=== PATIENT | male | born 1950 | race Caucasian/White ===

== ENCOUNTER 2020-06-22 13:18 | Outpatient (REF) | payer MEDICARE, SELFPAY ==
--- NOTE | ~2020-06-22 | XR_ITS ---
EXAMINATION: LUMBAR SPINE AND SACROILIAC JOINTS X-RAY CLINICAL INFORMATION: Low back pain. Sacrococcygeal disorder. COMPARISON: Lumbar spine CT August 2010 TECHNIQUE: 5 views of the lumbar spine including bilateral oblique views and 3 views of the sacroiliac joints FINDINGS: Lumbar spine: There is mild curvature of the lumbar spine to the right. Bone alignment is otherwise normal. There is evidence of multilevel degenerative disc disease, greatest at L4-L5 and L5-S1. There is lower lumbar spine facet arthritis. No pars defect is seen. There is evidence of atherosclerotic disease. Sacrum: There are mild degenerative changes at the sacroiliac joints with some joint space narrowing. No fracture, dislocation or bone lesion is seen. XR/XR sacroiliac joint min 3V IMPRESSION: Lumbar spine: Mild curvature to the right. Multilevel degenerative disc disease and facet arthritis. Sacroiliac joints: Mild degenerative changes of the sacroiliac joints.
--- NOTE | ~2020-06-22 | XR_ITS ---
EXAMINATION: LUMBAR SPINE AND SACROILIAC JOINTS X-RAY CLINICAL INFORMATION: Low back pain. Sacrococcygeal disorder. COMPARISON: Lumbar spine CT August 2010 TECHNIQUE: 5 views of the lumbar spine including bilateral oblique views and 3 views of the sacroiliac joints FINDINGS: Lumbar spine: There is mild curvature of the lumbar spine to the right. Bone alignment is otherwise normal. There is evidence of multilevel degenerative disc disease, greatest at L4-L5 and L5-S1. There is lower lumbar spine facet arthritis. No pars defect is seen. There is evidence of atherosclerotic disease. Sacrum: There are mild degenerative changes at the sacroiliac joints with some joint space narrowing. No fracture, dislocation or bone lesion is seen. XR/XR lumbar spine 4V min IMPRESSION: Lumbar spine: Mild curvature to the right. Multilevel degenerative disc disease and facet arthritis. Sacroiliac joints: Mild degenerative changes of the sacroiliac joints.
== END 2020-06-22 13:19 | disposition home or self-care (01) ==
LOC: HO.HMGCX 13:18
PROVIDERS: PCP Internal Medicine; Visit Provider Internal Medicine
DX: M54.5 Low back pain (principal); M53.3 Sacrococcygeal disorders, not elsewhere classified
CPT/HCPCS: 72110; 72202

== ENCOUNTER 2020-08-03 11:00 | Outpatient (REF) | payer MEDICARE, SELFPAY ==
[2020-08-03 11:30] LABS: MANUAL DIFF FLAG NO
[2020-08-03 11:43] LABS: Basophils Percent Auto 0.6 % (0-2); Eosinophils Absolute Auto 0.2 X10*3/uL (0.0-0.4); Hematocrit 51.4 % (42-52); Hemoglobin 17.1 g/dl (14.0-18.0); Imm Gran Abs Auto 0.02 X10*3/uL (0.00-0.03); Imm Gran Pct Auto 0.3 % (0.0-0.4); Lymphocytes Absolute Auto 1.1 X10*3/uL (1.2-4.9); Lymphocytes Percent Auto 17.1 % (20-40); Mean Corpuscular HGB Conc 33.3 g/dl (31.0-36.0); Mean Corpuscular Hemoglobin 29.4 pg (27.0-33.0); Mean Corpuscular Volume 88.5 fL (80-98); Mean Platelet Volume 10.4 fL (9.4-12.4); Monocytes Absolute Auto 0.6 X10*3/uL (0.1-1.2); Monocytes Percent Auto 9.5 % (2-11); Neutrophils Absolute Auto 4.4 X10*3/uL (2.0-8.3); Neutrophils Percent Auto 69.5 % (45-73); Platelet Count 205 X10*3/uL (160-400); Red Blood Count 5.81 X10*6/uL (4.60-5.80); Red Cell Distribution Width 13.2 % (11.0-16.0); White Blood Count 6.3 X10*3/uL (4.8-10.8)
[2020-08-03 11:54] LABS: Estimated Average Glucose 120 mg/dL; Hemoglobin A1c % 5.8 %
[2020-08-03 12:10] LABS: Glucose Urine UA NEG (NEG); Leukocyte Esterase Urine NEG (NEG); Nitrite Urine NEG (NEG); PH 5.5 (5.0-8.0); Specific Gravity - Urine 1.025 (1.005-1.025); Urine Blood NEG (NEG); Urine Ketones NEG (NEG); Urine Protein NEG (NEG-TRACE)
[2020-08-03 12:18] LABS: Appearance Urine CLEAR; Color Urine YELLOW
[2020-08-03 12:19] LABS: Alanine Aminotransferase 17 U/L (0-40); Albumin Level 4.5 g/dL (3.5-5.0); Alkaline Phosphatase 64 U/L (39-117); Anion Gap 11 (12-20); Aspartate Amino Transferase 18 U/L (5-37); Bilirubin Total 0.9 mg/dL (0.0-1.0); Blood Urea Nitrogen 26 mg/dL (9-16); Calcium 10.1 mg/dL (8.4-10.2); Carbon Dioxide 32 mmol/L (22-29); Chloride 101 mmol/L (96-108); Cholesterol 136 mg/dL; Estimated Glomerular Filt Rate 54; Glucose Fasting 131 mg/dL (60-99); HDL Cholesterol 45 mg/dL; LDL Cholesterol Calculated 62 mg/dl; Sodium 140 mmol/L (135-145); Total Protein 7.2 g/dL (6.5-8.0); Triglycerides 149 mg/dL
[2020-08-03 13:32] LABS: Creatinine Urine 132.08 mg/dL; Microalbumin Urine < 5.0 mg/L
[2020-08-03 13:54] LABS: Prostate Specific Antigen Scr 1.23 ng/mL (<0.05-4.0)
== END 2020-08-03 11:01 | disposition home or self-care (01) ==
LOC: HO.LNP 11:00
PROVIDERS: Visit Provider Internal Medicine
DX: E78.00 Pure hypercholesterolemia, unspecified (principal); R73.09 Other abnormal glucose; I10 Essential (primary) hypertension; D72.810 Lymphocytopenia
CPT/HCPCS: 80053; 80061; 81003; 82043; 83036; 84153; 85025

== ENCOUNTER 2021-01-31 10:22 | Outpatient (REF) | payer MEDICARE, SELFPAY ==
[2021-01-31 11:18] LABS: Estimated Average Glucose 134 mg/dL; Hemoglobin A1c % 6.3 %
[2021-01-31 11:29] LABS: Alanine Aminotransferase 20 U/L (0-40); Albumin Level 4.3 g/dL (3.5-5.0); Alkaline Phosphatase 66 U/L (39-117); Aspartate Amino Transferase 19 U/L (5-37); Bilirubin Direct 0.3 mg/dL (0.0-0.5); Bilirubin Total 0.9 mg/dL (0.0-1.0); Blood Urea Nitrogen 25 mg/dL (9-16); Cholesterol 133 mg/dL; Estimated Glomerular Filt Rate 51; HDL Cholesterol 44 mg/dL; LDL Cholesterol Calculated 65 mg/dl; Triglycerides 122 mg/dL
[2021-01-31 12:14] LABS: Reflex LDLD? No
== END 2021-01-31 10:23 | disposition home or self-care (01) ==
LOC: HO.LNP 10:22
PROVIDERS: Visit Provider Internal Medicine
DX: R79.9 Abnormal finding of blood chemistry, unspecified (principal); E78.00 Pure hypercholesterolemia, unspecified; R73.03 Prediabetes
CPT/HCPCS: 80061; 80076; 82565; 83036; 84520

== ENCOUNTER → 2021-06-11 07:41 | Outpatient (REF) | payer MEDICARE, SELFPAY ==
--- NOTE | 2021-06-11 07:46 | CA_ITS ---
Acquisition Time: 2021-06-11 07:51:52 Total Exercise Time: 00:07:31 Test Indications: CP, SOB Medications: SEE CHART Protocol: JANIS Max HR: 146 BPM 96% of Pred: 151 BPM Max BP: 198/070 mmHG Max Work Load: 9.3 METS Exercise stress test with exercise 7 min 31 sec of Janis protocol, with report of a tightness along the lower rib cage area with mild sob, with isolated PVCs, with hypertensive response to exercise with max BP 198/70, without EKG changes meeting criteria for ischemia.In recovery his symptom gradually improved. Test reviewed with Dr Sparks. Called Dr Sandoval office with above report. Recommended stress echo for further evaluation of his symptom. Referred By: Delmar Sandoval Overread By: NEMO GOLD
== END ==
LOC: HO.CARD 07:41
PROVIDERS: PCP Internal Medicine; Visit Provider Internal Medicine
DX: R07.2 Precordial pain (principal)
CPT/HCPCS: 93017

== ENCOUNTER → 2021-07-03 10:31 | Outpatient (REF) | payer MEDICARE, SELFPAY ==
--- NOTE | 2021-07-03 11:00 | CA_ITS ---
Acquisition Time: 2021-07-03 11:02:52 Total Exercise Time: 00:07:00 Test Indications: cp Medications: see chart Protocol: JANIS Max HR: 150 BPM 99% of Pred: 151 BPM Max BP: 188/060 mmHG Max Work Load: 8.5 METS Exercise stress test with exercise 7 min of Janis protocol, with left lower anterior rib edge discomfort at baseline which did not change with exercise, with mild sob, with isolated PVCs, with normotensive response to exercise with max BP 188/60, without EKG changes meeting criteria for ischemia. Echo images obtained by tech at rest and immediately post peak exercise. Defiinity contrast used. Test reviewed with Dr Sparks. Referred By: Delmar Sandoval Overread By: NEMO GOLD
== END ==
LOC: HO.CARD 10:31
PROVIDERS: PCP Internal Medicine; Visit Provider Internal Medicine
DX: I25.10 Atherosclerotic heart disease of native coronary artery without angina pectoris (principal)
CPT/HCPCS: 93350; Q9957

== ENCOUNTER 2021-08-08 10:41 | Outpatient (REF) | payer MEDICARE, SELFPAY ==
[2021-08-08 10:46] LABS: MANUAL DIFF FLAG NO
[2021-08-08 11:01] LABS: Basophils Absolute Auto 0.1 X10*3/uL (0.0-0.2); Basophils Percent Auto 0.8 % (0-2); Eosinophils Absolute Auto 0.1 X10*3/uL (0.0-0.4); Eosinophils Percent Auto 2.1 % (0-4); Hematocrit 50.4 % (42.0-52.0); Hemoglobin 16.8 g/dl (14.0-18.0); Imm Gran Abs Auto 0.02 X10*3/uL (0.00-0.03); Imm Gran Pct Auto 0.3 % (0.0-0.4); Lymphocytes Absolute Auto 1.1 X10*3/uL (1.2-4.9); Lymphocytes Percent Auto 16.2 % (20-40); Mean Corpuscular HGB Conc 33.3 g/dl (31.0-36.0); Mean Corpuscular Hemoglobin 28.7 pg (27.0-33.0); Mean Platelet Volume 10.1 fL (9.4-12.4); Monocytes Absolute Auto 0.6 X10*3/uL (0.1-1.2); Monocytes Percent Auto 9.3 % (2-11); Neutrophils Absolute Auto 4.7 x10*3/uL (2.0-8.3); Neutrophils Percent Auto 71.3 % (45-73); Platelet Count 192 X10*3/uL (160-400); Red Blood Count 5.86 X10*6/uL (4.60-5.80); Red Cell Distribution Width 12.9 % (11.0-16.0); White Blood Count 6.6 X10*3/uL (4.8-10.8)
[2021-08-08 11:07] LABS: Appearance Urine CLEAR; Color Urine YELLOW; Glucose Urine UA NEG (NEG); Leukocyte Esterase Urine NEG (NEG); Nitrite Urine NEG (NEG); Urine Blood NEG (NEG); Urine Ketones NEG (NEG); Urine Protein NEG (NEG-TRACE)
[2021-08-08 11:11] LABS: Estimated Average Glucose 140 mg/dL; Hemoglobin A1c % 6.5 %
[2021-08-08 11:46] LABS: Alanine Aminotransferase 22 U/L (0-40); Albumin Level 4.3 g/dL (3.5-5.0); Alkaline Phosphatase 71 U/L (39-117); Anion Gap 12 (12-20); Aspartate Amino Transferase 20 U/L (5-37); Bilirubin Total 0.9 mg/dL (0.0-1.0); Blood Urea Nitrogen 23 mg/dL (9-16); Carbon Dioxide 28 mmol/L (22-29); Chloride 101 mmol/L (96-108); Cholesterol 128 mg/dL; Estimated Glomerular Filt Rate 54; Glucose Random 146 mg/dL (60-115); HDL Cholesterol 37 mg/dL; LDL Cholesterol Calculated 63 mg/dl; Sodium 137 mmol/L (135-145); Total Protein 7.2 g/dL (6.5-8.0); Triglycerides 140 mg/dL
[2021-08-08 12:13] LABS: Creatinine Urine 104.65 mg/dL; Microalbumin Urine < 5.0 mg/L
[2021-08-08 18:33] LABS: PSA,Total (Free>4and<10) 1.65 ng/mL (0.00-4.00)
== END 2021-08-08 10:42 | disposition home or self-care (01) ==
LOC: HO.LNP 10:41
PROVIDERS: Visit Provider Internal Medicine
DX: Z12.5 Encounter for screening for malignant neoplasm of prostate (principal); I10 Essential (primary) hypertension; R73.03 Prediabetes; E78.00 Pure hypercholesterolemia, unspecified; D72.810 Lymphocytopenia; E05.20 Thyrotoxicosis with toxic multinodular goiter without thyrotoxic crisis or storm
CPT/HCPCS: 80053; 80061; 81003; 82043; 83036; 84153; 85025

== ENCOUNTER 2021-12-19 10:38 | Outpatient (REF) | payer MEDICARE, SELFPAY ==
[2021-12-19 10:45] LABS: Appearance Urine HAZY; Color Urine YELLOW; Glucose Urine UA 500 MG/DL (NEG); Leukocyte Esterase Urine NEG (NEG); Nitrite Urine POS (NEG); Urine Blood 2+ (NEG); Urine Ketones 5 MG/DL (NEG); Urine Protein 2+ MG/DL (NEG-TRACE)
[2021-12-19 10:53] LABS: Bacteria Urine 1+ /LPF; Mucus Urine 1+ /LPF; Squamous Epithelial Cell Urine TRACE /LPF
== END 2021-12-19 10:39 | disposition home or self-care (01) ==
LOC: HO.LNP 10:38
PROVIDERS: Visit Provider Internal Medicine
DX: R30.0 Dysuria (principal)
CPT/HCPCS: 81001; 87086

== ENCOUNTER 2022-01-02 12:22 | Outpatient (REF) | payer MEDICARE, SELFPAY ==
[2022-01-02 12:31] LABS: Appearance Urine Clear; Color Urine Yellow; Glucose Urine UA >=1000 mg/dL (Negative); Leukocyte Esterase Urine Negative (Negative); Nitrite Urine Negative (Negative); PH 5.5 (5.0-8.0); Urine Blood Negative (Negative); Urine Ketones Negative (Negative); Urine Protein Negative (Neg-Trace)
[2022-01-02 12:33] LABS: Bacteria Urine None Seen (None Seen); Hyaline Casts Urine 0-2 /LPF (0-2); RBC Urine 0-2 /HPF (0-2); Squamous Epithelial Cell Urine 0-2 /HPF (0-2); WBC Urine 0-5 /HPF (0-5)
== END 2022-01-02 12:23 | disposition home or self-care (01) ==
LOC: HO.LNP 12:22
PROVIDERS: Visit Provider Internal Medicine
DX: N40.0 Benign prostatic hyperplasia without lower urinary tract symptoms (principal); R30.0 Dysuria
CPT/HCPCS: 81001; 87086

== ENCOUNTER 2022-01-23 11:05 | Outpatient (REF) | payer MEDICARE, SELFPAY ==
[2022-01-23 11:51] LABS: Appearance Urine Cloudy; Color Urine Yellow; Glucose Urine UA 500 mg/dL (Negative); Leukocyte Esterase Urine Moderate (2+) (Negative); Nitrite Urine Positive (Negative); PH 5.5 (5.0-9.0); Urine Blood Trace (Negative); Urine Ketones Negative (Negative); Urine Protein Negative (Neg-Trace)
[2022-01-23 11:54] LABS: Bacteria Urine 4+ (None Seen); Hyaline Casts Urine 0-2 /LPF (0-2); RBC Urine 0-2 /HPF (0-2); Squamous Epithelial Cell Urine 0-2 /HPF (0-2); UACC Culture Trigger YES; WBC Urine >50 /HPF (0-5)
== END 2022-01-23 11:06 | disposition home or self-care (01) ==
LOC: HO.LAB 11:05
PROVIDERS: PCP Internal Medicine; Visit Provider Internal Medicine
DX: R35.0 Frequency of micturition (principal); N39.0 Urinary tract infection, site not specified
CPT/HCPCS: 81001; 87086; 87088; 87186

== ENCOUNTER 2022-02-13 11:58 | Outpatient (REF) | payer MEDICARE, SELFPAY ==
[2022-02-13 12:19] LABS: Appearance Urine Clear; Color Urine Yellow; Glucose Urine UA Negative (Negative); Leukocyte Esterase Urine Negative (Negative); Nitrite Urine Negative (Negative); PH 5.5 (5.0-9.0); Specific Gravity - Urine 1.015 (1.005-1.025); Urine Blood Negative (Negative); Urine Ketones Negative (Negative); Urine Protein Negative (Neg-Trace)
[2022-02-13 12:36] LABS: Bacteria Urine None Seen (None Seen); Hyaline Casts Urine 0-2 /LPF (0-2); Squamous Epithelial Cell Urine 0-2 /HPF (0-2); WBC Urine 0-5 /HPF (0-5)
== END 2022-02-13 11:59 | disposition home or self-care (01) ==
LOC: HO.LNP 11:58
PROVIDERS: Visit Provider Internal Medicine
DX: N40.0 Benign prostatic hyperplasia without lower urinary tract symptoms (principal); R31.9 Hematuria, unspecified
CPT/HCPCS: 81001; 87086

== ENCOUNTER 2022-02-27 11:35 | Outpatient (REF) | payer MEDICARE, SELFPAY ==
[2022-02-27 11:52] LABS: Appearance Urine Clear; Color Urine Yellow; Glucose Urine UA >=1000 mg/dL (Negative); Leukocyte Esterase Urine Negative (Negative); Nitrite Urine Negative (Negative); UMIC TRIGGER UA YES; Urine Blood Negative (Negative); Urine Ketones Negative (Negative); Urine Protein Negative (Neg-Trace)
[2022-02-27 11:56] LABS: Bacteria Urine None Seen (None Seen); Hyaline Casts Urine 0-2 /LPF (0-2); RBC Urine 0-2 /HPF (0-2); Squamous Epithelial Cell Urine 0-2 /HPF (0-2); WBC Urine 0-5 /HPF (0-5)
== END 2022-02-27 11:36 | disposition home or self-care (01) ==
LOC: HO.LNP 11:35
PROVIDERS: Visit Provider Internal Medicine
DX: N39.0 Urinary tract infection, site not specified (principal)
CPT/HCPCS: 81001; 87086

== ENCOUNTER 2022-03-14 10:32 | Outpatient (REF) | payer MEDICARE, SELFPAY ==
[2022-03-14 11:55] LABS: Appearance Urine Clear; Color Urine Yellow; Glucose Urine UA 100 mg/dL (Negative); Leukocyte Esterase Urine Negative (Negative); Nitrite Urine Negative (Negative); PH 5.5 (5.0-9.0); Specific Gravity - Urine 1.015 (1.005-1.025); Urine Blood Negative (Negative); Urine Ketones Negative (Negative); Urine Protein Negative (Neg-Trace)
[2022-03-14 12:00] LABS: Bacteria Urine None Seen (None Seen); Hyaline Casts Urine 0-2 /LPF (0-2); Squamous Epithelial Cell Urine 0-2 /HPF (0-2); WBC Urine 0-5 /HPF (0-5)
== END 2022-03-14 10:33 | disposition home or self-care (01) ==
LOC: HO.LNP 10:32
PROVIDERS: Visit Provider Internal Medicine
DX: N39.0 Urinary tract infection, site not specified (principal); R35.89 Other polyuria; R31.9 Hematuria, unspecified
CPT/HCPCS: 81001; 87086

== ENCOUNTER 2022-04-07 10:36 | Outpatient (REF) | payer MEDICARE, SELFPAY ==
[2022-04-07 11:46] LABS: Alanine Aminotransferase 24 U/L (0-40); Albumin Level 4.3 g/dL (3.5-5.0); Alkaline Phosphatase 83 U/L (39-117); Aspartate Amino Transferase 21 U/L (5-37); Bilirubin Direct 0.3 mg/dL (0.0-0.5); Bilirubin Total 0.8 mg/dL (0.0-1.0); Cholesterol 139 mg/dL; HDL Cholesterol 42 mg/dL; LDL Cholesterol Calculated 66 mg/dl; Total Protein 7.2 g/dL (6.5-8.0); Triglycerides 158 mg/dL; Uric Acid 4.8 mg/dL (3.4-7.0)
[2022-04-07 13:39] LABS: Reflex LDLD? No
== END 2022-04-07 10:37 | disposition home or self-care (01) ==
LOC: HO.LNP 10:36
PROVIDERS: Visit Provider Internal Medicine
DX: R73.03 Prediabetes (principal); E78.00 Pure hypercholesterolemia, unspecified; M1A.0790 Idiopathic chronic gout, unspecified ankle and foot, without tophus (tophi)
CPT/HCPCS: 80061; 80076; 84550

== ENCOUNTER 2022-08-11 10:52 | Outpatient (REF) | payer MEDICARE, SELFPAY ==
[2022-08-11 11:05] LABS: MANUAL DIFF FLAG NO
[2022-08-11 11:15] LABS: Basophils Percent Auto 0.7 % (0-2); Eosinophils Absolute Auto 0.2 X10*3/uL (0.0-0.4); Eosinophils Percent Auto 2.6 % (0-4); Hematocrit 50.9 % (42.0-52.0); Hemoglobin 16.9 g/dl (14.0-18.0); Imm Gran Abs Auto 0.01 X10*3/uL (0.00-0.03); Imm Gran Pct Auto 0.2 % (0.0-0.4); Lymphocytes Absolute Auto 1.1 X10*3/uL (1.2-4.9); Lymphocytes Percent Auto 17.6 % (20-40); Mean Corpuscular HGB Conc 33.2 g/dl (31.0-36.0); Mean Corpuscular Hemoglobin 28.8 pg (27.0-33.0); Mean Corpuscular Volume 86.7 fL (80.0-98.0); Mean Platelet Volume 10.1 fL (9.4-12.4); Monocytes Absolute Auto 0.6 X10*3/uL (0.1-1.2); Monocytes Percent Auto 9.2 % (2-11); Neutrophils Absolute Auto 4.2 x10*3/uL (2.0-8.3); Neutrophils Percent Auto 69.7 % (45-73); Platelet Count 179 X10*3/uL (160-400); Red Blood Count 5.87 X10*6/uL (4.60-5.80); Red Cell Distribution Width 13.4 % (11.0-16.0); White Blood Count 6.1 X10*3/uL (4.8-10.8)
[2022-08-11 11:30] LABS: Appearance Urine Clear; Color Urine Yellow; Glucose Urine UA >=1000 mg/dL (Negative); Leukocyte Esterase Urine Negative (Negative); Nitrite Urine Negative (Negative); PH 5.5 (5.0-9.0); Specific Gravity - Urine >= 1.030 (1.005-1.025); UMIC TRIGGER UACC YES; Urine Blood Negative (Negative); Urine Ketones Trace mg/dL (Negative); Urine Protein Negative (Neg-Trace)
[2022-08-11 11:33] LABS: Bacteria Urine None Seen (None Seen); Hyaline Casts Urine 0-2 /LPF (0-2); RBC Urine 0-2 /HPF (0-2); Squamous Epithelial Cell Urine 0-2 /HPF (0-2); WBC Urine 0-5 /HPF (0-5)
[2022-08-11 11:40] LABS: Estimated Average Glucose 128 mg/dL; Hemoglobin A1c % 6.1 %
[2022-08-11 11:44] LABS: Alanine Aminotransferase 20 U/L (0-40); Albumin Level 4.4 g/dL (3.5-5.0); Alkaline Phosphatase 79 U/L (39-117); Anion Gap 14 (12-20); Aspartate Amino Transferase 19 U/L (5-37); Bilirubin Total 1.1 mg/dL (0.0-1.0); Blood Urea Nitrogen 29 mg/dL (9-16); Calcium 9.7 mg/dL (8.4-10.2); Carbon Dioxide 28 mmol/L (22-29); Chloride 101 mmol/L (96-108); Cholesterol 133 mg/dL; Estimated Glomerular Filt Rate 57; Glucose Fasting 121 mg/dL (60-99); HDL Cholesterol 39 mg/dL; LDL Cholesterol Calculated 65 mg/dl; Sodium 139 mmol/L (135-145); Total Protein 7.1 g/dL (6.5-8.0); Triglycerides 145 mg/dL
[2022-08-11 12:02] LABS: PSA,Total (Free>4and<10) 2.16 ng/mL (0.00-4.00)
[2022-08-11 12:24] LABS: Creatinine Urine 117.39 mg/dL; Microalbum/Creatinine Ratio Ur 6.8 ug/mg cr
== END 2022-08-11 10:53 | disposition home or self-care (01) ==
LOC: HO.LNP 10:52
PROVIDERS: Visit Provider Internal Medicine
DX: Z12.5 Encounter for screening for malignant neoplasm of prostate (principal); I10 Essential (primary) hypertension; E78.00 Pure hypercholesterolemia, unspecified; D72.810 Lymphocytopenia; E11.9 Type 2 diabetes mellitus without complications; I25.10 Atherosclerotic heart disease of native coronary artery without angina pectoris; N40.0 Benign prostatic hyperplasia without lower urinary tract symptoms
CPT/HCPCS: 80053; 80061; 81001; 82043; 83036; 84153; 85025

== ENCOUNTER 2022-09-15 12:12 | Outpatient (REF) | payer MEDICARE, SELFPAY ==
[2022-09-15 13:30] LABS: Blood Urea Nitrogen 22 mg/dL (9-16); Estimated Glomerular Filt Rate > 60
== END 2022-09-15 12:13 | disposition home or self-care (01) ==
LOC: HO.LNP 12:12
PROVIDERS: Visit Provider Internal Medicine
DX: I10 Essential (primary) hypertension (principal)
CPT/HCPCS: 82565; 84520

== ENCOUNTER 2023-03-09 11:57 | Outpatient (REF) | payer MEDICARE, SELFPAY ==
[2023-03-09 12:22] LABS: Cholesterol 135 mg/dL (<200); HDL Cholesterol 44 mg/dL (>40); LDL Cholesterol Calculated 62 mg/dL (<100); Triglycerides 147 mg/dL (<150)
[2023-03-09 12:24] LABS: Alanine Aminotransferase 20 U/L (0-40); Albumin Level 4.2 g/dL (3.5-5.0); Alkaline Phosphatase 80 U/L (39-117); Aspartate Amino Transferase 18 U/L (5-37); Bilirubin Direct 0.4 mg/dL (0.0-0.5); Bilirubin Total 0.9 mg/dL (0.0-1.0); Glucose Fasting 121 mg/dL (60-99); Total Protein 7.3 g/dL (6.5-8.0)
[2023-03-09 12:27] LABS: Estimated Average Glucose 114 mg/dL; Hemoglobin A1c % 5.6 % (<6.0)
[2023-03-09 13:28] LABS: Reflex LDLD? No
[2023-08-07 18:36] LABS: Appearance Urine Clear; Color Urine Yellow; Glucose Urine UA Negative (Negative); Leukocyte Esterase Urine Negative (Negative); Nitrite Urine Negative (Negative); Urine Blood Negative (Negative); Urine Ketones Negative (Negative); Urine Protein Negative (Neg-Trace)
== END 2023-03-09 11:58 | disposition home or self-care (01) ==
LOC: HO.LNP 11:57
PROVIDERS: Visit Provider Internal Medicine
DX: E78.00 Pure hypercholesterolemia, unspecified (principal); E11.9 Type 2 diabetes mellitus without complications
CPT/HCPCS: 80061; 80076; 82947; 83036

== ENCOUNTER 2023-08-07 | Outpatient (REF) | payer MEDICARE, SELFPAY | END 2023-08-07 00:01 | disposition home or self-care (01) | LOC: HO.LNP | PROVIDERS: Visit Provider Internal Medicine | DX: Z13.89 Encounter for screening for other disorder (principal) ==

== ENCOUNTER 2023-09-10 10:50 | Outpatient (REF) | payer MEDICARE, SELFPAY ==
[2023-09-10 10:56] LABS: MANUAL DIFF FLAG NO
[2023-09-10 11:25] LABS: Appearance Urine Clear; Color Urine Yellow; Glucose Urine UA Negative (Negative); Leukocyte Esterase Urine Negative (Negative); Nitrite Urine Negative (Negative); Urine Blood Negative (Negative); Urine Ketones Negative (Negative); Urine Protein Negative (Neg-Trace)
[2023-09-10 11:27] LABS: Basophils Absolute Auto 0.1 X10*3/uL (0.0-0.2); Basophils Percent Auto 0.8 % (0-2); Eosinophils Absolute Auto 0.2 X10*3/uL (0.0-0.4); Eosinophils Percent Auto 3.8 % (0-4); Hematocrit 51.4 % (42.0-52.0); Hemoglobin 17.2 g/dl (14.0-18.0); Imm Gran Abs Auto 0.02 X10*3/uL (0.00-0.03); Imm Gran Pct Auto 0.3 % (0.0-0.4); Lymphocytes Percent Auto 16.9 % (20-40); Mean Corpuscular HGB Conc 33.5 g/dl (31.0-36.0); Mean Corpuscular Hemoglobin 29.4 pg (27.0-33.0); Mean Corpuscular Volume 87.7 fL (80.0-98.0); Mean Platelet Volume 10.4 fL (9.4-12.4); Monocytes Absolute Auto 0.5 X10*3/uL (0.1-1.2); Monocytes Percent Auto 8.9 % (2-11); Neutrophils Absolute Auto 4.2 x10*3/uL (2.0-8.3); Neutrophils Percent Auto 69.3 % (45-73); Platelet Count 151 X10*3/uL (160-400); Red Blood Count 5.86 X10*6/uL (4.60-5.80); Red Cell Distribution Width 13.6 % (11.0-16.0); White Blood Count 6.1 X10*3/uL (4.8-10.8)
[2023-09-10 11:31] LABS: Bacteria Urine None Seen (None Seen); Hyaline Casts Urine 0-2 /LPF (0-2); RBC Urine 0-2 /HPF (0-2); Squamous Epithelial Cell Urine 0-2 /HPF (0-2); WBC Urine 0-5 /HPF (0-5)
[2023-09-10 11:33] LABS: Alanine Aminotransferase 21 U/L (0-40); Albumin Level 4.1 g/dL (3.5-5.0); Alkaline Phosphatase 70 U/L (39-117); Anion Gap 8 (12-20); Aspartate Amino Transferase 20 U/L (5-37); Bilirubin Total 0.7 mg/dL (0.0-1.0); Blood Urea Nitrogen 21 mg/dL (9-16); Calcium 9.8 mg/dL (8.4-10.2); Carbon Dioxide 30 mmol/L (22-29); Chloride 105 mmol/L (96-108); Cholesterol 128 mg/dL (<200); Estimated Glomerular Filt Rate > 60; Glucose Fasting 141 mg/dL (60-99); HDL Cholesterol 42 mg/dL (>40); LDL Cholesterol Calculated 60 mg/dL (<100); Potassium 4.2 mmol/L (3.3-5.1); Sodium 139 mmol/L (135-145); Total Protein 7.2 g/dL (6.5-8.0); Triglycerides 134 mg/dL (<150)
[2023-09-10 11:45] LABS: Estimated Average Glucose 120 mg/dL; Hemoglobin A1c % 5.8 % (<6.0)
[2023-09-10 11:50] LABS: PSA,Total (Free>4and<10) 1.81 ng/mL (0.00-4.00)
[2023-09-10 12:14] LABS: Creatinine Urine 123.56 mg/dL; Microalbum/Creatinine Ratio Ur 5.6 ug/mg cr (<30)
== END 2023-09-10 10:51 | disposition home or self-care (01) ==
LOC: HO.LNP 10:50
PROVIDERS: Visit Provider Internal Medicine
DX: Z12.5 Encounter for screening for malignant neoplasm of prostate (principal); I10 Essential (primary) hypertension; E78.00 Pure hypercholesterolemia, unspecified; E11.9 Type 2 diabetes mellitus without complications; N40.0 Benign prostatic hyperplasia without lower urinary tract symptoms
CPT/HCPCS: 80053; 80061; 81001; 82043; 82570; 83036; 84153; 85025

== ENCOUNTER 2023-09-18 06:29 | Day surgery (SDC) | payer MEDICARE, SELFPAY ==
--- NOTE | 2023-09-16 10:22 | HO.ANESPROP2 ---
Documented by User: Sloane Melgar NP 09/16/23 10:27 HPI - Anesthesia Eval Consult details Narrative: 73yo M for Colonoscopy Anesthesia Pre-Procedure Meds Is the patient on any of the following meds?: GLP1/DPP4 (Januvia) PMFSH Past Medical History Medical History (Updated 09/16/23 @ 10:25 by Sloaen Melgar NP) Enlarged prostate Non-insulin dependent type 2 diabetes mellitus Osteoarthritis Gout HTN (hypertension) HLD (hyperlipidemia) Hemorrhoids Diverticulosis Surgical History Surgical History (Updated 09/16/23 @ 10:25 by Sloane Melgar NP) Hx of eye surgery History of lumbar surgery Social History Social History Patient Tobacco Use Status: Former Tobacco user Use of substances other than those prescribed or required for medical reasons: No Are you DNR?: No Advance Directives: No Advance Directives Information Provided: Yes Meds Allergies Allergy/AdvReac Type Severity Reaction Status Date / Time meperidine [From Demerol] Allergy Unknown Angioedema Verified 09/18/23 06:57 Home Medications ?Medication ?Instructions ?Recorded ?Confirmed ?Last Taken ?Type allopurinol 300 mg tablet 300 mg PO DAILY 09/16/23 09/16/23 Unknown History ibuprofen 800 mg tablet 800 mg PO TID 09/16/23 09/16/23 Unknown History lisinopril 10 mg tablet 10 mg PO DAILY 09/16/23 09/16/23 Unknown History omeprazole 20 mg capsule,delayed 20 mg PO DAILY 09/16/23 09/16/23 Unknown History release rosuvastatin 10 mg tablet 10 mg PO Q OTHER DAY 09/16/23 09/16/23 Unknown History sitagliptin phosphate 50 mg tablet 50 mg PO DAILY 09/16/23 09/18/23 09/15/23 History (Januvia) tamsulosin 0.4 mg capsule 0.4 mg PO DAILY 09/16/23 09/16/23 Unknown History Assessment and Plan Assessment Anesthesia Assessment: Chart Reviewed Documented by User: Gabriel Silvestre MD 09/18/23 07:36 [facility] Past Medical History Medical History (Updated 09/16/23 @ 10:25 by Sloane Melgar NP) Enlarged prostate Non-insulin dependent type 2 diabetes mellitus Osteoarthritis Gout HTN (hypertension) HLD (hyperlipidemia) Hemorrhoids Diverticulosis Family History Family history of problems with anesthesia: No Surgical History Surgical History (Updated 09/16/23 @ 10:25 by Sloane Melgar NP) Hx of eye surgery History of lumbar surgery History of Problems with Anesthesia: No Social History Social History Patient Tobacco Use Status: Former Tobacco user Use of substances other than those prescribed or required for medical reasons: No Are you DNR?: No Advance Directives: No Advance Directives Information Provided: Yes Meds Allergies Allergy/AdvReac Type Severity Reaction Status Date / Time meperidine [From Demerol] Allergy Unknown Angioedema Verified 09/18/23 06:57 Home Medications ?Medication ?Instructions ?Recorded ?Confirmed ?Last Taken ?Type allopurinol 300 mg tablet 300 mg PO DAILY 09/16/23 09/16/23 Unknown History ibuprofen 800 mg tablet 800 mg PO TID 09/16/23 09/16/23 Unknown History lisinopril 10 mg tablet 10 mg PO DAILY 09/16/23 09/16/23 Unknown History omeprazole 20 mg capsule,delayed 20 mg PO DAILY 09/16/23 09/16/23 Unknown History release rosuvastatin 10 mg tablet 10 mg PO Q OTHER DAY 09/16/23 09/16/23 Unknown History sitagliptin phosphate 50 mg tablet 50 mg PO DAILY 09/16/23 09/18/23 09/15/23 History (Januvia) tamsulosin 0.4 mg capsule 0.4 mg PO DAILY 09/16/23 09/16/23 Unknown History Exam Airway Mallampati Class: II TM Dist: <=3cm Neck ROM: Full Denture: Upper Heart: ok Lungs: ok Assessment and Plan Final Anesthetic Review Family History of Problems with Anesthesia: No History of Problems with Anesthesia: No NPO: Yes ASA Class: III Final Preanesthetic Review: No Changes in Pt Med Stat, Meds/Allgs Chart Reviewed, Consent Obtained/Reviewed and Anes Risks/Benef Reviewed Patient Risk: Intermediate Procedure Risk: Low Anesthetic Plan Anesthetic Plan: MAC: and Agree w/ Assess. and Plan Disposition: Standard PACU
[2023-09-16 10:52] VITALS: BMI 31.7
[2023-09-18 06:58] VITALS: BMI 30.3
[2023-09-18 07:03] VITALS: BP 166/97; PULSE 85; RESP 16; TEMP 36.6; O2SAT 96
[2023-09-18] MEDS: Lactated Ringers 1,000 ML 100 ML IVCONT (07:19)
[2023-09-18 07:24] LABS: Glucose, Whole Blood 133 mg/dL (60-115)
[2023-09-18 08:41] VITALS: BP 137/85; PULSE 75; RESP 18; TEMP 36.1; O2SAT 95
--- NOTE | 2023-09-18 08:45 | PM.OP ---
Brief Operative Note Date of Service: 09/18/23 Pre-op diagnosis: Screening Post-op diagnosis: other (Polyps) Procedure: Colonoscopy to the cecum with bx, bx/removal of polyps, hot snare polypectomy Surgeon: Brayden Olivera MD Anesthesia: MAC Was an Box Stamper used for this Procedure?: No Estimated blood loss (mL): 2.0 Pathology: other (A. Ileocecal valve B. Transverse colon polyps) Condition: stable Disposition: PACU
[2023-09-18 08:56] VITALS: BP 142/66; PULSE 78; RESP 16; TEMP 36.1; O2SAT 95
[2023-09-18 09:11] VITALS: BP 159/89; PULSE 64; RESP 16; TEMP 36.2; O2SAT 95
--- NOTE | 2023-09-18 09:13 | OP_ITS ---
DATE OF SERVICE: 09/18/2023 SURGEON: Brayden Olivera MD INDICATIONS: The patient presents for evaluation of colorectal cancer screening and previous history of tubular adenomas of the colon. Full consent has been obtained from him for this, including risks of bleeding and perforation. PREOPERATIVE DIAGNOSIS: Colorectal cancer screening and previous history of tubular adenoma of the colon. POSTOPERATIVE DIAGNOSIS: PROCEDURE PERFORMED: Colonoscopy to the cecum with biopsies, biopsy and removal of polyp, and hot snare polypectomy. ESTIMATED BLOOD LOSS: COMPLICATIONS: ANESTHESIA: Monitored anesthesia care. ASSISTANTS: SPECIMENS: POSTOPERATIVE DIAGNOSES: Colorectal cancer screening and previous history of tubular adenoma of the colon, colon polyps, ileocecal valve lipoma, diverticulosis, internal hemorrhoids. DESCRIPTION OF PROCEDURE: The patient was placed in the left lateral decubitus position. The digital rectal exam revealed no abnormalities. The Olympus video pediatric colonoscope was entered into the rectum and advanced to the cecum. Advancement to the cecum was difficult and required rather prolonged abdominal wall pressure. Advancement was also difficult through the somewhat limited prep in different parts of the colon. However, once in the cecum, I did identify cecal pouch with appendiceal orifice. After a lot of irrigation and suctioning, I was able to visualize the cecal pouch well, and there did not appear to be any abnormalities. There did appear to be the previously known lipoma on the ileocecal valve, which was biopsied twice. The scope was then slowly withdrawn assessing all mucosal surfaces carefully. Preparation was limited in different parts of the colon, particularly in the left colon. I did spend a lot of time irrigating and suctioning. In the transverse colon were 2 flat, less than 5 mm polyps, which were each biopsied and completely removed with a cold biopsy forceps. In the transverse colon, there was also a 10 mm polyp, which was removed by hot snare polypectomy and recovered by suction and placed in the same container. The polypectomy site appeared clean, without any sign of residual polyp nor bleeding. I did not visualize any other polyps, colitis, nor angiodysplasia. There was a moderate amount of sigmoid diverticulosis. In the rectum, scope was retroflexed visualizing internal hemorrhoids, but no other pathology. Visualization of the distal rectum was somewhat limited due to the prep. The scope was straightened and withdrawn from the patient. He tolerated the procedure well and was returned to the recovery area in stable condition. IMPRESSION: 1. Colon polyps. 2. Diverticulosis. 3. Internal hemorrhoids. 4. Limited prep. PLAN: The results of the pathology will be checked. I would recommend a repeat colonoscopy in 3 years with a 2 day prep. I would recommend a Cologuard test in the interim given the otherwise limited prep today as well. He was advised not to use any aspirin and NSAIDs for 1 week. This has been discussed with his . MD NETO Rosario/DARION / [phone]
== END 2023-09-18 10:17 | disposition home or self-care (01) ==
PROVIDERS: PCP Internal Medicine; Visit Provider Internal Medicine
PROC: 0DJD8ZZ Inspection of Lower Intestinal Tract, Via Natural or Artificial Opening Endoscopic (ICD-10-PCS; CPT 45378; principal; 2023-09-18 07:30)
DX: Z12.11 Encounter for screening for malignant neoplasm of colon (principal); D12.3 Benign neoplasm of transverse colon; D17.79 Benign lipomatous neoplasm of other sites; K57.30 Diverticulosis of large intestine without perforation or abscess without bleeding; K64.8 Other hemorrhoids; Z86.010 Personal history of colon polyps; I10 Essential (primary) hypertension; E11.9 Type 2 diabetes mellitus without complications; Z79.899 Other long term (current) drug therapy
CPT/HCPCS: 45385; 45380; 82947; 88305; J2704

== ENCOUNTER 2023-12-22 11:17 | Outpatient (REF) | payer MEDICARE, SELFPAY ==
[2023-12-22 11:19] LABS: MANUAL DIFF FLAG NO
[2023-12-22 12:04] LABS: Basophils Absolute Auto 0.1 X10*3/uL (0.0-0.2); Basophils Percent Auto 0.7 % (0-2); Eosinophils Absolute Auto 0.2 X10*3/uL (0.0-0.4); Eosinophils Percent Auto 2.9 % (0-4); Hematocrit 50.8 % (42.0-52.0); Hemoglobin 17.3 g/dl (14.0-18.0); Imm Gran Abs Auto 0.03 X10*3/uL (0.00-0.03); Imm Gran Pct Auto 0.4 % (0.0-0.4); Lymphocytes Absolute Auto 1.1 X10*3/uL (1.2-4.9); Lymphocytes Percent Auto 14.9 % (20-40); Mean Corpuscular HGB Conc 34.1 g/dl (31.0-36.0); Mean Corpuscular Hemoglobin 29.3 pg (27.0-33.0); Mean Platelet Volume 10.2 fL (9.4-12.4); Monocytes Absolute Auto 0.8 X10*3/uL (0.1-1.2); Monocytes Percent Auto 10.2 % (2-11); Neutrophils Absolute Auto 5.2 x10*3/uL (2.0-8.3); Neutrophils Percent Auto 70.9 % (45-73); Platelet Count 174 X10*3/uL (160-400); Red Blood Count 5.91 X10*6/uL (4.60-5.80); Red Cell Distribution Width 13.4 % (11.0-16.0); White Blood Count 7.3 X10*3/uL (4.8-10.8)
== END 2023-12-22 11:18 | disposition home or self-care (01) ==
LOC: HO.LNP 11:17
PROVIDERS: Visit Provider Internal Medicine
DX: D69.6 Thrombocytopenia, unspecified (principal)
CPT/HCPCS: 85025

== ENCOUNTER 2024-03-25 10:59 | Outpatient (REF) | payer MEDICARE, SELFPAY ==
[2024-03-25 12:01] LABS: Alanine Aminotransferase 22 U/L (0-40); Albumin Level 4.2 g/dL (3.5-5.0); Alkaline Phosphatase 77 U/L (39-117); Aspartate Amino Transferase 22 U/L (5-37); Bilirubin Direct 0.3 mg/dL (0.0-0.5); Bilirubin Total 0.8 mg/dL (0.0-1.0); Cholesterol 129 mg/dL (<200); HDL Cholesterol 42 mg/dL (>40); LDL Cholesterol Calculated 58 mg/dL (<100); Total Protein 7.2 g/dL (6.5-8.0); Triglycerides 147 mg/dL (<150)
[2024-03-25 13:33] LABS: Reflex LDLD? No
== END 2024-03-25 11:00 | disposition home or self-care (01) ==
LOC: HO.LNP 10:59
PROVIDERS: Visit Provider Internal Medicine
DX: E78.00 Pure hypercholesterolemia, unspecified (principal)
CPT/HCPCS: 80061; 80076

== ENCOUNTER 2024-07-11 08:30 | Outpatient (REF) | payer MEDICARE, SELFPAY ==
[2024-07-11 10:36] LABS: MANUAL DIFF FLAG NO
[2024-07-11 10:48] LABS: Basophils Absolute Auto 0.1 X10*3/uL (0.0-0.2); Basophils Percent Auto 0.5 % (0-2); Eosinophils Absolute Auto 0.1 X10*3/uL (0.0-0.4); Eosinophils Percent Auto 1.3 % (0-4); Hematocrit 51.8 % (42.0-52.0); Hemoglobin 17.3 g/dl (14.0-18.0); Imm Gran Abs Auto 0.04 X10*3/uL (0.00-0.03); Imm Gran Pct Auto 0.4 % (0.0-0.4); Lymphocytes Absolute Auto 1.3 X10*3/uL (1.2-4.9); Lymphocytes Percent Auto 12.4 % (20-40); Mean Corpuscular HGB Conc 33.4 g/dl (31.0-36.0); Mean Corpuscular Hemoglobin 28.9 pg (27.0-33.0); Mean Corpuscular Volume 86.6 fL (80.0-98.0); Mean Platelet Volume 10.2 fL (9.4-12.4); Monocytes Absolute Auto 0.8 X10*3/uL (0.1-1.2); Monocytes Percent Auto 7.6 % (2-11); Neutrophils Percent Auto 77.8 % (45-73); Platelet Count 177 X10*3/uL (160-400); Red Blood Count 5.98 X10*6/uL (4.60-5.80); Red Cell Distribution Width 13.3 % (11.0-16.0); White Blood Count 10.2 X10*3/uL (4.8-10.8)
[2024-07-11 11:52] LABS: Alanine Aminotransferase 19 U/L (0-40); Albumin Level 4.2 g/dL (3.5-5.0); Alkaline Phosphatase 75 U/L (39-117); Anion Gap 13 (12-20); Aspartate Amino Transferase 19 U/L (5-37); Bilirubin Total 0.8 mg/dL (0.0-1.0); Blood Urea Nitrogen 22 mg/dL (9-16); Carbon Dioxide 25 mmol/L (22-29); Chloride 106 mmol/L (96-108); Estimated Glomerular Filt Rate > 60; Glucose Fasting 136 mg/dL (60-99); Potassium 4.3 mmol/L (3.3-5.1); Sodium 140 mmol/L (135-145); Total Protein 7.7 g/dL (6.5-8.0)
--- OUTSIDE RECORDS SUMMARY | 2024-07-11 11:55 | XMS_ITS | Clinical Summary ---
Author Organization [facility] Address [address] [place] [address] Phone Care Team Providers Care Rn Testing Name Role Phone Harsh Sandoval MD Primary Care Provider [phone] Encounters Date Type Department Care Team Description 06/28/2024 7:40 AM EST - 06/28/2024 11:59 PM EST Hospital Encounter [facility] Xray [address] [place] [phone] Unspecified abdominal pain Discharge Disposition: Home or Self Care 04/28/2024 7:32 AM EST - 04/28/2024 11:59 PM EST Hospital Encounter [facility] Ultrasound [address] [place] [phone] Multinodular goiter (nontoxic) Discharge Disposition: Home or Self Care 04/21/2024 10:31 AM EST - 04/21/2024 11:59 PM EST Hospital Encounter [facility] Ultrasound [address] [place] [phone] Unspecified abdominal pain Discharge Disposition: Home or Self Care from Last 3 Months Social History Tobacco Use Types Packs/Day Years Used Date Smoking Tobacco: Never Assessed Sex and Gender Information Value Date Recorded Sex Assigned at Male 04/26/2024 10:34 AM EST Legal Sex Male 8:57 AM EST Gender Identity Male 04/26/2024 10:34 AM EST Sexual Orientation Straight 04/26/2024 10 :34 AM EST Plan of Treatment Health Maintenance Due Date Last Done Comments Diabetes: Annual GFR (Glomerular Filtration Rate) 1952 Diabetes: Annual Foot Exam 1962 Diabetes: Annual Retina Eye Exam 1962 DTaP,Tdap,and Td Vaccines (1 - Tdap) 1971 Pneumococcal Vaccine: 50+ Years (1 of 1 - PCV) 2002 Zoster Vaccines (1 of 2) 2002 Abdominal Aortic Aneurysm (AAA) Screen 04/20/2022 Cholesterol Screening (Lipid Panel) 04/20/2022 Colorectal Cancer Screening: Colonoscopy 04/20/2022 Depression Screening 04/20/2022 Falls Risk Assessment 04/20/2022 Hepatitis C Screening 04/20/2022 Medicare Annual Wellness Visit 04/20/2022 Social Influencers of Health Screening 04/20/2022 COVID-19 Vaccine ( season) 2024 05/21/2021, 08/27/2020, 07/30/2020 Diabetes: Annual Urine Albumin-Creatinine Ratio (uACR) 06/28/2024 Diabetes: Blood Sugar Control Test (HGBA1C) 06/28/2024 RSV Immunization Patients 60+ Years Old (1 - 1-dose 75+ series) 2027 Influenza Vaccine Completed 04/07/2024, , 03/14/2022, Additional history exists HIB Vaccines Aged Out No longer eligi ble based on patient's age to complete this topic HPV Vaccines Aged Out No longer eligi ble based on patient's age to complete this topic Hepatitis A Vaccines Aged Out No long er eligible based on patient's age to complete this topic Hepatitis B Vaccines Aged Out No long er eligible based on patient's age to complete this topic IPV Vaccines Aged Out No longer eligi ble based on patient's age to complete this topic MMR Vaccines Aged Out No longer eligi ble based on patient's age to complete this topic Meningococcal ACWY Vaccine Aged Out N o longer eligible based on patient's age to complete this topic Meningococcal B Vacine Aged Out No lo nger eligible based on patient's age to complete this topic RSV Immunization Patients Under 20 months Aged Out No longer eligible based on patient's age to complete this topic Varicella Vaccines Aged Out No longer eligible based on patient's age to complete this topic Procedures Procedure Name Priority Date/Time Associated Diagnosis Comments XR UGI W AIR CONTRAST Routine 06/28/2024 8:29 AM EST Unspecified abdominal pain US HEAD NECK SOFT TISSUE Routine 04/28/2024 7:58 AM EST Multinodular goiter (nontoxic) US ABDOMEN COMPLETE Routine 04/21/2024 1 1:07 AM EST Unspecified abdominal pain from Last 3 Months Results * XR UGI w Air Contrast (06/28/2024 8:29 AM EST) Anatomical Region Laterality Modality Body Radiographic Radha ging 06/28/2024 10:1 0 AM EST Impressions 06/28/2024 10:29 AM EST 1. Mild esophageal dysmotility. 2. Tiny, sliding, axial hiatal hernia without visualized gastroesophageal reflux. 3. Prominent gastric mucosa along the greater curvature which may be secondary to underdistention, though history of gastritis should be considered. -------- FINAL REPORT -------- Dictated By: Ny Saldivar Dictated Date: 06/28/2024 10:10 ET Assigned Physician: José Miguel Milner Reviewed and Electronically Signed By: José Miguel Milner Signed Date: 06/28/2024 10:29 ET Workstation ID: [id number] Transcribed By: Self Edit Transcribed Date: 06/28/2024 10:19 ET Resident/PA/DIRECTOR DIVERSITY: Ny Saldivar Narrative 06/28/2024 10:29 AM EST FINDINGS: Double contrast UGI performed. COMPARISON: No prior upper GI imaging. HISTORY: Patient is a 74-year-old male with history of dysphagia. Generalized abdominal pain. 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 Bowel gas pattern is nonobstructive. There is a moderate to large amount of stool visualized within the entirety of the colon. There is slight dextroscoliosis of the lumbar spine with moderate bony degenerative changes. FINDINGS: Effervescent crystals were administered orally. Thick and thin barium was then administered orally under fluoroscopic control. Esophagus: There is mild esophageal dysmotility as demonstrated by tertiary contractions. Normal distensibility, and mucosal pattern. There is no evidence of obstruction. There is a tiny, sliding, axial hiatal hernia. ??Given patient's history of dysphagia, patient was instructed to swallow 13 mm barium tablet which did pass freely down the esophagus into the stomach. Stomach: Normal distensibility and motility. Prompt passage of contrast from the stomach into the duodenal bulb and sweep. No gastric mass or ulceration. There is prominence of the gastric rugae along the greater curvature which may be secondary to underdistention vs history of gastritis. Visualization of proximal small bowel is within normal limits. ?? Gastroesophageal reflux: Unable to elicit DAP: 1611.0 uGym^2 Procedure Note José Miguel Milner MD - 06/28/2024 FINDINGS: Double contrast UGI performed. COMPARISON: No prior upper GI imaging. HISTORY: Patient is a 74-year-old male with history of dysphagia.Generalized abdominal pain. 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 Bowel gaspattern is nonobstructive. There is a moderate to large amount of stoolvisualized within the entirety of the colon. There is slightdextroscoliosis of the lumbar spine with moderate bony degenerativechanges. FINDINGS: Effervescent crystals were administered orally. Thick and thinbarium was then administered orally under fluoroscopic control. Esophagus: There is mild esophageal dysmotility as demonstrated bytertiary contractions. Normal distensibility, and mucosal pattern. Thereis no evidence of obstruction. There is a tiny, sliding, axial hiatalhernia. Given patient's history of dysphagia, patient was instructed toswallow 13 mm barium tablet which did pass freely down the esophagus intothe stomach. Stomach: Normal distensibility and motility. Prompt passage of contrastfrom the stomach into the duodenal bulb and sweep. No gastric mass orulceration. There is prominence of the gastric rugae along the greatercurvature which may be secondary to underdistention vs history ofgastritis. Visualization of proximal small bowel is within normal limits. Gastroesophageal reflux: Unable to elicit DAP: 1611.0 uGym^2 IMPRESSION: 1. Mild esophageal dysmotility. 2. Tiny, sliding, axial hiatal hernia without visualized gastroesophagealreflux. 3. Prominent gastric mucosa along the greater curvature which may besecondary to underdistention, though history of gastritis should beconsidered. -------- FINAL REPORT -------- Dictated By: Ny Saldivar Dictated Date: 06/28/2024 10:10 ET Assigned Physician: José Miguel Milner Reviewed and Electronically Signed By: José Miguel Milner Signed Date: 06/28/2024 10:29 ET Workstation ID: [id number] Transcribed By: Self Edit Transcribed Date: 06/28/2024 10:19 ET Resident/PA/DIRECTOR DIVERSITY: Ny Saldivar us Delmar Sandoval MD IMG FLUOROSCOPY PROCEDURES Final Result * US Head Neck Soft Tissue (04/28/2024 7:58 AM EST) Anatomical Region Laterality Modality Head and Neck Ultrasound 04/29/2024 3:07 PM EST Addenda Addendum by Reginald Barrios MD on 05/25/2024 4:32 PM EST Addendum: There are thyroid nodules. Management of the thyroid nodules requires some clinical correlation. ??If tissue diagnosis has been previously performed and no malignancy was demonstrated, surveillance ultrasound can be performed annually. If tissue diagnosis has not been performed, solid masses greater than 2.5 cm are candidates for ultrasound-guided sampling. Solid masses between 1.5 and 2.5 cm can be managed by surveillance ultrasound annually or with ultrasound-guided biopsy. Given the relative stability, I favor repeat ultrasound in one year -------- ADDENDUM -------- Dictated By: Reginald Barrios Dictated Date: 05/25/2024 16:29 ET Assigned Physician: Reginald Barrios Reviewed and Electronically Signed By: Reginald Barrios Signed Date: 05/25/2024 16:32 ET Workstation ID: [id number] Transcribed By: Self Edit Transcribed Date: 05/25/2024 16:29 ET Impressions 04/29/2024 3:20 PM EST Multiple bilateral solid thyroid nodules. ??The largest nodule in the lower pole of the right lobe has a greatest diameter of 1.9 cm. ??This was 1.8 cm on the most recent previous. No new suspicious thyroid nodule either side TI-RADS Assessment (updated August 2016) Composition: ??cystic or spongiform: 0 pt ??mixed cystic and solid: 1 pt ??solid or almost completely solid: 2 pts Echogenicity: ?? anechoic: 0 pt ?? hyperechoic or isoechoic: 1 pt ?? hypoechoic: 2 pts ?? very hypoechoic: 3 pt Shape: ?? wider than tall: 0 pt ?? taller than wide: 3 pts Margin: ?? smooth: 0 pt ?? ill-defined: 0 pt ?? lobulated/irregular: 2 pts ?? extra-thyroidal extension: 3 pts Echogenic foci ?? none or large comet tail artifact: 0 pt ?? macro-calcification: 1 pt ?? peripheral/rim ca++: 2 pts ?? punctate echogenic foci: 3 pts TR1: ??0 pts; benign; no follow-up TR2: 2 pts; not suspicious; no FNA TR3: 3 pts; mildly suspicious; < or = 1.5 cm f/u; > or = 2.5 cm FNA TR4: 4-6 pts; moderately suspicious; < or = 1.0 cm follow-up; 1.5 cm FNA TR5: 7 or > pts; highly suspicious; .5-.9 cm f/u; 1.0 cm or > FNA -------- FINAL REPORT -------- Dictated By: Reginald Barrios Dictated Date: 04/29/2024 15:07 ET Assigned Physician: Reginald Barrios Reviewed and Electronically Signed By: Reginald Barrios Signed Date: 04/29/2024 15:20 ET Workstation ID: [id number] Transcribed By: Self Edit Transcribed Date: 04/29/2024 15:07 ET Narrative 04/29/2024 3:20 PM EST HISTORY: Multinodular goiter TECHNIQUE: Grayscale assessment of the thyroid was performed with a high frequency linear transducer. COMPARISON: ??Portions of a previous study 04/01/2023 FINDINGS: The right lobe of the thyroid measures: 5.1 x 2.4 x 2.6 cm Previous measurement: 6.5 x 2.4 x 2.1 cm Right lobe contour: The right lobe contour is smooth. Right lobe echogenicity: Homogeneous Right lobe vascularity: Normal The left lobe of the thyroid measures: 4.5 x 1.7 x 2.4 cm Previous measurement: 4.2 x 1.6 x 2.2 cm Left lobe contour: The left lobe contour is smooth. Left lobe echogenicity: Homogeneous Left lobe vascularity: Normal Isthmus measures (AP): 0.8 cm Previous measurement: 0.3 cm Isthmus contour: The isthmic contour is smooth. Isthmus echogenicity: Homogeneous Isthmus vascularity: Normal Masses: RIGHT LOBE Circumscribed slightly heterogeneous solid mass in the upper pole. ??There is posterior enhancement. ??There are some bright internal reflectors. ??There is a large amount of internal color signal. ??Oval shape with long axis parallel. ??No evidence of extrathyroidal extension 04/28/2024-1.4 x 1.0 x 1.0 cm 04/01/2023-1.3 x 0.9 x 1.2 cm 12/12/2019-1.1 x 0.6 x 0.9 cm There is a circumscribed hypoechoic solid oval mass in the lower pole. ??There is posterior enhancement. ??There is extensive internal color signal. ??There are no suspicious calcifications. ??There is no evidence of extrathyroidal extension 04/28/2024-1.7 x 1.9 x 1.7 cm 04/01/2023-1.7 x 1.8 x 1.4 cm 12/12/2019-2.0 x 1.6 x 1.6 cm There is a circumscribed nearly isoechoic solid oval nodule in the interpolar right lobe with long axis parallel. ??There is some posterior enhancement. ??No evidence of extrathyroidal extension 04/28/2024-0.9 x 0.8 x 1.0 cm 04/01/2023-0.7 x 1.6 x 0.8 cm 12/12/2019-1.2 x 0.6 x 1.0 cm There is a circumscribed oval nearly isoechoic solid nodule in the lower pole. ??No suspicious posterior features. ??No suspicious calcification. ??No evidence of extrathyroidal extension. ??Minimal color signal along the margin. 04/28/2024-1.2 x 0.5 x 1.0 cm This was not documented on 04/01/2023. ??This was likely present and unchanged on 12/12/2019 TR 3 LEFT LOBE There is a circumscribed oval solid nodule which is nearly isoechoic. ??No extrathyroidal extension. ??No suspicious calcification. ??No suspicious posterior features 04/28/2024-0.7 x 0.5 x 0.6 cm TR 3 There is a similar adjacent circumscribed solid nearly isoechoic oval mass with long axis parallel. ??Minimal posterior enhancement. ??No suspicious color signal. ??No calcification. ??No evidence of extrathyroidal extension 04/28/2024-0.8 x 0.5 x 0.7 cm TR 3 There was a 0.9 cm nodule with similar features on 04/01/2023 and the appearance is very similar to 12/12/2019 There are no new suspicious nodules on either side OTHER: Extrathyroidal extension: ??None Regional lymph nodes: ??No enlarged lymph nodes demonstrated Procedure Note Reginald Barrios MD - 04/29/2024 HISTORY: Multinodular goiter TECHNIQUE: Grayscale assessment of the thyroid was performed with a highfrequency linear transducer. COMPARISON: Portions of a previous study 04/01/2023 FINDINGS: The right lobe of the thyroid measures: 5.1 x 2.4 x 2.6 cm Previous measurement: 6.5 x 2.4 x 2.1 cm Right lobe contour: The right lobe contour is smooth. Right lobe echogenicity: Homogeneous Right lobe vascularity: Normal The left lobe of the thyroid measures: 4.5 x 1.7 x 2.4 cm Previous measurement: 4.2 x 1.6 x 2.2 cm Left lobe contour: The left lobe contour is smooth. Left lobe echogenicity: Homogeneous Left lobe vascularity: Normal Isthmus measures (AP): 0.8 cm Previous measurement: 0.3 cm Isthmus contour: The isthmic contour is smooth. Isthmus echogenicity: Homogeneous Isthmus vascularity: Normal Masses: RIGHT LOBE Circumscribed slightly heterogeneous solid mass in the upper pole. Thereis posterior enhancement. There are some bright internal reflectors.There is a large amount of internal color signal. Oval shape with longaxis parallel. No evidence of extrathyroidal extension 04/28/2024-1.4 x 1.0 x 1.0 cm 04/01/2023-1.3 x 0.9 x 1.2 cm 12/12/2019-1.1 x 0.6 x 0.9 cm There is a circumscribed hypoechoic solid oval mass in the lower pole.There is posterior enhancement. There is extensive internal color signal.There are no suspicious calcifications. There is no evidence ofextrathyroidal extension 04/28/2024-1.7 x 1.9 x 1.7 cm 04/01/2023-1.7 x 1.8 x 1.4 cm 12/12/2019-2.0 x 1.6 x 1.6 cm There is a circumscribed nearly isoechoic solid oval nodule in theinterpolar right lobe with long axis parallel. There is some posteriorenhancement. No evidence of extrathyroidal extension 04/28/2024-0.9 x 0.8 x 1.0 cm 04/01/2023-0.7 x 1.6 x 0.8 cm 12/12/2019-1.2 x 0.6 x 1.0 cm There is a circumscribed oval nearly isoechoic solid nodule in the lowerpole. No suspicious posterior features. No suspicious calcification. Noevidence of extrathyroidal extension. Minimal color signal along themargin. 04/28/2024-1.2 x 0.5 x 1.0 cm This was not documented on 04/01/2023. This was likely present andunchanged on 12/12/2019 TR 3 LEFT LOBE There is a circumscribed oval solid nodule which is nearly isoechoic. Noextrathyroidal extension. No suspicious calcification. No suspiciousposterior features 04/28/2024-0.7 x 0.5 x 0.6 cm TR 3 There is a similar adjacent circumscribed solid nearly isoechoic oval masswith long axis parallel. Minimal posterior enhancement. No suspiciouscolor signal. No calcification. No evidence of extrathyroidalextension 04/28/2024-0.8 x 0.5 x 0.7 cm TR 3 There was a 0.9 cm nodule with similar features on 04/01/2023 and theappearance is very similar to 12/12/2019 There are no new suspicious nodules on either side OTHER: Extrathyroidal extension: None Regional lymph nodes: No enlarged lymph nodes demonstrated IMPRESSION: Multiple bilateral solid thyroid nodules. The largest nodule in the lowerpole of the right lobe has a greatest diameter of 1.9 cm. This was 1.8 cmon the most recent previous. No new suspicious thyroid nodule either side TI-RADS Assessment (updated August 2016) Composition: cystic or spongiform: 0 pt mixed cystic and solid: 1 pt solid or almost completely solid: 2 pts Echogenicity: anechoic: 0 pt hyperechoic or isoechoic: 1 pt hypoechoic: 2 pts very hypoechoic: 3 pt Shape: wider than tall: 0 pt taller than wide: 3 pts Margin: smooth: 0 pt ill-defined: 0 pt lobulated/irregular: 2 pts extra-thyroidal extension: 3 pts Echogenic foci none or large comet tail artifact: 0 pt macro-calcification: 1 pt peripheral/rim ca++: 2 pts punctate echogenic foci: 3 pts TR1: 0 pts; benign; no follow-up TR2: 2 pts; not suspicious; no FNA TR3: 3 pts; mildly suspicious; < or = 1.5 cm f/u; > or = 2.5 cm FNA TR4: 4-6 pts; moderately suspicious; < or = 1.0 cm follow-up; 1.5 cm FNA TR5: 7 or > pts; highly suspicious; .5-.9 cm f/u; 1.0 cm or > FNA -------- FINAL REPORT -------- Dictated By: Reginald Barrios Dictated Date: 04/29/2024 15:07 ET Assigned Physician: Reginald Barrios Reviewed and Electronically Signed By: Reginald Barrios Signed Date: 04/29/2024 15:20 ET Workstation ID: [id number] Transcribed By: Self Edit Transcribed Date: 04/29/2024 15:07 ET us Harsh Sandoval MD IMG US PROCEDURES Edited Resu lt - Final * US Abdomen Complete (04/21/2024 11:07 AM EST) Anatomical Region Laterality Modality Body Ultrasound 04/21/2024 11:1 6 AM EST Impressions 04/21/2024 11:19 AM EST Impression: No acute findings. ??Moderate fatty infiltration the liver. -------- FINAL REPORT -------- Dictated By: Ayan Salazar Dictated Date: 04/21/2024 11:16 ET Assigned Physician: Ayan Salazar Reviewed and Electronically Signed By: Ayan Salazar Signed Date: 04/21/2024 11:19 ET Workstation ID: [id number] Transcribed By: Self Edit Transcribed Date: 04/21/2024 11:16 ET Narrative 04/21/2024 11:19 AM EST Ultrasound abdomen. TECHNIQUE: Dedicated ultrasound images were performed of the abdomen. ??Color Doppler imaging was performed. History: Abdominal pain Comparison: CT examination of the abdomen and pelvis March 2015. Findings: Pancreas: Visualized portions appear normal. Liver: Increased echogenicity of the liver is noted. ??Liver appears mildly heterogeneous. ??Normal directional flow in the portal vein. ??The liver measures 18 cm. ?? Gallbladder: Appears normal. No stones. ?? Biliary: No biliary dilation. The common bile duct appears normal. Kidneys: ??The kidneys appear within normal limits. ??The right kidney measures 11 cm. ??Left kidney measures 13 cm. Aorta: Atherosclerotic disease without aneurysm.. Spleen: Spleen measures 12 cm. Other: No ascites Procedure Note Ayan Salazar MD - 04/21/2024 Ultrasound abdomen. TECHNIQUE: Dedicated ultrasound images were performed of the abdomen.Color Doppler imaging was performed. History: Abdominal pain Comparison: CT examination of the abdomen and pelvis March 2015. Findings: Pancreas: Visualized portions appear normal. Liver: Increased echogenicity of the liver is noted. Liver appears mildlyheterogeneous. Normal directional flow in the portal vein. The livermeasures 18 cm. Gallbladder: Appears normal. No stones. Biliary: No biliary dilation. The common bile duct appears normal. Kidneys: The kidneys appear within normal limits. The right kidneymeasures 11 cm. Left kidney measures 13 cm. Aorta: Atherosclerotic disease without aneurysm.. Spleen: Spleen measures 12 cm. Other: No ascites IMPRESSION: Impression: No acute findings. Moderate fatty infiltration the liver. -------- FINAL REPORT -------- Dictated By: Ayan Salazar Dictated Date: 04/21/2024 11:16 ET Assigned Physician: Ayan Salazar Reviewed and Electronically Signed By: Ayan Salazar Signed Date: 04/21/2024 11:19 ET Workstation ID: [id number] Transcribed By: Self Edit Transcribed Date: 04/21/2024 11:16 ET us Delmar Sandoval MD IMG US PROCEDURES Final Res ult from Last 3 Months Insurance MEDICARE [facility] Care Teams Rn Testing Relationship Specialty Start Date End Date Harsh Sandoval MD [address] PCP - General Internal Medicine 04/18/24
--- OUTSIDE RECORDS SUMMARY | 2024-07-11 11:55 | XMS_ITS ---
Author Organization Delmar Sandoval MD Address [address] [place] [phone] Care Team Providers Care Motion Picture Director Name Role Phone Lori Delmar Primary Care Provider Allergies Allergen (clinical drug ingredient) Drug/Non Drug Allergy documented on EMR Reaction Allergy Type Onset Date Status meperidine demerol (uncoded) tongue swelling Allergy Active Results Component Value Reference Range Notes Glucose, finger stick Reviewed date:06/03/2024 11:38:31 AM Interpretation: Performing Lab: Notes/Report: Value 126 REASON FOR VISIT 4 week Medications Medication SIG (Take, Route, Frequency, Duration) Notes Start Date End Date Status Valtrex 1 GM 2 tablet Orally twic e a day for 1 days 03/26/2021 Not-Taking Ibuprofen 800 MG TAKE 1 TABLET BY [facility] TH THREE TIMES DAILY for 90 Not-Taking Indomethacin 50 MG 1 capsule with food Orally Three times a day for 14 days 12/11/2011 Not-Taking metFORMIN HCl 500 MG 1 tablet with a susana l Orally twice a day for 30 day(s) 04/15/2022 Not-Taking Ciclopirox 0.77% as directed applied topically twice a day for 30 days 09/22/2023 Active Allopurinol 300 MG TAKE 1 TABLET BY [facility] EVERY DAY for 90 Active Tamsulosin HCl 0.4 MG TAKE 1 CAPSULE BY MOUTH EVERY DAY for 90 Active Fluticasone Propionate 50 MCG/ACT SHAKE LIQUID AND USE 1 SPRAY IN EACH NOSTRIL TWICE DAILY for 30 Active Lisinopril 10 MG TAKE 1 TABLET BY [facility] EVERY DAY Active Nystatin-Triamcinolone 131080-7.1 UNIT/GM 1 application Externally Twice a day 03/26/2021 Active Omeprazole 20 MG TAKE 1 CAPSULE BY [facility] EVERY DAY 30 MINUTES BEFORE BREAKFAST for 90 Active Nystatin 214996 UNIT/GM 1 application Externally Twice a day for 30 days 09/11/2022 Active OneTouch Delica Plus [id number] - USE TO TEST BLOOD SUGAR TWICE DAILY for 50 Active OneTouch Ultra - USE TO TEST BLOOD MAL[place]ON GAR TWICE DAILY for 50 Active Rosuvastatin Calcium 10 MG 1 tablet Orally Once a day for 90 days 10/27/2023 Active Hyoscyamine Sulfate ER 0.375 MG 1 tablet Orally once a day 04/28/2024 Active Januvia 50 MG TAKE 1 TABLET BY [facility] EVERY DAY Active Vital Signs Blood pressure systolic 124 mm Hg 06/03/19 25 Blood pressure diastolic 82 mm Hg 025 Height 72 in 06/03/2024 Weight 241 lbs 06/03/2024 BMI 32.68 kg/m2 06/03/2024 Encounters Encounter Location Date Provider Diagnosis Delmar Sandoval MD [address] [place] [address] [place] [phone] 06/03/2024 Delmar Sandoval Controlled type 2 diabetes mellitus without complication, without long-term current use of insulin E11.9 and Irritable bowel syndrome with constipation K58.1 Assessments Encounter Date Diagnosis (ICD Code) Assessment Notes Treatment Notes Treatment Clinical Notes Section Notes 06/03/2024 Controlled type 2 diabetes mellitus without complication, without long-term current use of insulin (ICD-10 - E11.9) 06/03/2024 Irritable bowel syndrome with constipation (ICD-10 - K58.1) most days is doing well. has lost about 4 pounds Plan Of Treatment Medication Medication Name Sig Start Date Stop Date Notes Rosuvastatin Calcium 10 MG 1 tablet Oral ly Once a day for 90 days 10/27/2023 Hyoscyamine Sulfate ER 0.375 MG 1 tablet Orally once a day 04/28/2024 Januvia 50 MG TAKE 1 TABLET BY [facility] EVERY DAY Treatment Notes Assessment Notes Irritable bowel syndrome with constipati on most days is doing well. has lost about 4 pounds Next Appt Details Follow Up: 2 Months, Reason: Provider Name:Delmar freedman, 07/29/2024 11:30:00 AM, [address] [place] [address], [place] [id number], [place], [place], [phone], Provider Name:Delmar freedman, 09/20/2024 07:15:00 AM, [address] [place] [address], [place] [id number], [place], [place], [phone], Provider Name:Delmar freedman, 09/27/2024 09:30:00 AM, [address] [place] [address], [place] [address], [place], [place], [phone], Progress Notes * Rivas VENTURA BDOB:1950 (74 yo M)Acc No.[id number]:06/03/2024 Progress Notes Patient:?Rivas VENTURA Provider:?Delmar Sandoval MD :1950???Age:74 Y???Sex:Male David e:06/03/2024 Address:[address] [place] [id number] Subjective: * Chief Complaints: * ???1. 4 week. * HPI: ???Symptom(s):? patientis a 74 yo male here for 4 week follow up of stomch.started on hyosciamine and got some constipation . helped stomach discomfort. * ROS:?General/Constitutional:?Denies?Chills.?Denies?Fatigue.?Denies?Fever.?Denies?Headache.?Respiratory:?Denies?Cough.?Denies?Shortness of breath at rest.?Denies?Shortness of breath with exertion.?Gastrointestinal:?Denies?Diarrhea.?Denies?Nausea.?Musculoskeletal:?Patient denies?muscle aches.?Peripheral Vascular:?Patient denies?red and blue toes.? * Medical History:?Chronic sandip k pain, Hypertension, colonoscopy 2006 due 2011; colonoscopy done 09/28/2012 - due in 5 years; Colonoscopy done 01/29/[address] Olivera - repeat 5 09/18/23 colonoscopy repeat 3y, Biopsy thyroid 2014, Hx pulmonary nodule. Had CT Chest in 2018. Negative. No f/u indicated., Prediabetes, Prediabetes. * Medications:?Taking OneTouch Ultra - Strip USE TO TEST BLOOD SUGAR TWICE DAILY , Taking OneTouch Delica Plus [id number] - Miscellaneous USE TO TEST BLOOD SUGAR TWICE DAILY , Taking Nystatin 286497 UNIT/GM Cream 1 application Externally Twice a day , Taking Omeprazole 20 MG Capsule Delayed Release TAKE 1 CAPSULE BY MOUTH EVERY DAY 30 MINUTES BEFORE BREAKFAST , Taking Lisinopril 10 MG Tablet TAKE 1 TABLET BY MOUTH EVERY DAY , Taking Tamsulosin HCl 0.4 MG Capsule TAKE 1 CAPSULE BY MOUTH EVERY DAY , Taking Allopurinol 300 MG Tablet TAKE 1 TABLET BY MOUTH EVERY DAY , Taking Fluticasone Propionate 50 MCG/ACT Suspension SHAKE LIQUID AND USE 1 SPRAY IN EACH NOSTRIL TWICE DAILY , Taking Nystatin-Triamcinolone 098366-0.1 UNIT/GM Cream 1 application Externally Twice a day , Taking Ciclopirox 0.77% cream as directed applied topically twice a day , Taking Rosuvastatin Calcium 10 MG Tablet 1 tablet Orally every other day , Taking Hyoscyamine Sulfate ER 0.375 MG Tablet Extended Release 12 Hour 1 tablet Orally once a day , Taking Januvia 50 MG Tablet TAKE 1 TABLET BY MOUTH EVERY DAY , Not-Taking/PRN Ibuprofen 800 MG Tablet TAKE 1 TABLET BY MOUTH THREE TIMES DAILY , Not-Taking/PRN metFORMIN HCl 500 MG Tablet 1 tablet with a meal Orally twice a day , Not-Taking/PRN Indomethacin 50 MG Capsule 1 capsule with food Orally Three times a day , Not-Taking/PRN Valtrex 1 GM Tablet 2 tablet Orally twice a day , Discontinued Flomax 0.4 MG Capsule Extended Release 24 Hour 1 capsule 30 minutes after the same meal each day Orally Once a day , Medication List reviewed and reconciled with the patient * Allergies:?Demerol: Tongue S welling. Objective: * Vitals:?Ht: 72, Wt: 241, BMI :32.68, BP:124/82, Wt-k.32. * Examination: ???General Examination: ?GENERAL APPEARANCE:?alert, well hydrated, in no distress.?SKIN:?good turgor.?HEART:?regular rate and rhythm , no murmurs, rubs, gallops.?LUNGS:?no wheezes, rales, rhonchi , good air movement , clear to auscultation bilaterally.?ABDOMEN:?soft, nontender, nondistended , no rebound tenderness.? Assessment: * Assessment: 1.?Controlled type 2 diabete s mellitus without complication, without long-term current use of insulin - E11.9 (Primary)???2.?Irritable bowel syndrome with constipation - K58.1??? Plan: * Treatment: ? Value Reference Range ?Value 126 2.?Irritable bowel syndrome with constipation? Continue Hyoscyamine Sulfate ER Tablet Extended Release 12 Hour, 0.375 MG, 1 tablet, Orally, once aday.?? Notes: most days is doing well. has lost about 4 pounds?? * Procedure Codes:?80148 ASSAY , GLUCOSE, BLOOD QUANT, Modifiers: QW , G2211 Complex e/m visit add on * Follow Up:?2 Months * * The named appointment provid er may or may not be the originator of this progress note, and it is not deemed complete until electronically signed by the appointment provider. Sign off status: Pending * Provider:?Delmar Sandoval MD Date:?0 06/03/2024 Generated for Gretel lazaro/Néstor/eTsandismitting on:?07/11/2024 11:54 AM EST History and Physical Notes * HPI (History of Present Illness) Category Sub-Category Detail Notes Category Not es Symptom(s) patientis a 74 yo male here for 4 week follow up of stomch.started on hyosciamine and got some constipation . helped stomach discomfort Examination Category Sub-Category Detail Notes Category Not es General Examination GENERAL APPEARANCE: alert, w ell hydrated, in no distress HEART: regular rate and rhy thm , no murmurs, rubs, gallops LUNGS: no wheezes, rales, r honchi , good air movement , clear to auscultation bilaterally ABDOMEN: soft, nontender, non distended , no rebound tenderness SKIN: good turgor
--- OUTSIDE RECORDS SUMMARY | 2024-07-11 11:55 | XMS_ITS ---
Author Organization [facility] Address [address] [facility] [place] [address] Care Team Providers Care People Greeter Name Role Phone Delmar Sandoval MD Primary Care Provider Unavai kelley Black, Lizzie Unavailable [phone] Allergies Allergen (clinical drug ingredient) Drug/Non Drug Allergy documented on EMR Reaction Allergy Type Onset Date Status meperidine Demerol swelling, itchy Drug Allergy Active dapagliflozin Farxiga rash Drug Allergy Act danica amoxicillin Amoxicillin Unknown Drug Allergy Act danica REASON FOR VISIT At Risk Footcare, Painful nail(s) aggrevated by shoes causing difficulty standing/walking, Foot pain, Heel pain Medications Medication SIG (Take, Route, Frequency, Duration) Notes Start Date End Date Status Omeprazole 20 MG 1 capsule 30 minutes before morning meal Orally Once a day for 30 day(s) PRN Active Custom Orthotics as directed 12/23/2012 Unknown Prednisone Not-Takin g Night Splint AFO - L1930 1 wear when at rest for 30 days Active Hydrocortisone Not-T aking Simvastatin 20 MG 1 tablet in the even ing Orally Once a day for 30 day(s) Not-Taking Colchicine 0.6 MG Orally Once a day Not-Taking metFORMIN HCl ER 500 MG 1 tablet with ev ening meal Orally Once a day for 30 day(s) Not-Taking Azithromycin 250 MG Oral for 5 Days Active Indomethacin 50 MG 1 capsule with food Orally three times a day for 30 day(s) PRN Not-Taking Ibuprofen Orally prn Active Allopurinol 300 MG 1 tablet Orally Once a day Active Custom Orthotics as directed 04/19/2020 Active Rosuvastatin Calcium Active Lisinopril 10 MG 1 tablet Orally Once a day for 30 day(s) Active Tamsulosin HCl 0.4 MG 1 capsule Orally O nce a day for 30 day(s) Active Januvia 50 MG as directed Orally Active Social History Tobacco Use: Social History Observation Description Date Details (start date - stop date) Former Smoker NA - NA Tobacco Use/Smoking Question Answer Notes Are you a: former smoker Additional Findings: Tobacco Non-User Current no n-smoker Tobacco use other than smoking: Question Answer Notes Are you an other tobacco user? 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 Vital Signs Height 6ft3in in 03/17/2024 Weight 235 lbs 03/17/2024 BMI 29.37 kg/m2 03/17/2024 Blood pressure systolic 120 mm Hg 03/17/20 24 Blood pressure diastolic 80 mm Hg 024 Procedures Procedure Date Ordered Date Performed Result Body Sit e 22379-VTWEZWR NAIL, 6 OR MORE 03/17/2024 N/A Encounters Encounter Location Date Provider Diagnosis [facility] [address] [address] 03/17/2024 Lizzie Black Neuritis of right fo ot G57.91 ; Achilles tendinitis of right lower extremity M76.61 ; Tinea unguium B35.1 ; Pain in right toe(s) M79.674 ; Pain in left toe(s) M79.675 ; Type 2 diabetes mellitus with diabetic polyneuropathy E11.42 ; Pain of right heel M79.671 and Short Achilles tendon (acquired), right ankle M67.01 Assessments Encounter Date Diagnosis (ICD Code) Assessment Notes Treatment Notes Treatment Clinical Notes Section Notes 03/17/2024 Neuritis of right foot (ICD-10 - G57.91) Response to treatment - Improvement 03/17/2024 Achilles tendinitis of right lower extremity (ICD-10 - M76.61) Patient Educated with: HEEL CORD STRETCHES.pdf (HEEL CORD STRETCHES.pdf ) Patient Educated with: RICE THERAPY.pdf (RICE THERAPY.pdf) 03/17/2024 Tinea unguium (ICD-10 - B35.1) 03/17/2024 Pain in right toe(s) (ICD-10 - M79.674) 03/17/2024 Pain in left toe(s) (ICD-10 - M79.675) 03/17/2024 Type 2 diabetes mellitus with diabetic polyneuropathy (ICD-10 - E11.42) 03/17/2024 Pain of right heel (ICD-10 - M79.671) 03/17/2024 Short Achilles tendon (acquired), right ankle (ICD-10 - M67.01) Plan Of Treatment Medication Medication Name Sig Start Date Stop Date Notes Night Splint AFO - L1930 1 wear when at rest for 30 days Treatment Notes Assessment Notes Achilles tendinitis of right lower extre mity Patient Educated with: HEEL CORD STRETCHES.pdf (HEEL CORD STRETCHES.pdf) Patient Educated with: RICE THERAPY.pdf (RICE THERAPY.pdf) Pending Test Test Name Order Date [id number] NAIL, 6 OR MORE 03/17/2024 Next Appt Details Follow Up: prn, Reason: Provider Name:Lizzie Zheng , 09/26/2024 08:30:00 AM, [address] [place] [address], [place], [address], Procedure Notes * Category Sub-Category Detail Notes Debride Nail 6-10 Nail debridement Performance o f this nail treatment by a nonprofessional would put this patients foot and overall health at risk. Therefore, nail debridement was performed extensively to reduce/remove overall nail length, girth, thickness, subungual debris, and necrotic tissue, by manual and/or electrical means through the use of a nail nipper and/or dremel-type grinder chipper, to a more viable healthy nail plate or bed tissue 6-10. Silver nitrate used for any petechial bleeding as necessary. Definitive antifungal treatment options have been reviewed and discussed with the patient. The patient chooses, no pharmaceutical tx - [address]99 Progress Notes * Rivas VENTURA BDOB:1950 (73 yo M)Acc No.[id number]:03/17/2024 Progress Note Patient:?Rivas Ventura Provider:?Lizzie Zheng DPM :1950???Age:73 Y???Sex:Male David e:03/17/2024 Address[address] [phone] Pcp:Delmar Sandoval MD Subjective: * Chief Complaints: * ???At Risk FootcarePainful n ail(s) aggrevated by shoes causing difficulty standing/walkingFoot painHeel pain * HPI: ???Painful Nails:?Pt States Last PCP Visit:?Date:?02/12/2024 ???Foot Pain:?Nature:?burning , radiating , shooting , tingling.?Location:?Top , Midfoot , RIGHT.?Duration:?, several months.?Onset:?unknown.?Course:?, improved , at 70 %.?Aggravated:?any pressure.?Treatments:?rest/alter normal daily activity.?Heel pain:?Location:?Back of heel, RIGHT.?Duration:?, several days.?Course:?, recurrent.?Aggravated:?standing, walking, walking first thing in the morning/after rest.?Treatments:?rest/alter normal daily activity.? * ROS:?General/Constitutional:?Nausea?denies, denies.?Vomiting?denies, denies.?Hunger Thirst?denies, denies.?Loss appetite?denies, denies.?Chills?denies, denies.?Fatigue?denies, denies.?Fever?denies, denies.?Night Sweats denies, denies.?Unexplained weight loss?denies, denies.?Unexplained weight gain?denies, denies.?HEENTM:?Dentures?denies, denies.?Dizziness?denies, denies.?Glasses/contacts?admits, admits.?Retinopathy?denies, denies.?Blurred/double vision?denies, denies.?TMJ?denies, denies.?Discharge/drainage?denies, denies.?Implants?denies, denies.?Sore throat?denies, denies.?Dental implants?denies, denies.?Hard of hearing ?denies, denies.?Difficulty chewing/swallowing/speaking?denies, denies.?Nose bleeds?denies, denies.?Sore mouth?denies, denies.?Respiratory:?On Oxygen?denies, denies.?Pneumonia/pleurisy?denies, denies.?Bronchitis?denies, denies.?Emphysema?denies, denies.?Coughing?denies, denies.?Cough blood?denies, denies.?Shortness of breath?denies, denies.?Wheezing?denies, denies.?Cardiovascular:?Pacemaker?denies, denies.?MVP?denies, denies.?WPW?denies, denies.?CHF?denies, denies.?Heart attack?denies, denies.?Septal defect?denies, denies.?Rapid beat?denies, denies.?Chest pain ?denies, denies.?Atrial Fib.?denies, denies.?Murmur/Palpitations?denies, denies.?Gastrointestinal:?Hemorrhoids?denies, denies.?Stomach/Abdominal pain?denies, denies.?Dark blood stool?denies, denies.?Irritable bowel ?denies, denies.?Constipation?denies, denies.?Diarrhea?denies, denies.?Hematology:?Swelling?denies, denies.?Clots?denies, denies.?Varicose Veins?denies, denies.?Bruising?denies, denies.?Bleeding problem?denies, denies.?Genitourinary:?Blood urine?denies, denies.?Frequent/Painfu/urination/bladder control?denies, denies.?Kidney stones?denies, denies.?Infection (UTI)?denies, denies.?Nephropathy?denies, denies.?sex trans dis (STD)?denies, denies.?Prostate?denies, denies.?Musculoskeletal:?Hammertoes?denies, denies.?Bunions?denies, denies.?Back Pain?denies, denies.?Muscle Cramps/ Resting?denies, denies.?Muscle cramps / walking?denies, denies.?Generalized aches and pains?denies, denies.?Weakness?denies, denies.?Integ.:?Kimble?denies, denies.?Scars?denies, denies.?Corns/calluses?denies, denies.?Ingrown nails?denies, denies.?Painful nails?denies, denies.?Open Sores?denies, denies.?Rashes?denies, denies.?Neurologic:?Difficulty sleeping?denies, denies.?Brain disorder?denies, denies.?Numbness?denies, denies.?Balance trouble?denies, denies.?Confusion?denies, denies.?Fainting/blackouts?denies, denies.?Tingling?denies, denies.?Tremors?denies, denies.? * Medical History:? * Surgical History:?eye surger y 195tonsillectomy 1962disc surgery L4-L5 1994colonoscopy iopsy on thigh 09/2023 * Hospitalization/Major Diagno stic Procedure:?[facility] Concussion-[facility] visit- Following with Concussion center 12/10/2018 * Family History:?Mother: dece ased, cancer, heart attack, high blood pressure, diagnosed with Unspecified essential hypertension, Unspecified heart disease, Other malignant neoplasm of unspecified site.?Father: , liver disease.? * Social History:?Tobacco Use:?Tobacco Use/Smoking?Are you a:?former smoker ?Additional Findings: Tobacco Non-User?Current non-smoker ?Tobacco use other than smoking?Are you an other tobacco user??No ???Miscellaneous:?Caffeine: yes, frequency:, 1-2 cups per day, decaff tea. ?Children: yes. ?Exercise: yes, walking, treadmill, stationary bike. ?Marital status: . 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 * Medications:?TakingOmeprazol e 20 MG Capsule Delayed Release 1 capsule 30 minutes before morning meal Orally Once a day, Notes: PRNJanuvia 50 MG Tablet as directed Orally Tamsulosin HCl 0.4 MG Capsule 1 capsule Orally Once a dayIbuprofen Tablet Orally prnLisinopril 10 MG Tablet 1 tablet Orally Once a dayRosuvastatin Calcium Custom Orthotics as directed Allopurinol 300 MG Tablet 1 tablet Orally Once a dayAzithromycin 250 MG Tablet Oral Taking Omeprazole 20 MG Capsule Delayed Release 1 capsule 30 minutes before morning meal Orally Once a day, Notes: PRNTaking Januvia 50 MG Tablet as directed Orally Taking Tamsulosin HCl 0.4 MG Capsule 1 capsule Orally Once a dayTaking Ibuprofen Tablet Orally prnTaking Lisinopril 10 MG Tablet 1 tablet Orally Once a dayTaking Rosuvastatin Calcium Taking Custom Orthotics as directed Taking Allopurinol 300 MG Tablet 1 tablet Orally Once a dayTaking Azithromycin 250 MG Tablet Oral Not-Taking/PRNmetFORMIN HCl ER 500 MG Tablet Extended Release 24 Hour 1 tablet with evening meal Orally Once a dayColchicine 0.6 MG Capsule Orally Once a daySimvastatin 20 MG Tablet 1 tablet in the evening Orally Once a dayIndomethacin 50 MG Capsule 1 capsule with food Orally three times a day, Notes: PRNHydrocortisone Prednisone Not-Taking/PRN metFORMIN HCl ER 500 MG Tablet Extended Release 24 Hour 1 tablet with evening meal Orally Once a dayNot-Taking/PRN Colchicine 0.6 MG Capsule Orally Once a dayNot-Taking/PRN Simvastatin 20 MG Tablet 1 tablet in the evening Orally Once a dayNot-Taking/PRN Indomethacin 50 MG Capsule 1 capsule with food Orally three times a day, Notes: PRNNot-Taking/PRN Hydrocortisone Not-Taking/PRN Prednisone UnknownCustom Orthotics as directed Medication List reviewed and reconciled with the patientUnknown Custom Orthotics as directed Medication List reviewed and reconciled with the patient * Allergies:?Demerol: swelling , itchyAmoxicillinFarxiga: rashyes[Allergies Verified] Objective: * Vitals:?Ht: 6ft3in, Wt:235, BMI:29.37, Shoe size: 12-12.W, BP:120/80 mm Hg, BS: 103, Ht-cm: 190.5 cm, Wt-k.59 kg. * ???Past Orders: ???Lab:HEMOGLOBIN A1C (GLYCO HEMOGLOBIN) (Order Date - 01/17/2024) (Collection Date - 01/17/2024) ? Value Reference Range ?TOTAL HEMOGLOBIN (HGBA1C) 5.6 * Examination: ???Ophthalmology Referral: ?DIABETES EYE EXAM?General Examination: ?GENERAL APPEARANCE:?Reveals a pleasant, alert, well nourished, well- developed, well hydrated individual, who demonstrates proper attention to hygiene/body habitus, and is in no acute distress, Pt serves as own historian for office visit today.?ORIENTED:?person, place, and time.?Vascular: ?DP PULSES(B):?2/4, B/L.?PT PULSES(B):?2/4, B/L.?Neurological: ?SENSORY:?Neurological exam demonstrates , reduced light touch sensation , reduced sharp/dull pin prick discrimination , reduced vibration sensation , 5.07 monofilament test performed at plantar aspects of 5 varied sites per foot shows sensation , reduced , Pt relates , burning , B/L.?TINEL'S COMPRESSION:?Positive , Medial dorsal cutaneous nerve distribution , Intermediate dorsal cutaneous nerve distribution , Right at 70 % LESS.?DEEP TENDON REFLEXES:?Deferred on symptomatic extremity due to discomfort.?Nails: ?NAILS are:?Elongated, overgrown, dystrophic, greater than 3mm thick, discolored and friable with crumbly malodorous subungual debris, with pain on palpation, , , 1-5 B/L , , There is evidence of surrounding periungual tissue erythema , TA.?Orthopedic: ?GAIT ABNORMALITY:?antalgic.?FOOT MORPHOLOGY:? Decreased Ankle joint dorsiflexion ROM, knee extended.?DIGITAL DEFORMITIES:?Digital contracture, PIPJ, 2-5 B/L, incompl-reducible with WB, or to push-up test, no over, nor underlapping.?Heel Pain: ?INSPECTION REVEALS:? Pain on palpation to Achilles tendon/bursa with inflammation and swelling present, Pain on palpation to Posterior Superior Aspect Calcaneus, Prominent posterior and posterior/superior heel present, RIGHT.? Assessment: * Assessment: 1.?Achilles tendinitis of ri t lower extremity - M76.61 (Primary), Chronic problem, Worse (4)?2.?Neuritis of right foot - G57.91, Acute problem, Stable (1=3), Response to treatment - Improvement?3.?Tinea unguium - B35.1?4.?Pain in right toe(s) - M79.674?5.?Pain in left toe(s) - M79.675?6.?Type 2 diabetes mellitus with diabetic polyneuropathy - E11.42?7.?Pain of right heel - M79.671?8.?Short Achilles tendon (acquired), right ankle - M67.01? Plan: * Treatment: 2.?Tinea unguium?Procedure: 17551-FMGOIRA NAIL, 6 OR MORE * Procedures:?Debride Nail 6-10:?Nail debridement?Performance of this nail treatment by a nonprofessional would put this patients foot and overall health at risk. Therefore, nail debridement was performed extensively to reduce/remove overall nail length, girth, thickness, subungual debris, and necrotic tissue, by manual and/or electrical means through the use of a nail nipper and/or dremel-type grinder chipper, to a more viable healthy nail plate or bed tissue 6-10. Silver nitrate used for any petechial bleeding as necessary. Definitive antifungal treatment options have been reviewed and discussed with the patient. The patient chooses, no pharmaceutical tx - 47606.? * Procedure Codes:?93783 DEBRI DE NAIL, 6 OR MORE, Modifiers: XS * Preventive Medicine:? ??Counseling:?Discussion:?-14: Office or other outpatient visit for the evaluation and management of an established patient, which required a medically appropriate history and/or examination and MODERATE level of DECISION MAKING for: 1 OR MORE CHRONIC PROBLEM(S) THATS WORSENING, 2 STABLE CHRONIC PROBLEMS, A NEWLY DIAGNOSED PROBLEM WITH UNCERTAIN PROGNOSIS, AN ACUTE COMPLICATED INJURY WITH MULTIPLE TREATMENT OPTIONS, OR AN ACUTE PROBLEM WITH ACCOMPANYING SYSTEMIC SYMPTOMS, THAT POSE(S) A MODERATE RISK OF MORBIDITY. THIS CONDITION MAY ALSO INCLUDE RX DRUG MANAGEMENT, OR A DECISON FOR MINOR SURGERY. The visit on the day of the encounter encompassed interpreting the data and educating the patient as to the nature of their condition, treatment options available according to their individual PMH, meds, allergies, and overall health/living conditions, as well as any potential risks or complications that may occur from a failure to adhere to, and participate in, the recommended course of therapy. The discussion included a complete verbal, and/or written explanation of the examination results, any x-rays taken, the proposed diagnosis, and outline of the treatment plan. A schedule for future care needs was also explained. The patient verbalized an understanding of the instructions at this time and agreed to be an active participant in their treatment. If the patient should think of any questions or concerns after the visit, I have encouraged the patient to call the office.?F/u Visit:?The Pt. was counseled on the remaining treatment options for the neuritis and importance of adherence to Recomm; the Pt wishes to continue present protocol longer.?Heel pain:?ACHILLES: I explained to the patient the AGAIN possible etiologies of Achilles Tendonitis including foot type/shoegear/activity level/exercise routine and the risks/benefits of all the different treatment options for pain including: No treatment at all, Rest, Ice, NSAIDs(only if well tolerated after meals), New/supportive Shoegear, Strappings and Tapings, Stretching exercises, Deep Tissue Massage, Heel cups/cushions, Arch support/shoe inserts, Custom orthoses, Topical analgesics including Aspercream/Voltaren gel, Night splint/AFO Bracing for stiffness, Cast boot with crutches/cane/or walker for assisted ambulation, Physical Therapy, EPAT/ESWT, Interfil injection therapy, as well as surgical [place]/Calcanectomy- tendon debridement surgical procedures if needed. Recommendations were made to limit barefoot walking, eliminate wearing nonsupportive shoegear (i.e. flip-flops or sandals, or a shoe with an easily bendable, foldable, or twistable sole) and wear shoegear with a good solid sole, a supportive arch, and plenty of room for an insert/orthotic if necessary. If wearing sandals was required by the patient, we recommended orthopedic sandals such as Orthoheel or Birkenstock even while in the home. If the patient wore heels in the past, we recommended they continue, but eliminate the use of flats. The advantages and disadvantages of each option were discussed and the patients' questions re: shoegear, custom vs prefabricated inserts, activity level, PO vs Topical medications (and their respective potential complications/drug interactions/side effects), and consistency in home treatment regimens for optimal success were answered to their verbally confirmed satisfaction. Literature detailing Achilles Tendonitis and the various treatment options were dispensed and reviewed.REcomm. pt start using his night splint again ever day till the pain subsides if it continues I recomm that we start Physicial therapy.? * Follow Up:?prn * Images: * Sign off status: Completed true * Provider:?Lizzie Zheng DPM Date:?2023 Generated for Printi ng/Faxing/eTransmitting on:?07/11/2024 11:55 AM EST History and Physical Notes * HPI (History of Present Illness) Category Sub-Category Detail Notes Category Not es Heel pain Duration: , several days Location: Back of heel, RIGHT Aggravated: standing, walking, w alking first thing in the morning/after rest Course: , recurrent Treatments: rest/alter normal da jose a activity Painful Nails Pt States Last PCP Visit: Date:: 02/12/2024 Foot Pain Nature: burning , radiating , shooti ng , tingling Location: Top , Midfoot , RIGH T Duration: , several months Onset: unknown Course: , improved , at 70 % Aggravated: any pressure Treatments: rest/alter normal da jose a activity Examination Category Sub-Category Detail Notes Category Not es Ingrown Nail INSPECTION: Neuroma Pain PALPATION: Heel Pain INSPECTION REVEALS: Pain on palp ation to Achilles tendon/bursa with inflammation and swelling present, Pain on palpation to Posterior Superior Aspect Calcaneus, Prominent posterior and posterior/superior heel present, RIGHT Neurological SENSORY: Neurological exa m demonstrates , reduced light touch sensation , reduced sharp/dull pin prick discrimination , reduced vibration sensation , 5.07 monofilament test performed at plantar aspects of 5 varied sites per foot shows sensation , reduced , Pt relates , burning , B/L TINEL'S COMPRESSION: Positive , Medial d orsal cutaneous nerve distribution , Intermediate dorsal cutaneous nerve distribution , Right at 70 % LESS DEEP TENDON REFLEXES: Deferred on sympto matic extremity due to discomfort Dermatologic SKIN FINDINGS: Orthopedic GAIT ABNORMALITY: antalgic FOOT MORPHOLOGY: Decreased Ankle join t dorsiflexion ROM, knee extended DIGITAL DEFORMITIES: Digital contracture , PIPJ, 2-5 B/L, incompl-reducible with WB, or to push-up test, no over, nor underlapping General Examination GENERAL APPEARANCE: Reveals a pleasant, alert, well nourished, well-developed, well hydrated individual, who demonstrates proper attention to hygiene/body habitus, and is in no acute distress, Pt serves as own historian for office visit today ORIENTED: person, place, and t belinda Ophthalmology Referral DIABETES EYE EXAM Procedure Perform ed:: Yes Findings of Diabetic Eye Exam:: no retin opathy Vascular DP PULSES (B): 2/4, B/L PT PULSES (B): 2/4, B/L Nails NAILS are: Elongated, overg rown, dystrophic, greater than 3mm thick, discolored and friable with crumbly malodorous subungual debris, with pain on palpation, , , 1-5 B/L , , There is evidence of surrounding periungual tissue erythema , TA
--- OUTSIDE RECORDS SUMMARY | 2024-07-11 11:55 | XMS_ITS | Encounter Summary ---
Author Organization [facility] [place] [address] Care Team Providers Care Railroader Name Role Phone Harsh Sandoval MD Primary Care Provider [phone] Reason for Referral * Imaging (Routine) - Closed Specialty Diagnoses / Procedures Referred By Shiva hernández Referred To Contact Radiology Diagnoses Unspecified abdominal pain Procedures XR UGI w Air Contrast Delmar Sandoval MD [address] [place] [address] [address] Phone: tel: Referral ID Status Reason Start Date Expiration Date Visits Re quested Visits Authorized [id number] Closed 04/25/2024 04/25/2025 1 1 Reason for Visit * Imaging (Routine) - Closed Specialty Diagnoses / Procedures Referred By Shiva hernández Referred To Contact Radiology Diagnoses Unspecified abdominal pain Procedures XR UGI w Air Contrast Delmar Sandoval MD [address] [place] [address] [address] Phone: tel: Referral ID Status Reason Start Date Expiration Date Visits Re quested Visits Authorized [id number] Closed 04/25/2024 04/25/2025 1 1 Encounter Details Date Type Department Care Team (Latest Contact Info) Description 06/28/2024 7:40 AM EST - 06/28/2024 11:59 PM EST Hospital Encounter [facility] Xray [address] [place] [address] Unspecified abdominal pain Discharge Disposition: Home or Self Care Social History Tobacco Use Types Packs/Day Years Used Date Smoking Tobacco: Never Assessed Sex and Gender Information Value Date Recorded Sex Assigned at Male 04/26/2024 10:34 AM EST Legal Sex Male 8:57 AM EST Gender Identity Male 04/26/2024 10:34 AM EST Sexual Orientation Straight 04/26/2024 10 :34 AM EST documented as of this encounter Discharge Disposition Disposition Code Departure Means Destination Home or Self Care documented in this encounter Plan of Treatment Not on file documented as of this encounter Procedures Procedure Name Priority Date/Time Associated Diagnosis Comments XR UGI W AIR CONTRAST Routine 06/28/2024 8:29 AM EST Unspecified abdominal pain documented in this encounter Results * XR UGI w Air Contrast [...] Signed Date: 06/28/2024 10:29 ET Workstation ID: [id number] Transcribed By: Self Edit Transcribed Date: 06/28/2024 10:19 ET Resident/PA/[employer]: Ny Saldivar Narrative 06/28/2024 10:29 AM EST FINDINGS: Double contrast UGI performed. COMPARISON: No prior upper GI imaging. HISTORY: Patient is a 74-year-old male with history of dysphagia. Generalized abdominal pain. 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 Bowel [...] male with history of dysphagia.Generalized abdominal pain. 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 Bowel [...] Signed Date: 06/28/2024 10:29 ET Workstation ID: [id number] Transcribed By: Self Edit Transcribed Date: 06/28/2024 10:19 ET Resident/PA/[employer]: Ny Saldivar Delmar Sandoval MD IMG FLUOROSCOPY PROCEDURES Final Result documented in this encounter Visit Diagnoses Diagnosis Unspecified abdominal pain documented in this encounter Administered Medications Inactive Administered Medications - up to 3 most recent administrations Medication Order MAR Action Action Date Dose Rate Site barium sulfate (E-Z-DISK) tablet 700 mg 700 mg, oral, Once in imaging, Starting on Thu06/28/24 at 0829, For 1 dose, Swallow whole with 1-2 swallows of water just prior to fluoroscopic examination. Given 06/28/2024 8:21 AM EST 700 mg barium sulfate (E-Z-HD) 98 % suspension 143 mL 143 mL (rounded from 142.8571 mL = 340 g), oral, Once in imaging, Starting on Thu06/28/24 at 0830, For 1 dose Given 06/28/2024 8:32 AM EST 143 mL barium sulfate (E-Z-PAQUE) 96 % (w/w) suspension 80 mL 80 mL, oral, Once in imaging, Starting on Thu06/28/24 at 0829, For 1 dose Given 06/28/2024 8:15 AM EST 80 mL sod bicarb-citric ac-simeth 2.21-1.53 gram/4 gram packet 1 packet 1 packet, oral, Once, On Thu06/28/24 at 0900, For 1 dose, Dissolve the contents of a half of a packet on the back of the tongue, wash down with 15 mL of water or juice and repeat with remaining contents. Given 06/28/2024 8:32 AM EST 1 packet documented in this encounter Care Teams Railroader Relationship Specialty Start Date End Date Harsh Sandoval MD [address] PCP - General Internal Medicine 04/18/24 documented as of this encounter
--- OUTSIDE RECORDS SUMMARY | 2024-07-11 11:55 | XMS_ITS ---
Author Organization [facility] Address [address] [place] [address] Care Team Providers Care Big Data Admin Name Role Phone Delmar Sandoval MD Primary Care Provider UnaBrayden Carlisle Unavailable [phone] REASON FOR VISIT screening,hx polyps PROBLEMS Problem Type ICD Code Onset Dates Problem Status W/U Status Risk SNOMED Code Notes Problem Diverticulosis of large intestine without perforation or abscess without bleeding (K57.30) Active confirmed Diverticul ar disease of colon (713961576) Encounters Encounter Location Date Provider Diagnosis [facility] Outpatient [address] [place] [phone] 09/18/2023 Brayden Olivera Encounter for scre ening colonoscopy Z12.11 ; Colon polyps K63.5 ; Lipoma of colon D17.5 ; Diverticulosis of large intestine without perforation or abscess without bleeding K57.30 and Other hemorrhoids K64.8 ASSESSMENTS Encounter Date Diagnosis Assessment Notes Treatment Notes Treatment Clinical Notes 09/18/2023 Encounter for screening colonoscopy (ICD-10 - Z12.11) 09/18/2023 Colon polyps (ICD-10 - K63.5) 09/18/2023 Lipoma of colon (ICD-10 - D17.5) 09/18/2023 Diverticulosis of large intestine without perforation or abscess without bleeding (ICD-10 - K57.30) 09/18/2023 Other hemorrhoids (ICD-10 - K64.8) PLAN OF TREATMENT No Information
--- OUTSIDE RECORDS SUMMARY | 2024-07-11 11:56 | XMS_ITS ---
Author Organization Delmar Sandoval MD Address [address] [place] [phone] Care Team Providers Care Vacuum System Tester Name Role Phone Lori Delmar Primary Care Provider Allergies Allergen (clinical drug ingredient) Drug/Non Drug Allergy documented on EMR Reaction Allergy Type Onset Date Status meperidine demerol (uncoded) tongue swelling Allergy Active Results Component Value Reference Range Notes Complete Blood Count Auto Di ff (Not yet reviewed by provider) Interpretation: Performing Lab:[facility], [address] [place] [phone] Notes/Report: White Blood Count 10.2 4.8-10.8 X10*3/uL Red Blood Count 5.98 4.60-5.80 X10*6/uL Hemoglobin 17.3 14.0-18.0 g/dl Hematocrit 51.8 42.0-52.0 % Mean Corpuscular Volume 86.6 80.0-98.0 fL Mean Corpuscular Hemoglobin 28.9 27.0-33.0 pg Mean Corpuscular HGB Conc 33.4 31.0-36.0 g/dl Red Cell Distribution Width 13.3 11.0-16.0 % Platelet Count 177 160-400 X10*3/uL Mean Platelet Volume 10.2 9.4-12.4 fL Neutrophils Percent Auto 77.8 45-73 % Imm Gran Pct Auto 0.4 0.0-0.4 % Lymphocytes Percent Auto 12.4 20-40 % Monocytes Percent Auto 7.6 2-11 % Eosinophils Percent Auto 1.3 0-4 % Basophils Percent Auto 0.5 0-2 % NRBC Pct Auto 0.0 0.0-0.2 /100WBC Neutrophils Absolute Auto 8.0 2.0-8.3 x10*3/u L Imm Gran Abs Auto 0.04 0.00-0.03 X10*3/uL Lymphocytes Absolute Auto 1.3 1.2-4.9 X10*3/u L Monocytes Absolute Auto 0.8 0.1-1.2 X10*3/uL Eosinophils Absolute Auto 0.1 0.0-0.4 X10*3/u L Basophils Absolute Auto 0.1 0.0-0.2 X10*3/uL NRBC Abs Auto 0.000 0.0-0.012 X10*3/uL Comprehensive [place]. Panel Fa st (Not yet reviewed by provider) Interpretation: Performing Lab:[facility], [address] [place] [phone] Notes/Report: Sodium 140 135-145 mmol/L Potassium 4.3 3.3-5.1 mmol/L Chloride 106 96-108 mmol/L Carbon Dioxide 25 22-29 mmol/L Anion Gap 13 12-20 Blood Urea Nitrogen 22 9-16 mg/dL Creatinine 1.04 0.5-1.4 mg/dL Estimated Glomerular Filt Rate > 60 Chronic Kidney Disease: Estimated GFR < 60 mL/min/1.73m2 Severe Kidney Disease: Estimated GFR < 15 mL/min/1.73m2 Glucose Fasting 136 60-99 mg/dL A fasting glucose of 126 mg/dl or greater on more than one occasion is considered diagnostic of diabetes. Calcium 10.0 8.4-10.2 mg/dL Bilirubin Total 0.8 0.0-1.0 mg/dL Aspartate Amino Transferase 19 5-37 U/L Alanine Aminotransferase 19 0-40 U/L Total Protein 7.7 6.5-8.0 g/dL Albumin Level 4.2 3.5-5.0 g/dL Alkaline Phosphatase 75 39-117 U/L REASON FOR VISIT Ongoing Itch issues top of head and upper back and right leg since May 18 2024 Medications Medication SIG (Take, Route, Frequency, Duration) Notes Start Date End Date Status Valtrex 1 GM 2 tablet Orally twic e a day for 1 days 03/26/2021 Not-Taking Betamethasone Dipropionate Active OneTouch Ultra - USE TO TEST BLOOD MALAGON GAR TWICE DAILY for 50 Active OneTouch Delica Plus [id number] - USE TO TEST BLOOD SUGAR TWICE DAILY for 50 Active Indomethacin 50 MG 1 capsule with food Orally Three times a day for 14 days 12/11/2011 Not-Taking Hyoscyamine Sulfate ER 0.375 MG 1 tablet Orally once a day 04/28/2024 Active Rosuvastatin Calcium 10 MG 1 tablet Orally Once a day for 90 days 10/27/2023 Active Ibuprofen 800 MG TAKE 1 TABLET BY HADLEY TH THREE TIMES DAILY for 90 Not-Taking Januvia 50 MG TAKE 1 TABLET BY HADLEY TH EVERY DAY Active metFORMIN HCl 500 MG 1 tablet with a susana l Orally twice a day for 30 day(s) 04/15/2022 Not-Taking Allopurinol 300 MG TAKE 1 TABLET BY HADLEY TH EVERY DAY for 90 Active Tamsulosin HCl 0.4 MG TAKE 1 CAPSULE BY MOUTH EVERY DAY for 90 Active Nystatin-Triamcinolone 407639-4.1 UNIT/GM 1 application Externally Twice a day 03/26/2021 Active Fluticasone Propionate 50 MCG/ACT SHAKE LIQUID AND USE 1 SPRAY IN EACH NOSTRIL TWICE DAILY for 30 Active Ciclopirox 0.77% as directed applied topically twice a day for 30 days 09/22/2023 Active Nystatin 668281 UNIT/GM 1 application Externally Twice a day for 30 days 09/11/2022 Active Lisinopril 10 MG TAKE 1 TABLET BY HADLEY TH EVERY DAY Active Omeprazole 20 MG TAKE 1 CAPSULE BY MO [facility] EVERY DAY 30 MINUTES BEFORE BREAKFAST for 90 Active Problems Problem Type SNOMED Code ICD Code Onset Dates Problem Status W/U Status Risk Notes Problem [id number] 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 e 06-13-24 Encounters Encounter Location Date Provider Diagnosis Delmar Sandoval MD [address] [place] [phone] 07/11/2024 Delmar Sandoval Notalgia paresthetic a R20.2 and Pruritus L29.9 Assessments Encounter Date Diagnosis (ICD Code) Assessment Notes Treatment Notes Treatment Clinical Notes Section Notes 07/11/2024 Notalgia paresthetica (ICD-10 - R20.2) will observe 07/11/2024 Pruritus (ICD-10 - L29.9) Plan Of Treatment Treatment Notes Assessment Notes Notalgia paresthetica will observe Pending Test Test Name Order Date Complete Blood Count Auto Diff 5 Comprehensive [place]. Panel Fast 5 Next Appt Details Provider Name:Delmar freedman, 07/29/2024 11:30:00 AM, [address] [place] [address], [address], [phone], Provider Name:Delmar freedman, 09/20/2024 07:15:00 AM, [address] [place] [address], [phone], Provider Name:Delmar freedman, 09/27/2024 09:30:00 AM, [address] [place] [address], [phone], Progress Notes * Rivas VENTURA BDOB:1950 (74 yo M)Acc No.[id number]:07/11/2024 Progress Notes Patient:?Rivas VENTURA Provider:?Delmar Sandoval MD :1950???Age:74 Y???Sex:Male David e:07/11/2024 Address:[address] [place] [address] [facility] [id number] Subjective: * Chief Complaints: * ???1. Ongoing Itch issues to p of head and upper back and right leg since May 18 2024. * HPI: ???Symptom(s):?patient is a 74 yo male here for follow up of ongoing issue with itch, new years scalp was sore and then started to get itching. one on back and one on leg and head. tried allergy meds and it made him sick. went to [facility] and was evaluated. gave him betemethasone lostion. took scott d and didn't do well taking scott for few days. * ROS:?General/Constitutional:?Denies?Chills.?Denies?Fatigue.?Denies?Fever.?Denies?Headache.?ENT:?Patient denies?decreased sense of smell, any loss of taste, sore throat.?Denies?Sore throat.?Respiratory:?Denies?Cough.?Denies?Shortness of breath at rest.?Denies?Shortness of breath with [...] No f/u indicated., Prediabetes, Prediabetes. * Medications:?Taking Betameth asone Dipropionate , Taking OneTouch Ultra - Strip USE TO TEST BLOOD SUGAR TWICE DAILY , Taking OneTouch Delica Plus [id number] - Miscellaneous USE TO TEST BLOOD SUGAR TWICE DAILY , Taking Nystatin 535176 UNIT/GM Cream 1 application Externally Twice a [...] EACH NOSTRIL TWICE DAILY , Taking Nystatin-Triamcinolone 625848-1.1 UNIT/GM Cream 1 application Externally Twice a day , Taking Ciclopirox 0.77% cream as directed applied topically twice a day , Taking Rosuvastatin Calcium 10 MG Tablet 1 tablet Orally Once a day , Taking Hyoscyamine Sulfate ER 0.375 [...] 2 tablet Orally twice a day , Medication List reviewed and reconciled with the patient * Allergies:?Demerol: Tongue S welling. Objective: * Vitals:?Ht: 72, Wt: 238, BMI :32.28, BP:134/72, Wt-k.96. weight is down 3 pounds since 06-13-24. * Examination: ???General Examination: ?GENERAL APPEARANCE:?alert, well hydrated, in no distress.?HEAD:?normocephalic.?SKIN:?good turgor, abnormal? with a rash on rt buttocks that occurred in past and treated with cicloprox. scalp looks normal.? 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 Plan: * Treatment: * Procedure Codes:?43873 VENIP UNCT, ROUTINE* * * The named appointment provid er may or may not be the originator of this progress note, and it is not deemed complete until electronically signed by the appointment provider. Sign off status: Pending * Provider:?Delmar Sandoval MD Date:?0 07/11/2024 Generated for Gretel lazaro/Néstor/Kirstinitting on:?07/11/2024 11:56 AM EST History and Physical Notes * HPI (History of Present Illness) Category Sub-Category Detail Notes Category Not es Symptom(s) patient is a 74 yo male here for follow up of ongoing issue with itch, new years scalp was sore and then started to get itching. one on back and one on leg and head. tried allergy meds and it made him sick. went [place] [facility] [place]. gave him betemethasone lostion. took scott d and didn't do well taking scott for few days. Examination Category Sub-Category Detail Notes Category Not es General Examination GENERAL APPEARANCE: alert, w ell hydrated, in no distress HEAD: normocephalic SKIN: good turgor, abnorma l with a rash on rt buttocks that occurred in past and treated with cicloprox. scalp looks normal
--- OUTSIDE RECORDS SUMMARY | 2024-07-11 11:56 | XMS_ITS | Patient Health Record ---
[facility] Organization [facility] Address [address] [facility] [place] [address] Care Team Providers Care Lunchroom Aide Name Role Phone Lori NEW, Delmar Primary Care Provider Unadimitri benson Black, Lizzie Unavailable [phone] Allergies Allergen (clinical drug ingredient) Drug/Non Drug Allergy documented on EMR Reaction Allergy Type Onset Date Status meperidine Demerol swelling, itchy Drug Allergy Active dapagliflozin Farxiga rash Drug Allergy Act danica amoxicillin Amoxicillin Unknown Drug Allergy Act danica Results Component Value Reference Range Notes HEMOGLOBIN A1C (GLYCOHEMOGLO BIN) Reviewed date:11/05/2023 10:28:36 AM Interpretation: Performing Lab: Notes/Report: HEMOGLOBIN A1C (HH) 5.8 HEMOGLOBIN A1C (GLYCOHEMOGLO BIN) Reviewed date:03/17/2024 09:58:09 AM Interpretation: Performing Lab: Notes/Report: TOTAL HEMOGLOBIN (HGBA1C) 5.6 HEMOGLOBIN A1C (GLYCOHEMOGLO BIN) Reviewed date:06/23/2024 07:51:29 AM Interpretation: Performing Lab: Notes/Report: HEMOGLOBIN A1C % (HH) 5.7 Reason For Referral No Information Medications Medication SIG (Take, Route, Frequency, Duration) Notes Start Date End Date Status Rosuvastatin Calcium Active Custom Orthotics as directed 12/23/2012 Unknown Custom Orthotics as directed 04/19/2020 Active Ibuprofen Orally prn Active Hydrocortisone Not-T aking Lisinopril 10 MG 1 tablet Orally Once a day for 30 day(s) Active Prednisone Not-Takin g Januvia 50 MG as directed Orally Active Simvastatin 20 MG 1 tablet in the even ing Orally Once a day for 30 day(s) Not-Taking Tamsulosin HCl 0.4 MG 1 capsule Orally O nce a day for 30 day(s) Active Indomethacin 50 MG 1 capsule with food Orally three times a day for 30 day(s) PRN Not-Taking Colchicine 0.6 MG Orally Once a day Not-Taking Omeprazole 20 MG 1 capsule 30 minutes before morning meal Orally Once a day for 30 day(s) PRN Active Night Splint AFO - L1930 1 wear when at rest for 30 days Active metFORMIN HCl ER 500 MG 1 tablet with ev ening meal Orally Once a day for 30 day(s) Not-Taking Allopurinol 300 MG 1 tablet Orally Once a day Active Azithromycin 250 MG Oral for 5 Days Active Immunizations Vaccine Route Administration Date Status Comme nts COVID-19 Moderna Vaccine Unknown 09/10/2020 Administere d 1# 08/20/20 Influenza Unknown 01/30/2021 Administered Influenza Unknown 02/17/2022 Administered Influenza Unknown 02/16/2023 Administered Social History Tobacco Use: Social History Observation Description Date Details (start date - stop date) Never Smoker NA - NA Alcohol Screen Question Answer Notes Did you have a drink contain ing alcohol in the past year? Yes How often did you have a dri nk containing alcohol in the past year? 2 to 3 times a week (3 points) Points 3 Interpretation Negative Tobacco use other than smoking: Question Answer Notes Are you an other tobacco user? No Tobacco Control (Standard) Question Answer Notes Tobacco use: Nonsmoker Problems Problem Type SNOMED Code ICD Code Onset Dates Problem Status W/U Status Risk Notes Problem Localized, primary osteoarthritis of the ankle and/or foot (199250162) Primary osteoarthritis, right ankle and foot (M19.071) Active confirmed Problem Localized, primary osteoarthritis of the ankle and/or foot (839952782) Primary osteoarthritis, left ankle and foot (M19.072) Active confirmed Problem Polyneuropathy due to type 2 diabetes mellitus (209798271) Type 2 diabetes mellitus with diabetic polyneuropathy (E11.42) Active confirmed Problem Primary gout (36398938) Idiopathic gout, right ankle and foot (M10.071) Active confirmed Problem Tarsal tunnel syndrome (88529528) Tarsal tunnel syndrome of right side (G57.51) Active confirmed Problem Mononeuropathy of lower limb (049619787) Neuritis of right foot (G57.91) Active confirmed Response to treatment - Improvement Problem 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1 ; Neuritis of right foot G57.91 ; Pain in right toe(s) M79.674 ; Pain in left toe(s) M79.675 and Type 2 diabetes mellitus with diabetic polyneuropathy E11.[address] [address] 11/05/2023 Lizzie Black Tinea unguium B35.1 ; Neuritis of right foot G57.91 ; Pain in right toe(s) M79.674 ; Pain in left toe(s) M79.675 and Type 2 diabetes mellitus with diabetic polyneuropathy E11.[address] [address] 03/17/2024 Lizzie Black Neuritis of right fo ot G57.91 ; Achilles tendinitis of right lower extremity M76.61 ; Tinea unguium B35.1 ; Pain in right toe(s) M79.674 ; Pain in left toe(s) M79.675 ; Type 2 diabetes mellitus with diabetic polyneuropathy E11.42 ; Pain of right heel M79.671 and [facility] (acquired), [facility]67.[facility] [address] 06/23/2024 Lizzie Zheng Achilles tendinitis of right lower extremity M76.61 ; Peroneal tendinitis, right leg M76.71 ; Neuritis of right foot G57.91 ; Tinea unguium B35.1 ; Type 2 diabetes mellitus with diabetic polyneuropathy E11.42 ; Pain of right heel M79.671 ; Short Achilles tendon (acquired), right ankle M67.01 ; Bursitis of right foot M77.51 and Hypertrophy of bone M89.[address] [address] 11/16/2023 Lizzie Zheng Assessments Encounter Date Diagnosis (ICD Code) Assessment Notes Treatment Notes Treatment Clinical Notes Section Notes 08/06/2023 Tinea unguium (ICD-10 - B35.1) 08/06/2023 Neuritis of right foot (ICD-10 - G57.91) 11/05/2023 Tinea unguium (ICD-10 - B35.1) 11/05/2023 Neuritis of right foot (ICD-10 - G57.91) 03/17/2024 Achilles tendinitis of right lower extremity (ICD-10 - M76.61) Patient Educated with: HEEL CORD STRETCHES.pdf (HEEL CORD STRETCHES.pdf ) Patient Educated with: RICE THERAPY.pdf (RICE THERAPY.pdf) 03/17/2024 Neuritis of right foot (ICD-10 - G57.91) Response to treatment - Improvement 06/23/2024 Peroneal tendinitis, right leg (ICD-10 - M76.71) Patient Educated with: RICE THERAPY.pdf (RICE THERAPY.pdf) Patient Educated with: PERONEAL TENDON INJURY REHAB. EXERCISES.pdf (PERONEAL TENDON INJURY REHAB. EXERCISES.pdf ) 06/23/2024 Achilles tendinitis of right lower extremity (ICD-10 - M76.61) 06/23/2024 Neuritis of right foot (ICD-10 - G57.91) 03/17/2024 Tinea unguium (ICD-10 - B35.1) 11/05/2023 Pain in right toe(s) (ICD-10 - M79.674) 08/06/2023 Pain in right toe(s) (ICD-10 - M79.674) 08/06/2023 Pain in left toe(s) (ICD-10 - M79.675) 11/05/2023 Pain in left toe(s) (ICD-10 - M79.675) 03/17/2024 Pain in right toe(s) (ICD-10 - M79.674) 06/23/2024 Tinea unguium (ICD-10 - B35.1) 03/17/2024 Pain in left toe(s) (ICD-10 - M79.675) 11/05/2023 Type 2 diabetes mellitus with diabetic polyneuropathy (ICD-10 - E11.42) 08/06/2023 Type 2 diabetes mellitus with diabetic polyneuropathy (ICD-10 - E11.42) 06/23/2024 Type 2 diabetes mellitus with diabetic polyneuropathy (ICD-10 - E11.42) 03/17/2024 Type 2 diabetes mellitus with diabetic polyneuropathy (ICD-10 - E11.42) 06/23/2024 Pain of right heel (ICD-10 - M79.671) 06/23/2024 Short Achilles tendon (acquired), right ankle (ICD-10 - M67.01) 03/17/2024 Pain of right heel (ICD-10 - M79.671) 06/23/2024 Bursitis of right foot (ICD-10 - M77.51) 03/17/2024 Short Achilles tendon (acquired), right ankle (ICD-10 - M67.01) 06/23/2024 Hypertrophy of bone (ICD-10 - M89.30) Plan Of Treatment Pending Test Test Name Order Date X ray : Foot, right 3V 03/10/2016 X ray : Foot, right 3V 12/23/2012 60652-PBBGFXP NAIL, 6 OR MORE 04/28/2019 84881-RLBQYOR NAIL, 6 OR MORE 10/17/2019 08368-IWHRZLR NAIL, 6 OR MORE 04/19/2020 90888-ADDBSLV NAIL, 6 OR MORE 10/18/2020 84397-HCDKUOR NAIL, 6 OR MORE 05/02/2021 06751-YOBQGBX NAIL, 6 OR MORE 10/31/2021 99402-XBHRPWF NAIL, 6 OR MORE 05/08/2022 75906-JDCYAFY NAIL, 6 OR MORE 11/06/2022 30982-NCLWUHI NAIL, 6 OR MORE 05/07/2023 84047-EBFPACY NAIL, 6 OR MORE 08/06/2023 06515-GMYBZFS NAIL, 6 OR MORE 11/05/2023 15248-EFDYUBW NAIL, 6 OR MORE 03/17/2024 44728-NZHHATW NAIL, 6 OR MORE 06/23/2024 44993-RDHTHNO NAIL, 1-5 01/01/2017 29994-VQHHAYI NAIL, 1-5 04/16/2017 55805-JBAYCON NAIL, 1-5 06/25/2017 86850-XOYUDMP NAIL, 1-5 12/24/2017 81506-HMTNLDF NAIL, 1-5 07/01/2018 67636-FVNXJLN NAIL, 1-5 12/30/2018 78224-Rwbqveze Plate 05/08/2022 20074-CJVQ SKIN LESIONS, 2 TO 4 06/23/19 25 Next Appt Details Provider Name:Lizzie Zheng , 09/26/2024 08:30:00 AM, [address] [place], [address], Insurance Providers Payer Name Payer Address Payer Phone Subscriber Number Group Number Insured Name Patient Relationship to Insured Coverage Start Date Coverage End Date Medicare [facility] [address] [place] [address] [id number] Rivas Ventura Self - patient is the insured [employer] [facility] [address] [place] [address] [id number] Rivas Ventura Self - patient is the insured Medical (General) History Medical History History ICD Code chicken pox Gout measles sinus conditions enlarged Prostate Diabetic Macular degeneration wrinkle in the retna Skin cancer Biopsy Surgical History Surgery Date(Month/Year) eye surgery 1957 tonsillectomy 1961 disc surgery L4-L5 1994 colonoscopy 09/2023 biopsy on thigh 09/2023 Hospitalization History Reason Date(Month/Year) [facility] ( [place] visit- Following with Concussion center 12/10/2018
--- OUTSIDE RECORDS SUMMARY | 2024-07-11 11:56 | XMS_ITS ---
Author Organization [facility] johnny OconnorMarshal Address [address] [place] [address] Care Team Providers Care Laboratory Associate Name Role Phone Delmar Sandoval MD Primary Care Provider Lizzie Vivar [phone] Ma Encounters Encounter Location Date Provider Diagnosis [address] [address] 02/15/2024 Lizzie Zheng Plan Of Treatment Next Appt Details Provider Name:Lizzie Zheng , 09/26/2024 08:30:00 AM, [address] [place], [address], Progress Notes * JEFFREYClement Bhandariin BDOB:1950 (74 yo M)Acc No.[id number]:02/15/2024 Progress Note Patient:?Rivas VENTURA Provider:?Lizzie Zheng DPM :1950???Age:73 Y???Sex:Male David e:02/15/2024 Address:[address], [place] Pcp:Delmar Sandoval MD Subjective: * Chief Complaints: * ???1. Dr Ma. * Medical History:? Objective: * Vitals:? Assessment: Plan: * Treatment: * Images: * The named appointment provid er may or may not be the originator of this progress note, and it is not deemed complete until electronically signed by the appointment provider. Sign off status: Pending * Provider:Anil Zheng DPM Date:?2023 Generated for Gretel lazaro/Néstor/González on:?07/11/2024 11:56 AM EST
--- OUTSIDE RECORDS SUMMARY | 2024-07-11 11:56 | XMS_ITS ---
Author Organization [facility] Address [address] [facility] [place] [address] Care Team Providers Care Natural History Collections Curator Name Role Phone Delmar Sandoval MD Primary Care Provider Unavaconrad benson Black, Lizzie Unavailable [phone] Allergies Allergen (clinical drug ingredient) Drug/Non Drug Allergy documented on EMR Reaction Allergy Type Onset Date Status meperidine Demerol swelling, itchy Drug Allergy Active dapagliflozin Farxiga rash Drug Allergy Act danica amoxicillin Amoxicillin Unknown Drug Allergy Act danica REASON FOR VISIT At Risk Footcare, Foot pain, Heel pain Medications Medication SIG (Take, Route, Frequency, Duration) Notes Start Date End Date Status Rosuvastatin Calcium Active Custom Orthotics as directed 04/19/2020 Active Night Splint AFO - L1930 1 wear when at rest for 30 days Active Allopurinol 300 MG 1 tablet Orally Once a day Active Azithromycin 250 MG Oral for 5 Days Active Ibuprofen Orally prn Active Lisinopril 10 MG 1 tablet Orally Once a day for 30 day(s) Active Januvia 50 MG as directed Orally Active Tamsulosin HCl 0.4 MG 1 capsule Orally O nce a day for 30 day(s) Active Omeprazole 20 MG 1 capsule 30 minutes before morning meal Orally Once a day for 30 day(s) PRN Active Custom Orthotics as directed 12/23/2012 Unknown Hydrocortisone Not-T aking Prednisone Not-Takin g Simvastatin 20 MG 1 tablet in the even ing Orally Once a day for 30 day(s) Not-Taking Indomethacin 50 MG 1 capsule with food Orally three times a day for 30 day(s) PRN Not-Taking Colchicine 0.6 MG Orally Once a day Not-Taking metFORMIN HCl ER 500 MG 1 tablet with ev ening meal Orally Once a day for 30 day(s) Not-Taking Social History Tobacco Use: Social History Observation Description Date Details (start date - stop date) Never Smoker NA - NA Tobacco use other than smoking: Question Answer Notes Are you an other tobacco user? No Tobacco Control (Standard) Question Answer Notes Tobacco use: Nonsmoker Vital Signs Height 6ft3in in 06/23/2024 Weight 230 lbs 06/23/2024 BMI 28.74 kg/m2 06/23/2024 Blood pressure systolic 124 mm Hg 06/23/19 25 Blood pressure diastolic 80 mm Hg 025 Procedures Procedure Date Ordered Date Performed Result Body Sit e 64732-DTTKPOE NAIL, 6 OR MORE 06/23/2024 N/A 63853-GDNY SKIN LESIONS, 2 TO 4 06/23/2024 N/A Encounters Encounter Location Date Provider Diagnosis [facility] [address] [place] [address] 06/23/2024 Lizzie Black Achilles tendinitis of right lower extremity M76.61 ; Peroneal tendinitis, right leg M76.71 ; Neuritis of right foot G57.91 ; Tinea unguium B35.1 ; Type 2 diabetes mellitus with diabetic polyneuropathy E11.42 ; Pain of right heel M79.671 ; Short Achilles tendon (acquired), right ankle M67.01 ; Bursitis of right foot M77.51 and Hypertrophy of bone M89.30 Assessments Encounter Date Diagnosis (ICD Code) Assessment Notes Treatment Notes Treatment Clinical Notes Section Notes 06/23/2024 Achilles tendinitis of right lower extremity (ICD-10 - M76.61) 06/23/2024 Peroneal tendinitis, right leg (ICD-10 - M76.71) Patient Educated with: RICE THERAPY.pdf (RICE THERAPY.pdf) Patient Educated with: PERONEAL TENDON INJURY REHAB. EXERCISES.pdf (PERONEAL TENDON INJURY REHAB. EXERCISES.pdf ) 06/23/2024 Neuritis of right foot (ICD-10 - G57.91) 06/23/2024 Tinea unguium (ICD-10 - B35.1) 06/23/2024 Type 2 diabetes mellitus with diabetic polyneuropathy (ICD-10 - E11.42) 06/23/2024 Pain of right heel (ICD-10 - M79.671) 06/23/2024 Short Achilles tendon (acquired), right ankle (ICD-10 - M67.01) 06/23/2024 Bursitis of right foot (ICD-10 - M77.51) 06/23/2024 Hypertrophy of bone (ICD-10 - M89.30) Plan Of Treatment Treatment Notes Assessment Notes Peroneal tendinitis, right leg Patient E ducated with: RICE THERAPY.pdf (RICE THERAPY.pdf) Patient Educated with: PERONEAL TENDON INJURY REHAB. EXERCISES.pdf (PERONEAL TENDON INJURY REHAB. EXERCISES.pdf) Pending Test Test Name Order Date [id number] NAIL, 6 OR MORE 06/23/2024 88820-IAZT SKIN LESIONS, 2 TO 4 06/23/19 25 Next Appt Details Follow Up: prn, Reason: Provider Name:Lizzie Zheng , 09/26/2024 08:30:00 AM, [address] [place] [address], [id number], Procedure Notes * Category Sub-Category Detail Notes Debride Nail 6-10 Nail debridement Due to the cl inical pathology outlined in the exam findings, performance of this nail treatment is medically necessary as its management by an unskilled/untrained nonprofessional would put this patients foot and overall health at risk. Therefore, debridement to affected nail(s), as described in exam ( TA, T1, T2, T3, T4, T5, T6, T7, T8, T9,), was performed exclusively by the physician of record to reduce/remove overall nail length, girth, thickness, subungual debris, and necrotic tissue, by manual and/or electrical means through the use of a nail nipper and/or dremel-type liquor grinder mill operator, to a more viable healthy nail plate or bed tissue 6-10 nails in total. Silver nitrate was used for any petechial bleeding as necessary. Definitive antifungal treatment options, both pharmaceutical and surgical, have been reviewed and discussed with the patient. The patient solely prefers the use of intermittent/as needed professional debridement services for their nail condition and understands the need for additional periodic treatments to maintain effectiveness in symptomatic relief - 52588 Keratoma Treatment Parring or Cutting o f Benign Hyperkeratotic Lesion(s) (-56) 2-4 Lesions - Due to the at risk nature of the patients medical condition as documented in the exam findings, performance of this keratoderma treatment is medically necessary as its management by an unskilled/untrained nonprofessional would put this patients foot and overall health at risk. Therefore, the benign hyperkeratotic lesions, ( 2 ) in total, locations as stated and described in the exam ( plantar medial heels b/l ), were pared, and/or cut utilizing a sterile 15 blade, tissue nippers, and/or power dremel instrumentation by the physician of record - 17436 Progress Notes * JEFFREY Rivas BDOB:1950 (74 yo M)Acc No.[id number]:06/23/2024 Progress Note Patient:?Rivas VENTURA Provider:?Lizzie Zheng DPM :1950???Age:74 Y???Sex:Male David e:06/23/2024 Address: [address], [place], [place]-[id number] Pcp:Delmar aSndoval MD Subjective: * Chief Complaints: * ???At Risk FootcareFoot pain Heel pain * HPI: ???At Risk footcare:?Pt States Last PCP Visit:?Date?06/03/2024 ???Foot Pain:?Nature:?burning ,.?Location:?, Outside, Midfoot, RIGHT.?Duration:?, several weeks- 4/5.?Onset:?unknown.?Course:?, worse.?Aggravated:?any pressure.?Treatments:?rest/alter normal daily activity.?Heel pain:?Location:?Back of heel, RIGHT.?Duration:?, several months.?Course:?, improved.?Aggravated:?standing, walking, walking first thing in the morning/after rest.?Treatments:?rest/alter normal daily activity, change in shoes, stretching, AFO-nightsplint.? * ROS:?General/Constitutional:?Nausea?denies.?Vomiting?denies.?Hunger Thirst?denies.?Loss appetite?denies.?Chills?denies.?Fatigue?denies.?Fever?denies.?Night Sweats?denies.?Unexplained weight loss?denies.?Unexplained weight gain?denies.?HEENTM:?Dentures?denies.?Dizziness?denies.?Glasses/contacts?admits.?Retinopathy?den ies.?Blurred/double vision?denies.?TMJ?denies.?Discharge/drainage?denies.?Implants?denies.?Sore throat?denies.?Dental implants?denies.?Hard of hearing ?denies.?Difficulty chewing/swallowing/speaking?denies.?Nose bleeds?denies.?Sore mouth?denies.?Respiratory:?On O xygen?denies.?Pneumonia/pleurisy?denies.?Bronchitis?denies.?Emphysema?denies.?Co ughing?denies.?Cough blood?denies.?Shortness of breath?denies.?Wheezing?denies.?Cardiovascular:?Pacemaker?denies.?MVP?denies.?WPW?denies.?CHF?denies.?Heart attack?denies.?Septal defect?denies.?Rapid beat?denies.?Chest pain ?denies.?Atrial Fib.?denies.?Murmur/Palpitations?denies.?Gastrointestinal:?Hemorrhoids?denies.?Stomach/Abdominal pain?denies.?Dark blood stool?denies.?Irritable bowel ?denies.?Constipation?denies.?Diarrhea?denies.?Hematology:?Swelling?denies.?Clots?denies.?Varicose Veins?denies.?Bruising?denies.?Bleeding problem?denies.?Genitourinary:?Blood urine?denies.?Frequent/Painfu/urination/bladder control?denies.?Kidney stones?denies.?Infection (UTI)?denies.?Nephropathy?denies.?sex trans dis (STD)?denies.?Prostate?denies.?Musculoskeletal:?Hammertoes?denies.?Bunions?denies.?Back Pain?denies.?Muscle Cramps/ Resting?denies.?Muscle cramps / walking?denies.?Generalized aches and pains?denies.?Weakness?denies.?Integ.:?Kimble?denies.?Scars?denies.?Corns/calluses?, admits.?Ingrown nails?denies.?Painful nails?denies.?Open Sores?denies.?Rashes?denies.?Neurologic:?Difficulty sleeping?denies.?Brain disorder?denies.?Numbness?denies.?Balance t rouble?denies.?Confusion?denies.?Fainting/blackouts?denies.?Tingling?denies.?Mejia mors?denies.? * Medical History:? * Surgical History:?eye surger y 195tonsillectomy 1962disc surgery L4-L5 1995colonoscopy iopsy on thigh 09/2023 * Hospitalization/Major Diagno stic Procedure:?[facility] [place] Concussion-[facility] visit- Following with Concussion center 12/10/2018 * Family History:?Mother: dece ased, cancer, heart attack, high blood pressure, diagnosed with Other malignant neoplasm of unspecified site, Unspecified essential hypertension, Unspecified heart disease.?Father: , liver disease.? * Social History:?Tobacco Use:?Tobacco use other than smoking?Are you an other tobacco user??No ?Tobacco Control (Standard)?Tobacco use:?Nonsmoker ???Miscellaneous:?Caffeine: yes, frequency:, 1-2 cups per day, decaff tea. ?Children: yes. ?Exercise: yes, walking, treadmill, stationary bike. ?Marital status: . 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 * Medications:?TakingOmeprazol e 20 MG Capsule Delayed Release 1 capsule 30 minutes before morning meal Orally Once a day , Notes to Pharmacist: PRNJanuvia 50 MG Tablet as directed Orally Tamsulosin HCl 0.4 MG Capsule 1 capsule Orally Once a day Ibuprofen Tablet Orally prn Lisinopril 10 MG Tablet 1 tablet Orally Once a day Rosuvastatin Calcium Custom Orthotics as directed Allopurinol 300 MG Tablet 1 tablet Orally Once a day Azithromycin 250 MG Tablet Oral Night Splint AFO - L1930 1 wear when at rest Taking Omeprazole 20 MG Capsule Delayed Release 1 capsule 30 minutes before morning meal Orally Once a day , Notes to Pharmacist: PRNTaking Januvia 50 MG Tablet as directed Orally Taking Tamsulosin HCl 0.4 MG Capsule 1 capsule Orally Once a day Taking Ibuprofen Tablet Orally prn Taking Lisinopril 10 MG Tablet 1 tablet Orally Once a day Taking Rosuvastatin Calcium Taking Custom Orthotics as directed Taking Allopurinol 300 MG Tablet 1 tablet Orally Once a day Taking Azithromycin 250 MG Tablet Oral Taking Night Splint AFO - L1930 1 wear when at rest Not-Taking/PRNmetFORMIN HCl ER 500 MG Tablet Extended Release 24 Hour 1 tablet with evening meal Orally Once a day Colchicine 0.6 MG Capsule Orally Once a day Simvastatin 20 MG Tablet 1 tablet in the evening Orally Once a day Indomethacin 50 MG Capsule 1 capsule with food Orally three times a day , Notes to Pharmacist: PRNHydrocortisone Prednisone Not-Taking/PRN metFORMIN HCl ER 500 MG Tablet Extended Release 24 Hour 1 tablet with evening meal Orally Once a day Not-Taking/PRN Colchicine 0.6 MG Capsule Orally Once a day Not-Taking/PRN Simvastatin 20 MG Tablet 1 tablet in the evening Orally Once a day Not-Taking/PRN Indomethacin 50 MG Capsule 1 capsule with food Orally three times a day , Notes to Pharmacist: PRNNot- Taking/PRN Hydrocortisone Not-Taking/PRN Prednisone UnknownCustom Orthotics as directed Medication List reviewed and reconciled with the patientUnknown Custom Orthotics as directed Medication List reviewed and reconciled with the patient * Allergies:?Demerol: swelling , itchyAmoxicillinFarxiga: rashyes[Allergies Verified] Objective: * Vitals:?Ht: 6ft3in, Wt:230, BMI:28.74, Shoe size: 12-12.5W, BP:124/80mm Hg, BS: 123, Ht-cm: 190.5 cm, Wt-k.33 kg. * ???Past Orders: ???Lab:HEMOGLOBIN A1C (GLYCO HEMOGLOBIN) (Order Date - 06/03/2024) (Collection Date & Time - 06/03/2024 07:50 AM) ? Value Reference Range ?HEMOGLOBIN A1C % (HH) 5.7 * Examination: ???Ophthalmology Referral: ?DIABETES EYE EXAM?General Examination: ?GENERAL APPEARANCE:?Reveals a pleasant, alert, well nourished, well- developed, well hydrated individual, who demonstrates proper attention to hygiene/body habitus, and is in no acute distress, Pt serves as own historian for office visit today.?ORIENTED:?person, place, and time.?FOOT EXAM:?Footwear Evaluation?Vascular: ?DP PULSES (B):?2/4, B/L.?PT PULSES (B):?2/4, B/L.?CAPILLARY FILL TIME:?immediate, all digits, B/L.?TROPHIC CONDITION-TEXTURE/ELASTICITY/TURGOR/HAIR GROWTH (B):?normal, B/L.?Neurological: ?SENSORY:?Neurological exam demonstrates , reduced light touch sensation , reduced sharp/dull pin prick discrimination , reduced vibration sensation , 5.07 monofilament test performed at plantar aspects of 5 varied sites per foot shows sensation , reduced , Pt relates , burning , B/L.?TINEL'S COMPRESSION:?Lateral sural nerve distribution, Right.?Nails: ?NAILS are:?Elongated, overgrown, dystrophic, greater than 3mm thick, discolored and friable with crumbly malodorous subungual debris, with pain on palpation, , TA, T1, T2, T3, T4, T5, T6, T7, T8, T9.?Orthopedic: ?GAIT ABNORMALITY:?antalgic.?FOOT MORPHOLOGY:? Decreased Ankle joint dorsiflexion ROM, knee extended.?TAILOR'S BUNION:?Enlarged, painful, prominent, inflamed 5th Metatarsal Base, RIGHT.?DIGITAL DEFORMITIES:?Digital contracture, PIPJ, 2-5 B/L, incompl-reducible with WB, or to push-up test, no over, nor underlapping.?TENDONITIS:?Pain on palpation, inflammation, and fusiform swelling to, Peroneal Complex, RIGHT.?FOOTWEAR:?OT were inspected and noted to be worn, but in good condition giving proper support at the present time.?Heel Pain: ?INSPECTION REVEALS:?NO Pain on palpation to Achilles tendon/bursa with inflammation and swelling present, Pain on palpation to Posterior Superior Aspect Calcaneus, at 100%??Prominent posterior and posterior/superior heel present, RIGHT.?Dermatologic: ?SKIN FINDINGS:?Skin exam reveals Keratotic lesion(s) located at, Plantar Heel(s), B/L.? Assessment: * Assessment: 1.?Peroneal tendinitis, righ t leg - M76.71 (Primary)???Specify :Acute problem, Complicated w/ Multiple Tx Options(4)???2.?Achilles tendinitis of right lower extremity - M76.61???Specify :Chronic problem, Stable (1=3,2=4)???3.?Neuritis of right foot - G57.91???Specify :Acute problem, Stable (1=3)???4.?Tinea unguium - B35.1???5.?Type 2 diabetes mellitus with diabetic polyneuropathy - E11.42???6.?Pain of right heel - M79.671? ?7.?Short Achilles tendon (acquired), right ankle - M67.01???8.?Bursitis of right foot - M77.51???Specify :Acute problem, Uncomplicated (3)???9.?Hypertrophy of bone - M89.30??? Plan: * Treatment: 2.?Type 2 diabetes mellitus with diabetic polyneuropathy?Procedure: 10034-VCTHNEC NAIL, 6 OR MORE ?Procedure: 53827-YAUP SKIN LESIONS, 2 TO 4 * Procedures:?Debride Nail 6-10:?Nail debridement?Due to the clinical pathology outlined in the exam findings, performance of this nail treatment is medically necessary as its management by an unskilled/untrained nonprofessional would put this patients foot and overall health at risk. Therefore, debridement to affected nail(s), as described in exam ( TA, T1, T2, T3, T4, T5, T6, T7, T8, T9,), was performed exclusively by the physician of record to reduce/remove overall nail length, girth, thickness, subungual debris, and necrotic tissue, by manual and/or electrical means through the use of a nail nipper and/or dremel-type liquor grinder mill operator, to a more viable healthy nail plate or bed tissue 6- 10 nails in total. Silver nitrate was used for any petechial bleeding as necessary. Definitive antifungal treatment options, both pharmaceutical and surgical, have been reviewed and discussed with the patient. The patient solely prefers the use of intermittent/as needed professional debridement services for their nail condition and understands the need for additional periodic treatments to maintain effectiveness in symptomatic relief - 80779.?Keratoma Treatment:?Parring or Cutting of Benign Hyperkeratotic Lesion(s)?(-56) 2-4 Lesions - Due to the at risk nature of the patients medical condition as documented in the exam findings, performance of this keratoderma treatment is medically necessary as its management by an unskilled/untrained nonprofessional would put this patients foot and overall health at risk. Therefore, the benign hyperkeratotic lesions, ( 2 ) in total, locations as stated and described in the exam ( plantar medial heels b/l?), were pared, and/or cut utilizing a sterile 15 blade, tissue nippers, and/or power dremel instrumentation by the physician of record - 88799.? * Procedure Codes:?42925 DEBRI DE NAIL, 6 OR MORE, Modifiers: XS 37716 TRIM SKIN LESIONS, 2 TO 4, Modifiers: XS 3044F HG A1C LEVEL LT 7.0% * Preventive Medicine:? ??Counseling:?Discussion:?-14: Office or other [...] have encouraged the patient to call the office.?Myositis/Tendonitis:?TENDONITIS: I explained to the patient the possible etiologies of their Tendonitis, including foot type/shoegear/activity level/exercise routine and the risks/benefits of the different treatment options for their pain including: No treatment at all, Rest, Ice, Oral Prednisone, NSAIDs(only if well tolerated after meals), New/supportive Shoegear, Strappings and Tapings, Stretching exercises, Deep Tissue Massage, Heel cups/cushions, Arch support/shoe inserts, Custom orthoses, Foot/Ankle AFO Bracing, Cast boot with crutches/cane/or walker for assisted ambulation, Topical analgesics including Aspercream/Voltaren gel, Physical Therapy, EPAT/ESWT, and Interfil injection therapy. Tendon surgical procedures including reefing and/or transfers were also detailed should either one become necessary through failure of conservative treatment. The advantages and disadvantages of each option were discussed and the patients questions re: shoegear, the difference between custom vs prefabricated inserts, activity level, PO vs Topical medications (and their respective potential complications/drug interactions/side effects), consistency in home treatment regimens for optimal success, as well as the potential benefits and possible complications of reconstructive surgery (includeing, but not limited to failure, prolongued/delayed healing, infection, weakness, persistant pain) were answered to their verbally confirmed satisfaction.?P.R.I.C.E.:?The patient was counseled on the use of P.R.I.C.E. and NSAIDS (if well tolerated) to aid in the recovery from their painful condition, Recommended Topical analgesics including Aspercream/Biofreeze/Voltaren gel as directed.?Padding:?Added padding to patients inner soles to off load the area in pain, The patient and I reviewed the types of shoes they should be wearing. My recommendation included obtaining a well-fitted shoe with a good supportive, non-foldable nor twistable sole, plenty of toe/room for the forefoot, and proper arch support. Based on today's examination, I recommended the patient look for new shoes, by having their feet professionally measured. We discussed that generally the best time of the day for a shoe fitting is the afternoon. Different shoes types and brands to best match the patient's occupation and vocation were discussed. Specific brand selection will be up to the patient, their individual foot condition/deformities, and fit. The patient and I reviewed the standard new shoe break in period by wearing them for a few hours a day while checking for redness or sores as wear time is increased. The patient verbally confirmed to understanding the information discussed.?Steriod Injection:?I explained that a steroid and local anesthetic injections are administered to relieve pain and inflammation and thereby meant to improve function. I explained the possible complications including but not limited to signs/symptoms of steroid flare, infection, bruising, atrophy, discoloration of skin, change/deviation in toe position, and that additional injections may be necessary, cortisone post-injection informative educational handout was dispensed to and reviewed with the patient, DM: Discussed the transient elevated effects an injection of cortisone may have on the patients blood sugars, Pt defers injection today.? ??Screening/Special Tests:?Fall Risk?Screening:?No falls in the past year ?FALLS: Screening for Future Fall Risk?Have you had any falls with injury in the past year??No * Follow Up:?prn * Images: * Sign off status: Completed true * Provider:?Lizzie Zheng DPM Date:?2024 Generated for Gretel lazaro/Néstor/Kirstinitting on:?07/11/2024 11:55 AM EST History and Physical Notes * HPI (History of Present Illness) Category Sub-Category Detail Notes Category Not es Heel pain Duration: , several months Location: Back of heel, RIGHT Aggravated: standing, walking, w alking first thing in the morning/after rest Course: , improved Treatments: rest/alter normal da jose a activity, change in shoes, stretching, AFO- nightsplint At Risk footcare Pt States Last PCP Visit: Date: 5 Foot Pain Nature: burning , Location: , Outside, Midfoot, RIGHT Duration: , several weeks- 5 Onset: unknown Course: , worse Aggravated: any pressure Treatments: rest/alter normal da jose a activity Examination Category Sub-Category Detail Notes Category Not es Ingrown Nail INSPECTION: Neuroma Pain PALPATION: Heel Pain INSPECTION REVEALS: NO Pain on p alpation to Achilles tendon/bursa with inflammation and swelling present, Pain on palpation to Posterior Superior Aspect Calcaneus, at 100% Prominent posterior and posterior/superior heel present, RIGHT Neurological SENSORY: Neurological exa m demonstrates , reduced light touch sensation , reduced sharp/dull pin prick discrimination , reduced vibration sensation , 5.07 monofilament test performed at plantar aspects of 5 varied sites per foot shows sensation , reduced , Pt relates , burning , B/L TINEL'S COMPRESSION: Lateral sural nerve distribution, Right Dermatologic SKIN FINDINGS: Skin exam reveal s Keratotic lesion(s) located at, Plantar Heel(s), B/L Orthopedic GAIT ABNORMALITY: antalgic FOOT MORPHOLOGY: Decreased Ankle join t dorsiflexion ROM, knee extended FOOTWEAR: OT were inspected an d noted to be worn, but in good condition giving proper support at the present time DIGITAL DEFORMITIES: Digital contracture , PIPJ, 2-5 B/L, incompl-reducible with WB, or to push-up test, no over, nor underlapping TAILOR'S BUNION: Enlarged, painful, p rominent, inflamed 5th Metatarsal Base, RIGHT TENDONITIS: Pain on palpation, i nflammation, and fusiform swelling to, Peroneal Complex, RIGHT General Examination GENERAL APPEARANCE: Reveals a pleasant, alert, well nourished, well-developed, well hydrated individual, who demonstrates proper attention to hygiene/body habitus, and is in no acute distress, Pt serves as own historian for office visit today FOOT EXAM: Lower Extremity Neurological Exa m performed:: Yes Visual exam of foot performed:: Yes Date: 06/23/2024 Sensory testing performed:: sensations d iminished Sensory and motor testing performed:: se nsations diminished Pedal pulse taking performed:: 2+ ORIENTED: person, place, and t belinda Footwear Evaluation Footwear Evaluation performe d:: Yes Ophthalmology Referral DIABETES EYE EXAM Procedure Perform ed:: Yes ?Date of Exam Performed: 04/17/2024 Findings of Diabetic Eye Exam:: no retin opathy Vascular DP PULSES (B): 2/4, B/L PT PULSES (B): 2/4, B/L CAPILLARY FILL TIME: immediate, all digi ts, B/L TROPHIC CONDITION-TEXTURE/EL ASTICITY/TURGOR/HAIR GROWTH (B): normal, B/L Nails NAILS are: Elongated, overg rown, dystrophic, greater than 3mm thick, discolored and friable with crumbly malodorous subungual debris, with pain on palpation, , TA, T1, T2, T3, T4, T5, T6, T7, T8, T9
--- OUTSIDE RECORDS SUMMARY | 2024-07-11 11:57 | XMS_ITS ---
Author Organization Delmar Sandoval MD Address [address] [place] [phone] Care Team Providers Care Data Management Specialist Name Role Phone Lori Delmar Primary Care Provider Allergies Allergen (clinical drug ingredient) Drug/Non Drug Allergy documented on EMR Reaction Allergy Type Onset Date Status meperidine demerol (uncoded) tongue swelling Allergy Active REASON FOR VISIT follow up, Video [phone] Medications Medication SIG (Take, Route, Frequency, Duration) Notes Start Date End Date Status Valtrex 1 GM 2 tablet Orally twic e a day for 1 days 03/26/2021 Not-Taking Nystatin 250346 UNIT/GM 1 application Externally Twice a day for 30 days 09/11/2022 Active OneTouch Delica Plus [id number] - USE TO TEST BLOOD SUGAR TWICE DAILY for 50 Active Indomethacin 50 MG 1 capsule with food Orally Three times a day for 14 days 12/11/2011 Not-Taking OneTouch Ultra - USE TO TEST BLOOD MALAGON GAR TWICE DAILY for 50 Active Ibuprofen 800 MG TAKE 1 TABLET BY HADLEY TH THREE TIMES DAILY for 90 Not-Taking Januvia 50 MG TAKE 1 TABLET BY HADLEY TH EVERY DAY Active metFORMIN HCl 500 MG 1 tablet with a susana l Orally twice a day for 30 day(s) 04/15/2022 Not-Taking Hyoscyamine Sulfate ER 0.375 MG 1 tablet Orally once a day 04/28/2024 Active Rosuvastatin Calcium 10 MG 1 tablet Orally Once a day for 90 days 10/27/2023 Active Ciclopirox 0.77% as directed applied topically twice a day for 30 days 09/22/2023 Active Allopurinol 300 MG TAKE 1 TABLET BY HADLEY TH EVERY DAY for 90 Active Tamsulosin HCl 0.4 MG TAKE 1 CAPSULE BY MOUTH EVERY DAY for 90 Active Nystatin-Triamcinolone 406165-2.1 UNIT/GM 1 application Externally Twice a day 03/26/2021 Active Fluticasone Propionate 50 MCG/ACT SHAKE LIQUID AND USE 1 SPRAY IN EACH NOSTRIL TWICE DAILY for 30 Active Lisinopril 10 MG TAKE 1 TABLET BY HADLEY EVERY DAY Active Omeprazole 20 MG TAKE 1 CAPSULE BY [facility] EVERY DAY 30 MINUTES BEFORE BREAKFAST for 90 Active Vital Signs Height 72 in 06/13/2024 Weight 241 lbs 06/13/2024 BMI 32.68 kg/m2 06/13/2024 BP not taken today Encounters Encounter Location Date Provider Diagnosis Delmar Sandoval MD [address] [place] [phone] 06/13/2024 Delmar Sandoval Pruritus L29.9 Assessments Encounter Date Diagnosis (ICD Code) Assessment Notes Treatment Notes Treatment Clinical Notes Section Notes 06/13/2024 Pruritus (ICD-10 - L29.9) to try allergy med/ seems unlikely to be the statin since allergies are not dose related to try allergy meds Plan Of Treatment Treatment Notes Assessment Notes Pruritus to try allergy med/ seems unlikely to be the statin since allergies are not dose related Next Appt Details Provider Name:Delmar freedman, 07/29/2024 11:30:00 AM, [address] [place] [address], [place] [address], [place], [place], [phone], Provider Name:Delmar freedman, 09/20/2024 07:15:00 AM, [address] [place] [address], [address], [place], [place], [phone], Provider Name:Delmar Rene ier, 09/27/2024 09:30:00 AM, [address] [place] [address], [address], [place], [phone], Progress Notes * JEFFREYRivas Bhandari BDOB:1950 (74 yo M)Acc No.[id number]:06/13/2024 Patient:?Rivas VENTURA B Provider:?Delmar Sandoval MD :1950???Age:74 Y???Sex:Male David e:06/13/2024 Address:[address] [place] [address] geoff Araya [id number] Subjective: * Chief Complaints: * ???Follow upVideo [phone] * HPI: ???Symptom(s):?Telehealth?Location of provider rendering services:?[address] [place] [address], [address],?Location of patient:?at address listed in demographics for today's visit At work in [place],?Patient identification confirmed using:?Name, ,?Telehealth method:?Telephone only. Patient not visible to care provider.,?Consent:?Patient verbally consented to treatment, Patient verbally consented to billing insurance company, Patient informed of any privacy concerns related to method of visit,?Total time spend talking with patient (minutes)?20.?patient is a 74 yo male audio telehealth visit here for follow up. stopped hyoscyamine few days ago. when he increasethe statin to daily he thinks maybe that caused the itching scalp. getting lots of itching on scalp. since he increased hs statin dose. has been off hyosciamine for a week and that didn't make a difference. * ROS:?General/Constitutional:?Denies?Chills.?Denies?Fatigue.?Denies?Fever.?Denies?Headache.?ENT:?Patient denies?decreased sense of smell, any loss of taste, sore throat.?Denies?Sore throat.?Respiratory:?Denies?Cough.?Denies?Shortness of breath at rest.?Denies?Shortness of breath with exertion.?Gastrointestinal:?Denies?Diarrhea.?Denies?Nausea.?Musculoskeletal:?Patient denies?muscle aches.?Peripheral Vascular:?Patient denies?red and blue toes.? * Medical History:? * Surgical History:? * Hospitalization/Major Diagno stic Procedure:? * Medications:?TakingOneTouch Ultra - Strip USE TO TEST BLOOD SUGAR TWICE DAILY OneTouch Delica Plus [id number] - Miscellaneous USE TO TEST BLOOD SUGAR TWICE DAILY Nystatin 877395 UNIT/GM Cream 1 application Externally Twice a day Omeprazole 20 MG Capsule Delayed Release TAKE 1 CAPSULE BY MOUTH EVERY DAY 30 MINUTES BEFORE BREAKFAST Lisinopril 10 MG Tablet TAKE 1 TABLET BY MOUTH EVERY DAY Tamsulosin HCl 0.4 MG Capsule TAKE 1 CAPSULE BY MOUTH EVERY DAY Allopurinol 300 MG Tablet TAKE 1 TABLET BY MOUTH EVERY DAY Fluticasone Propionate 50 MCG/ACT Suspension SHAKE LIQUID AND USE 1 SPRAY IN EACH NOSTRIL TWICE DAILY Nystatin-Triamcinolone 192228-9.1 UNIT/GM Cream 1 application Externally Twice a day Ciclopirox 0.77% cream as directed applied topically twice a day Rosuvastatin Calcium 10 MG Tablet 1 tablet Orally Once a day Hyoscyamine Sulfate ER 0.375 MG Tablet Extended Release 12 Hour 1 tablet Orally once a day Januvia 50 MG Tablet TAKE 1 TABLET BY MOUTH EVERY DAY Taking OneTouch Ultra - Strip USE TO TEST BLOOD SUGAR TWICE DAILY Taking OneTouch Delica Plus [id number] - Miscellaneous USE TO TEST BLOOD SUGAR TWICE DAILY Taking Nystatin 243326 UNIT/GM Cream 1 application Externally Twice a day Taking Omeprazole 20 MG Capsule Delayed Release TAKE 1 CAPSULE BY MOUTH EVERY DAY 30 MINUTES BEFORE BREAKFAST Taking Lisinopril 10 MG Tablet TAKE 1 TABLET BY MOUTH EVERY DAY Taking Tamsulosin HCl 0.4 MG Capsule TAKE 1 CAPSULE BY MOUTH EVERY DAY Taking Allopurinol 300 MG Tablet TAKE 1 TABLET BY MOUTH EVERY DAY Taking Fluticasone Propionate 50 MCG/ACT Suspension SHAKE LIQUID AND USE 1 SPRAY IN EACH NOSTRIL TWICE DAILY Taking Nystatin- Triamcinolone 232542-8.1 UNIT/GM Cream 1 application Externally Twice a day Taking Ciclopirox 0.77% cream as directed applied topically twice a day Taking Rosuvastatin Calcium 10 MG Tablet 1 tablet Orally Once a day Taking Hyoscyamine Sulfate ER 0.375 MG Tablet Extended Release 12 Hour 1 tablet Orally once a day Taking Januvia 50 MG Tablet TAKE 1 TABLET BY MOUTH EVERY DAY Not-Taking/PRNIbuprofen 800 MG Tablet TAKE 1 TABLET BY MOUTH THREE TIMES DAILY metFORMIN HCl 500 MG Tablet 1 tablet with a meal Orally twice a day Indomethacin 50 MG Capsule 1 capsule with food Orally Three times a day Valtrex 1 GM Tablet 2 tablet Orally twice a day Medication List reviewed and reconciled with the patientNot-Taking/PRN Ibuprofen 800 MG Tablet TAKE 1 TABLET BY MOUTH THREE TIMES DAILY Not-Taking/PRN metFORMIN HCl 500 MG Tablet 1 tablet with a meal Orally twice a day Not-Taking/PRN Indomethacin 50 MG Capsule 1 capsule with food Orally Three times a day Not-Taking/PRN Valtrex 1 GM Tablet 2 tablet Orally twice a day Medication List reviewed and reconciled with the patient * Allergies:?demerol: tongue s wellingyes[Allergies Verified] Objective: * Vitals:?Ht: 72, Wt: 241, BMI :32.68, Wt-k.32. BP? not taken today. Assessment: * Assessment: 1.?Pruritus - L29.9 (Primary )??? to try allergy meds Plan: * Treatment: * Procedure Codes:? * * Sign off status: Completed true * Provider:?Delmar Sandoval MD Date:?0 06/13/2024 Generated for Gretel lazaro/Néstor/González on:?07/11/2024 11:56 AM EST History and Physical Notes * HPI (History of Present Illness) Category Sub-Category Detail Notes Category Not es Symptom(s) Telehealth Location of [facility] rendering services:: [address], [address] patient is a 74 yo male audio telehealth visit here for follow up. stopped hyoscyamine few days ago. when he increasethe statin to daily he thinks maybe that caused the itching scalp. getting lots of itching on scalp. since he increased hs statin dose. has been off hyosciamine for a week and that didn't make a difference Location of patient:: at add ress listed in demographics for today's visit At work in [place] Patient identification confirmed using:: Name, Telehealth method:: Telephon e only. Patient not visible to care provider. Consent:: Patient verbally c onsented to treatment, Patient verbally consented to billing insurance company, Patient informed of any privacy concerns related to method of visit Total time spend talking with patient (m inutes): 20
--- OUTSIDE RECORDS SUMMARY | 2024-07-11 11:57 | XMS_ITS ---
Author Organization [facility] Address [address] [place] [address] Care Team Providers Care Maintenance Mechanic Millwright Name Role Phone Delmar Sandoval MD Primary Care Provider Brayden Son [phone] REASON FOR VISIT Needs Cologuard Encounters Encounter Location Date Provider Diagnosis [facility] [address] [place] [address] 09/20/2023 Brayden Olivera PLAN OF TREATMENT No Information
--- OUTSIDE RECORDS SUMMARY | 2024-07-11 11:57 | XMS_ITS ---
Author Organization [facility] Address [address] [place] [phone] Care Team Providers Care Kraft Digester Operator Name Role Phone Delmar Sandoval MD Primary Care Provider Brayden Son [phone] ALLERGIES Allergen (clinical drug ingredient) Drug/Non Drug Allergy documented on EMR Reaction Allergy Type Onset Date Status meperidine Demerol Unknown Drug Allergy Active REASON FOR VISIT Patient presents today for a recall colonoscopy MEDICATIONS Medication SIG (Take, Route, Frequency, Duration) Notes Start Date End Date Status Omeprazole 20 MG TAKE 1 CAPSULE BY MO UTH EVERY DAY 30 MINUTES BEFORE BREAKFAST Oral for 90 Active Rosuvastatin Calcium 10 MG Oral for 90 Active Ibuprofen 800 MG Orally as needed for arthritis Active Januvia 50 MG TAKE 1 TABLET BY HADLEY TH EVERY DAY Oral for 30 Active Lisinopril 10 MG 1 tablet Orally Once a day for 30 day(s) Active Tamsulosin HCl 0.4 MG Oral for 90 Active Allopurinol 300 MG Oral for 90 Active Fiber Active SOCIAL HISTORY Tobacco Use: Social History Observation Description Date Details (start date - stop date) Former Smoker NA - NA Sex Assigned At : Social History Observation Description Sex Assigned At Unknown Tobacco Use/Smoking Question Answer Notes Patient is a former smoker How long has it been since you last smoked? > 10 years Alcohol Screen Question Answer Notes Did you have a drink contain ing alcohol in the past year? Yes Points 3 Interpretation Negative How often did you have 6 or more drinks on one occasion in the past year? Never (0 point) How many drinks did you have on a typical day when you were drinking in the past year? 1 or 2 drinks (0 point) How often did you have a dri nk containing alcohol in the past year? 2 to 3 times a week (3 points) VITAL SIGNS Temperature 97.7 degrees Fahrenheit 05/26/19 24 Blood pressure systolic 00 mm Hg 05/26/19 24 Blood pressure diastolic 00 mm Hg 024 Height 73 in 05/26/2023 Weight 240 lbs 05/26/2023 BMI 31.66 kg/m2 05/26/2023 Encounters Encounter Location Date Provider Diagnosis [facility] [address] [place] [address] 05/26/2023 Brayden Olivera History of adenomato us polyp of colon Z86.010 ; NSAID long-term use Z79.1 ; Encounter for screening for malignant neoplasm of colon Z12.11 and Pre-procedural examination Z01.818 ASSESSMENTS Encounter Date Diagnosis Assessment Notes Treatment Notes Treatment Clinical Notes 05/26/2023 History of adenomatous polyp of colon (ICD-10 - Z86.010) 05/26/2023 NSAID long-term use (ICD-10 - Z79.1) 05/26/2023 Encounter for screening for malignant neoplasm of colon (ICD-10 - Z12.11) Do not take Januvia for two days before the colonoscopy Stop Ibuprofen for 1 week before the colonoscopy 05/26/2023 Pre-procedural examination (ICD-10 - Z01.818) PLAN OF TREATMENT Treatment Notes Assessment Notes Encounter for screening for malignant neoplasm of colon Do not take Januvia for two days before the colonoscopy Stop Ibuprofen for 1 week before the colonoscopy Future Test Test Name Order Date COLONOSCOPY 05/26/2023 Next Appt Details Follow Up: prn, Reason: Progress Notes * Examination Category Sub-Category Detail Notes General Examination GENERAL APPEARANCE: pleasant , well nourished, well developed, in no acute distress EYES: sclera non-icteric NECK/THYROID: no cervical lymphade nopathy, neck supple HEART: S1, S2 normal LUNGS: clear to auscultatio n bilaterally ABDOMEN: normal bowel sounds, no guarding or rigidity, no hepatosplenomegaly, no masses palpable, soft, nontender, nondistended. NEUROLOGIC: alert and oriented SKIN: nonjaundiced, no spi kg angiomata. EXTREMITIES: no edema ORAL CAVITY: mucosa moist
--- OUTSIDE RECORDS SUMMARY | 2024-07-11 11:57 | XMS_ITS | Patient Health Record ---
Author Organization [facility] Address [address] [place] [address] Care Team Providers Care Piercer Name Role Phone Delmar Sandoval MD Primary Care Provider Brayden Son [phone] ALLERGIES Allergen (clinical drug ingredient) Drug/Non Drug Allergy documented on EMR Reaction Allergy Type Onset Date Status meperidine Demerol Unknown Drug Allergy Active RESULTS Component Value Reference Range Notes Pathology (Not yet reviewed by provider) Interpretation: Performing Lab:[facility], [address] [place] [phone] Notes/Report: Glucose, Whole Blood Reviewed date:09/19/2023 05:51:24 PM Interpretation: Performing Lab:[facility], [address] [place] [phone] Notes/Report: Glucose, Whole Blood 133 60-115 mg/dL METER # : [id number] REASON FOR REFERRAL No Information MEDICATIONS Medication SIG (Take, Route, Frequency, Duration) Notes Start Date End Date Status Omeprazole 20 MG TAKE 1 CAPSULE BY MO UTH EVERY DAY 30 MINUTES BEFORE BREAKFAST Oral for 90 Active Ibuprofen 800 MG Orally as needed for arthritis Active Januvia 50 MG TAKE 1 TABLET BY HADLEY TH EVERY DAY Oral for 30 Active Fiber Active Lisinopril 10 MG 1 tablet Orally Once a day for 30 day(s) Active Rosuvastatin Calcium 10 MG Oral for 90 Active Tamsulosin HCl 0.4 MG Oral for 90 Active Allopurinol 300 MG Oral for 90 Active IMMUNIZATIONS Vaccine Route Administration Date Status Comme nts Influenza Unknown 03/18/2017 Administered SOCIAL HISTORY Tobacco Use: Social History Observation Description Date Details (start date - stop date) Former Smoker NA - NA Sex Assigned At : Social History Observation Description Sex Assigned At Unknown Tobacco Use/Smoking Question Answer Notes Patient is a former smoker How long has it been since you last smoked? > 10 years PROBLEMS Problem Type ICD Code Onset Dates Problem Status W/U Status Risk SNOMED Code Notes Problem Encounter for screening for malignant neoplasm of colon (Z12.11) Active confirmed 960558116 Problem History of adenomatous polyp of colon (Z86.010) Active confirmed 213086491 Problem Diverticulosis of large intestine without perforation or abscess without bleeding (K57.30) Active confirmed Diverticul ar disease of colon (522310273) Problem NSAID long-term use (Z79.1) Active confirmed 740002729 Problem Pre-procedural examination (Z01.818) Active confirmed [id number] Encounters Encounter Location Date Provider Diagnosis [facility] Out[facility] [address] [place] [phone] 09/18/2023 Brayden Olivera Encounter for screen ing colonoscopy Z12.11 ; Colon polyps K63.5 ; Lipoma of colon D17.5 ; Diverticulosis of large intestine without perforation or abscess without bleeding K57.30 and Other hemorrhoids K64.8 [facility] [address] [place] [address] 09/20/2023 Brayden Olivera ASSESSMENTS Encounter Date Diagnosis Assessment Notes Treatment Notes Treatment Clinical Notes 09/18/2023 Encounter for screening colonoscopy (ICD-10 - Z12.11) 09/18/2023 Colon polyps (ICD-10 - K63.5) 09/18/2023 Lipoma of colon (ICD-10 - D17.5) 09/18/2023 Diverticulosis of large intestine without perforation or abscess without bleeding (ICD-10 - K57.30) 09/18/2023 Other hemorrhoids (ICD-10 - K64.8) PLAN OF TREATMENT Pending Test Test Name Order Date Pathology 09/18/2023 Future Test Test Name Order Date COLONOSCOPY 04/27/2012 COLONOSCOPY 10/07/2017 COLONOSCOPY 05/26/2023 Insurance Providers Payer Name Payer Address Payer Phone Subscriber Number Group Number Insured Name Patient Relationship to Insured Coverage Start Date Coverage End Date MEDICARE OF [place] [address] [place] [address] [id number] LUZ MURPHY Self - patient is the insured [employer] ATT[employer] CLAIMS [address] [place] [address] [phone] [id number] LUZ MURPHY Self - patient is the insured MEDICAL (GENERAL) HISTORY Medical History History ICD Code Colon polyps-tubular adenoma s & hyperplastic colonoscopies in 2003, 2006, and 09/2012 Diverticulosis/diverticulitis Internal hemorrhoids Hyperlipidemia HTN 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 in feet and ankles, Achilles tendons NIDDM exacerbated by the UTI's Enlarged prostate with UTI's Colonoscopy 2017 with 1 small tubular ad enoma Concussion in 2019 Surgical History Surgery Date(Month/Year) Disc surgery-L4/L5 Eye surgery
== END 2024-07-11 08:31 | disposition home or self-care (01) ==
LOC: HO.LNP 08:30
PROVIDERS: Visit Provider Internal Medicine
DX: R20.2 Paresthesia of skin (principal)
CPT/HCPCS: 80053; 85025

== ENCOUNTER 2024-09-20 10:17 | Outpatient (REF) | payer MEDICARE, SELFPAY ==
[2024-09-20 10:22] LABS: MANUAL DIFF FLAG NO
[2024-09-20 10:33] LABS: Basophils Percent Auto 0.3 % (0-2); Eosinophils Absolute Auto 0.1 X10*3/uL (0.0-0.4); Eosinophils Percent Auto 1.8 % (0-4); Hematocrit 49.6 % (42.0-52.0); Hemoglobin 16.9 g/dl (14.0-18.0); Imm Gran Abs Auto 0.02 X10*3/uL (0.00-0.03); Imm Gran Pct Auto 0.3 % (0.0-0.4); Lymphocytes Absolute Auto 0.8 X10*3/uL (1.2-4.9); Mean Corpuscular HGB Conc 34.1 g/dl (31.0-36.0); Mean Corpuscular Hemoglobin 28.6 pg (27.0-33.0); Mean Corpuscular Volume 84.1 fL (80.0-98.0); Mean Platelet Volume 10.3 fL (9.4-12.4); Monocytes Absolute Auto 0.5 X10*3/uL (0.1-1.2); Monocytes Percent Auto 8.7 % (2-11); Neutrophils Absolute Auto 4.6 x10*3/uL (2.0-8.3); Neutrophils Percent Auto 75.9 % (45-73); Platelet Count 147 X10*3/uL (160-400); Red Cell Distribution Width 13.6 % (11.0-16.0); White Blood Count 6.1 X10*3/uL (4.8-10.8)
[2024-09-20 10:46] LABS: Estimated Average Glucose 126 mg/dL; Hemoglobin A1C 181.4434 umol/L; Total Hemoglobin (HGBA1C) 4354.5219 umol/L
[2024-09-20 11:07] LABS: Microalbum/Creatinine Ratio Ur 9.3 ug/mg cr (<30)
[2024-09-20 11:13] LABS: Alanine Aminotransferase 21 U/L (0-40); Albumin Level 4.2 g/dL (3.5-5.0); Alkaline Phosphatase 78 U/L (39-117); Anion Gap 10 (12-20); Aspartate Amino Transferase 26 U/L (5-37); Bilirubin Total 0.9 mg/dL (0.0-1.0); Blood Urea Nitrogen 18 mg/dL (9-16); Calcium 9.4 mg/dL (8.4-10.2); Carbon Dioxide 29 mmol/L (22-29); Chloride 103 mmol/L (96-108); Cholesterol 119 mg/dL (<200); Estimated Glomerular Filt Rate > 60; Glucose Fasting 127 mg/dL (60-99); Potassium 4.1 mmol/L (3.3-5.1); Sodium 138 mmol/L (135-145); Total Protein 7.2 g/dL (6.5-8.0); Triglycerides 124 mg/dL (<150)
[2024-09-20 11:15] LABS: PSA,Total (Free>4and<10) 2.35 ng/mL (0.00-4.00)
[2024-09-20 11:17] LABS: Appearance Urine Clear; Color Urine Yellow; Glucose Urine UA Negative (Negative); Leukocyte Esterase Urine Negative (Negative); Nitrite Urine Negative (Negative); Specific Gravity - Urine 1.015 (1.005-1.025); Urine Blood Negative (Negative); Urine Ketones Negative (Negative); Urine Protein Negative (Neg-Trace)
[2024-09-20 11:24] LABS: Bacteria Urine None Seen (None Seen); Hyaline Casts Urine 0-2 /LPF (0-2); RBC Urine 0-2 /HPF (0-2); Squamous Epithelial Cell Urine 0-2 /HPF (0-2); WBC Urine 0-5 /HPF (0-5)
--- OUTSIDE RECORDS SUMMARY | 2024-09-20 11:48 | XMS_ITS | Patient Health Record ---
Author Organization Delmar Sandoval MD Address [address] [place] [phone] Care Team Providers Care Bilingual Office Assistant Name Role Phone Lori Delmar Primary Care Provider Allergies Allergen (clinical drug ingredient) Drug/Non Drug Allergy documented on EMR Reaction Allergy Type Onset Date Status meperidine demerol (uncoded) tongue swelling Allergy Active Results Component Value Reference Range Notes Hemoglobin A1c Reviewed date:01/07/2024 10:44:57 AM Interpretation: Performing Lab: Notes/Report: Hemoglobin A1c 6.1 Hemoglobin A1c Reviewed date:04/01/2024 08:56:26 AM Interpretation: Performing Lab: Notes/Report: Hemoglobin A1c 6.4 Complete Blood Count Auto Di ff Reviewed date:12/22/2023 04:04:26 PM Interpretation: Performing Lab:[facility], [address] [place] [phone] Notes/Report: White Blood Count 7.3 4.8-10.8 X10*3/uL Red Blood Count 5.91 4.60-5.80 X10*6/uL Hemoglobin 17.3 14.0-18.0 g/dl Hematocrit 50.8 42.0-52.0 % Mean Corpuscular Volume 86.0 80.0-98.0 fL Mean Corpuscular Hemoglobin 29.3 27.0-33.0 pg Mean Corpuscular HGB Conc 34.1 31.0-36.0 g/dl Red Cell Distribution Width 13.4 11.0-16.0 % Platelet Count 174 160-400 X10*3/uL Mean Platelet Volume 10.2 9.4-12.4 fL Neutrophils Percent Auto 70.9 45-73 % Imm Gran Pct Auto 0.4 0.0-0.4 % Lymphocytes Percent Auto 14.9 20-40 % Monocytes Percent Auto 10.2 2-11 % Eosinophils Percent Auto 2.9 0-4 % Basophils Percent Auto 0.7 0-2 % NRBC Pct Auto 0.0 0.0-0.2 /100WBC Neutrophils Absolute Auto 5.2 2.0-8.3 x10*3/u L Imm Gran Abs Auto 0.03 0.00-0.03 X10*3/uL Lymphocytes Absolute Auto 1.1 1.2-4.9 X10*3/u L Monocytes Absolute Auto 0.8 0.1-1.2 X10*3/uL Eosinophils Absolute Auto 0.2 0.0-0.4 X10*3/u L Basophils Absolute Auto 0.1 0.0-0.2 X10*3/uL NRBC Abs Auto 0.000 0.0-0.012 X10*3/uL Liver Panel Reviewed date:03/25/2024 05:05:23 PM Interpretation: Performing Lab:[facility], [address] [place] [phone] Notes/Report: Bilirubin Total 0.8 0.0-1.0 mg/dL Bilirubin Direct 0.3 0.0-0.5 mg/dL Aspartate Amino Transferase 22 5-37 U/L Alanine Aminotransferase 22 0-40 U/L Total Protein 7.2 6.5-8.0 g/dL Albumin Level 4.2 3.5-5.0 g/dL Alkaline Phosphatase 77 39-117 U/L Lipid Panel with Reflex Reviewed date:03/25/2024 05:05:33 PM Interpretation: Performing Lab:[facility], [address] [place] [phone] Notes/Report: Triglycerides 147 <150 mg/dL Desirable Triglyceride: less than 150 mg/dL Borderline High Triglyceride 150-199 mg/dL High Triglyceride: 200-499 mg/dL Very High Triglyceride: greater than or equal to 5OO mg/dL Cholesterol 129 <200 mg/dL Desirable Cholesterol: less than 200 mg/dL Borderline High Cholesterol: 200-239 mg/dL High Cholesterol: greater than 239 mg/dL LDL Cholesterol Calculated 58 <100 mg/dL Desirable LDL: less than 100 mg/dL Near Optimal/Above Optimal LDL: 110-129 mg/dL Borderline High LDL: 130-159 mg/dL High LDL: 160-189 mg/dL Very High LDL: greater than or equal to 190 mg/dL HDL Cholesterol 42 >40 mg/dL Desirable HDL: greater than 40 mg/dL Note: This HDL assay may give artificially low results in patients with liver disease. Glucose, finger stick Reviewed date:06/03/2024 11:38:31 AM Interpretation: Performing Lab: Notes/Report: Value 126 Complete Blood Count Auto Di ff (Not yet reviewed by provider) Interpretation: Performing Lab:[facility], [address] [place] [phone] Notes/Report: White Blood Count 6.1 4.8-10.8 X10*3/uL [...] X10*3/uL NRBC Abs Auto 0.000 0.0-0.012 X10*3/uL PSA,Total (Free>4and<10) (No t yet reviewed by provider) Interpretation: Performing Lab:[address] [phone] Notes/Report: PSA,Total (Free>4and<10) 2.35 0.00-4.00 ng/mL A [...] i Chemiluminescent Microparticle Immunoassay (CMIA) Microalbumin, Random (Not ye t reviewed by provider) Interpretation: Performing Lab:[address] [phone] Notes/Report: Creatinine Urine 128.50 Microalbumin Urine 12.0 Microalbum/Creatinine Ratio Ur 9.3 <30 ug/mg cr Albumin/Creatinine Ratio Reference Ranges: Normal: < 30 ug/mg creatinine Microalbuminuria: 30 - 300 ug/mg creatinine Clinical Albuminuria: > 300 ug/mg creatinine Hemoglobin A1c (Not yet revi ewed by provider) Interpretation: Performing Lab:[address], [place] [phone] Notes/Report: Hemoglobin A1c % 6.0 <6.0 % [...] average glucose, using the formula of the N6E-Yusponn Average Glucose study (ADAG), Diabetes Care, Vol.31,#8, 2007 UA ClnCatch+Micro w/rflx Cul t (Not yet reviewed by provider) Interpretation: Performing Lab:[facility], [address] [place] [phone] Notes/Report: Urine, Clean Catch Color Urine Yellow Appearance Urine Clear PH 6.0 5.0-9.0 Glucose Urine UA Negative Negative mg/dL Urine Blood Negative Negative Specific Hope - Urine 1.015 1.005-1.025 Urine Protein Negative Neg-Trace mg/dL Urine Ketones Negative Negative mg/dL Nitrite Urine Negative Negative Leukocyte Esterase Urine Negative Negative RBC Urine 0-2 0-2 /HPF WBC Urine 0-5 0-5 /HPF Squamous Epithelial Cell Urine 0-2 0-2 /HPF Bacteria Urine None Seen None Seen Hyaline Casts Urine 0-2 0-2 /LPF Occult Blood, Stool, Guaiac Reviewed date:09/22/2023 01:05:08 PM Interpretation:Negative Performing Lab: Notes/Report: Negative Occult Blood, Stool, Guaiac Neg Glucose, finger stick Reviewed date:01/07/2024 10:34:00 AM Interpretation: Performing Lab: Notes/Report: Value 103 Glucose, finger stick Reviewed date:04/01/2024 08:42:20 AM Interpretation: Performing Lab: Notes/Report: Value 199 Electrocardiogram (EKG) Reviewed date:04/01/2024 02:15:02 PM Interpretation: Performing Lab: Notes/Report: Glucose, finger stick Reviewed date:04/28/2024 11:23:40 AM Interpretation: Performing Lab: Notes/Report: Value 106 Complete Blood Count Auto Di ff Reviewed date:07/11/2024 05:23:05 PM Interpretation: Performing Lab:[facility], [address] [place] [phone] Notes/Report: White Blood Count 10.2 4.8-10.8 X10*3/uL [...] NRBC Abs Auto 0.000 0.0-0.012 X10*3/uL Comprehensive [place]. Panel Fa st Reviewed date:07/11/2024 05:22:26 PM Interpretation: Performing Lab:[facility], [address] [place] [phone] Notes/Report: Sodium 140 135-145 mmol/L Potassium 4.3 [...] 3.5-5.0 g/dL Alkaline Phosphatase 75 39-117 U/L Isabel Burgess Reviewed date:03/25/2024 12:58:30 PM Interpretation: Performing Lab:[facility], [address] [place] [phone] Notes/Report: Isabel Burgess See Note Specimen held untested for 24 hours; Call to request Chemistry testing. Reason For Referral No Information Medications Medication SIG (Take, Route, Frequency, Duration) Notes Start Date End Date Status Triamcinolone Acetonide 0.1 % APPLY TOPICALLY TO THE AFFECTED AREA TWICE DAILY FOR 14 DAYS for 30 Active Lisinopril 10 MG TAKE 1 TABLET BY HADLEY TH EVERY DAY for 90 Active Allopurinol 300 MG TAKE 1 TABLET BY HADLEY TH EVERY DAY for 90 Active Valtrex 1 GM 2 tablet Orally twic e a day for 1 days 03/26/2021 Not-Taking Tamsulosin HCl 0.4 MG TAKE 1 CAPSULE BY MOUTH EVERY DAY for 90 Active Indomethacin 50 MG 1 capsule with food Orally Three times a day for 14 days 12/11/2011 Not-Taking Ibuprofen 800 MG TAKE 1 TABLET BY HADLEY TH THREE TIMES DAILY for 90 Active metFORMIN HCl 500 MG 1 tablet with a susana l Orally twice a day for 30 day(s) 04/15/2022 Not-Taking Hyoscyamine Sulfate ER 0.375 MG TAKE 1 TABLET BY MOUTH DAILY for 30 Active Omeprazole 20 MG TAKE 1 CAPSULE BY MO UT EVERY DAY 30 MINUTES BEFORE BREAKFAST for 90 Active Fluticasone Propionate 50 MCG/ACT SHAKE LIQUID AND USE 1 SPRAY IN EACH NOSTRIL TWICE DAILY for 30 Active Claritin 10 MG 1 tablet Orally Once a day Active Rosuvastatin Calcium 10 MG 1 tablet Orally Once a day for 90 days 10/27/2023 Active Nystatin-Triamcinolone 018266-7.1 UNIT/GM 1 application Externally Twice a day 03/26/2021 Active Nystatin 724524 UNIT/GM 1 application Externally Twice a day for 30 days 09/11/2022 Active Ciclopirox 0.77 % 1 application Externally Twice a day for 7 days 07/14/2024 Active OneTouch Delica Plus [id number] - USE TO TEST BLOOD SUGAR TWICE DAILY for 50 Active Ciclopirox 0.77% as directed applied topically twice a day for 30 days 09/22/2023 Active OneTouch Ultra - USE TO TEST BLOOD MALAGON GAR TWICE DAILY for 50 Active Januvia 50 MG TAKE 1 TABLET BY HADLEY TH EVERY DAY Active Betamethasone Dipropionate Active Immunizations Vaccine Route Administration Date Status Comme nts Flu Vaccine IM Intramuscular 04/24/2011 Administered Flu Vaccine Unknown 05/26/2012 Administered [facility] Flu Vaccine IM Intramuscular 02/07/2013 Administered Shingles IM Intramuscular 02/11/2013 Administered Fluarix Quadrivalent IM Intramuscular 02/20/2014 Administe red PPSV23 (Pnemovax) IM Intramuscular 03/17/2014 Administered Fluarix Quadrivalent IM Intramuscular 03/03/2017 Administe red Fluarix Quadrivalent IM Intramuscular 03/02/2018 Administe red Influenza High Dose IM Intramuscular 03/03/2019 Administer ed Influenza High Dose IM Intramuscular 01/31/2020 Administer ed Covid Vaccine Unknown 07/23/2020 Administered Moderna SARS-COV-2 Moderna Unknown 08/17/2020 Administered Influenza High Dose IM Intramuscular 02/07/2021 Administer ed SARS-COV-2 Moderna Unknown 05/21/2021 Administered Influenza High Dose IM Intramuscular 03/14/2022 Administer ed Influenza High Dose IM Intramuscular 02/05/2023 Administer ed Influenza High Dose IM Intramuscular 04/07/2024 Administer ed zFluzone Quadrivalent Unknown 03/22/2015 Refused Flu Vaccine Unknown 02/15/2016 Refused Prevnar 13 Unknown 06/16/2019 Refused Flu Vaccine Unknown 02/20/2014 Pending Social History Tobacco Use: Social History Observation Description Date Details (start date - stop date) Former Smoker NA - NA Tobacco Use/Smoking Question Answer Notes Patient is a former smoker How long has it been since y ou last smoked? > 10 years Additional Findings: Tobacco Non-User Fo rmer smoker, currently using no form of tobacco Alcohol Screen Question Answer Notes Did you have a drink contain ing alcohol in the past year? Yes How often did you have a dri nk containing alcohol in the past year? 2 to 3 times a week (3 points) How many drinks did you have on a typical day when you were drinking in the past year? 1 or 2 drinks (0 point) How often did you have 6 or more drinks on one occasion in the past year? Never (0 point) Points 3 Interpretation Negative Problems Problem Type SNOMED Code ICD Code Onset Dates Problem Status W/U Status Risk Notes Problem 773793647 Thrombocytopenia (D69.6) Active confirmed Problem 820323425 Irritable bowel syndrome with diarrhea (K58.0) Active confirmed Problem Prostatism (27033560) Prostatism (N40.0) Active confirmed Problem 82895008 Anxiety (F41.9) Active confirmed Problem 72425088 Lymphocytopenia (D72.810) Active confirmed Problem 9126535 Arthritis (M19.90) Active confirmed Problem 092136802 Lumbar disc dise ase (M51.9) Active confirmed Problem 191226766 Tubular adenoma of colon (D12.6) Active confirmed Problem 27255684 Essential hypert ension (I10) Active confirmed Problem 41346308 Intrinsic eczema (L20.84) Active confirmed Problem Atherosclerotic heart disease of enterprise coronary artery without angina pectoris ([id number]) 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 (I25.10) Active confirmed Problem 525370053 Tension headache (G44.209) Active confirmed Problem 423307436 Irritable bowel syndrome with constipation (K58.1) Active confirmed Problem 740450430 Pure hypercholesterolemia (E78.00) Active confirmed Problem 61817754 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, 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 Problem Type II diabetes mellitus without complication (700998406) Controlled type 2 diabetes mellitus without complication, without long-term current use of insulin (E11.9) Active confirmed Problem 49450927 Sinusitis chroni c, frontal (J32.1) Active confirmed Problem 43516280 Post concussion syndrome (F07.81) Active confirmed Problem 623987072 Hand arthritis (M19.049) Active confirmed Problem 800482471 Esophageal dysfu nction (K22.4) Active confirmed Problem 575239668 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) Active confirmed Problem 323004938 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 Problem 15819038 Multinodular goi ter (nontoxic) (E04.2) Active confirmed Problem 065150383 Notalgia paresth etica (R20.2) Active confirmed Problem 17360991 Aortic atheroscl erosis (I70.0) Active confirmed Problem 808059190 Multiple thyroid nodules (E04.2) Active confirmed Vital Signs Temperature 97.4 degrees Fahrenheit 03/15/2024 weig ht at home is 239 BP not taken T 97.4 Blood pressure diastolic 80 mm Hg 07/29/2024 Height 72 in 07/29/2024 Blood pressure systolic 122 mm Hg 07/29/2024 Weight 238 lbs 07/29/2024 BMI 32.28 kg/m2 07/29/2024 Encounters Encounter Location Date Provider Diagnosis Delmar Sandoval MD [address] [place] [id number] 12/22/2023 Delmar Sandoval Thrombocytopenia D69 .6 Delmar Sandoval MD [address] [place] [address] [id number] 03/25/2024 Delmar Sandoval Pure hypercholestero lemia E78.00 Delmar Sandoval MD [address] [place] [address] [id number] 04/07/2024 Delmar Sandoval Encounter for immuni zation Z23 Delmar Sandoval MD [address] [place] [address] [id number] 06/03/2024 Delmar Sandoval Controlled type 2 di abetes mellitus without complication, without long-term current use of insulin E11.9 and Irritable bowel syndrome with constipation K58.1 Delmar Sandoval MD [address] [place] [address] [id number] 09/20/2024 Delmar Sandoval Essential hypertensi on I10 ; Pure hypercholesterolemia E78.00 ; Lymphocytopenia D72.810 ; Controlled type 2 diabetes mellitus without complication, without long-term current use of insulin E11.9 and Prostatism N40.0 Delmar Sandoval MD [address] [place] [address] [id number] 09/22/2023 Delmar Sandoval Thrombocytopenia D69 .6 ; Fungal skin infection B36.9 ; Essential hypertension I10 ; Pure hypercholesterolemia E78.00 ; Prostatism N40.0 ; Controlled type 2 diabetes mellitus without complication, without long-term current use of insulin E11.9 ; Idiopathic chronic gout of foot without tophus, unspecified laterality M1A.0790 ; Colon cancer screening Z12.11 and Depression screening Z13.31 Delmar Sandoval MD [address] [place] [address] [id number] 01/07/2024 Delmar Sandoval Controlled type 2 di abetes mellitus without complication, without long-term current use of insulin E11.9 ; Lumbar disc disease M51.9 and Fungal infection B49 Delmar Sandoval MD [address] [place] [address] [id number] 03/15/2024 Delmar Sandoval Acute pharyngitis du e to other specified organisms J02.8 Delmar Sandoval MD [address] [place] [address] [id number] 04/01/2024 Delmar Sandoval Controlled type 2 di abetes mellitus without complication, without long-term current use of insulin E11.9 ; Multiple thyroid nodules E04.2 ; Pure hypercholesterolemia E78.00 and Chest pressure R07.89 Delmar Sandoval MD [address] [place] [address] [id number] 04/18/2024 Delmar Sandoval Abdominal discomfort R10.9 Delmar Sandoval MD [address] [place] [address] [id number] 04/28/2024 Delmar Sandoval Controlled type 2 di abetes mellitus without complication, without long-term current use of insulin E11.9 ; Irritable bowel syndrome with diarrhea K58.0 and Aortic atherosclerosis I70.0 Delmar Sandoval MD [address] [place] [address] [id number] 06/13/2024 Delmar Sandoval Pruritus L29.9 Delmar Sandoval MD [address] [place] [address] [id number] 07/11/2024 Delmar Sandoval Notalgia paresthetic a R20.2 ; Pruritus L29.9 and Fungal infection B49 Delmar Sandoval MD [address] [place] [address] [id number] 07/29/2024 Delmar Sandoval Essential hypertensi on I10 and Rash R21 Delmar Sandoval MD [address] [place] [address] [id number] 10/27/2023 Delmar Sandoval MD [address] [place] [address] [id number] 10/27/2023 Delmar Sandoval MD [address] [place] [address] [id number] 01/15/2024 Delmar Sandoval Lumbar disc disease M51.9 Delmar Sandoval MD [address] [place] [address] [id number] 04/05/2024 Delmar Sandoval MD [address] [id number] 07/14/2024 Delmar Sandoval MD [address] [place] [address] [id number] 08/04/2024 Delmar Sandoval Multinodular goiter (nontoxic) E04.2 Assessments Encounter Date Diagnosis (ICD Code) Assessment Notes Treatment Notes Treatment Clinical Notes Section Notes 12/22/2023 Thrombocytopenia (ICD-10 - D69.6) 03/25/2024 Pure hypercholesterolemia (ICD-10 - E78.00) 04/07/2024 Encounter for immunization (ICD-10 - Z23) 06/03/2024 Controlled type 2 diabetes mellitus without complication, without long-term current use of insulin (ICD-10 - E11.9) 06/03/2024 Irritable bowel syndrome with constipation (ICD-10 - K58.1) most days is doing well. has lost about 4 pounds 09/20/2024 Essential hypertensi on (ICD-10 - I10) 09/22/2023 Thrombocytopenia (ICD-10 - D69.6) will continue to monitor, pending future labs 09/22/2023 Fungal skin infectio n (ICD-10 - B36.9) 01/07/2024 Controlled type 2 diabetes mellitus without complication, without long-term current use of insulin (ICD-10 - E11.9) stable, will continue current regiment 01/07/2024 Lumbar disc disease (ICD-10 - M51.9) does not want mri now. to use ibuprofen. getting pt for back, will continue to monitor 03/15/2024 Acute pharyngitis du e to other specified organisms (ICD-10 - J02.8) patient verbalized understanding of medication and directions for use 04/01/2024 Controlled type 2 diabetes mellitus without complication, without long-term current use of insulin (ICD-10 - E11.9) stable, will continue current regiment 04/01/2024 Multiple thyroid nodules (ICD-10 - E04.2) THE ORDER WAS FAXED TO [facility] FOR SCHEDULING, PATIENT AWARE, pending diagnostic testing 04/18/2024 Abdominal discomfort (ICD-10 - R10.9) pending diagnostic testing, althourh it comes on with exertion, it comes on with eating mostly and is tender to palpation. has stress test for same thing 2 years ago and was negative/ test will be booked at [facility] 04/28/2024 Controlled type 2 diabetes mellitus without complication, without long-term current use of insulin (ICD-10 - E11.9) 04/28/2024 Irritable bowel syndrome with diarrhea (ICD-10 - K58.0) will initiate treatment with Hyoscyamine, awaiting diagnostic testing 06/13/2024 Pruritus (ICD-10 - L29.9) to try allergy med/ seems unlikely to be the statin since allergies are not dose related to try allergy meds 07/11/2024 Notalgia paresthetic a (ICD-10 - R20.2) will observe 07/11/2024 Pruritus (ICD-10 - L29.9) don't see anything on scalp or back. does have a rash in buttocks consistant with the fungal infection that he had in the past. the scalp and the back could be a neuropathic rash and starting back on the motrin may help. he had a script for betamethosone cream that said not to take nsaid with it and have explained that is only for oral steroids 07/29/2024 Essential hypertensi on (ICD-10 - I10) doing well, will continue current regiment 07/29/2024 Rash (ICD-10 - R21) patient verbalized understanding of new medication and directiobs for use 01/15/2024 Lumbar disc disease (ICD-10 - M51.9) 08/04/2024 Multinodular goiter (nontoxic) (ICD-10 - E04.2) 09/20/2024 Pure hypercholesterolemia (ICD-10 - E78.00) 09/22/2023 Essential hypertensi on (ICD-10 - I10) doing well on meds, will continue current regiment 01/07/2024 Fungal infection (ICD-10 - B49) stable, will continue current regiment and will contiue to monitor 04/01/2024 Pure hypercholesterolemia (ICD-10 - E78.00) stable, will contiue current regiment 04/28/2024 Aortic atheroscleros is (ICD-10 - I70.0) 07/11/2024 Fungal infection (ICD-10 - B49) 09/20/2024 Lymphocytopenia (ICD -10 - D72.810) 09/22/2023 Pure hypercholesterolemia (ICD-10 - E78.00) well controlled, will continue curent regiment 04/01/2024 Chest pressure (ICD- 10 - R07.89) 09/20/2024 Controlled type 2 diabetes mellitus without complication, without long-term current use of insulin (ICD-10 - E11.9) 09/22/2023 Prostatism (ICD-10 - N40.0) 09/20/2024 Prostatism (ICD-10 - N40.0) 09/22/2023 Controlled type 2 diabetes mellitus without complication, without long-term current use of insulin (ICD-10 - E11.9) 09/22/2023 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 08/04/2024 Other order made and put into the future order folder for 2025 at [facility] Plan Of Treatment Pending Test Test Name Order Date Electrocardiogram (EKG) 04/06/2015 Electrocardiogram (EKG) 05/27/2016 Electrocardiogram (EKG) 02/11/2013 Electrocardiogram (EKG) 06/16/2019 CARDIOVASCULAR STRESS TEST 05/23/2021 XR GI SERIES 04/29/2021 XR GI SERIES 04/18/2024 XR RIBS RT 04/06/2015 US ABD 04/18/2024 US THYROID 02/05/2023 US THYROID 10/15/2021 Stress Test 04/06/2015 Complete Blood Count Auto Diff Comprehensive [place]. Panel Fast 5 Lipid Panel 09/20/2024 PSA,Total (Free>4and<10) 09/20/2024 Microalbumin, Random 09/20/2024 CA echo stress exercise 06/13/2021 MR lumbar spine wo con 01/15/2024 US bladder 01/03/2022 US thyroid 08/04/2024 US thyroid 04/01/2024 XR hand LT min 3V 04/21/2023 Hemoglobin A1c 09/20/2024 UA ClnCatch+Micro w/rflx Cult 09/20/2024 Future Test Test Name Order Date US THYROID 12/18/2020 US THYROID 04/21/2024 Next Appt Details Provider Name:Delmar freedman, 09/27/2024 09:30:00 AM, [address] [place] [address], [address], [place], [place], [id number], Insurance Providers Payer Name Payer Address Payer Phone Subscriber Number Group Number Insured Name Patient Relationship to Insured Coverage Start Date Coverage End Date MEDICARE [employer] [place] [address] [place] [address] [id number] [place] Self - patient is the insured [employer] [place] [place] [address] [place] [phone] [id number] [place] Self - patient is the insured 8 Medical (General) History Medical History History ICD Code chronic back pain hypertension colonoscopy 2006 due 2011; c olonoscopy done 09/28/2012 - due in 5 years; Colonoscopy done 01/29/[address] Olivera - repeat 5 09/18/23 colonoscopy repeat 3y biopsy thyroid 2015 Hx pulmonary nodule. Had CT Chest in 201 8. Negative. No f/u indicated. R91.1 Prediabetes R73.09 Prediabetes Surgical History Surgery Date(Month/Year) disc disease 1994
--- OUTSIDE RECORDS SUMMARY | 2024-09-20 11:48 | XMS_ITS | Clinical Summary ---
Author Organization [facility] Address [address] [place] [address] Phone Care Team Providers Care Botany Professor Name Role Phone Harsh Sandoval MD Primary Care Provider [phone] Encounters Date Type Department Care Team Description 06/28/2024 7:40 AM EST - 06/28/2024 11:59 PM EST Hospital Encounter [facility] Xray [address] [place] [address] Unspecified abdominal pain Discharge Disposition: [...] Health Maintenance Due Date Last Done Comments DTaP,Tdap,and Td Vaccines (1 - Tdap) 1971 [...] Vaccine ( season) 2024 05/21/2021, 08/27/2020, 07/30/2020 RSV Immunization Adult Patients (1 - 1-dose 75+ series) 2027 Influenza [...] age to complete this topic Meningococcal B Vaccine Aged Out No l onger eligible based on patient's age to complete [...] 06/28/2024 8:29 AM EST Unspecified abdominal pain from Last [...] Signed Date: 06/28/2024 10:29 ET Workstation ID: [id number] Transcribed By: Self Edit Transcribed Date: 06/28/2024 10:19 ET Resident/PA/WALLET ASSEMBLER: Ny Saldivar 06/28/2024 10:29 AM EST FINDINGS: Double contrast UGI performed. COMPARISON: No prior upper GI imaging. HISTORY: Patient is a 74-year-old male with history of dysphagia. Generalized abdominal pain. DESILVERIZER radiographs: Associate Material Handler AP radiograph of the abdomen obtained. Bowel [...] male with history of dysphagia.Generalized abdominal pain. DESILVERIZER radiographs: Associate Material Handler AP radiograph of the abdomen obtained. Bowel [...] Signed Date: 06/28/2024 10:29 ET Workstation ID: [id number] Transcribed By: Self Edit Transcribed Date: 06/28/2024 10:19 ET Resident/PA/WALLET ASSEMBLER: Ny Saldivar Delmar Sandoval MD IMG FLUOROSCOPY PROCEDURES Final Result from Last 3 Months Insurance MEDICARE [place] Care Teams Botany Professor Relationship Specialty Start Date End Date Harsh Sandoval MD [address] PCP - General Internal Medicine 04/18/24
--- OUTSIDE RECORDS SUMMARY | 2024-09-20 11:48 | XMS_ITS ---
Author Organization [facility] Address [address] [place] [address] Care Team Providers Care Make Up Worker Name Role Phone Delmar Sandoval MD Primary Care Provider Brayden Son [phone] REASON FOR VISIT screening,hx polyps Problems Problem Type SNOMED Code ICD Code Onset Dates Problem Status W/U Status Risk Notes Problem Diverticulosis o f large intestine without perforation or abscess without bleeding (K57.30) Active confirmed Encounters Encounter Location Date Provider Diagnosis [facility] Outpatient [address] [place] [phone] 09/18/2023 Brayden Olivera Encounter for scre ening [...] * LUZ MURPHY BDOB:1950 (74 yo M)Acc No.[id number]:09/18/2023 COLON WITH MAC Patient:LUZ CAVAZOS Provider:?Brayden Olivera MD :1950???Age:73 Y???Sex:Male David e:09/18/2023 Address:[address] [place], [place] [phone] Pcp:Delmar Sandoval MD Subjective: * Chief Complaints: * ???1. Screening,hx polyps. * Medical History:? Objective: * Vitals:? Assessment: * Assessment: 1.?Encounter for screening c olonoscopy - Z12.11 (Primary)???2.?Colon polyps - K63.5???3.?Lipoma of colon - D17.5???4.?Diverticulosis of large intestine without perforation or abscess without bleeding - K57.30???5.?Other hemorrhoids - K64.8??? Plan: * Treatment: * Procedure Codes:?84645 LESIO N REMOVAL COLONOSCOPY, Modifiers: [place] , [address] COLONOSCOPY AND BIOPSY, Modifiers: 59 , PT, 0529F INTRVL 3+YRS PTS CLNSCP DOCD, 0528F RCMND FLW-UP 10 YRS DOCD, Modifiers: 1P * * The named appointment provid er may or may not be the originator of this progress note, and it is not deemed complete until electronically signed by the appointment provider. Sign off status: Pending * Provider:?Brayden Olivera MD Date:? 024 Generated for Gretel lazaro/Néstor/eTransmitting on:?09/20/2024 11:48 AM EDT
--- OUTSIDE RECORDS SUMMARY | 2024-09-20 11:49 | XMS_ITS | Patient Health Record ---
Author Organization [facility] Address [address] [place] [address] Care Team Providers Care Machine Lead Burner Name Role Phone Delmar Sandoval MD Primary Care Provider Brayden Son Unavailable [phone] Allergies Allergen (clinical drug ingredient) Drug/Non Drug Allergy documented on EMR Reaction Allergy Type Onset Date Status meperidine Demerol Unknown Drug Allergy Active Reason For Referral No Information Medications Medication [...] Allopurinol 300 MG Oral for 90 Active Immunizations Vaccine Route Administration Date Status Comme nts Influenza Unknown 03/18/2017 Administered Social History Tobacco Use: Social History Observation Description Date Details (start date - stop date) Former Smoker NA - NA Tobacco Use/Smoking Question Answer Notes Patient is a former smoker How long has it been since you last smoked? > 10 years Section Notes: Nonsmoker > 20 yrs; occasion al alcohol Nonsmoker > 24 yrs; occasion al alcohol Nonsmoker > 30yrs; occasiona l alcohol /wine Problems Problem Type SNOMED Code ICD Code Onset Dates Problem Status W/U Status Risk Notes Problem 588443609 Encounter for screening for malignant neoplasm of colon (Z12.11) Active confirmed Problem 737641785 History of adenomatous polyp of colon (Z86.010) Active confirmed Problem Diverticulosis o f large intestine without perforation or abscess without bleeding (K57.30) Active confirmed Problem 317599467 NSAID long-term use (Z79.1) Active confirmed Problem 405556313221631 Pre-procedural examination (Z01.818) Active confirmed Plan Of Treatment Future Test Test Name Order Date COLONOSCOPY 04/27/2012 COLONOSCOPY 10/07/2017 COLONOSCOPY 05/26/2023 Insurance Providers Payer Name Payer Address Payer Phone Subscriber Number Group Number Insured Name Patient Relationship to Insured Coverage Start Date Coverage End Date MEDICARE OF [place] [address] [place] [address] [id number] LUZ MURPHY Self - patient is the insured MED[employer] ATT[employer] CLAIMS [address] [place] [address] [id number] LUZ MURPHY Self - patient is the insured Medical (General) History Medical History History ICD Code Colon polyps-tubular adenoma s & hyperplastic colonoscopies in 2004, 2006, and 09/2012 Diverticulosis/diverticulitis Internal hemorrhoids Hyperlipidemia HTN 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 in feet and ankles, Achilles tendons NIDDM exacerbated by the UTI's Enlarged prostate with UTI's Colonoscopy 2017 with 1 small tubular ad enoma Concussion in 2019 Surgical History Surgery Date(Month/Year) Disc surgery-L4/L5 Eye surgery
--- OUTSIDE RECORDS SUMMARY | 2024-09-20 11:49 | XMS_ITS ---
Author Organization Delmar Sandoval MD Address [address] [place] [phone] Care Team Providers Care Store Mgr Name Role Phone Lori Delmar Primary Care Provider REASON FOR VISIT US head and Neck Encounters Encounter Location Date Provider Diagnosis Delmar Sandoval MD [address] [place] [phone] 08/04/2024 Delmar Sandoval Multinodular goiter (nontoxic) E04.2 Assessments Encounter Date Diagnosis (ICD Code) Assessment Notes Treatment Notes Treatment Clinical Notes Section Notes 08/04/2024 Multinodular goiter (nontoxic) (ICD-10 - E04.2) 08/04/2024 Other order made and put into the future order folder for 2025 at [facility] Plan Of Treatment Treatment Notes Assessment Notes Other order made and put i nto the future order folder for 2025 at [facility] Pending Test Test Name Order Date US thyroid 08/04/2024 Next Appt Details Provider Name:Delmar Rene ier, 09/27/2024 09:30:00 AM, [address] [place] [address], [address], [place], [place], [phone], Progress Notes * Rivas VENTURA BDOB:1950 (74 yo M)Acc No.[id number]:08/04/2024 Patient:?Rivas VENTURA B :1950???Age:74 Y???Sex:Male Address:[address] [place] [address], [place] [address] Subjective: * Chief Complaints: * ???US head and Neck * Medical History:? * Surgical History:? * Hospitalization/Major Diagno stic Procedure:? * Medications:? Objective: * Vitals:? * Physical Examination:? Assessment: * Assessment: 1.?Multinodular goiter (nont oxic) - E04.2??? Plan: * Treatment: 2.?Others? Notes: order made and put into the future order folder for 2025 at [facility]?? * Procedure Codes:? * true * Date:? Generated for Gretel lazaro/Néstor/eTransmitting on:?09/20/2024 11:49 AM EDT
--- OUTSIDE RECORDS SUMMARY | 2024-09-20 11:49 | XMS_ITS | Patient Health Record ---
Author [facility] Address [address] [facility] [place] [address] Care Team Providers Care Editing Internship Name Role Phone Lori NEW, Delmar Primary Care Provider Unavaconrad benson Black Lizzie Unavailable [phone] Allergies Allergen (clinical drug ingredient) Drug/Non Drug Allergy documented on EMR Reaction Allergy Type Onset Date Status meperidine Demerol swelling, itchy Drug Allergy Active dapagliflozin Farxiga rash Drug Allergy Act danica amoxicillin Amoxicillin Unknown Drug Allergy Act danica Results Component Value Reference Range Notes HEMOGLOBIN A1C (GLYCOHEMOGLO BIN) Reviewed date:03/17/2024 09:58:09 [...] a day for 30 day(s) PRN Active Colchicine 0.6 MG Orally Once a day Not-Taking Januvia 50 MG as directed Orally Active Simvastatin 20 MG 1 tablet in the even ing Orally Once a day for 30 day(s) Not-Taking Tamsulosin HCl 0.4 MG 1 capsule Orally O nce a day for 30 day(s) Active Indomethacin 50 MG 1 capsule with food Orally three times a day for 30 day(s) PRN Not-Taking Ibuprofen Orally prn Active Hydrocortisone Not-T aking Allopurinol 300 MG 1 tablet Orally Once a day Active Azithromycin 250 MG Oral for 5 Days Active Night Splint AFO - L1930 1 wear when at rest for 30 days Active Custom Orthotics as directed 08/04/2024 Active metFORMIN HCl ER 500 MG 1 tablet with ev ening meal Orally Once a day for 30 day(s) Not-Taking Lisinopril 10 MG 1 tablet Orally Once a day for 30 day(s) Active Prednisone Not-Takin g Rosuvastatin Calcium Active Custom Orthotics as directed 12/23/2012 Unknown Custom Orthotics as directed 04/19/2020 Active Immunizations Vaccine Route Administration Date Status [...] primary osteoarthritis of the ankle and/or foot (120270918) Primary osteoarthritis, right ankle and foot (M19.071) Active confirmed Problem Localized, primary osteoarthritis of the ankle and/or foot (827527232) Primary osteoarthritis, left ankle and foot (M19.072) Active confirmed Problem Polyneuropathy due to type 2 diabetes mellitus (093664913) Type 2 diabetes mellitus with diabetic polyneuropathy (E11.42) Active confirmed Problem Primary gout (05485903) Idiopathic gout, right ankle and foot (M10.071) Active confirmed Problem Tarsal tunnel syndrome (39357068) Tarsal tunnel syndrome of right side (G57.51) Active confirmed Problem Mononeuropathy of lower limb (684264596) Neuritis of right foot (G57.91) Active confirmed Response to treatment - Improvement Problem 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) Active confirmed Vital Signs Blood pressure diastolic 80 mm Hg 08/04/2024 Height 6ft3in in 08/04/2024 Blood pressure systolic 124 mm Hg 08/04/2024 Weight 230 lbs 08/04/2024 BMI 28.74 kg/m2 08/04/2024 Procedures Procedure Date Ordered Date Performed Result Body Sit e 21944-PRYEUDU NAIL, 6 OR MORE 11/05/2023 N/A 96879-JJIZQUD NAIL, 6 OR MORE 03/17/2024 N/A 28784-DZERBIU NAIL, 6 OR MORE 06/23/2024 N/A 46770-DPNN SKIN LESIONS, 2 TO 4 06/23/2024 N/A Encounters Encounter Location Date Provider Diagnosis [address] [address] 11/05/2023 Lizzie Black Tinea unguium B35.1 ; Neuritis of right foot G57.91 ; Pain in right toe(s) M79.674 ; Pain in left toe(s) M79.675 and Type 2 diabetes mellitus with diabetic polyneuropathy E11.[facility] [address] 03/17/2024 Lizzie Black Neuritis of right fo ot G57.91 ; Achilles tendinitis of right lower extremity M76.61 ; Tinea unguium B35.1 ; Pain in right toe(s) M79.674 ; Pain in left toe(s) M79.675 ; Type 2 diabetes mellitus with diabetic polyneuropathy E11.42 ; Pain of right heel M79.671 and Short Achilles tendon (acquired), right ankle M67.01 [facility] [address] 06/23/2024 Lizzie Black Achilles tendinitis of right lower extremity M76.61 ; Peroneal tendinitis, right leg M76.71 ; Neuritis of right foot G57.91 ; Tinea unguium B35.1 ; Type 2 diabetes mellitus with diabetic polyneuropathy E11.42 ; Pain of right heel M79.671 ; Short Achilles tendon (acquired), right ankle M67.01 ; Bursitis of right foot M77.51 and Hypertrophy of bone M89.[address] [facility] [address] [address] 08/04/2024 Lizzie Zheng Peroneal tendinitis, right leg M76.71 ; Bursitis of right foot M77.51 ; Neuritis of right foot G57.91 ; Type 2 diabetes mellitus with diabetic polyneuropathy E11.42 and Hypertrophy of bone M89.[address] [facility] [address] [address] 11/16/2023 Lizzie Zheng [facility] [address] 07/25/2024 Lizzie Zheng Assessments Encounter Date Diagnosis (ICD Code) Assessment Notes Treatment Notes Treatment Clinical Notes Section Notes 11/05/2023 Tinea unguium (ICD-10 - B35.1) 11/05/2023 [...] of right lower extremity (ICD-10 - M76.61) 08/04/2024 Peroneal tendinitis, right leg (ICD-10 - M76.71) 08/04/2024 Bursitis of right foot (ICD-10 - M77.51) 08/04/2024 Neuritis of right foot (ICD-10 - G57.91) 06/23/2024 Neuritis of right foot (ICD-10 - G57.91) 03/17/2024 Tinea unguium (ICD-10 - B35.1) 11/05/2023 Pain in right toe(s) (ICD-10 - M79.674) 11/05/2023 Pain in left toe(s) (ICD-10 - M79.675) 03/17/2024 Pain in right toe(s) (ICD-10 - M79.674) 06/23/2024 Tinea unguium (ICD-10 - B35.1) 08/04/2024 Type 2 diabetes mellitus with diabetic polyneuropathy (ICD-10 - E11.42) 08/04/2024 Hypertrophy of bone (ICD-10 - M89.30) 06/23/2024 Type 2 diabetes mellitus with diabetic polyneuropathy (ICD-10 - E11.42) 03/17/2024 Pain in left toe(s) (ICD-10 - M79.675) 11/05/2023 Type 2 diabetes mellitus with diabetic polyneuropathy (ICD-10 - E11.42) 03/17/2024 Type 2 diabetes mellitus with diabetic polyneuropathy (ICD-10 - E11.42) 06/23/2024 Pain of right heel (ICD-10 - M79.671) 03/17/2024 Pain of right heel (ICD-10 - M79.671) 06/23/2024 Short Achilles tendon (acquired), right ankle (ICD-10 - M67.01) 03/17/2024 Short Achilles tendon (acquired), right ankle (ICD-10 - M67.01) 06/23/2024 Bursitis of right foot (ICD-10 - M77.51) 06/23/2024 Hypertrophy of bone (ICD-10 - M89.30) Plan Of Treatment Pending Test Test Name Order Date X ray : Foot, right 3V 12/23/2012 X ray : Foot, right 3V 03/10/2016 92359-RRKQLCJ NAIL, 6 OR MORE 05/08/2022 76482-PEUKCUB NAIL, 6 OR MORE 11/06/2022 68532-QRBLHBE NAIL, 6 OR MORE 05/07/2023 02204-CFNEJTS NAIL, 6 OR MORE 08/06/2023 02980-KZBOZQX NAIL, 6 OR MORE 11/05/2023 25691-TTSUTNV NAIL, 6 OR MORE 03/17/2024 40365-QKBOAZL NAIL, 6 OR MORE 06/23/2024 62970-ZNXDHXA NAIL, 6 OR MORE 04/28/2019 29321-BTDZZDN NAIL, 6 OR MORE 10/17/2019 53098-WHNMYRL NAIL, 6 OR MORE 04/19/2020 33005-WTEIOUM NAIL, 6 OR MORE 10/18/2020 06678-XPRSKVF NAIL, 6 OR MORE 05/02/2021 47607-INTVTTU NAIL, 6 OR MORE 10/31/2021 60146-QUHGNDA NAIL, 1-5 01/01/2017 25860-LILGQXL NAIL, 1-5 04/16/2017 17380-TLIJUZS NAIL, 1-5 06/25/2017 14518-AVQFGLN NAIL, 1-5 12/24/2017 72061-NXYLKRY NAIL, 1-5 07/01/2018 55500-NTKSWUL NAIL, 1-5 12/30/2018 13514-Eisvqwjg Plate 05/08/2022 36704-RNHH SKIN LESIONS, 2 TO 4 06/23/19 25 Next Appt Details Provider Name:Lizzie Zheng , 09/26/2024 08:30:00 AM, [address] [facility], [place], [address], Insurance Providers Payer Name Payer Address Payer Phone Subscriber Number Group Number Insured Name Patient Relationship to Insured Coverage Start Date Coverage End Date Medicare National Govt Svcs Inc [address] [place] [address] [id number] Rivas Ventura Self - patient is the insured Med[employer] Blue Shield [address] [place] [address] [id number] Rivas Ventura Self - patient is the insured Medical (General) History Medical History History ICD Code chicken pox Gout measles sinus conditions enlarged Prostate Diabetic Macular degeneration wrinkle in the retna Skin cancer Biopsy Surgical History Surgery Date(Month/Year) eye surgery 1957 tonsillectomy 1961 disc surgery L4-L5 1994 colonoscopy 09/2023 biopsy on thigh 09/2023 Hospitalization History Reason Date(Month/Year) [facility] ( [place])- Concussion-Er visit- Following with Concussion center 12/10/2018
--- OUTSIDE RECORDS SUMMARY | 2024-09-20 11:49 | XMS_ITS ---
Author Organization [facility] Address [address] [facility] [place] [address] Care Team Providers Care Thermal Engineer Name Role Phone Delmar Sandoval MD Primary Care Provider Unavai Lizzie Garcia [phone] REASON FOR VISIT OT attachment Encounters Encounter Location Date Provider Diagnosis [facility] [place] [place] [address] 07/25/2024 Lizzie Norm Plan Of Treatment Next Appt Details Provider Name:Lizzie Zheng , 09/26/2024 08:30:00 AM, [address] [place] [address], [address], Progress Notes * Rivas VENTURA BDOB:1950 (74 yo M)Acc No.[id number]:07/25/2024 Patient:?Rivas VENTURA :1950???Age:74 Y???Sex:Male Address:[address] [place] [address] * true * Date:? Generated for Printi ng/Faxing/eTransmitting on:?09/20/2024 11:49 AM EDT
--- OUTSIDE RECORDS SUMMARY | 2024-09-20 11:49 | XMS_ITS ---
Author Organization Delmar Sandoval MD Address [address] [place] [phone] Care Team Providers Care Small Stock Facer Name Role Phone Lori Delmar Primary Care Provider [phone] Results Component Value Reference Range Notes Complete Blood Count Auto Di ff (Not yet reviewed by provider) Interpretation: Performing Lab:[facility], [address] [place] [phone] Notes/Report: White Blood Count 6.1 4.8-10.8 X10*3/uL [...] t yet reviewed by provider) Interpretation: Performing Lab:[address] [address] Notes/Report: PSA,Total (Free>4and<10) 2.35 0.00-4.00 ng/mL A [...] ye t reviewed by provider) Interpretation: Performing Lab:[address] [address] Notes/Report: Creatinine Urine 128.50 Microalbumin Urine 12.0 Microalbum/Creatinine Ratio Ur 9.3 <30 ug/mg cr Albumin/Creatinine Ratio Reference Ranges: Normal: < 30 ug/mg creatinine Microalbuminuria: 30 - 300 ug/mg creatinine Clinical Albuminuria: > 300 ug/mg creatinine Hemoglobin A1c (Not yet revi ewed by provider) Interpretation: Performing Lab:[facility], [address] [place] [phone] Notes/Report: Hemoglobin A1c % 6.0 <6.0 % [...] average glucose, using the formula of the R5O-Odncxqb Average Glucose study (ADAG), Diabetes Care, Vol.31,#8, 2007 UA ClnCatch+Micro w/rflx Cul t (Not yet reviewed by provider) Interpretation: Performing Lab:[facility], [address] [place] [phone] Notes/Report: Urine, Clean Catch Color Urine Yellow Appearance Urine Clear PH 6.0 5.0-9.0 Glucose Urine UA Negative Negative mg/dL Urine Blood Negative Negative Specific Hilger - Urine 1.015 1.005-1.025 Urine Protein Negative [...] Date Provider Diagnosis Delmar Sandoval MD [address] [place], [place] [phone] 09/20/2024 Delmar Sandoval Essential hypertensi on I10 [...] Prostatism (ICD-10 - N40.0) Plan Of Treatment Pending Test Test Name Order Date Complete Blood Count Auto Diff Comprehensive Faith. Panel Fast 5 Lipid Panel 09/20/2024 PSA,Total (Free>4and<10) 09/20/2024 Microalbumin, Random 09/20/2024 Hemoglobin A1c 09/20/2024 UA ClnCatch+Micro w/rflx Cult 09/20/2024 Next Appt Details Provider Name:Delmar Rene ier, 09/27/2024 09:30:00 AM, [address] [place] [address], [facility] [address], [place], [phone], Progress Notes * Rivas VENTURA BDOB:1950 (74 yo M)Acc No.[id number]:09/20/2024 Progress Note Patient:?Rivas VENTURA Provider:?Delmar Sandoval MD :1950???Age:74 Y???Sex:Male David e:09/20/2024 Address:[address] [place], [place] [address] Subjective: * Chief Complaints: * ???1. Yearly fasting labs. * Medical History:? Objective: * Vitals:? Assessment: * Assessment: 1.?Essential hypertension - I10 (Primary)???2.?Pure hypercholesterolemia - E78.00???3.?Lymphocytopenia - D72.810???4.?Controlled type 2 diabetes mellitus without complication, without long-term current use of insulin - E11.9? ?5.?Prostatism - N40.0??? Plan: * Treatment: 2.?Pure hypercholesterolemia ?LAB: Complete Blood Count Auto Diff (Collection Date & Time - 09/20/2024 07:15 AM) ?LAB: Comprehensive Faith. Panel Fast ?LAB: Lipid Panel ?LAB: PSA,Total (Free>4and<10) (Collection Date & Time - 09/20/2024 07:15 AM) ?LAB: Microalbumin, Random (Collection Date & Time - 09/20/2024 07:15 AM) ?LAB: Hemoglobin A1c (Collection Date & Time - 09/20/2024 07:15 AM) ?LAB: UA ClnCatch+Micro w/rflx Cult (Collection Date & Time - 09/20/2024 07:15 AM) 3.?Lymphocytopenia?LAB: Complete Blood Count Auto Diff (Collection Date & Time - 09/20/2024 07:15 AM) ?LAB: Comprehensive Faith. Panel Fast ?LAB: Lipid Panel ?LAB: PSA,Total (Free>4and<10) (Collection Date & Time - 09/20/2024 07:15 AM) ?LAB: Microalbumin, Random (Collection Date & Time - 09/20/2024 07:15 AM) ?LAB: Hemoglobin A1c (Collection Date & Time - 09/20/2024 07:15 AM) ?LAB: UA ClnCatch+Micro w/rflx Cult (Collection Date & Time - 09/20/2024 07:15 AM) 4.?Controlled type 2 diabete s mellitus without complication, without long-term current use of insulin?LAB: Complete Blood Count Auto Diff (Collection Date & Time - 09/20/2024 07:15 AM) ?LAB: Comprehensive Faith. Panel Fast ?LAB: Lipid Panel ?LAB: PSA,Total (Free>4and<10) (Collection Date & Time - 09/20/2024 07:15 AM) ?LAB: Microalbumin, Random (Collection Date & Time - 09/20/2024 07:15 AM) ?LAB: Hemoglobin A1c (Collection Date & Time - 09/20/2024 07:15 AM) ?LAB: UA ClnCatch+Micro w/rflx Cult (Collection Date & Time - 09/20/2024 07:15 AM) 5.?Prostatism?LAB: Complete Blood Count Auto Diff (Collection Date & Time - 09/20/2024 07:15 AM) ?LAB: Comprehensive Faith. Panel Fast ?LAB: Lipid Panel ?LAB: PSA,Total (Free>4and<10) (Collection Date & Time - 09/20/2024 07:15 AM) ?LAB: Microalbumin, Random (Collection Date & Time - 09/20/2024 07:15 AM) ?LAB: Hemoglobin A1c (Collection Date & Time - 09/20/2024 07:15 AM) ?LAB: UA ClnCatch+Micro w/rflx Cult (Collection Date & Time - 09/20/2024 07:15 AM) * Procedure Codes:?26311 VENIP UNCT, ROUTINE* * * The named appointment provid er may or may not be the originator of this progress note, and it is not deemed complete until electronically signed by the appointment provider. Sign off status: Pending * Provider:?Delmar Sandoval MD Date:?0 09/20/2024 Generated for Gretel lazaro/Néstor/eTransmitting on:?09/20/2024 11:48 AM EDT
--- OUTSIDE RECORDS SUMMARY | 2024-09-20 11:49 | XMS_ITS ---
[facility] Organization [facility] Address [address] [place] [address] Care Team Providers Care Hosiery Operator Name Role Phone Delmar Sandoval MD Primary Care Provider Unavaconrad benson Black, Lizzie Unavailable [phone] Allergies Allergen (clinical drug ingredient) Drug/Non Drug [...] Ordered Date Performed Result Body Sit e 15729-DKZWJXD NAIL, 6 OR MORE 06/23/2024 N/A 07648-XLHU SKIN LESIONS, 2 TO 4 06/23/2024 N/A Encounters Encounter Location Date Provider Diagnosis [facility] [address] [place] [address] 06/23/2024 Lizzie Black Achilles tendinitis of right [...] EXERCISES.pdf) Pending Test Test Name Order Date 31896-APLCLZC NAIL, 6 OR MORE 06/23/2024 56826-JSRT SKIN LESIONS, 2 TO 4 06/23/19 25 Next Appt Details Follow Up: prn, Reason: Provider Name:Lizzie Zheng , 09/26/2024 08:30:00 AM, [address] [place] [address], [phone], Procedure Notes * Category Sub-Category Detail [...] use of a nail nipper and/or dremel-type stopper grinder, to a more viable healthy nail plate [...] to maintain effectiveness in symptomatic relief - 79459 Keratoma Treatment Parring or Cutting o f [...] instrumentation by the physician of record - 38789 Progress Notes * JEFFREY Rivas BDOB:1950 (74 yo M)Acc No.[id number]:06/23/2024 Progress Note Patient:?Rivas VENTURA Provider:?Lizzie Zheng DPM :1950???Age:74 Y???Sex:Male David e:06/23/2024 Address: [address], [place], [place] Pcp:Delmar Sandoval MD Subjective: * Chief [...] on thigh 09/2023 * Hospitalization/Major Diagno stic Procedure:?[facility] Con[facility] visit- Following with Concussion center 12/10/2018 [...] 5.7 * Examination: ???Ophthalmology Referral: ?DIABETES EYE EXAM?Procedure Performed:?Yes ?Date of Exam Performed?04/17/2024 ?Findings of Diabetic Eye Exam:?no retinopathy?General Examination: ?GENERAL APPEARANCE:?Reveals a pleasant, alert, well nourished, well- developed, well hydrated individual, who demonstrates proper attention to hygiene/body habitus, and is in no acute distress, Pt serves as own historian for office visit today.?ORIENTED:?person, place, and time.?FOOT EXAM:?Lower Extremity Neurological Exam performed:?Yes ?Visual exam of foot performed:?Yes ?Date?06/23/2024 ?Sensory testing performed:?sensations diminished ?Sensory and motor testing performed:?sensations diminished ?Pedal pulse taking performed:?2+ ?Footwear Evaluation?Footwear Evaluation performed:?Yes?Vascular: ?DP PULSES (B):?2/4, B/L.?PT PULSES (B):?2/4, B/L.?CAPILLARY [...] 2.?Type 2 diabetes mellitus with diabetic polyneuropathy?Procedure: 78887-GLDYEDP NAIL, 6 OR MORE ?Procedure: 60180-KFMO SKIN LESIONS, 2 TO 4 * Procedures:?Debride [...] use of a nail nipper and/or dremel-type stopper grinder, to a more viable healthy nail plate [...] to maintain effectiveness in symptomatic relief - 19068.?Keratoma Treatment:?Parring or Cutting of Benign Hyperkeratotic Lesion(s)?(-56) [...] instrumentation by the physician of record - 15417.? * Procedure Codes:?21183 DEBRI DE NAIL, 6 OR MORE, Modifiers: XS 88948 TRIM SKIN LESIONS, 2 TO 4, Modifiers: [...] Provider:?Lizzie Zheng DPM Date:?2024 Generated for Gretel lazaro/Néstor/eTransmitting on:?09/20/2024 11:48 AM EDT History and Physical Notes * [...] Outside, Midfoot, RIGHT Duration: , several weeks- 08/20 Onset: unknown Course: , worse Aggravated: any [...] Ankle join t dorsiflexion ROM, knee extended FOOTWEAR EVALUATION: OT were inspected a nd noted to be worn, but in good [...]
--- OUTSIDE RECORDS SUMMARY | 2024-09-20 11:50 | XMS_ITS ---
Author Organization [facility] Address [address] [place] [address] Care Team Providers Care Commercial Carpenter Name Role Phone Delmar Sandoval MD Primary Care Provider Brayden Son [phone] Allergies Allergen (clinical drug ingredient) Drug/Non Drug Allergy documented on EMR Reaction Allergy Type Onset Date Status meperidine Demerol Unknown Drug Allergy Active REASON FOR VISIT Patient presents today for a recall colonoscopy Medications Medication SIG (Take, Route, Frequency, Duration) [...] MG Oral for 90 Active Fiber Active Social History Tobacco Use: Social History [...] to 3 times a week (3 points) Section Notes: Nonsmoker > 30yrs; occasiona l alcohol /wine Vital Signs Temperature 97.7 degrees Fahrenheit 05/26/19 24 Blood pressure systolic 00 mm Hg 05/26/19 24 Blood pressure diastolic 00 mm Hg 024 Height 73 in 05/26/2023 Weight 240 lbs 05/26/2023 BMI 31.66 kg/m2 05/26/2023 Encounters Encounter Location Date Provider Diagnosis [facility] [address] [place] [address] 05/26/2023 Brayden Olivera History of adenomato us polyp of colon Z86.010 ; NSAID long-term use Z79.1 ; Encounter for screening for malignant neoplasm of colon Z12.11 and Pre-procedural examination Z01.818 Assessments Encounter Date Diagnosis (ICD Code) Assessment Notes Treatment Notes Treatment Clinical Notes Section Notes 05/26/2023 History of adenomatous polyp of colon (ICD-10 - Z86.010) Overall, Luz appears quite well. Given his previous history of tubular adenomas of the colon and his last colonoscopy being over 5 years ago, I did recommend a followup colonoscopy for further screening purposes. We did review the rationale for this in regard to colon cancer prevention. Full consent was obtained from him for this, including risks of bleeding and perforation. He was given the below instructions regarding adjustment of his medications for the procedure. The procedure will be done with monitored anesthesia care. Luz was comfortable with this plan. Thank you again for allowing me to participate in Luz's care. I shall continue to keep you advised of his progress. 05/26/2023 NSAID long-term use (ICD-10 - Z79.1) Overall, Luz appears quite well. Given his previous history of tubular adenomas of the colon and his last colonoscopy being over 5 years ago, I did recommend a followup colonoscopy for further screening purposes. We did review the rationale for this in regard to colon cancer prevention. Full consent was obtained from him for this, including risks of bleeding and perforation. He was given the below instructions regarding adjustment of his medications for the procedure. The procedure will be done with monitored anesthesia care. Luz was comfortable with this plan. Thank you again for allowing me to participate in Luz's care. I shall continue to keep you advised of his progress. 05/26/2023 Encounter for screening for malignant neoplasm of colon (ICD-10 - Z12.11) Do not take Januvia for two days before the colonoscopy Stop Ibuprofen for 1 week before the colonoscopy Overall, Luz appears quite well. Given his previous history of tubular adenomas of the colon and his last colonoscopy being over 5 years ago, I did recommend a followup colonoscopy for further screening purposes. We did review the rationale for this in regard to colon cancer prevention. Full consent was obtained from him for this, including risks of bleeding and perforation. He was given the below instructions regarding adjustment of his medications for the procedure. The procedure will be done with monitored anesthesia care. Luz was comfortable with this plan. Thank you again for allowing me to participate in Luz's care. I shall continue to keep you advised of his progress. 05/26/2023 Pre-procedural examination (ICD-10 - Z01.818) Overall, Luz appears quite well. Given his previous history of tubular adenomas of the colon and his last colonoscopy being over 5 years ago, I did recommend a followup colonoscopy for further screening purposes. We did review the rationale for this in regard to colon cancer prevention. Full consent was obtained from him for this, including risks of bleeding and perforation. He was given the below instructions regarding adjustment of his medications for the procedure. The procedure will be done with monitored anesthesia care. Luz was comfortable with this plan. Thank you again for allowing me to participate in Luz's care. I shall continue to keep you advised of his progress. Plan Of Treatment Treatment Notes Assessment Notes Encounter for screening for malignant neoplasm of colon Do not take Januvia for two days before the colonoscopy Stop Ibuprofen for 1 week before the colonoscopy Future Test Test Name Order Date COLONOSCOPY 05/26/2023 Next Appt Details Follow Up: prn, Reason: Progress Notes * LUZ MURPHY BDOB:1950 (73 yo M)Acc No.[id number]:05/26/2023 Progress Notes Patient:?LUZ MURPHY Provider:?Brayden Olivera MD :1950???Age:73 Y???Sex:Male David e:05/26/2023 Address:[address] [place], [place] [id number] Pcp:Delmar Sandoval MD Subjective: * Chief Complaints: * ???Patient presents today fo r a recall colonoscopy * HPI: ???incontinence:? I saw Lzu in the office today for evaluation of his personal history of tubular adenomas of the colon and need for colorectal cancer screening. ?I last saw Luz in 2018, at which time he underwent a followup screening colonoscopy with removal of one small tubular adenoma. He currently reports that he feels well. He enjoys a good appetite, without any significant heartburn or dysphagia. His bowel movements have been regular and without any signs of bleeding. He denies any jaundice, unintentional weight loss, nor any abdominal pains. He denies any known family history of colon cancer. ?He does describe occasional episodes of upper abdominal bloating that he relates strictly to either stress or while exercising. However, this seems to resolve rather quickly with either belching or passing of flatus. He denies any associated chest pain, nausea, diarrhea, nor vomiting. * ROS:?General/Constitutional:?Change in appetite?denies.?Chills?denies.?Fatigue?denies.?Ophthalmologic:?Patient denies? Negative..?ENT:?Patient denies?Negative..?Respiratory:?Patient denies?No coughing/hemoptysis..?Cardiovascular:?Patient denies? No chest pain/orthopnea..?Gastrointestinal:?Comments?See HPI for details.?Genitourinary:?Patient denies? No dysuria/hematuria..?Musculoskeletal:?Patient denies?He describes a lot of different arthritis and discomfort symptoms, particularly in his feet and ankles.?Skin:?Patient denies?No rash/pruritus..?Neurologic:?Patient denies? No headaches/seizures..?Psychiatric:?Patient denies?Negative..? * Medical History:? * Surgical History:?Disc surge ry-L4/L5 Eye surgery * Hospitalization/Major Diagno stic Procedure:?No Hospitalization History. * Family History:?Father: dece ased 53 yrs, alcohol abuse, cirrhosis, diagnosed with HTN (hypertension).?Mother: 46 yrs, breast cancer/enlarged heart, diagnosed with Heart disease, HTN (hypertension).? No family history of colorectal cancer--family history is limited--. * Social History:?Tobacco Use:?Tobacco Use/Smoking?Patient is a?former smoker,?How long has it been since you last smoked??> 10 years.?Drugs/Alcohol:?Alcohol Screen?Did you have a drink containing alcohol in the past year??Yes,?How often did you have 6 or more drinks on one occasion in the past year??Never (0 point),?How many drinks did you have on a typical day when you were drinking in the past year??1 or 2 drinks (0 point),?How often did you have a drink containing alcohol in the past year??2 to 3 times a week (3 points),?Points?3,?Interpretation?Negative.?Miscellaneous:?Marital status: . 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 ???Nonsmoker >30yrs; occasional alcohol /wine. * Medications:?TakingFiber Lis inopril 10 MG Tablet 1 tablet Orally Once a dayIbuprofen 800 MG Tablet Orally as needed for arthritisJanuvia 50 MG Tablet TAKE 1 TABLET BY MOUTH EVERY DAY Oral Tamsulosin HCl 0.4 MG Capsule Oral Allopurinol 300 MG Tablet Oral Rosuvastatin Calcium 10 MG Tablet Oral Omeprazole 20 MG Capsule Delayed Release TAKE 1 CAPSULE BY MOUTH EVERY DAY 30 MINUTES BEFORE BREAKFAST Oral Taking Fiber Taking Lisinopril 10 MG Tablet 1 tablet Orally Once a dayTaking Ibuprofen 800 MG Tablet Orally as needed for arthritisTaking Januvia 50 MG Tablet TAKE 1 TABLET BY MOUTH EVERY DAY Oral Taking Tamsulosin HCl 0.4 MG Capsule Oral Taking Allopurinol 300 MG Tablet Oral Taking Rosuvastatin Calcium 10 MG Tablet Oral Taking Omeprazole 20 MG Capsule Delayed Release TAKE 1 CAPSULE BY MOUTH EVERY DAY 30 MINUTES BEFORE BREAKFAST Oral DiscontinuedLisinopril 10-12.5mg Simvastatin 20mg every other dayUloric 40 MG Tablet TK 1 T PO QOD Oral Medication List reviewed and reconciled with the patientDiscontinued Lisinopril 10-12.5mg Discontinued Simvastatin 20mg every other dayDiscontinued Uloric 40 MG Tablet TK 1 T PO QOD Oral Medication List reviewed and reconciled with the patient * Allergies:?Demerolyes[Allerg ies Verified] Objective: * Vitals:?Wt: 240 lbs, Ht: 73 in, BMI:31.66 Index, BP: 00/00 mm Hg, Temp: 97.7. * Examination: ???General Examination: ?GENERAL APPEARANCE:?pleasant, well nourished, well developed, in no acute distress.?EYES:?sclera non-icteric.?ORAL CAVITY:?mucosa moist.?NECK/THYROID:?no cervical lymphadenopathy, neck supple.?SKIN:?nonjaundiced, no spider angiomata..?HEART:?S1, S2 normal.?LUNGS:?clear to auscultation bilaterally.?ABDOMEN:?normal bowel sounds, no guarding or rigidity, no hepatosplenomegaly, no masses palpable, soft, nontender, nondistended..?EXTREMITIES:?no edema.?NEUROLOGIC:?alert and oriented.? Assessment: * Assessment: 1.?NSAID long-term use - Z79 .1 (Primary)?2.?History of adenomatous polyp of colon - Z86.010?3.?Encounter for screening for malignant neoplasm of colon - Z12.11?4.?Pre-procedural examination - Z01.818? Overall, Luz appears quite well. Given his previous history of tubular adenomas of the colon and his last colonoscopy being over 5 years ago, I did recommend a followup colonoscopy for further screening purposes. We did review the rationale for this in regard to colon cancer prevention. Full consent was obtained from him for this, including risks of bleeding and perforation. He was given the below instructions regarding adjustment of his medications for the procedure. The procedure will be done with monitored anesthesia care. Luz was comfortable with this plan. Thank you again for allowing me to participate in Luz's care. I shall continue to keep you advised of his progress. Plan: * Treatment: 2.?Encounter for screening for malignant neoplasm of colon?Procedure: COLONOSCOPY (Ordered for 05/26/2023)* with MACsched for 09/18/23 at 7:30 ammiralax Notes: Do not take Januvia for two days before the colonoscopy Stop Ibuprofen for 1 week before the colonoscopy?? * Procedure Codes:?3017F COLOR ECTAL CA SCREEN DOC [id number] TOBACCO NON-FOBHQ1987 BP SCR NOT PRFRM REC REASON NOS * Preventive Medicine:? ??Counseling:?Care goal follow-up plan:?Above Normal BMI Follow-up?Giving encouragement to exercise,?BMI management provided?Yes.? * Follow Up:?prn * * Sign off status: Completed true * Provider:?Brayden Olivera MD Date:? 024 Generated for Gretel lazaro/Néstor/eTransmitting on:?09/20/2024 11:49 AM EDT History and Physical Notes * HPI (History of Present Illness) Category Sub-Category Detail Notes Category Not es incontinence I saw Luz in the office today for evaluation of his personal history of tubular adenomas of the colon and need for colorectal cancer screening. I last saw Luz in 2018, at which time he underwent a followup screening colonoscopy with removal of one small tubular adenoma. He currently reports that he feels well. He enjoys a good appetite, without any significant heartburn or dysphagia. His bowel movements have been regular and without any signs of bleeding. He denies any jaundice, unintentional weight loss, nor any abdominal pains. He denies any known family history of colon cancer. He does describe occasional episodes of upper abdominal bloating that he relates strictly to either stress or while exercising. However, this seems to resolve rather quickly with either belching or passing of flatus. He denies any associated chest pain, nausea, diarrhea, nor vomiting. Examination Category Sub-Category Detail Notes Category Not es General Examination GENERAL APPEARANCE: pleasant , well [...]
--- OUTSIDE RECORDS SUMMARY | 2024-09-20 11:50 | XMS_ITS ---
Author Organization [facility] Address [address] [place] [address] Care Team Providers Care Orthopedic Coder Name Role Phone Lori NEW, Delmar Primary Care Provider Brayden Son [phone] REASON FOR VISIT Needs Cologuard Encounters Encounter Location Date Provider Diagnosis [facility] [address] [place] [address] 09/20/2023 Brayden Olivera Plan Of Treatment No Information Progress Notes * LUZ MURPHY BDOB:1950 (74 yo M)Acc No.[id number]:09/20/2023 Patient:?LUZ MURPHY :1950???Age:73 Y???Sex:Male Address:[address] [facility] [place] [address] Subjective: * Chief Complaints: * ???Needs Cologuard * Medical History:? * Surgical History:? * Hospitalization/Major Diagno stic Procedure:? * Medications:? Objective: * Vitals:? * Physical Examination:? Assessment: Plan: * Treatment: * Procedure Codes:? * true * Date:? Generated for Gretel lazaro/Néstor/eTransmitting on:?09/20/2024 11:49 AM EDT
--- OUTSIDE RECORDS SUMMARY | 2024-09-20 11:50 | XMS_ITS ---
Author Organization Delmar Sandoval MD Address [address] [place] [phone] Care Team Providers Care Child'S Nurse Name Role Phone Lori Delmar Primary Care [...] day for 90 days 10/27/2023 Active Nystatin-Triamcinolone 941338-1.1 UNIT/GM 1 application Externally Twice a day [...] 20 MG TAKE 1 CAPSULE BY MO [facility] EVERY DAY 30 MINUTES BEFORE BREAKFAST for 90 Active Fluticasone Propionate 50 MCG/ACT SHAKE LIQUID AND USE 1 SPRAY IN EACH NOSTRIL TWICE DAILY for 30 Active Nystatin 663056 UNIT/GM 1 application Externally Twice a day for 30 days 09/11/2022 Active Claritin 10 MG 1 tablet Orally Once a day Active OneTouch Delica Plus [id number] - USE TO TEST BLOOD SUGAR TWICE [...] Date Provider Diagnosis Delmar Sandoval MD [address] [place] [phone] 07/29/2024 Delmar Sandoval Essential hypertension I10 and [...] Lisinopril 10 MG TAKE 1 TABLET BY [facility] EVERY DAY Triamcinolone Acetonide 0.1 % 1 applicat ion Externally 2 times a day for 14 days 07/29/2024 Treatment Notes Assessment Notes Essential hypertension doing well, will continue current regiment Rash patient verbalized u nderstanding of new medication and directiobs for use Next Appt Details Provider Name:Delmar Rene ier, 09/27/2024 09:30:00 AM, [address] [place] [address], [facility] [address], [place], [place], [phone], Progress Notes * Rivas VENTURA BDOB:1950 (74 yo M)Acc No.[id number]:07/29/2024 Progress Notes Patient:?Rivas VENTURA B Provider:?Delmar Sandoval MD :1950???Age:74 Y???Sex:Male David e:07/29/2024 Address:[address] [place], [place] [id number] Subjective: * Chief Complaints: * ???F/U * HPI: ???Symptom(s):?patient is a 74 yo male here for here for follow up of head / rash on buttocks is getting worse/ using ciclopirox for 2 weeks at least. stopped scott due to rash on legs and is using claritan. * ROS:?General/Constitutional:?Denies?Chills.?Denies?Fatigue.?Denies?Fever.?Denies?Headache.?ENT:?Denies?Sore throat.?Respiratory:?Denies?Cough.?Denies?Shortness of breath at rest.?Denies?Shortness of breath with exertion.?Gastrointestinal:?Denies?Diarrhea.?Denies?Nausea.? * Medical History:? * Surgical History:? * Hospitalization/Major Diagno stic Procedure:? * Medications:?TakingClaritin 10 MG Tablet 1 tablet Orally Once a day Betamethasone Dipropionate OneTouch Ultra - Strip USE TO TEST BLOOD SUGAR TWICE DAILY OneTouch Delica Plus [id number] - Miscellaneous USE TO TEST BLOOD SUGAR TWICE DAILY Nystatin 718569 UNIT/GM Cream 1 application Externally Twice a [...] SPRAY IN EACH NOSTRIL TWICE DAILY Nystatin-Triamcinolone 678658-0.1 UNIT/GM Cream 1 application Externally Twice a [...] SUGAR TWICE DAILY Taking OneTouch Delica Plus Qpctvz04A - Miscellaneous USE TO TEST BLOOD SUGAR TWICE DAILY Taking Nystatin 304691 UNIT/GM Cream 1 application Externally Twice a [...] IN EACH NOSTRIL TWICE DAILY Taking Nystatin-Triamcinolone 603381-4.1 UNIT/GM Cream 1 application Externally Twice a [...] and reconciled with the patient * Allergies:?demerol: aldair pulido[Allergies Verified] Objective: * Vitals:?Ht: 72, Wt: 238, BMI :32.28, BP:122/80, Wt-k.96. * Examination: ???General Examination: ?GENERAL APPEARANCE:?alert, well hydrated, in no distress.?HEAD:?normocephalic.?SKIN:?good turgor, abnormal with rash on buttocks.?HEART:?no murmurs, rubs, gallops, regular rate and rhythm.?LUNGS:?no wheezes, rales, rhonchi, good air movement, clear to auscultation bilaterally.? Assessment: * Assessment: 1.?Essential hypertension - I10 (Primary)???2.?Rash - R21??? Plan: * Treatment: 2.?Rash? Start Triamcinolone Acetonide Cream, 0.1 %, 1 application, Externally, 2 times a day, 14 days, 60.?? Notes: patient verbalized understanding of new medication and directiobs for use?? * Procedure Codes:? * * Sign off status: Completed true * Provider:?Delmar Sandoval MD Date:?0 07/29/2024 Generated for Gretel lazaro/Néstor/Kellyransmitting on:?09/20/2024 11:50 AM EDT History and Physical Notes * [...]
--- OUTSIDE RECORDS SUMMARY | 2024-09-20 11:50 | XMS_ITS ---
Author Organization [facility] Dionisio Miller Address [address] [facility] [place] [address] Care Team Providers Care Activities Therapist Name Role Phone Delmar Sandoval MD Primary Care Provider Unavaconrad benson Black, Lizzie Unavailable [phone] Allergies Allergen (clinical drug ingredient) Drug/Non Drug Allergy documented on EMR Reaction Allergy Type Onset Date Status meperidine Demerol swelling, itchy Drug Allergy Active dapagliflozin Farxiga rash Drug Allergy Act danica amoxicillin Amoxicillin Unknown Drug Allergy Act danica REASON FOR VISIT Foot pain Medications Medication SIG (Take, Route, Frequency, Duration) Notes Start Date End Date Status Januvia 50 MG as directed Orally Active Tamsulosin HCl 0.4 MG 1 capsule Orally O nce a day for 30 day(s) Active Ibuprofen Orally prn Active Lisinopril 10 MG 1 tablet Orally Once a day for 30 day(s) Active Rosuvastatin Calcium Active Omeprazole 20 MG 1 capsule 30 minutes before morning meal Orally Once a day for 30 day(s) PRN Active Hydrocortisone Not-T aking Custom Orthotics as directed 08/04/2024 Active Prednisone Not-Takin g Custom Orthotics as directed 12/23/2012 Unknown Colchicine 0.6 MG Orally Once a day Not-Taking Simvastatin 20 MG 1 tablet in the even ing Orally Once a day for 30 day(s) Not-Taking Indomethacin 50 MG 1 capsule with food Orally three times a day for 30 day(s) PRN Not-Taking Night Splint AFO - L1930 1 wear when at rest for 30 days Active metFORMIN HCl ER 500 MG 1 tablet with ev ening meal Orally Once a day for 30 day(s) Not-Taking Allopurinol 300 MG 1 tablet Orally Once a day Active Azithromycin 250 MG Oral for 5 Days Active Custom Orthotics as directed 04/19/2020 Active Social History Tobacco Use: Social History Observation Description Date Details (start date - stop date) Never Smoker NA - NA Tobacco use other than smoking: Question Answer Notes Are you an other tobacco user? No Tobacco Control (Standard) Question Answer Notes Tobacco use: Nonsmoker Vital Signs Height 6ft3in in 08/04/2024 Weight 230 lbs 08/04/2024 BMI 28.74 kg/m2 08/04/2024 Blood pressure systolic 124 mm Hg 08/05/19 Blood pressure diastolic 80 mm Hg 025 Encounters Encounter Location Date Provider Diagnosis [facility] [address] [address] 08/04/2024 Lizzie Zheng Peroneal tendinitis, right leg M76.71 ; Bursitis of right foot M77.51 ; Neuritis of right foot G57.91 ; Type 2 diabetes mellitus with diabetic polyneuropathy E11.42 and Hypertrophy of bone M89.30 Assessments Encounter Date Diagnosis (ICD Code) Assessment Notes Treatment Notes Treatment Clinical Notes Section Notes 08/04/2024 Peroneal tendinitis, right leg (ICD-10 - M76.71) 08/04/2024 Bursitis of right foot (ICD-10 - M77.51) 08/04/2024 Neuritis of right foot (ICD-10 - G57.91) 08/04/2024 Type 2 diabetes mellitus with diabetic polyneuropathy (ICD-10 - E11.42) 08/04/2024 Hypertrophy of bone (ICD-10 - M89.30) Plan Of Treatment Medication Medication Name Sig Start Date Stop Date Notes Custom Orthotics as directed 08/04/2024 Next Appt Details Follow Up: prn, Reason: Provider Name:Lizzie A Norm , 09/26/2024 08:30:00 AM, [address] [place] [address], [id number], Progress Notes * Rivas VENTURA BDOB:1950 (74 yo M)Acc No.[id number]:08/04/2024 Progress Notes Patient:?Rivas VENTURA Provider:?Lizzie Zheng DPM :1950???Age:74 Y???Sex:Male David e:08/04/2024 Address:[address], [place], [id number] Pcp:Delmar Sandoval MD Subjective: * Chief Complaints: * ???Foot pain * HPI: ???Foot Pain:?Nature:?burning ,.?Location:?, Outside, Midfoot, RIGHT.?Duration:?, several weeks- 4/5.?Onset:?unknown.?Course:?Was better with adjustment to orthotics however adjustment was accidently removed from insert while walking and pain has returned with the same intensity.?Aggravated:?any pressure.?Treatments:?Rest/alter normal daily activity, adjustment to custom orthotic.?Misc:?Pt States Last PCP Visit -07/29/2024.? * ROS:?General/Constitutional:?Nausea?denies.?Vomiting?denies.?Hunger Thirst?denies.?Loss appetite?denies.?Chills?denies.?Fatigue?denies.?Fever?denies.?Night Sweats?denies.?Unexplained weight loss?denies.?Unexplained [...] Medical History:? * Surgical History:?eye surger y 1957tonsillectomy 1962disc surgery L4-L5 1995colonoscopy iopsy on thigh 09/2023 * Hospitalization/Major Diagno stic Procedure:?[facility] ([place])- Concussion-Er visit- Following with Concussion center 12/10/2018 [...] BMI:28.74, Shoe size: 12-12.5W, BP:124/80mm Hg, BS: not taken, Ht-cm: 190.5 cm, Wt-k.33 kg. * ???Past Orders: ???Lab:HEMOGLOBIN A1C (GLYCO HEMOGLOBIN) (Order Date - 06/03/2024) (Collection Date & Time - 06/03/2024 07:50 AM) ? Value Reference Range ?HEMOGLOBIN A1C % (HH) 5.7 * Examination: ???Ophthalmology Referral: ?DIABETES EYE EXAM?Procedure Performed:?Yes ?Date of Exam Performed?03/18/2024 ?Findings of Diabetic Eye Exam:?no retinopathy?General Examination: ?GENERAL APPEARANCE:?Reveals a pleasant, alert, well nourished, well- developed, well hydrated individual, who demonstrates proper attention to hygiene/body habitus, and is in no acute distress, Pt serves as own historian for office visit today.?ORIENTED:?person, place, and time.?Footwear Evaluation?Footwear Evaluation performed:?Yes?Vascular: ?DP PULSES (B):?2/4, B/L.?PT [...] burning , B/L.?TINEL'S COMPRESSION:?Lateral sural nerve distribution, Right.?Orthopedic: ?GAIT ABNORMALITY:?antalgic.?FOOT MORPHOLOGY:? Decreased Ankle joint dorsiflexion ROM, knee extended.?TAILOR'S BUNION:?Enlarged, painful, prominent, inflamed 5th Metatarsal Base, RIGHT.?DIGITAL DEFORMITIES:?Digital contracture, PIPJ, 2-5 B/L, incompl-reducible with WB, or to push-up test, no over, nor underlapping.?TENDONITIS:?Pain on palpation, inflammation, and fusiform swelling to, Peroneal Complex, RIGHT.?FOOTWEAR:?OT were inspected and noted to be worn, but in good condition giving proper support at the present time missing recent adjustment.? Assessment: * Assessment: 1.?Peroneal tendinitis, righ t leg - M76.71???Specify :Acute problem, Uncomplicated (3)???2.?Bursitis of right foot - M77.51 (Primary)???Specify :Acute problem, Uncomplicated (3)???3.?Neuritis of right foot - G57.91???Specify :Worse???4.?Type 2 diabetes mellitus with diabetic polyneuropathy - E11.42???5.?Hypertrophy of bone - M89.30??? Plan: * Treatment: * Procedure Codes:?3044F HG A1 C LEVEL LT 7.0% * Preventive Medicine:? ??Counseling:?Discussion:?-13: Office or other outpatient visit for the evaluation and management of an established patient, which required a medically appropriate history and/or examination and LOW level of DECISION MAKING for: 1 STABLE ACUTE UNCOMPLICATED PROBLEM, 2 OR MORE MINOR PROBLEMS, OR 1 STABLE CHRONIC PROBLEM, THAT POSE(S) A LOW RISK FOR MORBIDITY/MORTALITY. The visit on the day of the [...] have encouraged the patient to call the office.?BioMech.:?I discussed the Pts foot biomechanics with them and how it relates to their problem.?Orthotics:?Rx OT given and recommended [facility], adjustment made to present orthotics to off load the area till pt can get new custom orthotics.? * Follow Up:?prn * Images: * Sign off status: Completed true * Provider:?Lizzie Zheng DPM Date:?2024 Generated for Gretel lazaro/Néstor/eTransmitting on:?09/20/2024 11:49 AM EDT History and Physical Notes * HPI (History of Present Illness) Category Sub-Category Detail Notes Category Not es Foot Pain Nature: burning , Location: , Outside, Midfoot, RIGHT Duration: , several weeks- 08/20 Onset: unknown Course: Was better with adju stment to orthotics however adjustment was accidently removed from insert while walking and pain has returned with the same intensity Aggravated: any pressure Treatments: Rest/alter normal da jose a activity, adjustment to custom orthotic Misc: Pt States Last PCP V isit -07/29/2024 Examination Category Sub-Category Detail Notes Category Not es Ingrown Nail INSPECTION: Neuroma Pain PALPATION: Neurological SENSORY: Neurological exa m demonstrates , reduced light touch sensation , reduced sharp/dull pin prick discrimination , reduced vibration sensation , 5.07 monofilament test performed at plantar aspects of 5 varied sites per foot shows sensation , reduced , Pt relates , burning , B/L TINEL'S COMPRESSION: Lateral sural nerve distribution, Right Orthopedic GAIT ABNORMALITY: antalgic FOOT MORPHOLOGY: Decreased Ankle join t dorsiflexion ROM, knee extended FOOTWEAR EVALUATION: OT were inspected a nd noted to be worn, but in good condition giving proper support at the present time missing recent adjustment DIGITAL DEFORMITIES: Digital contracture , PIPJ, 2-5 [...] today ORIENTED: person, place, and t belinda Footwear Evaluation Footwear Evaluation performe d:: Yes Ophthalmology Referral DIABETES EYE EXAM Procedure Perform ed:: Yes ?Date of Exam Performed: 03/18/2024 Findings of Diabetic Eye Exam:: no retin opathy Vascular DP PULSES (B): 2/4, B/L PT PULSES (B): 2/4, B/L CAPILLARY FILL TIME: immediate, all digi ts, B/L TROPHIC CONDITION-TEXTURE/EL ASTICITY/TURGOR/HAIR GROWTH (B): normal, B/L
[2024-09-20 12:07] LABS: HDL Cholesterol 45 mg/dL (>40); LDL Cholesterol Calculated 50 mg/dL (<100)
== END 2024-09-20 10:18 | disposition home or self-care (01) ==
LOC: HO.LNP 10:17
PROVIDERS: Visit Provider Internal Medicine
DX: I10 Essential (primary) hypertension (principal); E78.00 Pure hypercholesterolemia, unspecified; E11.9 Type 2 diabetes mellitus without complications; D72.810 Lymphocytopenia; Z12.5 Encounter for screening for malignant neoplasm of prostate; N40.0 Benign prostatic hyperplasia without lower urinary tract symptoms
CPT/HCPCS: 80053; 80061; 81001; 82043; 82570; 83036; 84153; 85025

== ENCOUNTER 2025-03-11 07:25 | Outpatient (REF) | payer MEDICARE, SELFPAY ==
--- OUTSIDE RECORDS SUMMARY | 2023-09-18 03:30 | XMS_ITS ---
Author Organization [facility] Address [address] [place] [id number] Care Team Providers Care Personnel Officer Name Role Phone Delmar Sandoval MD Primary Care Provider UnaBrayden Carlisle [phone] REASON FOR VISIT screening,hx polyps Problems Problem Type SNOMED Code ICD Code Onset Dates Problem Status W/U Status Risk Notes Problem Diverticular disease of colon (285924022) Diverticulosis of large intestine without perforation or abscess without bleeding (K57.30) Active confirmed Encounters Encounter Location Date Provider Diagnosis [facility] [address] [place] [id number] 09/18/2023 Brayden Olivera Encounter for scre ening colonoscopy Z12.11 ; Colon polyps K63.5 ; Lipoma of colon D17.5 ; Diverticulosis of large intestine without perforation or abscess without bleeding K57.30 and Other hemorrhoids K64.8 Assessments Encounter Date Diagnosis (ICD Code) Assessment Notes Treatment Notes Treatment Clinical Notes Section Notes 09/18/2023 Encounter for screening colonoscopy (ICD-10 - Z12.11) 09/18/2023 Colon polyps (ICD-10 - K63.5) 09/18/2023 Lipoma of colon (ICD-10 - D17.5) 09/18/2023 Diverticulosis of large intestine without perforation or abscess without bleeding (ICD-10 - K57.30) 09/18/2023 Other hemorrhoids (ICD-10 - K64.8) Plan Of Treatment No Information Progress Notes * LUZ MURPHY BDOB:1950 (74 yo M)Acc No.[id number]:09/18/2023 COLON WITH MAC Patient: LUZ FRANCOIS Provider: Lucia Olivera MD :1950 A ge:73 Y S ex:Male Date:09/18/2023 Address:[address] [place], [place] [id number] Pcp:Delmar Sandoval MD Subjective: * Chief Complaints: * 1 . Screening,hx polyps. * Medical History: Objective: * Vitals: Assessment: * Assessment: 1. E ncounter for screening colonoscopy - Z12.11 (Primary) 2 . C olon polyps - K63.5 3 . L ipoma of colon - D17.5 4 . D iverticulosis of large intestine without perforation or abscess without bleeding - K57.30 5 . O ther hemorrhoids - K64.8 Plan: * Treatment: * Procedure Codes: 4 5385 LESION REMOVAL COLONOSCOPY, Modifiers: [place] , [address] COLONOSCOPY AND BIOPSY, Modifiers: 59 , PT, 0529F INTRVL 3+YRS PTS CLNSCP DOCD, 0528F RCMND FLW-UP 10 YRS DOCD, Modifiers: 1P * * The named appointment provid er may or may not be the originator of this progress note, and it is not deemed complete until electronically signed by the appointment provider. Sign off status: Pending * Provider: Lucia Olivera MD Date: 0 09/18/2023 Generated for Gretel lazaro/Néstor/Kirstinitting on: 1 07:28 AM EDT
--- OUTSIDE RECORDS SUMMARY | 2024-02-15 04:00 | XMS_ITS ---
Author Organization [facility] Address [address] [place] [address] Care Team Providers Care Ore Digger Name Role Phone Delmar Sandoval MD Primary Care Provider Lizzie Vivar [phone] Ma Encounters Encounter Location Date Provider Diagnosis [address] [address] 02/15/2024 Lizzie Norm Plan Of Treatment Next Appt Details Provider Name:Lizzie Zheng , 04/06/2025 08:00:00 AM, [address] [place] [address], [phone], Progress Notes * LORENZOClement Bhandariin BDOB:1950 (74 yo M)Acc No.[id number]:02/15/2024 Progress Note Patient: Rivas FRANCOIS Provider: Libby [...] DPM Date: 0 02/15/2024 Generated for Gretel lazaro/Pam on: 07:30 AM EDT
--- OUTSIDE RECORDS SUMMARY | 2024-07-14 06:18 | XMS_ITS ---
Author Organization Delmar Sandoval MD Address [address] [facility] [address] [place] [phone] Care Team Providers Care Web Press Jogger Name Role Phone Lori Delmar Primary Care Provider [phone] REASON FOR VISIT Labs Encounters Encounter Location Date Provider Diagnosis Delmar Sandoval MD [address] [facility] [address] [place] [phone] 07/14/2024 Delmar Sandoval Plan Of Treatment Next Appt Details Provider Name:Delmar freedman, 03/30/2025 07:45:00 AM, [address] [place] [address], [address], [phone], Provider Name:Delmar freedman, 04/06/2025 10:30:00 AM, [address] [place] [address], [address], [phone], Provider Name:Delmar freedman, 09/22/2025 07:15:00 AM, [address] [place] [address] [address], [place], [place], [phone], Provider Name:Delmarruy freedman, 09/29/2025 08:30:00 AM, [address] [facility], [address], [place], [phone], Progress Notes * Rivas VENTURA BDOB:1950 (74 yo M)Acc No.[id number]:07/14/2024 Patient: Rivas FRANCOIS :1950 A ge:74 Y S ex:Male Address:[address] [place] [address], [place] [address] * true * Date: Generated for Gretel lazaro/Néstor/eTransmitting on: 07:28 AM EDT
--- OUTSIDE RECORDS SUMMARY | 2024-07-29 07:30 | XMS_ITS ---
Author Organization Delmar Sandoval MD Address [address] [place] [phone] Care Team Providers Care Controller [place] Name Role Phone Lori Delmar Primary Care Provider [phone] Allergies Allergen (clinical drug ingredient) Drug/Non Drug [...] day for 90 days 10/27/2023 Active Nystatin-Triamcinolone 982282-4.1 UNIT/GM 1 application Externally Twice a day [...] 20 MG TAKE 1 CAPSULE BY MO [facility] EVERY DAY 30 MINUTES BEFORE BREAKFAST for 90 Active Fluticasone Propionate 50 MCG/ACT SHAKE LIQUID AND USE 1 SPRAY IN EACH NOSTRIL TWICE DAILY for 30 Active Nystatin 360204 UNIT/GM 1 application Externally Twice a day for 30 days 09/11/2022 Active Claritin 10 MG 1 tablet Orally Once a day Active OneTouch Delica Plus [id number] - USE TO TEST BLOOD SUGAR TWICE [...] Date Provider Diagnosis Delmar Sandoval MD [address] [facility] [place] [phone] 07/29/2024 Delmar Sandoval Essential hypertension I10 and [...] TAKE 1 TABLET BY HADLEY EVERY DAY Triamcinolone Acetonide 0.1 % 1 applicat ion Externally 2 times a day for 14 days 07/29/2024 Treatment Notes Assessment Notes Essential hypertension doing well, will continue current regiment Rash patient verbalized u nderstanding of new medication and directiobs for use Next Appt Details Provider Name:Delmar Rene ier, 03/30/2025 07:45:00 AM, [address] [place] [address], [address], [phone], Provider Name:Delmar Rene ier, 04/06/2025 10:30:00 AM, [address] [place] [address], [address], [phone], Provider Name:Delmar Dae Edgard ier, 09/22/2025 07:15:00 AM, [address] [place] [address], [address], [phone], Provider Name:Delmar Dae Edgard ier, 09/29/2025 08:30:00 AM, [address] [place] [address], [address], [phone], Progress Notes * Rivas VENTURA BDOB:1950 (74 yo M)Acc No.[id number]:07/29/2024 Progress Notes Patient: Rivas FRANCOIS Provider: Daron Sandoval MD :1950 A ge:74 Y S ex:Male Date:07/29/2024 Address:[address] [place] [phone] Subjective: * Chief Complaints: * F /U [...] Denies S ore throat. R espiratory: Denies C ough. D enies S hortness of breath at rest. D enies S hortness of breath with exertion. G astrointestinal: Denies D iarrhea. D enies N ausea. * Medical History: * Surgical History: * Hospitalization/Major Diagno stic Procedure: * Medications: T akingClaritin 10 MG Tablet 1 tablet Orally Once a day Betamethasone Dipropionate OneTouch Ultra - Strip USE TO TEST BLOOD SUGAR TWICE DAILY OneTouch Delica Plus [id number] - Miscellaneous USE TO TEST BLOOD SUGAR TWICE DAILY Nystatin 650849 UNIT/GM Cream 1 application Externally Twice a [...] SPRAY IN EACH NOSTRIL TWICE DAILY Nystatin-Triamcinolone 343223-7.1 UNIT/GM Cream 1 application Externally Twice a [...] SUGAR TWICE DAILY Taking OneTouch Delica Plus [id number] - Miscellaneous USE TO TEST BLOOD SUGAR TWICE DAILY Taking Nystatin 378290 UNIT/GM Cream 1 application Externally Twice a [...] IN EACH NOSTRIL TWICE DAILY Taking Nystatin-Triamcinolone 398446-0.1 UNIT/GM Cream 1 application Externally Twice a [...] MD Date: 0 07/29/2024 Generated for Gretel lazaro/Néstor/González on: 1 07:30 AM EDT History and Physical Notes * HPI (History [...]
--- OUTSIDE RECORDS SUMMARY | 2024-08-04 10:52 | XMS_ITS ---
Author Organization Delmar Sandoval MD Address [address] [place] [phone] Care Team Providers Care Gas Dispenser Name Role Phone Lori Delmar Primary Care Provider [phone] REASON FOR VISIT US head and Neck Encounters Encounter Location Date Provider Diagnosis Delmar Sandoval MD [address] [facility] [address] [place] [phone] 08/04/2024 Delmar Sandoval Multinodular goiter (nontoxic) E04.2 Assessments Encounter Date Diagnosis (ICD Code) Assessment Notes Treatment Notes Treatment Clinical Notes Section Notes 08/04/2024 Multinodular goiter (nontoxic) (ICD-10 - E04.2) 08/04/2024 Other order made and put into the future order folder for [address] [facility] Plan Of Treatment Treatment Notes Assessment Notes Other order made and put i nto the future order folder for [address] [facility] Pending Test Test Name Order Date US thyroid 08/04/2024 Next Appt Details Provider Name:Delmar Rene ier, 03/30/2025 07:45:00 AM, [address] [facility], [address], [place], [phone], Provider Name:Delmar Rene ier, 04/06/2025 10:30:00 AM, [address] [facility], [address], [place], [phone], Provider Name:Delmar Rene ier, 09/22/2025 07:15:00 AM, [address] [facility], [address], [place], [phone], Provider Name:Delmar Rene ier, 09/29/2025 08:30:00 AM, [address] [facility], [address], [place], [phone], Progress Notes * Rivas VENTURA BDOB:1950 (74 yo M)Acc No.[id number]:08/04/2024 Patient: Rivas FRANCOIS :1950 A ge:74 Y S ex:Male Address:[address] [place] [phone] Subjective: * Chief Complaints: * U S head and Neck * Medical History: * Surgical History: * Hospitalization/Major Diagno stic Procedure: * Medications: Objective: * Vitals: * Physical Examination: Assessment: * Assessment: 1. M ultinodular goiter (nontoxic) - E04.2 Plan: * Treatment: 2. O thers Notes: order made and put into the future order folder for [address] [facility] * Procedure Codes: * true * Date: Generated for Gretel lazaro/Néstor/eTransmitting on: 07:30 AM EDT
--- OUTSIDE RECORDS SUMMARY | 2024-09-20 03:15 | XMS_ITS ---
Author Organization Delmar Sandoval MD Address [address] [place] [phone] Care Team Providers Care Human Resources Services Specialist Name Role Phone Lori Delmar Primary Care Provider Results Component Value Reference Range Notes Complete Blood Count Auto Di ff Reviewed date:09/20/2024 04:55:16 PM Interpretation: Performing Lab:[facility], [address] [place] [phone] Notes/Report: White Blood Count 6.1 4.8-10.8 X10*3/uL [...] NRBC Abs Auto 0.000 0.0-0.012 X10*3/uL Comprehensive [place]. Panel Fa st Reviewed date:09/20/2024 12:47:49 PM Interpretation: Performing Lab:[facility], [address] [place] [phone] Notes/Report: Sodium 138 135-145 mmol/L Potassium 4.1 [...] Panel Reviewed date:09/20/2024 12:10:39 PM Interpretation: Performing Lab:[address] [phone] Notes/Report: Triglycerides 124 <150 mg/dL Desirable Triglyceride: [...] (Free>4and<10) Reviewed date:09/20/2024 12:05:21 PM Interpretation: Performing Lab:[address] [phone] Notes/Report: PSA,Total (Free>4and<10) 2.35 0.00-4.00 ng/mL A [...] Random Reviewed date:09/20/2024 12:05:41 PM Interpretation: Performing Lab:[address] [phone] Notes/Report: Creatinine Urine 128.50 Microalbumin Urine 12.0 Microalbum/Creatinine Ratio Ur 9.3 <30 ug/mg cr Albumin/Creatinine Ratio Reference Ranges: Normal: < 30 ug/mg creatinine Microalbuminuria: 30 - 300 ug/mg creatinine Clinical Albuminuria: > 300 ug/mg creatinine Hemoglobin A1c Reviewed date:09/20/2024 12:05:31 PM Interpretation: Performing Lab:[address] [phone] Notes/Report: Hemoglobin A1c % 6.0 <6.0 % [...] average glucose, using the formula of the G8K-Ulngzfl Average Glucose study (ADAG), Diabetes Care, Vol.31,#8, Dec. 2007 UA ClnCatch+Micro w/rflx Cul t Reviewed date:09/20/2024 12:45:39 PM Interpretation: Performing Lab:[address] [phone] Notes/Report: Urine, Clean Catch Color Urine Yellow Appearance Urine Clear PH 6.0 5.0-9.0 Glucose Urine UA Negative Negative mg/dL Urine Blood Negative Negative Specific [place] - Urine 1.015 1.005-1.025 Urine Protein Negative [...] Date Provider Diagnosis Delmar Sandoval MD [address] [place], [place] [phone] 09/20/2024 Delmar Sandoval Essential hypertensi on I10 [...] Details Provider Name:Delmar freedman, 03/30/2025 07:45:00 AM, [address] [place] [address], [phone], Provider Name:Delmar isabelr, 04/06/2025 10:30:00 AM, [address] [place] [address], [phone], Provider Name:Delmar isabelr, 09/22/2025 07:15:00 AM, [address] [place] [address], [phone], Provider Name:Delmar isabelr, 09/29/2025 08:30:00 AM, [address] [place] [address], [phone], Progress Notes * Rivas VENTURA BDOB:1950 (74 yo M)Acc No.[id number]:09/20/2024 Progress Note Patient: Rivas FRANCOIS Provider: Daron Sandoval MD :1950 A ge:74 Y S ex:Male Date:09/20/2024 Address:[address] [place], [place] [phone] Subjective: * Chief Complaints: * 1 . [...] - 09/20/2024 07:15 AM) L AB: Comprehensive [place]. Panel Fast (Collection Date & Time - [...] - 09/20/2024 07:15 AM) L AB: Comprehensive [place]. Panel Fast (Collection Date & Time - [...] - 09/20/2024 07:15 AM) L AB: Comprehensive [place]. Panel Fast (Collection Date & Time - [...] - 09/20/2024 07:15 AM) L AB: Comprehensive [place]. Panel Fast (Collection Date & Time - [...] 0 09/20/2024 Generated for Gretel lazaro/Néstor/González on: 1 07:29 AM EDT
--- OUTSIDE RECORDS SUMMARY | 2024-09-27 05:30 | XMS_ITS ---
Author Organization Delmar Sandoval MD Address [address] [place] [phone] Care Team Providers Care Green Building Energy Engineer Name Role Phone Delmar Sandoval Primary Care [...] Lisinopril 10 MG TAKE 1 TABLET [facility] EVERY DAY for 90 Active Ibuprofen 800 MG TAKE 1 TABLET BY [facility] THREE TIMES DAILY for 90 Active Ciclopirox 0.77 % 1 application Externally Twice a day for 7 days 07/14/2024 Active Allopurinol 300 MG TAKE 1 TABLET BY [facility] EVERY DAY for 90 Active Fluticasone Propionate 50 MCG/ACT SHAKE LIQUID AND USE 1 SPRAY IN EACH NOSTRIL TWICE DAILY for 30 Active Januvia 50 MG TAKE 1 TABLE[facility] Active Nystatin-Triamcinolone 403809-6.1 UNIT/GM 1 application Externally Twice a day 03/26/2021 Active Rosuvastatin Calcium 10 MG 1 tablet Orally Once a day 10/27/2023 Active Tamsulosin HCl 0.4 MG TAKE 1 CAPSULE BY MOUTH EVERY DAY Active OneTouch Delica Plus [id number] - USE TO TEST BLOOD SUGAR TWICE DAILY for 50 Active Nystatin 633433 UNIT/GM 1 application Externally Twice a day for 30 days 09/11/2022 Active Omeprazole 20 MG TAKE 1 CAPSULE BY [facility] EVERY DAY 30 MINUTES BEFORE BREAKFAST [...] kg/m2 09/27/2024 weight is down 3 pounds [facility] e 07-29-24 Encounters Encounter Location Date Provider Diagnosis Delmar Sandoval MD [address] [place] [address] [address] [place], [place] [phone] 09/27/2024 Delmar Sandoval Essential hypertensi on I10 [...] days 09/22/2023 Ciclopirox 0.77 % 1 application 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 ally Twice a day for 30 days [...] e current regiment Controlled type 2 diabetes m ellitus without complication, without long-term current use of insulin doing well, will continue current regiment Esophageal dysfunction stable, will cont inue current regiment Future Test Test Name Order Date Complete Blood Count Auto Diff Next Appt Details Follow Up: 6 Months, Reason: Provider Name:Delmar Rene ier, 03/30/2025 07:45:00 AM, [address] [place] [address], [address], [phone], Provider Name:Delmar Rene ier, 04/06/2025 10:30:00 AM, [address] [place] [address], [phone], Provider Name:Delmar Rene ier, 09/22/2025 07:15:00 AM, [address] [place] [address], [phone], Provider Name:Delmar Rene ier, 09/29/2025 08:30:00 AM, [address] [place] [address], [address], [phone], Progress Notes * Rivas VENTURA BDOB:1950 (74 yo M)Acc No.[id number]:09/27/2024 Patient: Sathya Rivas CLARK Provider: Daron Sandoval MD :1950 A ge:74 Y S ex:Male Date:09/27/2024 Address:[address] [place] [address] [place], [id number] Subjective: * Chief Complaints: * R eview [...] in the past year? N ever (0 point) P oints 3 , I nterpretation N [...] BLOOD SUGAR TWICE DAILY OneTouch Delica Plus [id number] - Miscellaneous USE TO TEST BLOOD SUGAR TWICE DAILY Nystatin 317601 UNIT/GM Cream 1 application Externally Twice a [...] SPRAY IN EACH NOSTRIL TWICE DAILY Nystatin-Triamcinolone 666323-1.1 UNIT/GM Cream 1 application Externally Twice a [...] SUGAR TWICE DAILY Taking OneTouch Delica Plus Dhnban69T - Miscellaneous USE TO TEST BLOOD SUGAR TWICE DAILY Taking Nystatin 617780 UNIT/GM Cream 1 application Externally Twice a [...] IN EACH NOSTRIL TWICE DAILY Taking Nystatin-Triamcinolone 088539-9.1 UNIT/GM Cream 1 application Externally Twice a [...] mg cr L ab:Hemoglobin A1c (Order Date 09/20/2024) (Collection Date & Time - 09/20/2024 07:15 AM) Value Reference Range Hemoglobin A1c % 6.0 <6.0 - % Estimated Average Glucose 126 - mg/dL L ab:Comprehensive [place]. Panel Fast (Order Date - 09/20/2024) (Collection [...] mg/dL Urine Blood Negative Negative - Specific [place] - Urine 1.015 1.005-1.025 - Urine Protein [...] 09/27/2024 Generated for Gretel lazaro/Néstor/Kirstinitting on: 1 07:29 AM EDT History and Physical Notes * [...] Total Score: 0 Interpretation and Intervention Depression Nubia goodwin Findings: Negative Follow-Up for Depression: : review [...]
--- OUTSIDE RECORDS SUMMARY | 2024-11-10 08:18 | XMS_ITS ---
Author Organization Delmar Sandoval MD Address [address] [place] [phone] Care Team Providers Care Armature Winder Repair Helper Name Role Phone Lori Delmar Primary Care Provider [phone] Medications Medication SIG (Take, Route, Frequency, Duration) Notes Start Date End Date Status Triamcinolone Acetonide 0.1 % APPLY TOPICALLY TO THE AFFECTED AREA TWICE DAILY FOR 14 DAYS Externally twice a day for 30 days Active Nystatin 296052 UNIT/GM 1 application Ex ternally Twice a day for 30 days 09/11/2022 Active Encounters Encounter Location Date Provider Diagnosis Delmar Sandoval MD [address] [facility] [address] [facility] [address] [place] [phone] 11/10/2024 Delmar Sandoval Fungal infection B49 ; [...] twice a day for 30 days Nystatin 875625 UNIT/GM 1 application Ex ternally Twice a day for 30 days 09/11/2022 Next Appt Details Provider Name:Delmarruy Rene ier, 03/30/2025 07:45:00 AM, [address] [place] [address], [address], [phone], Provider Name:Delmar Dae Edgard ier, 04/06/2025 10:30:00 AM, [address] [place] [address], [address], [phone], Provider Name:Delmarruy Rene ier, 09/22/2025 07:15:00 AM, [address] [place] [address], [phone], Provider Name:Delmar Healyrubio ier, 09/29/2025 08:30:00 AM, [address] [place] [address], [phone], Progress Notes * Rivas VENTURA BDOB:1950 (74 yo M)Acc No.[id number]:11/10/2024 Patient: Rivas FRANCOIS :1950 A ge:74 Y S ex:Male Address:[address] [place] [phone] * Refills Refill Triamcinolone Acetonide Cream, 0.1 %, Externally, 30 Gram, APPLY TOPICALLY TO THE AFFECTED AREA TWICE DAILY FOR 14 DAYS, twice a day, 30 days, Refills=3 Refill Nystatin Cream, 217300 UNIT/GM, Externally, 30 Gram, 1 application, Twice a day, 30 days, Refills=3 * true * Date: Generated for Printi ng/Faelroyg/eTransmitting on: 1 07:29 AM EDT
--- OUTSIDE RECORDS SUMMARY | 2024-11-17 06:29 | XMS_ITS ---
Author Organization Delmar Sandoval MD Address 10 [facility] [address] [place] [phone] Care Team Providers Care Metallographic Technician Name Role Phone LoriVasilen Primary Care Provider [phone] REASON FOR VISIT med issue Encounters Encounter Location Date Provider Diagnosis Delmar Sandoval MD [address] [facility] [address] [place] [phone] 11/17/2024 Delmar Sandoval Plan Of Treatment Next Appt Details Provider Name:Delmar freedman, 03/30/2025 07:45:00 AM, [address] [place] [address], [address], [phone], Provider Name:Delmar freedman, 04/06/2025 10:30:00 AM, [address] [place] [address], [address], [phone], Provider Name:Delmar freedman, 09/22/2025 07:15:00 AM, [address] [place] [address], [address], [place], [phone], Provider Name:Delmarruy freedman, 09/29/2025 08:30:00 AM, [address] [facility], [address], [place], [place], [phone], Progress Notes * Rivas VENTURA BDOB:1950 (74 yo M)Acc No.[id number]:11/17/2024 Patient: Rivas FRANCOIS :1950 A ge:74 Y S ex:Male Address:[address] [place] [address], [place] [address] * true * Date: Generated for Gretel lazaro/Néstor/eTransmitting on: 07:28 AM EDT
--- OUTSIDE RECORDS SUMMARY | 2025-01-02 04:39 | XMS_ITS ---
Author Organization Delmar Sandoval MD Address [address] [facility] [address] [place] [phone] Care Team Providers Care Drilling Fluids Specialist Name Role Phone Lori Delmar Primary Care Provider REASON FOR VISIT sinus infection Medications Medication SIG (Take, Route, Frequency, Duration) Notes Start Date End Date Status Amoxicillin-Pot Clavulanate 875-125 MG 1 tablet Orally every 12 hrs for 10 days 01/02/2025 Active Encounters Encounter Location Date Provider Diagnosis Delmar Sandoval MD [address] [facility] [address] [place] [phone] 01/02/2025 Delmar Sandoval Plan Of Treatment Medication Medication Name Sig Start Date Stop Date Notes Amoxicillin-Pot Clavulanate 875-125 MG 1 tablet Orally every 12 hrs for 10 days 01/02/2025 Next Appt Details Provider Name:Delmar isabelr, 03/30/2025 07:45:00 AM, [address] [facility] [address], [address] [place] [address], [phone], Provider Name:Delmar Rene ier, 04/06/2025 10:30:00 AM, [address] [place] [address], [address], [place], [phone], Provider Name:Delmar Rene ier, 09/22/2025 07:15:00 AM, [address] [place] [address], [address], [place], [phone], Provider Name:Delmar Rene ier, 09/29/2025 08:30:00 AM, [address] [place] [address], [address], [place], [phone], Progress Notes * Rivas VENTURA BDOB:1950 (74 yo M)Acc No.[id number]:01/02/2025 Patient: Rivas FRANCOIS :1950 A ge:74 Y S ex:Male Address:[address] [place] [phone] * Refills Start Amoxicillin-Pot Clavulanate Tablet, 875-125 MG, Orally, 20 Tablet, 1 tablet, every 12 hrs, 10 days * true * Date: Generated for Gretel lazaro/Néstor/Kirstinitting on: 07:29 AM EDT
--- OUTSIDE RECORDS SUMMARY | 2025-03-09 03:30 | XMS_ITS ---
Author Organization Delmar Sandoval MD Address [address] [place] [phone] Care Team Providers Care Sales Operations Consultant Name Role Phone Delmar Sandoval Primary Care Provider [phone] REASON FOR VISIT HD FLU Immunizations Vaccine Route Administration Date Status Comme nts Influenza High Dose IM Intramuscular 03/09/2025 Administer ed Encounters Encounter Location Date Provider Diagnosis Delmar Sandoval MD 10 [facility] [address] [place] [phone] 03/09/2025 Delmar Sandoval Encounter for administration of vaccine Z23 Assessments Encounter Date Diagnosis (ICD Code) Assessment Notes Treatment Notes Treatment Clinical Notes Section Notes 03/09/2025 Encounter for administration of vaccine (ICD-10 - Z23) Plan Of Treatment Next Appt Details Provider Name:Delmar freedman, 03/30/2025 07:45:00 AM, 10 [facility], Suite [facility], [place], [place], [phone], Provider Name:Delmar freedman, 04/06/2025 10:30:00 AM, [address] [facility], [address], [place], [place], [phone], Provider Name:Delmar Rene ier, 09/22/2025 07:15:00 AM, [address] [facility], [address], [place], [place], [phone], Provider Name:Delmar Rene ier, 09/29/2025 08:30:00 AM, [address] [facility], [address], [place], [place], [phone], Progress Notes * Rivas VENTURA BDOB:1950 (74 yo M)Acc No.[id number]:03/09/2025 Progress Note Patient: Rivas FRANCOIS Provider: Daron Sandoval MD :1950 A ge:74 Y S ex:Male Date:03/09/2025 Address:[address] [place], [place] [phone] Subjective: * Chief Complaints: * 1 . [...] MD Date: Generated for Gretel lazaro/Néstor/Kirstinitting on: 07:28 AM EDT
--- OUTSIDE RECORDS SUMMARY | 2025-03-10 06:00 | XMS_ITS ---
Author Organization Delmar Sandoval MD Address 10 [facility] [address] [place] [phone] Care Team Providers Care Preprint Analyst Name Role Phone Lori Delmar Primary Care Provider Encounters Encounter Location Date Provider Diagnosis Delmar Sandoval MD 10 [facility] [address] [place] [phone] 03/10/2025 Delmar Sandoval Back pain M54.9 Assessments Encounter Date Diagnosis (ICD Code) Assessment Notes Treatment Notes Treatment Clinical Notes Section Notes 03/10/2025 Back pain (ICD-10 - M54.9) Plan Of Treatment Pending Test Test Name Order Date XR lumbar spine 2-3V 03/10/2025 Next Appt Details Provider Name:Delmar freedman, 03/30/2025 07:45:00 AM, 10 [facility], Suite [facility], [place], [place], [phone], Provider Name:Delmar freedman, 04/06/2025 10:30:00 AM, 10 [facility], [address], [place], [place], [phone], Provider Name:Delmar freedman, 09/22/2025 07:15:00 AM, [address] [place] [address], [address], [place], [place], [phone], Provider Name:Delmar freedman, 09/29/2025 08:30:00 AM, [address] [place] [address], [address], [place], [phone], Progress Notes * Rivas VENTURA BDOB:1950 (74 yo M)Acc No.[id number]:03/10/2025 Patient: Rivas FRANCOIS :1950 A ge:74 Y S ex:Male Address:[address] [place] [phone] Subjective: * Chief Complaints: * * Medical History: * Surgical History: * Hospitalization/Major Diagno stic Procedure: * Medications: Objective: * Vitals: * Physical Examination: Assessment: * Assessment: 1. B ack pain - M54.9 (Primary) Plan: * Treatment: * Procedure Codes: * * Date:
--- NOTE | ~2025-03-11 | XR_ITS ---
EXAMINATION: XR LUMBOSACRAL SPINE CLINICAL INFORMATION: BP COMPARISON: Lumbar spine 06/22/2020 TECHNIQUE: Three views of the lumbosacral spine. FINDINGS: There is maintained lumbar lordosis with mild dextroscoliosis upper lumbar spine. There is loss of L4-5 and L5-S1 disc heights with moderate ventral spondylosis throughout lumbar spine. No visible acute fracture, dislocation or subluxation seen. Mild loss of joint space with mild sclerosis and SI joints. The hip joints partially visualized are relatively unremarkable. The soft tissues are normal. XR/XR lumbar spine 2-3V IMPRESSION: Degenerative disc changes L4-5 L5-S1. Ventral spondylosis throughout lumbar spine with mild dextroscoliosis. No major change from previous exam 06/22/2020 Electronically signed by: Jean Paul Torres MD 03/13/2025 07:04 AM EDT
--- OUTSIDE RECORDS SUMMARY | 2025-03-11 07:28 | XMS_ITS | Clinical Summary ---
Author Organization [facility] Address [address] [place] [address] Phone Care Team Providers Care Transportation Project Manager Name Role Phone Harsh Sandoval MD Primary Care Provider [phone] Social History Tobacco Use Types Packs/Day Years Used Date Smoking Tobacco: Never Assessed Sex and Gender Information Value Date Recorded Sex Assigned at Male 04/26/2024 10:34 AM EST Legal Sex Male 8:57 AM EST Gender Identity Male 04/26/2024 10:34 AM EST Sexual Orientation Straight 04/26/2024 10 :34 AM EST Plan of Treatment Upcoming Encounters Date Type Department Care Team (Late st Contact Info) Description 03/16/2025 9:30 AM EDT Appointment [facility] Ultrasound [address] [place] [phone] Health Maintenance Due Date Last Done Comments Colorectal Cancer Screening: Colonoscopy 1950 DTaP,Tdap,and Td Vaccines (1 - Tdap) 1971 Pneumococcal Vaccine: 50+ Years (1 of 1 - PCV) 2002 Zoster Vaccines (1 of 2) 2002 Abdominal Aortic Aneurysm (AAA) Screen 04/20/2022 Cholesterol Screening (Lipid Panel) 04/20/2022 Falls Risk Assessment 04/20/2022 Hepatitis C Screening 04/20/2022 Medicare Annual Wellness Visit 04/20/2022 Social Influencers of Health Screening 04/20/2022 Depression Screening 05/18/2024 COVID-19 Vaccine ( season) 2025 05/21/2021, 08/27/2020, 07/30/2020 Influenza Vaccine (#1) 2025 , 02/05/2023, 03/14/2022, Additional history exists RSV Immunization Adult Patients (1 - 1-dose 75+ series) 2027 HIB Vaccines Aged Out No longer eligi [...] on patient's age to complete this topic Insurance MEDICARE [facility] Care Teams Transportation Project Manager Relationship Specialty Start Date End Date Harsh Sandoval MD [address] PCP - General Internal Medicine 04/18/24
--- OUTSIDE RECORDS SUMMARY | 2025-03-11 07:29 | XMS_ITS | Patient Health Record ---
[facility] Organization [facility] Address [address] [facility] [place] [address] Care Team Providers Care Wastewater Treatment Operator Name Role Phone Lori NEW, Delmar Primary Care Provider Unavaconrad benson Black, Lizzie Unavailable [phone] Allergies Allergen (clinical drug ingredient) Drug/Non Drug Allergy documented on EMR Reaction Allergy Type Onset Date Status meperidine Demerol swelling, itchy Drug Allergy Active dapagliflozin Farxiga rash Drug Allergy Act danica amoxicillin Amoxicillin Unknown Drug Allergy Act danica Results Component Value Reference Range Notes HEMOGLOBIN A1C (GLYCOHEMOGLO BIN) Reviewed date:06/23/2024 07:51:29 AM Interpretation: Performing Lab: Notes/Report: HEMOGLOBIN A1C % (HH) 5.7 HEMOGLOBIN A1C (GLYCOHEMOGLO BIN) Reviewed date:09/26/2024 08:21:23 AM Interpretation: Performing Lab: Notes/Report: HEMOGLOBIN A1C % (HH) 5.9 Reason For Referral No Information Medications Medication SIG (Take, Route, Frequency, Duration) Notes Start Date End Date Status Custom Orthotics as directed 08/04/2024 Active Night Splint AFO - L1930 1 wear when at rest; Duration: 30 days Active Omeprazole 20 MG 1 capsule 30 minutes before morning meal Orally Once a day; Duration: 30 day(s) PRN Active metFORMIN HCl ER 500 MG 1 tablet with ev ening meal Orally Once a day; Duration: 30 day(s) Not-Taking Azithromycin 250 MG Oral; Duration: 5 Days Not-Taking Allopurinol 300 MG 1 tablet Orally Once a day Active Custom Orthotics as directed 12/23/2012 Not-Taking Custom Orthotics as directed 04/19/2020 Active Rosuvastatin Calcium Active Prednisone Not-Takin g Tamsulosin HCl 0.4 MG 1 capsule Orally O nce a day; Duration: 30 day(s) Active Simvastatin 20 MG 1 tablet in the even ing Orally Once a day; Duration: 30 day(s) Not-Taking Januvia 50 MG as directed Orally Active Colchicine 0.6 MG Orally Once a day Not-Taking Lisinopril 10 MG 1 tablet Orally Once a day; Duration: 30 day(s) Active Hydrocortisone Not-T aking Ibuprofen Orally prn Active Indomethacin 50 MG 1 capsule with food Orally three times a day; Duration: 30 day(s) PRN Not-Taking Immunizations Vaccine Route Administration Date Status Comme nts Influenza Unknown 01/30/2021 Administered Influenza Unknown 02/17/2022 Administered Influenza Unknown 02/16/2023 Administered Influenza Unknown 01/17/2024 Administered COVID-19 Moderna Vaccine Unknown 09/10/2020 Administere d 1# 08/20/20 Social History Tobacco Use: Social History Observation [...] (Standard) Question Answer Notes Tobacco use: Nonsmoker AUDIT-C (Standard) Question Answer Notes Did you have a drink containing alcohol in the p ast year? No Points 0 Interpretation Negative Problems Problem Type SNOMED Code ICD Code Onset Dates Problem Status W/U Status Risk Notes Problem Polyneuropathy due to type 2 diabetes mellitus (108505414) Type 2 diabetes mellitus with diabetic polyneuropathy (E11.42) Active confirmed Vital Signs Blood pressure diastolic 80 mm Hg 01/02/2025 Height 6ft3in in 01/02/2025 Blood pressure systolic 123 mm Hg 01/02/2025 Weight 231 lbs 01/02/2025 BMI 28.87 kg/m2 01/02/2025 Procedures Procedure Date Ordered Date Performed Result Body Sit e 52306-UETWJSM NAIL, 6 OR MORE 03/17/2024 N/A 70456-ZAMTMJG NAIL, 6 OR MORE 06/23/2024 N/A 96528-IZSJ SKIN LESIONS, 2 TO 4 06/23/2024 N/A 32916-ODCNOGO NAIL, 6 OR MORE 09/26/2024 N/A 69855-FBMS SKIN LESIONS, 2 TO 4 09/26/2024 N/A 37203-LEXAGAA NAIL, 6 OR MORE 01/02/2025 N/A 82363-RHCC SKIN LESIONS, 2 TO 4 01/02/2025 N/A Encounters Encounter Location Date Provider Diagnosis [address] [address] 03/17/2024 Lizzie Black Neuritis of right fo ot G57.91 ; Achilles tendinitis of right lower extremity M76.61 ; Tinea unguium B35.1 ; Pain in right toe(s) M79.674 ; Pain in left toe(s) M79.675 ; Type 2 diabetes mellitus with diabetic polyneuropathy E11.42 ; Pain of right heel M79.671 and Short Achilles tendon (acquired), right ankle M67.[address] [address] 06/23/2024 Lizzie Black Achilles tendinitis of right lower extremity M76.61 ; Peroneal tendinitis, right leg M76.71 ; Neuritis of right foot G57.91 ; Tinea unguium B35.1 ; Type 2 diabetes mellitus with diabetic polyneuropathy E11.42 ; Pain of right heel M79.671 ; Short Achilles tendon (acquired), right ankle M67.01 ; Bursitis of right foot M77.51 and Hypertrophy of bone M89.[address] [address] 08/04/2024 Lizzie Black Peroneal tendinitis, right leg M76.71 ; Bursitis of right foot M77.51 ; Neuritis of right foot G57.91 ; Type 2 diabetes mellitus with diabetic polyneuropathy E11.42 and Hypertrophy of bone M89.[address] [address] 09/26/2024 Lizzie Black Tinea unguium B35.1 and Type 2 diabetes mellitus with diabetic polyneuropathy E11.42 [facility] [address] [place] [address] 01/02/2025 Lizzie Zheng Tinea unguium B35.1 and Type 2 diabetes mellitus with diabetic polyneuropathy E11.[address] [address] 07/25/2024 Lizzie Zheng Assessments Encounter Date Diagnosis (ICD Code) Assessment Notes Treatment Notes Treatment Clinical Notes Section Notes 03/17/2024 Achilles tendinitis of right lower extremity [...] Bursitis of right foot (ICD-10 - M77.51) 09/26/2024 Tinea unguium (ICD-10 - B35.1) 09/26/2024 Type 2 diabetes mellitus with diabetic polyneuropathy (ICD-10 - E11.42) 01/02/2025 Tinea unguium (ICD-10 - B35.1) 01/02/2025 Type 2 diabetes mellitus with diabetic polyneuropathy (ICD-10 - E11.42) 08/04/2024 Neuritis of right foot (ICD-10 - G57.91) 06/23/2024 Neuritis of right foot (ICD-10 - G57.91) 03/17/2024 Tinea unguium (ICD-10 - B35.1) 03/17/2024 [...] X ray : Foot, right 3V 03/10/2016 12240-BNGXKKD NAIL, 6 OR MORE 05/08/2022 45020-FSQDQDR NAIL, 6 OR MORE 11/06/2022 88354-DXHVDHR NAIL, 6 OR MORE 05/07/2023 74609-TFIYEAU NAIL, 6 OR MORE 08/06/2023 11356-HZROWPK NAIL, 6 OR MORE 11/05/2023 76059-NDZDHSP NAIL, 6 OR MORE 03/17/2024 45882-BQFTOTI NAIL, 6 OR MORE 06/23/2024 04601-HFEPCKL NAIL, 6 OR MORE 04/28/2019 77716-ZLYNPWW NAIL, 6 OR MORE 10/17/2019 30460-KFJUBAI NAIL, 6 OR MORE 04/19/2020 48515-XODHMLW NAIL, 6 OR MORE 10/18/2020 80917-LPEBOQE NAIL, 6 OR MORE 05/02/2021 88310-EAYELKM NAIL, 6 OR MORE 10/31/2021 34850-GNCWKSI NAIL, 6 OR MORE 09/26/2024 81406-XDDNQNJ NAIL, 6 OR MORE 01/02/2025 59551-QPHRYEN NAIL, 1-5 01/01/2017 79709-XZYNMYM NAIL, 1-5 04/16/2017 06384-MHLPYWH NAIL, 1-5 06/25/2017 53540-XJOSRGG NAIL, 1-5 12/24/2017 50178-MKFXNKP NAIL, 1-5 07/01/2018 82507-KALGFLS NAIL, 1-5 12/30/2018 99328-Vqvmjmim Plate 05/08/2022 27872-DADK SKIN LESIONS, 2 TO 4 01/03/20 42420-VUHM SKIN LESIONS, 2 TO 4 06/23/19 12602-AOPC SKIN LESIONS, 2 TO 4 09/27/19 Next Appt Details Provider Name:Lizzie Zheng , 04/06/2025 08:00:00 AM, [address] [place], [address], Insurance Providers Payer Name Payer Address Payer Phone Subscriber Number Group Number Insured Name Patient Relationship to Insured Coverage Start Date Coverage End Date Medicare [employer] [address] [facility] [place] [address] [id number] Rivas Ventura Self - [facility] [address] [place] [address] [id number] Rivas Ventura Self - patient is the insured Medical (General) History Medical History History ICD Code chicken pox Gout measles sinus conditions enlarged Prostate Diabetic Macular degeneration wrinkle in the retna Skin cancer Biopsy Idiopathic gout, right ankle and foot M1 0.071 Tarsal tunnel syndrome of right side G57 .51 Primary osteoarthritis, 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
--- OUTSIDE RECORDS SUMMARY | 2025-03-11 07:30 | XMS_ITS | Patient Health Record ---
Author Organization Delmar Sandoval MD Address [address] [place] [phone] Care Team Providers Care Packager Name Role Phone Lori Delmar Primary Care Provider Allergies Allergen (clinical drug ingredient) Drug/Non Drug Allergy documented on EMR Reaction Allergy Type Onset Date Status meperidine demerol (uncoded) tongue swelling Allergy Active Results Component Value Reference Range Notes Hemoglobin A1c Reviewed date:04/01/2024 08:56:26 AM Interpretation: Performing Lab: Notes/Report: Hemoglobin A1c 6.4 Liver Panel Reviewed date:03/25/2024 05:05:23 PM Interpretation: Performing Lab:[facility], [address] [place] [phone] Notes/Report: Bilirubin Total 0.8 0.0-1.0 mg/dL Bilirubin Direct 0.3 0.0-0.5 mg/dL Aspartate Amino Transferase 22 5-37 U/L Alanine Aminotransferase 22 0-40 U/L Total Protein 7.2 6.5-8.0 g/dL Albumin Level 4.2 3.5-5.0 g/dL Alkaline Phosphatase 77 39-117 U/L Lipid Panel with Reflex Reviewed date:03/25/2024 05:05:33 PM Interpretation: Performing Lab:[facility], [address] [place] [phone] Notes/Report: Triglycerides 147 <150 mg/dL Desirable Triglyceride: [...] 126 Complete Blood Count Auto Di ff Reviewed date:09/20/2024 04:55:16 PM Interpretation: Performing Lab:[facility], [address] [place] [phone] Notes/Report: White Blood Count 6.1 4.8-10.8 X10*3/uL [...] NRBC Abs Auto 0.000 0.0-0.012 X10*3/uL Comprehensive [place]. Panel Fa st Reviewed date:09/20/2024 12:47:49 PM Interpretation: Performing Lab:[facility], [address] [place] [phone] Notes/Report: Sodium 138 135-145 mmol/L Potassium 4.1 [...] Panel Reviewed date:09/20/2024 12:10:39 PM Interpretation: Performing Lab:[facility], [address] [place] [phone] Notes/Report: Triglycerides 124 <150 mg/dL Desirable Triglyceride: [...] (Free>4and<10) Reviewed date:09/20/2024 12:05:21 PM Interpretation: Performing Lab:[facility], [address] [place] [phone] Notes/Report: PSA,Total (Free>4and<10) 2.35 0.00-4.00 ng/mL A [...] Random Reviewed date:09/20/2024 12:05:41 PM Interpretation: Performing Lab:[facility], [address] [place] [phone] Notes/Report: Creatinine Urine 128.50 Microalbumin Urine 12.0 Microalbum/Creatinine Ratio Ur 9.3 <30 ug/mg cr Albumin/Creatinine Ratio Reference Ranges: Normal: < 30 ug/mg creatinine Microalbuminuria: 30 - 300 ug/mg creatinine Clinical Albuminuria: > 300 ug/mg creatinine Hemoglobin A1c Reviewed date:09/20/2024 12:05:31 PM Interpretation: Performing Lab:[facility], [address] [place] [phone] Notes/Report: Hemoglobin A1c % 6.0 <6.0 % [...] average glucose, using the formula of the N6G-Agzrysv Average Glucose study (ADAG), Diabetes Care, Vol.31,#8, Dec. 2007 UA ClnCatch+Micro w/rflx Cul t Reviewed date:09/20/2024 12:45:39 PM Interpretation: Performing Lab:[facility], [address] [place] [phone] Notes/Report: Urine, Clean Catch Color Urine Yellow Appearance Urine Clear PH 6.0 5.0-9.0 Glucose Urine UA Negative Negative mg/dL Urine Blood Negative Negative Specific Williamson - Urine 1.015 1.005-1.025 Urine Protein Negative Neg-Trace mg/dL Urine Ketones Negative Negative mg/dL Nitrite Urine Negative Negative Leukocyte Esterase Urine Negative Negative RBC Urine 0-2 0-2 /HPF WBC Urine 0-5 0-5 /HPF Squamous Epithelial Cell Urine 0-2 0-2 /HPF Bacteria Urine None Seen None Seen Hyaline Casts Urine 0-2 0-2 /LPF Glucose, finger stick Reviewed date:04/01/2024 08:42:20 AM Interpretation: Performing Lab: Notes/Report: Value 199 Electrocardiogram (EKG) Reviewed date:04/01/2024 02:15:02 PM Interpretation: Performing Lab: Notes/Report: Glucose, finger stick Reviewed date:04/28/2024 11:23:40 AM Interpretation: Performing Lab: Notes/Report: Value 106 Complete Blood Count Auto Di ff Reviewed date:07/11/2024 05:23:05 PM Interpretation: Performing Lab:[facility], [address] [place] [phone] Notes/Report: White Blood Count 10.2 4.8-10.8 X10*3/uL [...] NRBC Abs Auto 0.000 0.0-0.012 X10*3/uL Comprehensive [place]. Panel Fa st Reviewed date:07/11/2024 05:22:26 PM Interpretation: Performing Lab:[facility], [address] [place] [phone] Notes/Report: Sodium 140 135-145 mmol/L Potassium 4.3 [...] Burgess Reviewed date:03/25/2024 12:58:30 PM Interpretation: Performing Lab:[facility], [address] [place] [phone] Notes/Report: Isabel Burgess See Note Specimen held untested for 24 hours; Call to request Chemistry testing. Reason For Referral No Information Medications Medication SIG (Take, Route, Frequency, Duration) Notes Start Date End Date Status Allopurinol 300 MG TAKE 1 TABLET BY [facility] EVERY DAY for 90 Active Tamsulosin HCl 0.4 MG TAKE 1 CAPSULE BY MOUTH EVERY DAY for 90 Active Amoxicillin-Pot Clavulanate 875-125 MG 1 tablet Orally every 12 hrs for 10 days 01/02/2025 Active OneTouch Delica Plus [id number] - USE TO TEST BLOOD [place] TWICE DAILY for 50 Active Ibuprofen 800 MG TAKE 1 TABLET BY HADLEY TH THREE TIMES DAILY for 90 Active Rosuvastatin Calcium 10 MG 1 tablet Orally Once a day 10/27/2023 Active Ciclopirox 0.77% as directed applied topically twice a day for 30 days 09/22/2023 Active Betamethasone Dipropionate Active Ciclopirox 0.77 % 1 application Externally Twice a day for 30 days 09/27/2024 Active Omeprazole 20 MG TAKE 1 CAPSULE BY [facility] EVERY DAY 30 MINUTES BEFORE BREAKFAST Active OneTouch Ultra - USE TO TEST BLOOD [place] TWICE DAILY for 50 Active Ciclopirox 0.77 % 1 application Externally Twice a day for 7 days 07/14/2024 Active metFORMIN HCl 500 MG 1 tablet with a susana l Orally twice a day for 30 day(s) 04/15/2022 Not-Taking Fluticasone Propionate 50 MCG/ACT SHAKE LIQUID AND USE 1 SPRAY IN EACH NOSTRIL TWICE DAILY for 30 Active Indomethacin 50 MG 1 capsule with food Orally Three times a day for 14 days 12/11/2011 Not-Taking Lisinopril 10 MG TAKE 1 TABLET BY [facility] EVERY DAY for 90 Active Claritin 10 MG 1 tablet Orally Once a day Active Triamcinolone Acetonide 0.1 % APPLY TOPICALLY TO THE AFFECTED AREA TWICE DAILY FOR 14 DAYS Externally twice a day for 30 days Active Nystatin 334989 UNIT/GM 1 application Externally Twice a day for 30 days 09/11/2022 Active Nystatin-Triamcinolone 966300-3.1 UNIT/GM 1 application Externally Twice a day 03/26/2021 Active Valtrex 1 GM 2 tablet Orally twic e a day for 1 days 03/26/2021 Not-Taking Januvia 50 MG TAKE 1 TABLET BY [facility] EVERY DAY for 30 Active Immunizations Vaccine Route Administration Date Status [...] High Dose IM Intramuscular 04/07/2024 Administer ed Influenza High Dose IM Intramuscular 03/09/2025 Administer ed zFluzone Quadrivalent Unknown 03/22/2015 Refused [...] Problem Status W/U Status Risk Notes Problem 544961494 Thrombocytopenia (D69.6) Active confirmed Problem 725195269 Irritable bowel syndrome with diarrhea (K58.0) Active confirmed Problem Prostatism (62186766) Prostatism (N40.0) Active confirmed Problem 09196233 Anxiety (F41.9) Active confirmed Problem 72362417 Lymphocytopenia (D72.810) Active confirmed Problem 3092298 Arthritis (M19.90) Active confirmed Problem 092828190 Lumbar disc dise ase (M51.9) Active confirmed Problem 338997201 Tubular adenoma of colon (D12.6) Active confirmed Problem 43294601 Essential hypert ension (I10) Active confirmed Problem 21328933 Intrinsic eczema (L20.84) Active confirmed Problem Atherosclerotic heart disease of [place] coronary artery without angina pectoris ([id number]) Coronary artery disease involving [place] coronary artery of [place] heart without angina pectoris (I25.10) Active confirmed Problem 820266744 Tension headache (G44.209) Active confirmed Problem 820586585 Irritable bowel syndrome with constipation (K58.1) Active confirmed Problem 960748497 Pure hypercholesterolemia (E78.00) Active confirmed Problem 37950752 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, 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 Problem Type II diabetes mellitus without complication (630152161) Controlled type 2 diabetes mellitus without complication, without long-term current use of insulin (E11.9) Active confirmed Problem 98146999 Sinusitis chroni c, frontal (J32.1) Active confirmed Problem 12368690 Post concussion syndrome (F07.81) Active confirmed Problem 952078943 Hand arthritis (M19.049) Active confirmed Problem 382883056 Esophageal dysfu nction (K22.4) Active confirmed Problem 047171478 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) Active confirmed Problem 325625017 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 Problem 74160397 Multinodular goi ter (nontoxic) (E04.2) Active confirmed Problem 959376477 Notalgia paresth etica (R20.2) Active confirmed Problem 39806009 Aortic atheroscl erosis (I70.0) Active confirmed Problem 796799229 Multiple thyroid nodules (E04.2) Active confirmed Vital Signs Temperature 97.4 degrees Fahrenheit 03/15/2024 weig ht at home is 239 BP not taken T 97.4 Blood pressure diastolic 74 mm Hg 09/27/2024 raffaele ght is down 3 pounds since 07-29-24 Height 72 in 09/27/2024 weight is down 3 pounds since 07-29-24 Blood pressure systolic 162 mm Hg 09/27/2024 weig ht is down 3 pounds since 07-29-24 Weight 235 lbs 09/27/2024 weight is down 3 pounds since 07-29-24 BMI 31.87 kg/m2 09/27/2024 weight is down 3 pounds since 07-29-24 Encounters Encounter Location Date Provider Diagnosis Delmar Sandoval MD [address] [place] [address] [id number] 03/25/2024 Delmar Sandoval Pure hypercholestero lemia E78.00 Delmar Sandoval MD [address] [place] [address] [id number] 04/07/2024 Delmar Sandoval Encounter for immuni zation Z23 Delmar Sandoval MD [address] [place] [address] [id number] 06/03/2024 Delmar Sandoval Controlled type 2 di abetes mellitus without complication, without long-term current use of insulin E11.9 and Irritable bowel syndrome with constipation K58.1 Delmar Sandoval MD [address] [place] [address] [id number] 09/20/2024 Delmar Sandoval Essential hypertensi on I10 ; Pure hypercholesterolemia E78.00 ; Lymphocytopenia D72.810 ; Controlled type 2 diabetes mellitus without complication, without long-term current use of insulin E11.9 and Prostatism N40.0 Delmar Sandoval MD [address] [place] [address] [id number] 03/09/2025 Delmar Sandoval Encounter for administration of vaccine Z23 Delmar Sandoval MD [address] [place] [address] [id number] 03/15/2024 Delmar Sandoval Acute pharyngitis du e to other specified organisms J02.8 Delmar Sandoval MD [address] [place] [address] [id number] 04/01/2024 Delmar Sandoval Controlled type 2 di abetes mellitus without complication, without long-term current use of insulin E11.9 ; Multiple thyroid nodules E04.2 ; Pure hypercholesterolemia E78.00 and Chest pressure R07.89 Delmar Sandoval MD [address] [place] [address] [id number] 04/18/2024 Delmar Sandoval Abdominal discomfort R10.9 Delmar Sandoval MD [address] [place] [address] [id number] 04/28/2024 Delmar Sandoval Controlled type 2 di abetes mellitus without complication, without long-term current use of insulin E11.9 ; Irritable bowel syndrome with diarrhea K58.0 and Aortic atherosclerosis I70.0 Delmar Sandoval MD [address] [place] [address] [id number] 06/13/2024 Delmar Sandoval Pruritus L29.9 Delmar Sandoval MD [address] [place] [address] [id number] 07/11/2024 Delmar Sandoval Notalgia paresthetic a R20.2 ; Pruritus L29.9 and Fungal infection B49 Delmar Sandoval MD [address] [place] [address] [id number] 07/29/2024 Delmar Sandoval Essential hypertensi on I10 and Rash R21 Delmar Sandoval MD [address] [place] [address] [id number] 09/27/2024 Delmar Sandoval Essential hypertensi on I10 ; Pure hypercholesterolemia E78.00 ; Thrombocytopenia D69.6 ; Fungal infection B49 ; Prostatism N40.0 ; Controlled type 2 diabetes mellitus without complication, without long-term current use of insulin E11.9 and Esophageal dysfunction K22.4 Delmar Sandoval MD [address] [place] [address] [id number] 03/10/2025 Delmar Sandoval Back pain M54.9 Delmar Sandoval MD [address] [place] [address] [id number] 04/05/2024 Delmar Sandoval MD [address] [place] [address] [id number] 07/14/2024 Delmar Sandoval MD [address] [id number] 08/04/2024 Delmar Sandoval Multinodular goiter (nontoxic) E04.2 Delmar Sandoval MD [address] [place] [address] [id number] 11/10/2024 Delmar Sandoval Fungal infection B49 ; Rash R21 and Yeast infection of the skin B37.2 Delmar Sandoval MD [address] [place] [address] [id number] 11/17/2024 Delmar Sandoval MD [address] [id number] 01/02/2025 Delmar Sandoval Assessments Encounter Date Diagnosis (ICD Code) Assessment Notes Treatment Notes Treatment Clinical Notes Section Notes 03/25/2024 Pure hypercholesterolemia (ICD-10 - E78.00) 04/07/2024 Encounter for immunization (ICD-10 - Z23) 06/03/2024 Controlled type 2 diabetes mellitus without complication, without long-term current use of insulin (ICD-10 - E11.9) 06/03/2024 Irritable bowel syndrome with constipation (ICD-10 - K58.1) most days is doing well. has lost about 4 pounds 09/20/2024 Essential hypertensi on (ICD-10 - I10) 03/09/2025 Encounter for administration of vaccine (ICD-10 - Z23) 03/15/2024 Acute pharyngitis du e to other specified organisms (ICD-10 - J02.8) patient verbalized understanding of medication and directions for use 04/01/2024 Controlled type 2 diabetes mellitus without complication, without long-term current use of insulin (ICD-10 - E11.9) stable, will continue current regiment 04/01/2024 Multiple thyroid nodules (ICD-10 - E04.2) THE ORDER WAS FAXED TO [facility] FOR SCHEDULING, PATIENT AWARE, pending diagnostic testing 04/18/2024 Abdominal discomfort (ICD-10 - R10.9) pending diagnostic testing, althourh it comes on with exertion, it comes on with eating mostly and is tender to palpation. has stress test for same thing 2 years ago and was negative/ test will be booked at [facility] 04/28/2024 Controlled type 2 diabetes mellitus without [...] of new medication and directiobs for use 09/27/2024 Essential hypertensi on (ICD-10 - I10) 09/27/2024 Pure hypercholesterolemia (ICD-10 - E78.00) doing well, will continue current regiment 03/10/2025 Back pain (ICD-10 - M54.9) 08/04/2024 Multinodular goiter (nontoxic) (ICD-10 - E04.2) 11/10/2024 Fungal infection (ICD-10 - B49) 09/20/2024 Pure hypercholesterolemia (ICD-10 - E78.00) 04/01/2024 Pure hypercholesterolemia (ICD-10 - E78.00) stable, will contiue current regiment 04/28/2024 Aortic atheroscleros is (ICD-10 - I70.0) 07/11/2024 Fungal infection (ICD-10 - B49) 09/27/2024 Thrombocytopenia (ICD-10 - D69.6) stable, will contnue to monitor 11/10/2024 Rash (ICD-10 - R21) 09/20/2024 Lymphocytopenia (ICD -10 - D72.810) 04/01/2024 Chest pressure (ICD- 10 - R07.89) 09/27/2024 Fungal infection (ICD-10 - B49) stable, will continue curent regiment 11/10/2024 Yeast infection of t he skin (ICD-10 - B37.2) 09/20/2024 Controlled type 2 diabetes mellitus without complication, without long-term current use of insulin (ICD-10 - E11.9) 09/27/2024 Prostatism (ICD-10 - N40.0) stable, will continue current regiment 09/20/2024 Prostatism (ICD-10 - N40.0) 09/27/2024 Controlled type 2 diabetes mellitus without complication, without long-term current use of insulin (ICD-10 - E11.9) doing well, will continue current regiment 09/27/2024 Esophageal dysfuncti on (ICD-10 - K22.4) stable, will continue current regiment 08/04/2024 Other order made and put into the future order folder for 2025 at [facility] Plan Of Treatment Pending Test Test Name Order Date Electrocardiogram (EKG) 05/27/2016 Electrocardiogram (EKG) 02/11/2013 Electrocardiogram (EKG) 06/16/2019 Electrocardiogram (EKG) 04/06/2015 CARDIOVASCULAR STRESS TEST 05/23/2021 XR GI SERIES 04/29/2021 XR GI SERIES 04/18/2024 XR RIBS RT 04/06/2015 US ABD 04/18/2024 US THYROID 10/15/2021 US THYROID 02/05/2023 Stress Test 04/06/2015 CA echo stress exercise 06/13/2021 MR lumbar spine wo con 01/15/2024 US bladder 01/03/2022 US thyroid 08/04/2024 US thyroid 04/01/2024 XR hand LT min 3V 04/21/2023 XR lumbar spine 2-3V 03/10/2025 Future Test Test Name Order Date US THYROID 12/18/2020 US THYROID 04/21/2024 Next Appt Details Provider Name:Delmar Rene ier, 03/30/2025 07:45:00 AM, [address] [place] [address], [phone], Provider Name:Delmar Rene ier, 04/06/2025 10:30:00 AM, [address] [place] [address], [address], [phone], Provider Name:Delmar Rene ier, 09/22/2025 07:15:00 AM, [address] [place] [address], [phone], Provider Name:Delmarruy Rene ier, 09/29/2025 08:30:00 AM, [address] [place] [address], [phone], Insurance Providers Payer Name Payer Address Payer Phone Subscriber Number Group Number Insured Name Patient Relationship to Insured Coverage Start Date Coverage End Date MEDICARE [employer] [place] [address] [place] [address] [id number] Rivas Ventura Self - patient is the insured [employer] [place] [address] [place] [address] [id number] Rivas Ventura Self - patient is the insured 8 Medical (General) History Medical History History ICD Code chronic back pain hypertension colonoscopy 2006 due 2011; c olonoscopy done 09/28/2012 - due in 5 years; Colonoscopy done 01/29/[address] Olivera - repeat 5 09/18/23 colonoscopy repeat 3y biopsy thyroid 2014 Hx pulmonary nodule. Had CT Chest in 8. Negative. No f/u indicated. R91.1 Prediabetes R73.09 Prediabetes Surgical History Surgery Date(Month/Year) disc disease 1994
--- OUTSIDE RECORDS SUMMARY | 2025-03-11 07:30 | XMS_ITS | Patient Health Record ---
Author Organization [facility] Address [address] [place] [address] Care Team Providers Care Hospital Insurance Clerk Name Role Phone Delmar Sandoval MD Primary Care Provider Brayden Son [phone] Allergies Allergen (clinical drug ingredient) Drug/Non Drug Allergy documented on EMR Reaction Allergy Type Onset Date Status meperidine Demerol Unknown Drug Allergy Active Reason For Referral No Information Medications Medication SIG (Take, Route, Frequency, Duration) Notes Start Date End Date Status Omeprazole 20 MG TAKE 1 CAPSULE BY MO [facility] EVERY DAY 30 MINUTES BEFORE BREAKFAST Oral; Duration: 90 Active Ibuprofen 800 MG Orally as needed for arthritis Active Januvia 50 MG TAKE 1 TABLET BY [facility]LEY TH EVERY DAY Oral; Duration: 30 Active Fiber Active Lisinopril 10 MG 1 tablet Orally Once a day; Duration: 30 day(s) Active Rosuvastatin Calcium 10 MG Oral; Duration: 90 Active Tamsulosin HCl 0.4 MG Oral; Duration: 90 Active Allopurinol 300 MG Oral; Duration: 90 Active Immunizations Vaccine Route Administration Date [...] Problem Status W/U Status Risk Notes Problem Screening for malignant neoplasm of colon (158902923) Encounter for screening for malignant neoplasm of colon (Z12.11) Active confirmed Problem History of adenomatous polyp of colon (806956398) History of adenomatous polyp of colon (Z86.010) Active confirmed Problem Diverticular disease of colon (997111424) Diverticulosis of large intestine without perforation or abscess without bleeding (K57.30) Active confirmed Problem longterm current use of non-steroidal anti-inflammator y drug (427718912590022 ) NSAID long-term use (Z79.1) Active confirmed Problem Pre-procedure evaluation check (547923286) Pre-procedural examination (Z01.818) Active confirmed Plan Of Treatment Future Test Test Name Order Date COLONOSCOPY 04/27/2012 COLONOSCOPY 10/07/2017 COLONOSCOPY 05/26/2023 Insurance Providers Payer Name Payer Address Payer Phone Subscriber Number Group Number Insured Name Patient Relationship to Insured Coverage Start Date Coverage End Date MEDICARE OF [place] [address] [place] [address] [id number] LUZ MURPHY Self - patient is the insured MEDEX ATT[employer] CLAIMS [address] [place] [address] [id number] LUZ MURPHY Self - patient is the insured Medical (General) History Medical History History ICD Code Colon polyps-tubular adenoma s & hyperplastic colonoscopies in 2004, 2006, and 09/2012 Diverticulosis/diverticulitis Internal hemorrhoids Hyperlipidemia HTN 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 in feet and ankles, Achilles tendons NIDDM exacerbated by the UTI's Enlarged prostate with UTI's Colonoscopy 2017 with 1 small tubular ad enoma Concussion in 2019 Surgical History Surgery Date(Month/Year) Disc surgery-L4/L5 Eye surgery
== END 2025-03-11 07:26 | disposition home or self-care (01) ==
LOC: HO.XRAY 07:25
PROVIDERS: PCP Internal Medicine; Visit Provider Internal Medicine
DX: M54.9 Dorsalgia, unspecified (principal)
CPT/HCPCS: 72100

== ENCOUNTER → 2025-03-11 07:40 | Outpatient (BNV) | payer MEDICARE, SELFPAY | PROVIDERS: PCP Internal Medicine; Visit Provider Radiology Diagnostic Radiology | DX: M51.360 Other intervertebral disc degeneration, lumbar region with discogenic back pain only (principal); M51.370 Other intervertebral disc degeneration, lumbosacral region with discogenic back pain only | CPT/HCPCS: 72100 ==

== ENCOUNTER 2025-03-30 11:14 | Outpatient (REF) | payer MEDICARE, SELFPAY ==
--- OUTSIDE RECORDS SUMMARY | 2024-02-15 03:00 | XMS_ITS ---
Author Organization [facility] Address [address] [place] [address] Care Team Providers Care Textile Worker Name Role Phone Delmar Sandoval MD Primary Care Provider Lizzie Vivar [phone] Ma Encounters Encounter Location Date Provider Diagnosis [address] [address] 02/15/2024 Lizzie Norm Plan Of Treatment Next Appt Details Provider Name:Lizzie Zheng , 04/06/2025 08:00:00 AM, [address] [place], [address], Progress Notes * LORENZOClement Bhandariin BDOB:1950 (75 yo M)Acc No.[id number]:02/15/2024 Progress Note Patient: Rivas FRANCOIS Provider: Libby [...] DPM Date: 0 02/15/2024 Generated for Gretel Ruiz on: 05/30/2024 02:09 PM EST
--- OUTSIDE RECORDS SUMMARY | 2024-07-29 06:30 | XMS_ITS ---
Author Organization Delmar Sandoval MD Address [address] [place] [phone] Care Team Providers Care Rag Willow Operator Name Role Phone Lori Delmar Primary Care Provider [phone] Allergies Allergen (clinical drug ingredient) Drug/Non Drug Allergy documented on EMR Reaction Allergy Type Onset Date Status meperidine demerol (uncoded) tongue swelling Allergy Active REASON FOR VISIT F/U Medications Medication SIG (Take, Route, Frequency, Duration) Notes Start Date End Date Status Valtrex 1 GM 2 tablet Orally twic e a day for 1 days 03/26/2021 Not-Taking Indomethacin 50 MG 1 capsule with food Orally Three times a day for 14 days 12/11/2011 Not-Taking metFORMIN HCl 500 MG 1 tablet with a suasna l Orally twice a day for 30 day(s) 04/15/2022 Not-Taking Ibuprofen 800 MG TAKE 1 TABLET BY HADLEY TH THREE TIMES DAILY for 90 Not-Taking Ciclopirox 0.77 % 1 application Externally Twice a day for 7 days 07/14/2024 Active Rosuvastatin Calcium 10 MG 1 tablet Orally Once a day for 90 days 10/27/2023 Active Nystatin-Triamcinolone 800951-1.1 UNIT/GM 1 application Externally Twice a day 03/26/2021 Active Ciclopirox 0.77% as directed applied topically twice a day for 30 days 09/22/2023 Active Januvia 50 MG TAKE 1 TABLET BY HADLEY EVERY DAY Active Hyoscyamine Sulfate ER 0.375 MG 1 tablet Orally once a day 04/28/2024 Active Allopurinol 300 MG TAKE 1 TABLET BY HADLEY TH EVERY DAY for 90 Active Tamsulosin HCl 0.4 MG TAKE 1 CAPSULE BY MOUTH EVERY DAY for 90 Active Omeprazole 20 MG TAKE 1 CAPSULE BY MO [facility] EVERY DAY 30 MINUTES BEFORE BREAKFAST for 90 Active Fluticasone Propionate 50 MCG/ACT SHAKE LIQUID AND USE 1 SPRAY IN EACH NOSTRIL TWICE DAILY for 30 Active Nystatin 992479 UNIT/GM 1 application Externally Twice a day for 30 days 09/11/2022 Active Claritin 10 MG 1 tablet Orally Once a day Active OneTouch Delica Plus [id number] - USE TO TEST BLOOD SUGAR TWICE DAILY for 50 Active OneTouch Ultra - USE TO TEST BLOOD MALAGON GAR TWICE DAILY for 50 Active Lisinopril 10 MG TAKE 1 TABLET BY HADLEY EVERY DAY Active Betamethasone Dipropionate Active Triamcinolone Acetonide 0.1 % 1 application Externally 2 times a day for 14 days 07/29/2024 Active Vital Signs Blood pressure systolic 122 mm Hg 07/30/19 25 Blood pressure diastolic 80 mm Hg 025 Height 72 in 07/29/2024 Weight 238 lbs 07/29/2024 BMI 32.28 kg/m2 07/29/2024 Encounters Encounter Location Date Provider Diagnosis Delmar Sandoval MD [address] [place] [phone] 07/29/2024 Delmar Sandoval Essential hypertension I10 and Rash R21 Assessments Encounter Date Diagnosis (ICD Code) Assessment Notes Treatment Notes Treatment Clinical Notes Section Notes 07/29/2024 Essential hypertension (ICD-10 - I10) doing well, will continue current regiment 07/29/2024 Rash (ICD-10 - R21) patient verbalized understanding of new medication and directiobs for use Plan Of Treatment Medication Medication Name Sig Start Date Stop Date Notes Lisinopril 10 MG TAKE 1 TABLET BY HADLEY TH EVERY DAY Triamcinolone Acetonide 0.1 % 1 applicat ion Externally 2 times a day for 14 days 07/29/2024 Treatment Notes Assessment Notes Essential hypertension doing well, will continue current regiment Rash patient verbalized u nderstanding of new medication and directiobs for use Next Appt Details Provider Name:Delmar Rene ier, 04/06/2025 10:30:00 AM, [address] [place] [address], [address], [phone], Provider Name:Delmar Rene ier, 09/22/2025 07:15:00 AM, [address] [place] [address], [place] [address], [place], [place], [phone], Provider Name:Delmar Rene ier, 09/29/2025 08:30:00 AM, [address] [place] [address], [address], [phone], Progress Notes * Rivas VENTURA BDOB:1950 (74 yo M)Acc No.[id number]:07/29/2024 Progress Notes Patient: Rivas FRANCOIS Provider: Daron Sandoval MD :1950 A ge:74 Y S ex:Male Date:07/29/2024 Address:[address] [place] [id number] Subjective: * Chief Complaints: * F /U * HPI: S ymptom(s): patient is a 74 yo male here for here for follow up of head / rash on buttocks is getting worse/ using ciclopirox for 2 weeks at least. stopped scott due to rash on legs and is using claritan. * ROS: G eneral/Constitutional: Denies C hills. D enies F atigue. D enies F ever. D enies H eadache. E NT: Denies S ore throat. R espiratory: Denies hSawn ough. D enies S hortness of breath at rest. D enies S hortness of breath with exertion. G astrointestinal: Denies D iarrhea. D vanessa Bhandari ausea. * Medical History: * Surgical History: * Hospitalization/Major Diagno stic Procedure: * Medications: T akingClaritin 10 MG Tablet 1 tablet Orally Once a day Betamethasone Dipropionate OneTouch Ultra - Strip USE TO TEST BLOOD SUGAR TWICE DAILY OneTouch Delica Plus [id number] - Miscellaneous USE TO TEST BLOOD SUGAR TWICE DAILY Nystatin 150329 UNIT/GM Cream 1 application Externally Twice a [...] SPRAY IN EACH NOSTRIL TWICE DAILY Nystatin-Triamcinolone 636675-6.1 UNIT/GM Cream 1 application Externally Twice a day Rosuvastatin Calcium 10 MG Tablet 1 tablet Orally Once a day Hyoscyamine Sulfate ER 0.375 MG Tablet Extended Release 12 Hour 1 tablet Orally once a day Januvia 50 MG Tablet TAKE 1 TABLET BY MOUTH EVERY DAY Ciclopirox 0.77% cream as directed applied topically twice a day Ciclopirox 0.77 % Gel 1 application Externally Twice a day Taking Claritin 10 MG Tablet 1 tablet Orally Once a day Taking Betamethasone Dipropionate Taking OneTouch Ultra - Strip USE TO TEST BLOOD SUGAR TWICE DAILY Taking OneTouch Delica Plus [id number] - Miscellaneous USE TO TEST BLOOD SUGAR TWICE DAILY Taking Nystatin 307031 UNIT/GM Cream 1 application Externally Twice a [...] SPRAY IN EACH NOSTRIL TWICE DAILY Taking Nystatin-Triamcinolone 337551-3.1 UNIT/GM Cream 1 application Externally Twice a day Taking Rosuvastatin Calcium 10 MG Tablet 1 tablet Orally Once a day Taking Hyoscyamine Sulfate ER 0.375 MG Tablet Extended Release 12 Hour 1 tablet Orally once a day Taking Januvia 50 MG Tablet TAKE 1 TABLET BY MOUTH EVERY DAY Taking Ciclopirox 0.77% cream as directed applied topically twice a day Taking Ciclopirox 0.77 % Gel 1 application Externally Twice a day Not-Taking/PRNIbuprofen 800 MG Tablet TAKE 1 TABLET [...] reviewed and reconciled with the patient * Allergies: d emerol: tongue swellingyes[Allergies Verified] Objective: * Vitals: H t: 72, Wt: 238, BMI:32.28, BP:122/80, Wt-k.96. * Examination: G eneral Examination: GENERAL APPEARANCE: a lert, well hydrated, in no distress.? HEAD: n ormocephalic. SKIN: g ood turgor, abnormal with rash on buttocks. HEART: n o murmurs, rubs, gallops, regular rate and rhythm.? LUNGS: n o wheezes, rales, rhonchi, good air movement, clear to auscultation bilaterally. Assessment: * Assessment: 1. E ssential hypertension - I10 (Primary) 2 . R olesya - R21 Plan: * Treatment: 2. R olesya Start Triamcinolone Acetonide Cream, 0.1 %, 1 application, Externally, 2 times a day, 14 days, 60.? Notes: patient verbalized understanding of new medication and directiobs for use * Procedure Codes: * * Sign off status: Completed true * Provider: Daron Sandoval MD Date: 0 07/29/2024 Generated for Gretel lazaro/Faxing/eTransmitting on: 1 05/30/2024 02:10 PM EST History and Physical Notes * HPI (History of Present Illness) Category Sub-Category Detail Notes Category Not es Symptom(s) patient is a 74 yo male here for here for follow up of head / rash on buttocks is getting worse/ using ciclopirox for 2 weeks at least. stopped scott due to rash on legs and is using claritan Examination Category Sub-Category Detail Notes Category Not es General Examination GENERAL APPEARANCE: alert, w ell hydrated, in no distress HEAD: normocephalic HEART: no murmurs, rubs, ga llops, regular rate and rhythm LUNGS: no wheezes, rales, r honchi, good air movement, clear to auscultation bilaterally SKIN: good turgor, abnorma l with rash on buttocks
--- OUTSIDE RECORDS SUMMARY | 2024-08-04 09:52 | XMS_ITS ---
Author Organization Delmar Sandoval MD Address [address] [place] [phone] Care Team Providers Care Dietitian Teaching Name Role Phone Lori Delmar Primary Care Provider REASON FOR VISIT US head and Neck Encounters Encounter Location Date Provider Diagnosis Delmar Sandoval MD [address] [facility] [address] [place] [phone] 08/04/2024 Delmar Sandoval Multinodular goiter (nontoxic) E04.2 Assessments Encounter Date Diagnosis (ICD Code) Assessment Notes Treatment Notes Treatment Clinical Notes Section Notes 08/04/2024 Multinodular goiter (nontoxic) (ICD-10 - E04.2) 08/04/2024 Other order made and put into the future order folder for 2025 at [facility] Plan Of Treatment Treatment Notes Assessment Notes Other order made and put i nto the future order folder for 2025 at [facility] Pending Test Test Name Order Date US thyroid 08/04/2024 Next Appt Details Provider Name:Delmar isabelr, 04/06/2025 10:30:00 AM, [address] [facility], [address], [place], [phone], Provider Name:Delmar freedman, 09/22/2025 07:15:00 AM, [address] [facility], [address], [place], [phone], Provider Name:Delmar isabelr, 09/29/2025 08:30:00 AM, [address] [facility], [address], [place], [place], [phone], Progress Notes * Rivas VENTURA BDOB:1950 (74 yo M)Acc No.[id number]:08/04/2024 Patient: Sathya CLARK Rivas Domingo :1950 A ge:74 Y S ex:Male Address:[address] [place] [phone] Subjective: * Chief Complaints: * U S head and Neck * Medical History: * Surgical History: * Hospitalization/Major Diagno stic Procedure: * Medications: Objective: * Vitals: * Physical Examination: Assessment: * Assessment: 1. M ultinodular goiter (nontoxic) - E04.2 Plan: * Treatment: 2. O thers Notes: order made and put into the future order folder for 2025 at [facility] * Procedure Codes: * true * Date: Generated for Gretel lazaro/Néstor/eTransmitting on: 05/30/2024 02:09 PM EST
--- OUTSIDE RECORDS SUMMARY | 2024-09-20 02:15 | XMS_ITS ---
Author Organization Delmar Sandoval MD Address [address] [place] [phone] Care Team Providers Care Network Contract Manager Name Role Phone Lori Delmar Primary Care Provider Results Component Value Reference Range Notes Complete Blood Count Auto Di ff Reviewed date:09/20/2024 04:55:16 PM Interpretation: Performing Lab:[facility], [address] [place] [phone] Notes/Report: White Blood Count 6.1 4.8-10.8 X10*3/uL Red Blood Count 5.90 4.60-5.80 X10*6/uL Hemoglobin 16.9 14.0-18.0 g/dl Hematocrit 49.6 42.0-52.0 % Mean Corpuscular Volume 84.1 80.0-98.0 fL Mean Corpuscular Hemoglobin 28.6 27.0-33.0 pg Mean Corpuscular HGB Conc 34.1 31.0-36.0 g/dl Red Cell Distribution Width 13.6 11.0-16.0 % Platelet Count 147 160-400 X10*3/uL Mean Platelet Volume 10.3 9.4-12.4 fL Neutrophils Percent Auto 75.9 45-73 % Imm Gran Pct Auto 0.3 0.0-0.4 % Lymphocytes Percent Auto 13.0 20-40 % Monocytes Percent Auto 8.7 2-11 % Eosinophils Percent Auto 1.8 0-4 % Basophils Percent Auto 0.3 0-2 % NRBC Pct Auto 0.0 0.0-0.2 /100WBC Neutrophils Absolute Auto 4.6 2.0-8.3 x10*3/u L Imm Gran Abs Auto 0.02 0.00-0.03 X10*3/uL Lymphocytes Absolute Auto 0.8 1.2-4.9 X10*3/u L Monocytes Absolute Auto 0.5 0.1-1.2 X10*3/uL Eosinophils Absolute Auto 0.1 0.0-0.4 X10*3/u L Basophils Absolute Auto 0.0 0.0-0.2 X10*3/uL NRBC Abs Auto 0.000 0.0-0.012 X10*3/uL Comprehensive [place]. Panel Fa st Reviewed date:09/20/2024 12:47:49 PM Interpretation: Performing Lab:[facility], [address] [place] [phone] Notes/Report: Sodium 138 135-145 mmol/L Potassium 4.1 3.3-5.1 mmol/L Chloride 103 96-108 mmol/L Carbon Dioxide 29 22-29 mmol/L Anion Gap 10 12-20 Blood Urea Nitrogen 18 9-16 mg/dL Creatinine 1.07 0.5-1.4 mg/dL Estimated Glomerular Filt Rate > 60 Chronic Kidney Disease: Estimated GFR < 60 mL/min/1.73m2 Severe Kidney Disease: Estimated GFR < 15 mL/min/1.73m2 Glucose Fasting 127 60-99 mg/dL A fasting glucose of 126 mg/dl or greater on more than one occasion is considered diagnostic of diabetes. Calcium 9.4 8.4-10.2 mg/dL Bilirubin Total 0.9 0.0-1.0 mg/dL Aspartate Amino Transferase 26 5-37 U/L Alanine Aminotransferase 21 0-40 U/L Total Protein 7.2 6.5-8.0 g/dL Albumin Level 4.2 3.5-5.0 g/dL Alkaline Phosphatase 78 39-117 U/L Lipid Panel Reviewed date:09/20/2024 12:10:39 PM Interpretation: Performing Lab:[address] [phone] Notes/Report: Triglycerides 124 <150 mg/dL Desirable Triglyceride: less than 150 mg/dL Borderline High Triglyceride 150-199 mg/dL High Triglyceride: 200-499 mg/dL Very High Triglyceride: greater than or equal to 5OO mg/dL Cholesterol 119 <200 mg/dL Desirable Cholesterol: less than 200 mg/dL Borderline High Cholesterol: 200-239 mg/dL High Cholesterol: greater than 239 mg/dL LDL Cholesterol Calculated 50 <100 mg/dL Desirable LDL: less than 100 mg/dL Near Optimal/Above Optimal LDL: 110-129 mg/dL Borderline High LDL: 130-159 mg/dL High LDL: 160-189 mg/dL Very High LDL: greater than or equal to 190 mg/dL HDL Cholesterol 45 >40 mg/dL Desirable HDL: greater than 40 mg/dL Note: This HDL assay may give artificially low results in patients with liver disease. PSA,Total (Free>4and<10) Reviewed date:09/20/2024 12:05:21 PM Interpretation: Performing Lab:[address] [phone] Notes/Report: PSA,Total (Free>4and<10) 2.35 0.00-4.00 ng/mL A Free PSA was not performed: The percentage of Free PSA can be used to enhance the differentiation of prostate cancer from benign prostatic disease in subjects whose PSA levels are between 4.0 and 10.0 ng/mL. For subjects whose PSA levels are below 4.0 or above 10.0 ng/mL, the risk of prostate cancer is determined on the basis of the PSA alone. Therefore the % Free PSA is recommended only for those subjects whose PSA levels are between 4.0 and 10.0 ng/mL. PSA methodology: Garza Alinity i Chemiluminescent Microparticle Immunoassay (CMIA) Microalbumin, Random Reviewed date:09/20/2024 12:05:41 PM Interpretation: Performing Lab:[address] [phone] Notes/Report: Creatinine Urine 128.50 Microalbumin Urine 12.0 Microalbum/Creatinine Ratio Ur 9.3 <30 ug/mg cr Albumin/Creatinine Ratio Reference Ranges: Normal: < 30 ug/mg creatinine Microalbuminuria: 30 - 300 ug/mg creatinine Clinical Albuminuria: > 300 ug/mg creatinine Hemoglobin A1c Reviewed date:09/20/2024 12:05:31 PM Interpretation: Performing Lab:[address] [phone] Notes/Report: Hemoglobin A1c % 6.0 <6.0 % Hemoglobin A1C Reference Range Adults: 4.8 - 6.0 % Non diabetic: < 6.0 % Goal: < 7.0 % Additional Action Suggested: > 8.0 % Note: Hemoglobin A1c results are invalid for patients with abnormal amounts of HbF. Blood transfusions may impact the HbA1c concentration in the patient sample. Estimated Average Glucose 126 eAG = Estimated average glucose which is %A1C expressed as average glucose, using the formula of the G7H-Pxvwcea Average Glucose study (ADAG), Diabetes Care, Vol.31,#8, Dec. 2007 UA ClnCatch+Micro w/rflx Cul t Reviewed date:09/20/2024 12:45:39 PM Interpretation: Performing Lab:[address] [phone] Notes/Report: Urine, Clean Catch Color Urine Yellow Appearance Urine Clear PH 6.0 5.0-9.0 Glucose Urine UA Negative Negative mg/dL Urine Blood Negative Negative Specific [place] - Urine 1.015 1.005-1.025 Urine Protein Negative Neg-Trace mg/dL Urine Ketones Negative Negative mg/dL Nitrite Urine Negative Negative Leukocyte Esterase Urine Negative Negative RBC Urine 0-2 0-2 /HPF WBC Urine 0-5 0-5 /HPF Squamous Epithelial Cell Urine 0-2 0-2 /HPF Bacteria Urine None Seen None Seen Hyaline Casts Urine 0-2 0-2 /LPF REASON FOR VISIT yearly fasting labs Encounters Encounter Location Date Provider Diagnosis Delmar Sandoval MD [address] [place], [place] [phone] 09/20/2024 Delmar Sandoval Essential hypertensi on I10 ; Pure hypercholesterolemia E78.00 ; Lymphocytopenia D72.810 ; Controlled type 2 diabetes mellitus without complication, without long-term current use of insulin E11.9 and Prostatism N40.0 Assessments Encounter Date Diagnosis (ICD Code) Assessment Notes Treatment Notes Treatment Clinical Notes Section Notes 09/20/2024 Essential hypertensi on (ICD-10 - I10) 09/20/2024 Pure hypercholesterolemia (ICD-10 - E78.00) 09/20/2024 Lymphocytopenia (ICD -10 - D72.810) 09/20/2024 Controlled type 2 diabetes mellitus without complication, without long-term current use of insulin (ICD-10 - E11.9) 09/20/2024 Prostatism (ICD-10 - N40.0) Plan Of Treatment Next Appt Details Provider Name:Delmar freedman, 04/06/2025 10:30:00 AM, [address] [place] [address], [address], [phone], Provider Name:Delmar freedman, 09/22/2025 07:15:00 AM, [address] [place] [address], [address], [phone], Provider Name:Delmar isabelr, 09/29/2025 08:30:00 AM, [address] [place] [address], [address], [phone], Progress Notes * Rivas VENTURA BDOB:1950 (75 yo M)Acc No.[id number]:09/20/2024 Progress Note Patient: Sathya AMBERRivas Provider: Daron Sandoval MD :1950 A ge:74 Y S ex:Male Date:09/20/2024 Address:[address] [place] [phone] Subjective: * Chief Complaints: * 1 . Yearly fasting labs. * Medical History: Objective: * Vitals: Assessment: * Assessment: 1. E ssential hypertension - I10 (Primary) 2 . P ure hypercholesterolemia - E78.00 3 . L ymphocytopenia - D72.810 4 . C ontrolled type 2 diabetes mellitus without complication, without long-term current use of insulin - E11.9 & #160; 5 . P rostatism - N40.0 Plan: * Treatment: 2. P ure hypercholesterolemia L AB: Complete Blood Count Auto Diff (Collection Date & Time - 09/20/2024 07:15 AM) L AB: Comprehensive [place]. Panel Fast (Collection Date & Time - 09/20/2024 07:15 AM) L AB: Lipid Panel (Collection Date & Time - 09/20/2024 07:15 AM) L AB: PSA,Total (Free>4and<10) (Collection Date & Time - 09/20/2024 07:15 AM) L AB: Microalbumin, Random (Collection Date & Time - 09/20/2024 07:15 AM) L AB: Hemoglobin A1c (Collection Date & Time - 09/20/2024 07:15 AM) L AB: UA ClnCatch+Micro w/rflx Cult (Collection Date & Time - 09/20/2024 07:15 AM) 3. L ymphocytopenia L AB: Complete Blood Count Auto Diff (Collection Date & Time - 09/20/2024 07:15 AM) L AB: Comprehensive [place]. Panel Fast (Collection Date & Time - 09/20/2024 07:15 AM) L AB: Lipid Panel (Collection Date & Time - 09/20/2024 07:15 AM) L AB: PSA,Total (Free>4and<10) (Collection Date & Time - 09/20/2024 07:15 AM) L AB: Microalbumin, Random (Collection Date & Time - 09/20/2024 07:15 AM) L AB: Hemoglobin A1c (Collection Date & Time - 09/20/2024 07:15 AM) L AB: UA ClnCatch+Micro w/rflx Cult (Collection Date & Time - 09/20/2024 07:15 AM) 4. C ontrolled type 2 diabetes mellitus without complication, without long-term current use of insulin L AB: Complete Blood Count Auto Diff (Collection Date & Time - 09/20/2024 07:15 AM) L AB: Comprehensive [place]. Panel Fast (Collection Date & Time - 09/20/2024 07:15 AM) L AB: Lipid Panel (Collection Date & Time - 09/20/2024 07:15 AM) L AB: PSA,Total (Free>4and<10) (Collection Date & Time - 09/20/2024 07:15 AM) L AB: Microalbumin, Random (Collection Date & Time - 09/20/2024 07:15 AM) L AB: Hemoglobin A1c (Collection Date & Time - 09/20/2024 07:15 AM) L AB: UA ClnCatch+Micro w/rflx Cult (Collection Date & Time - 09/20/2024 07:15 AM) 5. P rostatism L AB: Complete Blood Count Auto Diff (Collection Date & Time - 09/20/2024 07:15 AM) L AB: Comprehensive [place]. Panel Fast (Collection Date & Time - 09/20/2024 07:15 AM) L AB: Lipid Panel (Collection Date & Time - 09/20/2024 07:15 AM) L AB: PSA,Total (Free>4and<10) (Collection Date & Time - 09/20/2024 07:15 AM) L AB: Microalbumin, Random (Collection Date & Time - 09/20/2024 07:15 AM) L AB: Hemoglobin A1c (Collection Date & Time - 09/20/2024 07:15 AM) L AB: UA ClnCatch+Micro w/rflx Cult (Collection Date & Time - 09/20/2024 07:15 AM) * Procedure Codes: 3 6415 VENIPUNCT, ROUTINE* * * The named appointment provid er may or may not be the originator of this progress note, and it is not deemed complete until electronically signed by the appointment provider. Sign off status: Pending * Provider: Daron Sandoval MD Date: 0 09/20/2024 Generated for Gretel lazaro/Néstor/González on: 05/30/2024 02:08 PM EST
--- OUTSIDE RECORDS SUMMARY | 2024-09-27 04:30 | XMS_ITS ---
Author Organization Delmar Sandoval MD Address [address] [place] [phone] Care Team Providers Care Payroll Master Name Role Phone Delmar Sandoval Primary Care Provider Allergies Allergen (clinical drug ingredient) Drug/Non Drug Allergy documented on EMR Reaction Allergy Type Onset Date Status meperidine demerol (uncoded) tongue swelling Allergy Active REASON FOR VISIT review labs Medications Medication SIG (Take, Route, Frequency, Duration) Notes Start Date End Date Status metFORMIN HCl 500 MG 1 tablet with a susana l Orally twice a day for 30 day(s) 04/15/2022 Not-Taking Indomethacin 50 MG 1 capsule with food Orally Three times a day for 14 days 12/11/2011 Not-Taking Valtrex 1 GM 2 tablet Orally twic e a day for 1 days 03/26/2021 Not-Taking Ciclopirox 0.77% as directed applied topically twice a day for 30 days 09/22/2023 Active Ciclopirox 0.77 % 1 application Externally Twice a day for 30 days 09/27/2024 Active Triamcinolone Acetonide 0.1 % APPLY TOPICALLY TO THE AFFECTED AREA TWICE DAILY FOR 14 DAYS for 30 Active Lisinopril 10 MG [facility] for 90 Active Ibuprofen 800 MG [facility] TIMES DAILY for 90 Active Ciclopirox 0.77 % 1 application Externally Twice a day for 7 days 07/14/2024 Active Allopurinol 300 MG TAKE [address] [facility] EVERY DAY for 90 Active Fluticasone Propionate 50 MCG/ACT SHAKE LIQUID AND USE 1 SPRAY IN EACH NOSTRIL TWICE DAILY for 30 Active Januvia 50 MG [facility] Active Nystatin-Triamcinolone 170866-2.1 UNIT/GM 1 application Externally Twice a day 03/26/2021 Active Rosuvastatin Calcium 10 MG 1 tablet Orally Once a day 10/27/2023 Active Tamsulosin HCl 0.4 MG TAKE 1 CAPSULE BY MOUTH EVERY DAY Active OneTouch Delica Plus [id number] - USE TO TEST BLOOD SUGAR TWICE DAILY for 50 Active Nystatin 123449 UNIT/GM 1 application Externally Twice a day for 30 days 09/11/2022 Active Omeprazole 20 MG TAKE 1 CAPSULE BY [facility] EVERY DAY 30 MINUTES BEFORE BREAKFAST Active OneTouch Ultra - USE TO TEST BLOOD [place] GAR TWICE DAILY for 50 Active Claritin 10 MG 1 tablet Orally Once a day Active Betamethasone Dipropionate Active Social History Tobacco Use: Social History [...] Never (0 point) Points 3 Interpretation Negative Vital Signs Blood pressure systolic 162 mm Hg 09/28/19 25 Blood pressure diastolic 74 mm Hg 025 Height 72 in 09/27/2024 Weight 235 lbs 09/27/2024 BMI 31.87 kg/m2 09/27/2024 weight is down 3 pounds [facility] 07-29-24 Encounters Encounter Location Date Provider Diagnosis Delmar Sandoval MD [address] [place] [address] [address] [place], [place] [phone] 09/27/2024 Delmar Sandoval Essential hypertensi on I10 ; Pure hypercholesterolemia E78.00 ; Thrombocytopenia D69.6 ; Fungal infection B49 ; Prostatism N40.0 ; Controlled type 2 diabetes mellitus without complication, without long-term current use of insulin E11.9 and Esophageal dysfunction K22.4 Assessments Encounter Date Diagnosis (ICD Code) Assessment Notes Treatment Notes Treatment Clinical Notes Section Notes 09/27/2024 Essential hypertensi on (ICD-10 - I10) 09/27/2024 Pure hypercholesterolemia (ICD-10 - E78.00) doing well, will continue current regiment 09/27/2024 Thrombocytopenia (IC D-10 - D69.6) stable, will contnue to monitor 09/27/2024 Fungal infection (IC D-10 - B49) stable, will continue curent regiment 09/27/2024 Prostatism (ICD-10 - N40.0) stable, will continue current regiment 09/27/2024 Controlled type 2 diabetes mellitus without complication, without long-term current use of insulin (ICD-10 - E11.9) doing well, will continue current regiment 09/27/2024 Esophageal dysfuncti on (ICD-10 - K22.4) stable, will continue current regiment Plan Of Treatment Medication Medication Name Sig Start Date Stop Date Notes Ciclopirox 0.77% as directed applied topically twice a day for 30 days 09/22/2023 Ciclopirox 0.77 % 1 application [employer] ally Twice a day for 30 days 09/27/2024 Januvia 50 MG TAKE 1 TABLET BY [facility] EVERY DAY Rosuvastatin Calcium 10 MG 1 tablet Orally Once a day 10/16 Tamsulosin HCl 0.4 MG TAKE 1 CAPSULE BY MOUTH EVERY DAY Omeprazole 20 MG TAKE 1 CAPSULE BY [facility] EVERY DAY 30 MINUTES BEFORE BREAKFAST Treatment Notes Assessment Notes Pure hypercholesterolemia doing well, wi ll continue current regiment Thrombocytopenia stable, will contnue to monitor Fungal infection stable, will continu e curent regiment Prostatism stable, will continu e current regiment Controlled type 2 diabetes faheem larson without complication, without long-term current use of insulin doing well, will continue current regiment Esophageal dysfunction stable, will cont inue current regiment Next Appt Details Follow Up: 6 Months, Reason: Provider Name:Delmar Rene ier, 04/06/2025 10:30:00 AM, [address] [place] [address], [address], [phone], Provider Name:Delmar Rene ier, 09/22/2025 07:15:00 AM, [address] [place] [address], [address], [phone], Provider Name:Delmar Rene ier, 09/29/2025 08:30:00 AM, [address] [place] [address], [address], [phone], Progress Notes * Rivas VENTURA BDOB:1950 (74 yo M)Acc No.[id number]:09/27/2024 Patient: Sathya CLARK Rivas Jose L Provider: Daron Sandoval MD :1950 A ge:74 Y S ex:Male Date:09/27/2024 Address:[address] [place] [id number] Subjective: * Chief Complaints: * R eview labs * HPI: D epression Screening: PHQ-9 L ittle interest or pleasure in doing things N ot at all, F eeling down, depressed, or hopeless N ot at all, T rouble falling or staying asleep, or sleeping too much N ot at all, F eeling tired or having little energy N ot at all, P oor appetite or overeating N ot at all, F eeling bad about yourself or that you are a failure, or have let yourself or your family down N ot at all, T rouble concentrating on things, such as reading the newspaper or watching television N ot at all, M oving or speaking so slowly that other people could have noticed; or the opposite, being so fidgety or restless that you have been moving around a lot more than usual N ot at all, T houghts that you would be better off or of hurting yourself in some way N ot at all, T otal Score 0 . I nterpretation and Intervention D epression Screening Findings N egative, F ollow-Up for Depression : review of PHQ-9 found negative result, no follow-up needed. C ommunication Needs: Communication Needs D oes the patient have a hearing impairment N o, D oes the patient have a vision impairment? Y es, I f yes, what is the vision impairment? G lasses, D oes the patient have a cognition impairment? N o. F all Risk: History H ave you had any falls with injury in the past year? N o, H ave you had two or more falls in the past year? N o. S PRAMOD Questions: SDOH Questions I n the past year have you been worried about losing housing? N o, I n the past year have you or any family members you live with been unable to get any of the following when it was really needed? Check all that apply: N one. S ymptom(s): patient is a 74 yo male here for review of recent labs and follow up of chronic issues. * ROS: G eneral/Constitutional: Change in appetite d enies. C hills d enies. F ever d enies. O phthalmologic: Blurred vision d enies. D ischarge d enies. P ain d enies. E NT: Decreased hearing d enies. S ore throat d enies.?Swollen glands d enies. E ndocrine: Cold intolerance d enies. E xcessive thirst d enies. H eat intolerance d enies. W eight loss d enies. R espiratory: Cough d enies. S hortness of breath at rest d enies. S hortness of breath with exertion d enies. W heezing d enies. C ardiovascular: Chest pain at rest d enies. C hest pain with exertion?denies. I rregular heartbeat d enies. S hortness of breath d enies. ? G astrointestinal: Abdominal pain d enies. C hange in bowel habits d enies. D iarrhea d enies. N ausea d enies. R ectal bleeding d enies. V omiting d enies . G enitourinary: Blood in urine d enies. D ifficulty urinating d enies. F requent urination d enies. M usculoskeletal: Painful joints d enies. W eakness d enies. ? S kin: Dry skin d enies. I tching d enies. D enies?Mole(s), changes in moles, new moles or any lesions of concern. D enies P hotosensitivity. R olesya d enies. N eurologic: Dizziness d enies. F ainting d enies. H eadache?denies. * Medical History: * Surgical History: * Hospitalization/Major Diagno stic Procedure: * Family History: F ather: 53 yrs, alcohol abuse. M other: 46 yrs, breast cancer, congestive heart failure. 1 son(s) , 3 daughter(s) . . Mother- Breast Cancer Father -Cirrhosis, No pertinent family medical history, Denies mental health/substance abuse family history, No pertinent family medical history. * Social History: T obacco Use: T obacco Use/Smoking P atient is a f ormer smoker, H ow long has it been since you last smoked? > 10 years, A dditional Findings: Tobacco Non-User F ormer smoker, currently using no form of tobacco. D rugs/Alcohol: A lcohol Screen D id you have a drink containing alcohol in the past year? Y es, H ow often did you have a drink containing alcohol in the past year? 2 to 3 times a week (3 points), H ow many drinks did you have on a typical day when you were drinking in the past year? 1 or 2 drinks (0 point), H ow often did you have 6 or more drinks on one occasion in the past year? N ever (0 point), P oints 3 , I nterpretation N egative. M iscellaneous: C affeine: no, frequency:. Children: yes. 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 Exercise: yes, weather permitting half hour treadmill. Home smoke detector use: walks QD 1-2 miles a day. Housing: owning. Living with: spouse. Marital status: . Occupation: works full-time. Pets: none. Travel outside of the [place]: no. * Medications: T akingClaritin 10 MG Tablet 1 tablet Orally Once a day Betamethasone Dipropionate OneTouch Ultra - Strip USE TO TEST BLOOD SUGAR TWICE DAILY OneTouch Delica Plus [id number] - Miscellaneous USE TO TEST BLOOD SUGAR TWICE DAILY Nystatin 741368 UNIT/GM Cream 1 application Externally Twice a day Omeprazole 20 MG Capsule Delayed Release TAKE 1 CAPSULE BY MOUTH EVERY DAY 30 MINUTES BEFORE BREAKFAST Tamsulosin HCl 0.4 MG Capsule TAKE 1 CAPSULE BY MOUTH EVERY DAY Allopurinol 300 MG Tablet TAKE 1 TABLET BY MOUTH EVERY DAY Fluticasone Propionate 50 MCG/ACT Suspension SHAKE LIQUID AND USE 1 SPRAY IN EACH NOSTRIL TWICE DAILY Nystatin-Triamcinolone 689077-8.1 UNIT/GM Cream 1 application Externally Twice a day Rosuvastatin Calcium 10 MG Tablet 1 tablet Orally Once a day Januvia 50 MG Tablet TAKE 1 TABLET BY MOUTH EVERY DAY Ciclopirox 0.77% cream as directed applied topically twice a day Ciclopirox 0.77 % Gel 1 application Externally Twice a day Ibuprofen 800 MG Tablet TAKE 1 TABLET BY MOUTH THREE TIMES DAILY Triamcinolone Acetonide 0.1 % Cream APPLY TOPICALLY TO THE AFFECTED AREA TWICE DAILY FOR 14 DAYS Lisinopril 10 MG Tablet TAKE 1 TABLET BY MOUTH EVERY DAY Taking Claritin 10 MG Tablet 1 tablet Orally Once a day Taking Betamethasone Dipropionate Taking OneTouch Ultra - Strip USE TO TEST BLOOD SUGAR TWICE DAILY Taking OneTouch Delica Plus [id number] - Miscellaneous USE TO TEST BLOOD SUGAR TWICE DAILY Taking Nystatin 799044 UNIT/GM Cream 1 application Externally Twice a day Taking Omeprazole 20 MG Capsule Delayed Release TAKE 1 CAPSULE BY MOUTH EVERY DAY 30 MINUTES BEFORE BREAKFAST Taking Tamsulosin HCl 0.4 MG Capsule TAKE 1 CAPSULE BY MOUTH EVERY DAY Taking Allopurinol 300 MG Tablet TAKE 1 TABLET BY MOUTH EVERY DAY Taking Fluticasone Propionate 50 MCG/ACT Suspension SHAKE LIQUID AND USE 1 SPRAY IN EACH NOSTRIL TWICE DAILY Taking Nystatin-Triamcinolone 929905-0.1 UNIT/GM Cream 1 application Externally Twice a day Taking Rosuvastatin Calcium 10 MG Tablet 1 tablet Orally Once a day Taking Januvia 50 MG Tablet TAKE 1 TABLET BY MOUTH EVERY DAY Taking Ciclopirox 0.77% cream as directed applied topically twice a day Taking Ciclopirox 0.77 % Gel 1 application Externally Twice a day Taking Ibuprofen 800 MG Tablet TAKE 1 TABLET BY MOUTH THREE TIMES DAILY Taking Triamcinolone Acetonide 0.1 % Cream APPLY TOPICALLY TO THE AFFECTED AREA TWICE DAILY FOR 14 DAYS Taking Lisinopril 10 MG Tablet TAKE 1 TABLET BY MOUTH EVERY DAY Not-Taking/PRNmetFORMIN HCl 500 MG Tablet 1 tablet with a meal Orally twice a day Indomethacin 50 MG Capsule 1 capsule with food Orally Three times a day Valtrex 1 GM Tablet 2 tablet Orally twice a day Not-Taking/PRN metFORMIN HCl 500 MG Tablet 1 tablet with a meal Orally twice a day Not-Taking/PRN Indomethacin 50 MG Capsule 1 capsule with food Orally Three times a day Not-Taking/PRN Valtrex 1 GM Tablet 2 tablet Orally twice a day DiscontinuedHyoscyamine Sulfate ER 0.375 MG Tablet Extended Release 12 Hour TAKE 1 TABLET BY MOUTH DAILY Medication List reviewed and reconciled with the patientDiscontinued Hyoscyamine Sulfate ER 0.375 MG Tablet Extended Release 12 Hour TAKE 1 TABLET BY MOUTH DAILY Medication List reviewed and reconciled with the patient * Allergies: d emerol: tongue swellingyes[Allergies Verified] Objective: * Vitals: H t: 72, Wt: 235, BMI:31.87, BP:162/74, Repeat BP:122/78, Wt-k.6. weight is down 3 pounds since 07-29-24. * P ast Orders: L ab:Lipid Panel (Order Date - 09/20/2024) (Collection Date & Time - 09/20/2024 07:15 AM) Value Reference Range Triglycerides 124 <150 - mg/dL Cholesterol 119 <200 - mg/dL LDL Cholesterol Calculated 50 <100 - mg/dL HDL Cholesterol 45 >40 - mg/dL L ab:PSA,Total (Free>4and<10) (Order Date - 09/20/2024) (Collection Date & Time - 09/20/2024 07:15 AM) Value Reference Range PSA,Total (Free>4and<10) 2.35 0.00-4.00 - ng/ mL L ab:Microalbumin, Random (Order Date - 09/20/2024) (Collection Date & Time - 09/20/2024 07:15 AM) Value Reference Range Creatinine Urine 128.50 - mg/dL Microalbumin Urine 12.0 - mg/L Microalbum Creatinine Ratio Ur 9.3 <30 - ug/ mg cr L ab:Hemoglobin A1c (Order Date - 09/20/2024) (Collection Date & Time - 09/20/2024 07:15 AM) Value Reference Range Hemoglobin A1c % 6.0 <6.0 - % Estimated Average Glucose 126 - mg/dL L ab:Comprehensive [place]. Panel Fast (Order Date - 09/20/2024) (Collection Date & Time - 09/20/2024 07:15 AM) Value Reference Range Sodium 138 135-145 - mmol/L Bilirubin Total 0.9 0.0-1.0 - mg/dL Aspartate Amino Transferase 26 5-37 - U/L Alanine Aminotransferase 21 0-40 - U/L Total Protein 7.2 6.5-8.0 - g/dL Albumin Level 4.2 3.5-5.0 - g/dL Alkaline Phosphatase 78 39-117 - U/L Potassium 4.1 3.3-5.1 - mmol/L Chloride 103 96-108 - mmol/L Carbon Dioxide 29 22-29 - mmol/L Anion Gap 10 L 12-20 - Blood Urea Nitrogen 18 H 9-16 - mg/dL Creatinine 1.07 0.5-1.4 - mg/dL Estimated Glomerular Filt Rate > 60 - Glucose Fasting 127 H 60-99 - mg/dL Calcium 9.4 8.4-10.2 - mg/dL L ab:Complete Blood Count Auto Diff (Order Date 09/20/2024) (Collection Date & Time 09/20/2024 07:15 AM) Value Reference Range White Blood Count 6.1 4.8-10.8 - X10*3/uL Red Blood Count 5.90 H 4.60-5.80 - X10*6/uL Hemoglobin 16.9 14.0-18.0 - g/dl Hematocrit 49.6 42.0-52.0 - % Mean Corpuscular Volume 84.1 80.0-98.0 - fL Mean Corpuscular Hemoglobin 28.6 27.0-33.0 - pg Mean Corpuscular HGB Conc 34.1 31.0-36.0 - g/ dl Red Cell Distribution Width 13.6 11.0-16.0 - % Platelet Count 147 L 160-400 - X10*3/uL Mean Platelet Volume 10.3 9.4-12.4 - fL Neutrophils Percent Auto 75.9 H 45-73 - % Imm Gran Pct Auto 0.3 0.0-0.4 - % Lymphocytes Percent Auto 13.0 L 20-40 - % Monocytes Percent Auto 8.7 2-11 - % Eosinophils Percent Auto 1.8 0-4 - % Basophils Percent Auto 0.3 0-2 - % NRBC Pct Auto 0.0 0.0-0.2 - /100WBC Neutrophils Absolute Auto 4.6 2.0-8.3 - x10* 3/uL Imm Gran Abs Auto 0.02 0.00-0.03 - X10*3/uL Lymphocytes Absolute Auto 0.8 L 1.2-4.9 - X10* 3/uL Monocytes Absolute Auto 0.5 0.1-1.2 - X10*3/ uL Eosinophils Absolute Auto 0.1 0.0-0.4 - X10* 3/uL Basophils Absolute Auto 0.0 0.0-0.2 - X10*3/ uL NRBC Abs Auto 0.000 0.0-0.012 - X10*3/uL L ab:UA ClnCatch+Micro w/rflx Cult (Order Date - 09/20/2024) (Collection Date & Time - 09/20/2024 07:15 AM) Value Reference Range Color Urine Yellow - Appearance Urine Clear - PH 6.0 5.0-9.0 - Glucose Urine UA Negative Negative - mg/dL Urine Blood Negative Negative - Specific [place] - Urine 1.015 1.005-1.025 - Urine Protein Negative Neg-Trace - mg/dL Urine Ketones Negative Negative - mg/dL Nitrite Urine Negative Negative - Leukocyte Esterase Urine Negative Negative - RBC Urine 0-2 0-2 - /HPF WBC Urine 0-5 0-5 - /HPF Squamous Epithelial Cell Urine 0-2 0-2 - /HP F Bacteria Urine None Seen None Seen - Hyaline Casts Urine 0-2 0-2 - /LPF * Examination: G eneral Examination: GENERAL APPEARANCE: w ell developed, well nourished, in no acute distress. HEAD: n ormocephalic, atraumatic. EYES: p upils equal, round, reactive to light and accommodation, sclera non-icteric. EARS: n ormal. ORAL CAVITY: m ucosa moist. THROAT: c lear. NECK/THYROID: n suhas supple, full range of motion, no cervical lymphadenopathy, no bruits. SKIN: w arm and dry, no suspicious lesions. HEART: r egular rate and rhythm, S1, S2 normal, no murmurs.? LUNGS: c lear to auscultation bilaterally. ABDOMEN: s oft, nontender, nondistended, bowel sounds present, normal, no organomegaly , no masses palpable. RECTAL EXAM: n ormal tone, no external hemorrhoids, no masses palpable, prostate normal, stool guaiac negative. MALE GENITOURINARY: c ircumcised, no penile lesions or discharge, testes descended bilaterally. EXTREMITIES: n o clubbing, cyanosis, or edema. NEUROLOGIC: n onfocal, motor strength normal upper and lower extremities, sensory exam intact. Assessment: * Assessment: 1. E ssential hypertension - I10 (Primary) 2 . P ure hypercholesterolemia - E78.00 3 . T hrombocytopenia - D69.6 4 . 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 P rostatism - N40.0 6 . C ontrolled type 2 diabetes mellitus without complication, without long-term current use of insulin - E11.9 7 . E sophageal dysfunction - K22.4 Plan: * Treatment: 2. P ure hypercholesterolemia Continue Rosuvastatin Calcium Tablet, 10 MG, 1 tablet, Orally, Once a day. Notes: doing well, will continue current regiment 3. T hrombocytopenia L AB: Complete Blood Count Auto Diff (Ordered for 03/30/2025) Notes: stable, will contnue to monitor 4. F ungal infection Refill Ciclopirox cream, 0.77%, as directed, applied topically, twice a day, 30 days, 60, Refills 3. Notes: stable, will continue curent regiment 5. P rostatism Continue Tamsulosin HCl Capsule, 0.4 MG, TAKE 1 CAPSULE BY MOUTH EVERY DAY. Notes: stable, will continue current regiment 6. C ontrolled type 2 diabetes mellitus without complication, without long-term current use of insulin Continue Januvia Tablet, 50 MG, TAKE 1 TABLET BY MOUTH EVERY DAY. Notes: doing well, will continue current regiment 7. E sophageal dysfunction Continue Omeprazole Capsule Delayed Release, 20 MG, TAKE 1 CAPSULE BY MOUTH EVERY DAY 30 MINUTES BEFORE BREAKFAST. Notes: stable, will continue current regiment * Procedure Codes: G 2211 Complex e/m visit add on * Preventive Medicine: Diabetes Care Plan: P atient Lifestyle Goals N eeds to maintain diet control.?Treatment Goals A 1C< 7. B arriers N o specific barriers, doing well. S elf-Managment Plan I ncrease light exercise to 3 times a week for 30 minutes. E xpected Outcome maintaining stable blood sugar levels within a target range,. * Follow Up: 6 Months * * Sign off status: Completed true * Provider: Daron Sandoval MD Date: 0 09/27/2024 Generated for Gretel lazaro/Néstor/Kirstinitting on: 1 05/30/2024 02:09 PM EST History and Physical Notes * HPI (History of Present Illness) Category Sub-Category Detail Notes Category Not es Symptom(s) patient is a 74 yo male here for review of recent labs and follow up of chronic issues Depression Screening PHQ-9 Little inte rest or pleasure in doing things: Not at all Feeling down, depressed, or hopeless: No t at all Trouble falling or staying asleep, or sl eeping too much: Not at all Feeling tired or having little energy: N ot at all Poor appetite or overeating: Not at all Feeling bad about yourself o r that you are a failure, or have let yourself or your family down: Not at all Trouble concentrating on thi ngs, such as reading the newspaper or watching television: Not at all Moving or speaking so slowly that other people could have noticed; or the opposite, being so fidgety or restless that you have been moving around a lot more than usual: Not at all Thoughts that you would be b alina off or of hurting yourself in some way: Not at all Total Score: 0 Interpretation and Intervention Depression Scree christa Findings: Negative Follow-Up for Depression: : review of PH Q-9 found negative result, no follow-up needed SDOH Questions SDOH Questions In the past year have you been worried about losing housing?: No In the past year have you or any family members you live with been unable to get any of the following when it was really needed? Check all that apply:: None Fall Risk History Have you had any falls with injury i n the past year?: No Have you had two or more falls in the year?: No Communication Needs Communication Needs Does the patient have a hearing impairment: No Does the patient have a vision impairmen t?: Yes If yes, what is the vision impairment?: Glasses Does the patient have a cognition impair ment?: No Examination Category Sub-Category Detail Notes Category Not es General Examination GENERAL APPEARANCE: well dev eloped, well nourished, in no acute distress HEAD: normocephalic, atrau matic EYES: pupils equal, round, reactive to light and accommodation, sclera non-icteric EARS: normal THROAT: clear NECK/THYROID: neck supple, full ra nge of motion, no cervical lymphadenopathy, no bruits HEART: regular rate and rhy thm, S1, S2 normal, no murmurs LUNGS: clear to auscultatio n bilaterally ABDOMEN: soft, nontender, non distended, bowel sounds present, normal, no organomegaly , no masses palpable NEUROLOGIC: nonfocal, motor stre ngth normal upper and lower extremities, sensory exam intact SKIN: warm and dry, no mariana picious lesions EXTREMITIES: no clubbing, cyanosi s, or edema MALE GENITOURINARY: circumcised, no peni le lesions or discharge, testes descended bilaterally RECTAL EXAM: normal tone, no exte rnal hemorrhoids, no masses palpable, prostate normal, stool guaiac negative ORAL CAVITY: mucosa moist
--- OUTSIDE RECORDS SUMMARY | 2024-11-10 07:18 | XMS_ITS ---
Author Organization Delmar Sandoval MD Address [address] [place] [phone] Care Team Providers Care [place] Program Coordinator Name Role Phone Lori Delmar Primary Care Provider [phone] Medications Medication SIG (Take, Route, Frequency, Duration) Notes Start Date End Date Status Triamcinolone Acetonide 0.1 % APPLY TOPICALLY TO THE AFFECTED AREA TWICE DAILY FOR 14 DAYS Externally twice a day for 30 days Active Nystatin 390355 UNIT/GM 1 application Ex ternally Twice a day for 30 days 09/11/2022 Active Encounters Encounter Location Date Provider Diagnosis Delmar Sandoval MD [address] [place] [phone] 11/10/2024 Delmar Sandoval Fungal infection B49 ; Rash R21 and Yeast infection of the skin B37.2 Assessments Encounter Date Diagnosis (ICD Code) Assessment Notes Treatment Notes Treatment Clinical Notes Section Notes 11/10/2024 Fungal infection (ICD-10 - B49) 11/10/2024 Rash (ICD-10 - R21) 11/10/2024 Yeast infection of the skin (ICD-10 - B37.2) Plan Of Treatment Medication Medication Name Sig Start Date Stop Date Notes Triamcinolone Acetonide 0.1 % APPLY TOPI MIKAEL TO THE AFFECTED AREA TWICE DAILY FOR 14 DAYS Externally twice a day for 30 days Nystatin 501771 UNIT/GM 1 application Ex ternally Twice a day for 30 days 09/11/2022 Next Appt Details Provider Name:Delmar Pearl Edgard ier, 04/06/2025 10:30:00 AM, [address] [place] [address], [address], [phone], Provider Name:Delmar Dae Edgard ier, 09/22/2025 07:15:00 AM, [address] [place] [address], [address], [phone], Provider Name:Delmar Pearl Edgard ier, 09/29/2025 08:30:00 AM, [address] [place] [address], [phone], Progress Notes * Rivas VENTURA BDOB:1950 (74 yo M)Acc No.[id number]:11/10/2024 Patient: Rivas FRANCOIS :1950 A ge:74 Y S ex:Male Address:[address] [place] [phone] * Refills Refill Triamcinolone Acetonide Cream, 0.1 %, Externally, 30 Gram, APPLY TOPICALLY TO THE AFFECTED AREA TWICE DAILY FOR 14 DAYS, twice a day, 30 days, Refills=3 Refill Nystatin Cream, 669500 UNIT/GM, Externally, 30 Gram, 1 application, Twice a day, 30 days, Refills=3 * true * Date: Generated for Gretel lazaro/Néstor/González on: 05/30/2024 02:09 PM EST
--- OUTSIDE RECORDS SUMMARY | 2024-11-17 05:29 | XMS_ITS ---
Author Organization Delmar Sandoval MD Address 10 [facility] [address] [place] [phone] Care Team Providers Care Convalescent Sitter Name Role Phone Lori Delmar Primary Care Provider [phone] REASON FOR VISIT med issue Encounters Encounter Location Date Provider Diagnosis Delmar Sandoval MD [address] [place] [address] [address] [place] [phone] 11/17/2024 Delmar Sandoval Plan Of Treatment Next Appt Details Provider Name:Delmar freedman, 04/06/2025 10:30:00 AM, [address] [place] [address], [address], [phone], Provider Name:Delmar freedman, 09/22/2025 07:15:00 AM, [address] [place] [address], [address], [phone], Provider Name:Delmar freedman, 09/29/2025 08:30:00 AM, [address] [place] [address], [address], [place], [place], [phone], Progress Notes * Rivas VENTURA BDOB:1950 (74 yo M)Acc No.[id number]:11/17/2024 Patient: Rivas FRANCOIS :1950 A ge:74 Y S ex:Male Address:[address] [place] [address], [place] [phone] * true * Date: Generated for Gretel lazaro/Néstor/eTransmitting on: 05/30/2024 02:08 PM EST
--- OUTSIDE RECORDS SUMMARY | 2025-01-02 03:39 | XMS_ITS ---
Author Organization Delmar Sandoval MD Address [address] [place] [phone] Care Team Providers Care Oil Operator Name Role Phone Lori Delmar Primary Care Provider [phone] REASON FOR VISIT sinus infection Medications Medication SIG (Take, Route, Frequency, Duration) Notes Start Date End Date Status Amoxicillin-Pot Clavulanate 875-125 MG 1 tablet Orally every 12 hrs for 10 days 01/02/2025 Active Encounters Encounter Location Date Provider Diagnosis Delmar Sandoval MD [address] [place] [phone] 01/02/2025 Delmar Sandoval Plan Of Treatment Medication Medication Name Sig Start Date Stop Date Notes Amoxicillin-Pot Clavulanate 875-125 MG 1 tablet Orally every 12 hrs for 10 days 01/02/2025 Next Appt Details Provider Name:Delmar isabelr, 04/06/2025 10:30:00 AM, [facility], [address] [place] [address], [phone], Provider Name:Delmar Rene ier, 09/22/2025 07:15:00 AM, [facility], [address], [place], [phone], Provider Name:Delmar Rene ier, 09/29/2025 08:30:00 AM, [address] [facility], [address], [place], [phone], Progress Notes * Rivas VENTURA BDOB:1950 (74 yo M)Acc No.[id number]:01/02/2025 Patient: Sathya Rivas CLARK :1950 A ge:74 Y S ex:Male Address:[address] [place] [phone] * Refills Start Amoxicillin-Pot Clavulanate Tablet, 875-125 MG, Orally, 20 Tablet, 1 tablet, every 12 hrs, 10 days * true * Date: Generated for Gretel lazaro/Néstor/Reynaldosmitting on: 05/30/2024 02:10 PM EST
--- OUTSIDE RECORDS SUMMARY | 2025-03-09 02:30 | XMS_ITS ---
Author Organization Delmar Sandoval MD Address [address] [place] [phone] Care Team Providers Care Radiology Special Procedure Tech Name Role Phone Delmar Sandoval Primary Care Provider REASON FOR VISIT HD FLU Immunizations Vaccine Route Administration Date Status Comme nts Influenza High Dose IM Intramuscular 03/09/2025 Administer ed Encounters Encounter Location Date Provider Diagnosis Delmar Sandoval MD 10 [facility] [address] [place] [phone] 03/09/2025 Delmar Sandoval Encounter for administration of vaccine Z23 Assessments Encounter Date Diagnosis (ICD Code) Assessment Notes Treatment Notes Treatment Clinical Notes Section Notes 03/09/2025 Encounter for administration of vaccine (ICD-10 - Z23) Plan Of Treatment Next Appt Details Provider Name:Delmar freedman, 04/06/2025 10:30:00 AM, 10 [facility], [address] [place] [address], [phone], Provider Name:Delmar freedman, 09/22/2025 07:15:00 AM, [address], [address], [place], [place], [phone], Provider Name:Delmar Rene ier, 09/29/2025 08:30:00 AM, [address], [address], [place], [phone], Progress Notes * Rivas VENTURA BDOB:1950 (75 yo M)Acc No.[id number]:03/09/2025 Progress Note Patient: Rivas FRANCOIS Provider: Daron Sandoval MD :1950 A ge:74 Y S ex:Male Date:03/09/2025 Address:[address] [place], [place] [phone] Subjective: * Chief Complaints: * 1 . HD FLU. * Medical History: Objective: * Vitals: Assessment: * Assessment: 1. E ncounter for administration of vaccine - Z23 (Primary) Plan: * Treatment: * Immunizations: Influenza High Dose : 0.5 mL (Dose No:1) (Route: Intramuscular) given by Theresa Chavez , Office Staff on Right Deltoid * Procedure Codes: 9 0662 FLU VACC PRSV FREE INC ANTIG, G0008 ADMN FLU VAC NO FEE SCHED SAME DAY * * The named appointment provid er may or may not be the originator of this progress note, and it is not deemed complete until electronically signed by the appointment provider. Sign off status: Pending * Provider: Daron Sandoval MD Date: Generated for Gretel lazaro/Néstor/Reynaldosmitting on: 05/30/2024 02:08 PM EST
--- OUTSIDE RECORDS SUMMARY | 2025-03-10 05:00 | XMS_ITS ---
Author Organization Delmar Sandoval MD Address [address] [place] [phone] Care Team Providers Care Iron Miner Name Role Phone Delmar Sandoval Primary Care Provider [phone] Results Component Value Reference Range Notes XR lumbar spine 2-3V Reviewed date:03/13/2025 12:36:34 PM Interpretation: Performing Lab: Notes/Report: [address] [address] XRay Report Signed Patient: LorenzoRivas Jose L MR#: [id number] : 1950 Acct:[id number] Age/Sex: 74 / M ADM Date: 03/11/25 Loc: HO.XRAY Attending Dr: Delmar Sandoval MD Ordering Physician: Delmar Sandoval MD Date of Service: 03/11/25 Procedure(s): XR lumbar spine 2-3V Accession Number(s): [id number] cc: Delmar Sandoval MD Reason for Exam: [...] 03/13/25 0704 DD/ 0740 TD/TT: 03/11/25 0749 Supervisor Color Paste Mixing: [place] [address] XRay Report Signed Patient: Rivas Ventura MR#: [id number] : 1950 Acct:[id number] Age/Sex: 74 / M ADM Date: 03/11/25 Loc: [facility]OT[facility] Attending Dr: Delmar Sandoval MD Ordering Physician: Delmar Sandoval MD Date of Service: 03/11/25 Procedure(s): XR lum bar spine 2-3V Accession Number(s): [id number] cc: Delmar Sandoval MD Reason for Exam: [...] 03/13/25 0704 DD/ 0740 TD/TT: 03/11/25 0749 Supervisor Color Paste Mixing: [facility] Encounters Encounter Location Date Provider Diagnosis Delmar Sandoval MD [address] [place] [phone] 03/10/2025 Delmar Sandoval Back pain M54.9 Assessments Encounter Date Diagnosis (ICD Code) Assessment Notes Treatment Notes Treatment Clinical Notes Section Notes 03/10/2025 Back pain (ICD-10 - M54.9) Plan Of Treatment Next Appt Details Provider Name:Delmar freedman, 04/06/2025 10:30:00 AM, [address] [place] [address], [phone], Provider Name:Delmar freedman, 09/22/2025 07:15:00 AM, [address] [place] [address], [phone], Provider Name:Delmar freedman, 09/29/2025 08:30:00 AM, [address] [place] [address], [phone], Progress Notes * Rivas VENTURA BDOB:1950 (74 yo M)Acc No.[id number]:03/10/2025 Patient: Rivas FRANCOIS :1950 A ge:74 Y S ex:Male Address:[address] [place] [address] [place] [address] Subjective: * Chief Complaints: * * Medical History: * Surgical History: * Hospitalization/Major Diagno stic Procedure: * Medications: Objective: * Vitals: * Physical Examination: Assessment: * Assessment: 1. B ack pain - M54.9 (Primary) Plan: * Treatment: * Procedure Codes: * true * Date: Generated for Gretel lazaro/Néstor/Reynaldosmitting on: 05/30/2024 02:10 PM EST
--- OUTSIDE RECORDS SUMMARY | 2025-03-30 02:45 | XMS_ITS ---
Author Organization Delmar Sandoval MD Address [address] [place] [phone] Care Team Providers Care Reservations Clerk Name Role Phone Lori Delmar Primary Care Provider Results Component Value Reference Range Notes Complete Blood Count Auto Di ff Reviewed date:03/30/2025 12:48:04 PM Interpretation: Performing Lab:[facility], [address] [place] [phone] Notes/Report: White Blood Count 6.1 4.8-10.8 X10*3/uL [...] X10*3/uL NRBC Abs Auto 0.000 0.0-0.012 X10*3/uL Hemoglobin A1c Reviewed date:03/30/2025 12:43:58 PM Interpretation: Performing Lab:[facility], [address] [place] [phone] Notes/Report: Hemoglobin A1c % 6.2 <6.0 % [...] average glucose, using the formula of the T8A-Hzobzho Average Glucose study (ADAG), Diabetes Care, Vol.31,#8, Dec. 2007 REASON FOR VISIT fasting lipids CBC Encounters Encounter Location Date Provider Diagnosis Delmar Sandoval MD [address] [place] [address] [address] [place], [place] [phone] 03/30/2025 Delmar Sandoval Pure hypercholestero lemia E78.00 [...] insulin (ICD-10 - E11.9) Plan Of Treatment Pending Test Test Name Order Date Liver Panel 03/30/2025 Glucose Fasting 03/30/2025 Lipid Panel with Reflex 03/30/2025 Next Appt Details Provider Name:Delmar Rene ier, 04/06/2025 10:30:00 AM, [address] [place] [address], [address], [phone], Provider Name:Delmar Pearl Edgard ier, 09/22/2025 07:15:00 AM, [address] [place] [address], [address], [phone], Provider Name:Delmar Pearl Monetrubio ier, 09/29/2025 08:30:00 AM, [address] [place] [address], [address], [phone], Progress Notes * Rivas VENTURA BDOB:1950 (75 yo M)Acc No.[id number]:03/30/2025 Progress Note Patient: Rivas FRANCOIS Provider: Daron Sandoval MD :1950 A ge:75 Y S ex:Male Date:03/30/2025 Address:[address] [place] [id number] Subjective: * Chief Complaints: * 1 . fasting lipids CBC. * Medical History: Objective: * Vitals: Assessment: * Assessment: 1. P ure hypercholesterolemia - E78.00 (Primary) 2 . T hrombocytopenia - D69.6 3 . C ontrolled type 2 diabetes mellitus without complication, without long-term current use of insulin - E11.9 Plan: * Treatment: 2. T hrombocytopenia L AB: Liver Panel L AB: Lipid Panel with Reflex L AB: Complete Blood Count Auto Diff (Collection Date & Time - 03/30/2025 07:45 AM) 3. C ontrolled type 2 diabetes mellitus without complication, without long-term current use of insulin L AB: Glucose Fasting L AB: Hemoglobin A1c (Collection Date & [...] Sandoval MD Date: 05/30/2024 Generated for Gretel lazaro/Néstor/González on: 05/30/2024 02:09 PM EST
[2025-03-30 11:17] LABS: MANUAL DIFF FLAG NO
[2025-03-30 11:29] LABS: Hematocrit 52.7 % (42.0-52.0); Hemoglobin 17.6 g/dl (14.0-18.0); Imm Gran Abs Auto 0.02 X10*3/uL (0.00-0.03); Imm Gran Pct Auto 0.3 % (0.0-0.4); Lymphocytes Absolute Auto 0.9 X10*3/uL (1.2-4.9); Mean Corpuscular HGB Conc 33.4 g/dl (31.0-36.0); Mean Corpuscular Hemoglobin 28.9 pg (27.0-33.0); Mean Corpuscular Volume 86.7 fL (80.0-98.0); NRBC Abs Auto 0.000 X10*3/uL (0.0-0.012); NRBC Pct Auto 0.0 /100WBC (0.0-0.2); Platelet Count 164 X10*3/uL (160-400); Red Blood Count 6.08 X10*6/uL (4.60-5.80); White Blood Count 6.1 X10*3/uL (4.8-10.8)
[2025-03-30 11:41] LABS: Alanine Aminotransferase 24 U/L (0-40); Albumin Level 4.6 g/dL (3.5-5.0); Alkaline Phosphatase 81 U/L (39-117); Aspartate Amino Transferase 27 U/L (5-37); Cholesterol 118 mg/dL (<200); HDL Cholesterol 42 mg/dL (>40); Total Protein 7.3 g/dL (6.5-8.0); Triglycerides 116 mg/dL (<150)
--- OUTSIDE RECORDS SUMMARY | 2025-03-30 14:09 | XMS_ITS | Patient Health Record ---
Author Organization Delmar Sandoval MD Address [address] [place] [phone] Care Team Providers Care Clinical Pharmacist Name Role Phone LoriVasilen Primary Care Provider Allergies Allergen (clinical drug ingredient) Drug/Non Drug Allergy documented on EMR Reaction Allergy Type Onset Date Status meperidine demerol (uncoded) tongue swelling Allergy Active Results Component Value Reference Range Notes Hemoglobin A1c Reviewed date:04/01/2024 08:56:26 AM Interpretation: Performing Lab: Notes/Report: Hemoglobin A1c 6.4 Complete Blood Count Auto Di ff Reviewed date:09/20/2024 04:55:16 PM Interpretation: Performing Lab:[facility], [address] [place] [phone] Notes/Report: White Blood Count 6.1 4.8-10.8 X10*3/uL [...] NRBC Abs Auto 0.000 0.0-0.012 X10*3/uL Comprehensive Arvin. Panel Fa st Reviewed date:09/20/2024 12:47:49 PM Interpretation: Performing Lab:[facility], [address] [place] [phone] Notes/Report: Sodium 138 135-145 mmol/L Potassium 4.1 [...] Panel Reviewed date:09/20/2024 12:10:39 PM Interpretation: Performing Lab:[address] [phone] Notes/Report: Triglycerides 124 <150 mg/dL Desirable Triglyceride: [...] (Free>4and<10) Reviewed date:09/20/2024 12:05:21 PM Interpretation: Performing Lab:[facility], [address] [place] [phone] Notes/Report: PSA,Total (Free>4and<10) 2.35 0.00-4.00 ng/mL A [...] Random Reviewed date:09/20/2024 12:05:41 PM Interpretation: Performing Lab:[address] [phone] Notes/Report: Creatinine Urine 128.50 Microalbumin Urine 12.0 Microalbum/Creatinine Ratio Ur 9.3 <30 ug/mg cr Albumin/Creatinine Ratio Reference Ranges: Normal: < 30 ug/mg creatinine Microalbuminuria: 30 - 300 ug/mg creatinine Clinical Albuminuria: > 300 ug/mg creatinine Hemoglobin A1c Reviewed date:09/20/2024 12:05:31 PM Interpretation: Performing Lab:[address] [phone] Notes/Report: Hemoglobin A1c % 6.0 <6.0 % [...] average glucose, using the formula of the O4B-Rcfiiui Average Glucose study (ADAG), Diabetes Care, Vol.31,#8, Dec. 2007 UA ClnCatch+Micro w/rflx Cul t Reviewed date:09/20/2024 12:45:39 PM Interpretation: Performing Lab:[address] [phone] Notes/Report: Urine, Clean Catch Color Urine Yellow Appearance Urine Clear PH 6.0 5.0-9.0 Glucose Urine UA Negative Negative mg/dL Urine Blood Negative Negative Specific [place] - Urine 1.015 1.005-1.025 Urine Protein Negative Neg-Trace mg/dL Urine Ketones Negative Negative mg/dL Nitrite Urine Negative Negative Leukocyte Esterase Urine Negative Negative RBC Urine 0-2 0-2 /HPF WBC Urine 0-5 0-5 /HPF Squamous Epithelial Cell Urine 0-2 0-2 /HPF Bacteria Urine None Seen None Seen Hyaline Casts Urine 0-2 0-2 /LPF Complete Blood Count Auto Di ff Reviewed date:03/30/2025 12:48:04 PM Interpretation: Performing Lab:[facility], [address] [place] [phone] Notes/Report: White Blood Count 6.1 4.8-10.8 X10*3/uL [...] A1c Reviewed date:03/30/2025 12:43:58 PM Interpretation: Performing Lab:[facility], [address] [place] [phone] Notes/Report: Hemoglobin A1c % 6.2 <6.0 % [...] average glucose, using the formula of the F6I-Uekeduu Average Glucose study (ADAG), Diabetes Care, Vol.31,#8, 2007 Glucose, finger stick Reviewed date:04/01/2024 08:42:20 AM Interpretation: Performing Lab: Notes/Report: Value 199 Electrocardiogram (EKG) Reviewed date:04/01/2024 02:15:02 PM Interpretation: Performing Lab: Notes/Report: Glucose, finger stick Reviewed date:04/28/2024 11:23:40 AM Interpretation: Performing Lab: Notes/Report: Value 106 Glucose, finger stick Reviewed date:06/03/2024 11:38:31 AM Interpretation: Performing Lab: Notes/Report: Value 126 Complete Blood Count Auto Di ff Reviewed date:07/11/2024 05:23:05 PM Interpretation: Performing Lab:[facility], [address] [place] [phone] Notes/Report: White Blood Count 10.2 4.8-10.8 X10*3/uL [...] NRBC Abs Auto 0.000 0.0-0.012 X10*3/uL Comprehensive Arvin. Panel Fa st Reviewed date:07/11/2024 05:22:26 PM Interpretation: Performing Lab:[facility], [address] [place] [phone] Notes/Report: Sodium 140 135-145 mmol/L Potassium 4.3 [...] 3.5-5.0 g/dL Alkaline Phosphatase 75 39-117 U/L XR lumbar spine 2-3V Reviewed date:03/13/2025 12:36:34 PM Interpretation: Performing Lab: Notes/Report: [address] [address] XRay Report Signed Patient: Rivas Ventura MR#: [id number] : 1950 Acct:[id number] Age/Sex: 74 / M ADM Date: 03/11/25 Loc: [facility] Attending Dr: Delmar Sandoval MD Ordering Physician: Delmar Sandoval MD Date of Service: 03/11/25 Procedure(s): XR lumbar spine 2-3V Accession Number(s): [id number] cc: Delmar Sandoval MD Reason for Exam: [...] 03/13/25 0704 DD/ 0740 TD/TT: 03/11/25 0749 Getter Operator: [address] [address] XRay Report Signed Patient: Rivas Ventura MR#: [id number] : 1950 Acct:[id number] Age/Sex: 74 / M ADM Date: 03/11/25 Loc: PHILLIP Attending Dr: Delmar Sandoval MD Ordering Physician: Delmar Sandoval MD Date of Service: 03/11/25 Procedure(s): XR lum bar spine 2-3V Accession Number(s): [id number] cc: Delmar Sandoval MD Reason for Exam: [...] 03/13/25 0704 DD/ 0740 TD/TT: 03/11/25 0749 Getter Operator: TATI Burgess Reviewed date:03/30/2025 12:43:42 PM Interpretation: Performing Lab:[facility], [address] [place] [phone] Notes/Report: Isabel Burgess See Note Specimen held [...] 10 days 01/02/2025 Active OneTouch Delica Plus [id number] - USE TO TEST BLOOD SUGAR TWICE [...] 20 MG TAKE 1 CAPSULE BY [facility] EVERY DAY 30 MINUTES BEFORE BREAKFAST [...] 10 MG TAKE 1 TABLET BY [facility] EVERY DAY for 90 Active Claritin 10 MG 1 tablet Orally Once a day Active Triamcinolone Acetonide 0.1 % APPLY TOPICALLY TO THE AFFECTED AREA TWICE DAILY FOR 14 DAYS Externally twice a day for 30 days Active Nystatin 837431 UNIT/GM 1 application Externally Twice a day for 30 days 09/11/2022 Active Nystatin-Triamcinolone 522943-5.1 UNIT/GM 1 application Externally Twice a day 03/26/2021 Active Valtrex 1 GM 2 tablet Orally twic e a day for 1 days 03/26/2021 Not-Taking Januvia 50 MG TAKE 1 TABLET BY [facility] EVERY DAY for 30 Active Immunizations Vaccine [...] Problem Status W/U Status Risk Notes Problem 427895156 Thrombocytopenia (D69.6) Active confirmed Problem 531088704 Irritable bowel syndrome with diarrhea (K58.0) Active confirmed Problem Prostatism (29792041) Prostatism (N40.0) Active confirmed Problem 78784706 Anxiety (F41.9) Active confirmed Problem 24500623 Lymphocytopenia (D72.810) Active confirmed Problem 0893615 Arthritis (M19.90) Active confirmed Problem 573851429 Lumbar disc dise ase (M51.9) Active confirmed Problem 242403006 Tubular adenoma of colon (D12.6) Active confirmed Problem 82089544 Essential hypert ension (I10) Active confirmed Problem 31787451 Intrinsic eczema (L20.84) Active confirmed Problem Atherosclerotic heart disease of [place] coronary artery without angina pectoris (521121979997660) Coronary artery disease involving [place] coronary artery of [place] heart without angina pectoris (I25.10) Active confirmed Problem 602127213 Tension headache (G44.209) Active confirmed Problem 324400022 Irritable bowel syndrome with constipation (K58.1) Active confirmed Problem 526342787 Pure hypercholesterolemia (E78.00) Active confirmed Problem 74721257 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, 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 Problem Type II diabetes mellitus without complication (258135511) Controlled type 2 diabetes mellitus without complication, without long-term current use of insulin (E11.9) Active confirmed Problem 09568741 Sinusitis chroni c, frontal (J32.1) Active confirmed Problem 37544247 Post concussion syndrome (F07.81) Active confirmed Problem 689170228 Hand arthritis (M19.049) Active confirmed Problem 360748198 Esophageal dysfu nction (K22.4) Active confirmed Problem 773093693 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) Active confirmed Problem 229713581 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 Problem 62479734 Multinodular goi ter (nontoxic) (E04.2) Active confirmed Problem 626792603 Notalgia paresth etica (R20.2) Active confirmed Problem 44735518 Aortic atheroscl erosis (I70.0) Active confirmed Problem 842898882 Multiple thyroid nodules (E04.2) Active confirmed Vital Signs Blood pressure diastolic 74 mm Hg 09/27/2024 [...] Delmar Sandoval MD [address] [place], [place] [id number] 04/07/2024 Delmar Sandvoal Encounter for immuni zation Z23 Delmar Sandoval MD [address] [place], [place] [id number] 09/20/2024 Delmar Sandoval Essential hypertensi on I10 ; Pure hypercholesterolemia E78.00 ; Lymphocytopenia D72.810 ; Controlled type 2 diabetes mellitus without complication, without long-term current use of insulin E11.9 and Prostatism N40.0 Delmar Sandoval MD [address] [place] [id number] 03/09/2025 Delmar Sandoval Encounter for administration of vaccine Z23 Delmar Sandoval MD [address] [place] [id number] 03/30/2025 Delmar Sandoval Pure hypercholestero lemia E78.00 ; Thrombocytopenia D69.6 and Controlled type 2 diabetes mellitus without complication, without long-term current use of insulin E11.9 Delmar Sandoval MD [address] [id number] 04/01/2024 Delmar Sandoval Controlled type 2 di abetes mellitus without complication, without long-term current use of insulin E11.9 ; Multiple thyroid nodules E04.2 ; Pure hypercholesterolemia E78.00 and Chest pressure R07.89 Delmar Sandoval MD [address] [place] [id number] 04/18/2024 Delmar Sandoval Abdominal discomfort R10.9 Delmar Sandoval MD [address] [id number] 04/28/2024 Delmar Sandoval Controlled type 2 di abetes mellitus without complication, without long-term current use of insulin E11.9 ; Irritable bowel syndrome with diarrhea K58.0 and Aortic atherosclerosis I70.0 Delmar Sandoval MD [address] [place] [id number] 06/03/2024 Delmar Sandoval Controlled type 2 di abetes mellitus without complication, without long-term current use of insulin E11.9 and Irritable bowel syndrome with constipation K58.1 Delmar Sandoval MD [address] [place] [id number] 06/13/2024 Delmar Sandoval Pruritus L29.9 Delmar Sandoval MD [address] [id number] 07/11/2024 Delmar Sandoval Notalgia paresthetic a R20.2 ; Pruritus L29.9 and Fungal infection B49 Delmar Sandoval MD [address] [place] [id number] 07/29/2024 Delmar Sandoval Essential hypertensi on I10 and Rash R21 Delmar Sandoval MD [address] [place] [id number] 09/27/2024 Delmar Sandoval Essential hypertensi on I10 ; Pure hypercholesterolemia E78.00 ; Thrombocytopenia D69.6 ; Fungal infection B49 ; Prostatism N40.0 ; Controlled type 2 diabetes mellitus without complication, without long-term current use of insulin E11.9 and Esophageal dysfunction K22.4 Delmar Sandoval MD [address] [place] [id number] 04/05/2024 Delmar Sandoval MD [address] [place] [id number] 07/14/2024 Delmar Sandoval MD [address] [place] [id number] 08/04/2024 Delmar Sandoval Multinodular goiter (nontoxic) E04.2 Delmar Sandoval MD [address] [place] [id number] 11/10/2024 Delmar Sandoval Fungal infection B49 ; Rash R21 and Yeast infection of the skin B37.2 Delmar Sandoval MD [address] [place] [id number] 11/17/2024 Delmar Sandoval MD [address] [place] [id number] 01/02/2025 Delmar Sandoval MD [address] [place] [id number] 03/10/2025 Delmar Sandoval Back pain M54.9 Assessments Encounter Date Diagnosis (ICD Code) Assessment Notes Treatment Notes Treatment Clinical Notes Section Notes 04/07/2024 Encounter for immunization (ICD-10 - Z23) 09/20/2024 Essential hypertensi on (ICD-10 - I10) 03/09/2025 Encounter for administration of vaccine (ICD-10 - Z23) 03/30/2025 Pure hypercholesterolemia (ICD-10 - E78.00) 04/01/2024 Controlled type 2 diabetes mellitus without complication, without long-term current use of insulin (ICD-10 - E11.9) stable, will continue current regiment 04/01/2024 Multiple thyroid nodules (ICD-10 - E04.2) THE ORDER WAS FAXED TO [facility] FOR SCHEDULING, PATIENT AWARE, pending diagnostic testing 04/18/2024 Abdominal discomfort (ICD-10 - R10.9) pending diagnostic testing, althourh it comes on with exertion, it comes on with eating mostly and is tender to palpation. has stress test for same thing 2 years ago and was negative/ test will be booked at [facility] 04/28/2024 Controlled type 2 diabetes mellitus without complication, without long-term current use of insulin (ICD-10 - E11.9) 04/28/2024 Irritable bowel syndrome with diarrhea (ICD-10 - K58.0) will initiate treatment with Hyoscyamine, awaiting diagnostic testing 06/03/2024 Controlled type 2 diabetes mellitus without complication, without long-term current use of insulin (ICD-10 - E11.9) 06/03/2024 Irritable bowel syndrome with constipation (ICD-10 - K58.1) most days is doing well. has lost about 4 pounds 06/13/2024 Pruritus (ICD-10 - L29.9) to try [...] E78.00) doing well, will continue current regiment 08/04/2024 Multinodular goiter (nontoxic) (ICD-10 - E04.2) 11/10/2024 Fungal infection (ICD-10 - B49) 03/10/2025 Back pain (ICD-10 - M54.9) 09/20/2024 Pure hypercholesterolemia (ICD-10 - E78.00) 03/30/2025 Thrombocytopenia (ICD-10 - D69.6) 04/01/2024 Pure hypercholesterolemia (ICD-10 - E78.00) stable, will contiue current regiment 04/28/2024 Aortic atheroscleros is (ICD-10 - I70.0) 07/11/2024 Fungal infection (ICD-10 - B49) 09/27/2024 Thrombocytopenia (ICD-10 - D69.6) stable, will contnue to monitor 11/10/2024 Rash (ICD-10 - R21) 09/20/2024 Lymphocytopenia (ICD -10 - D72.810) 03/30/2025 Controlled type 2 diabetes mellitus without complication, without long-term current use of insulin (ICD-10 - E11.9) 04/01/2024 Chest pressure (ICD- 10 - R07.89) [...] put into the future order folder for 3 2025 at [facility] Plan Of Treatment Pending Test Test Name Order Date Electrocardiogram (EKG) 05/27/2016 Electrocardiogram (EKG) 02/11/2013 Electrocardiogram (EKG) 06/16/2019 Electrocardiogram (EKG) 04/06/2015 CARDIOVASCULAR STRESS TEST 05/23/2021 XR GI SERIES 04/29/2021 XR GI SERIES 04/18/2024 XR RIBS RT 04/06/2015 US ABD 04/18/2024 US THYROID 10/15/2021 US THYROID 02/05/2023 Stress Test 04/06/2015 Liver Panel 03/30/2025 Glucose Fasting 03/30/2025 Lipid Panel with Reflex 03/30/2025 CA echo stress exercise 06/13/2021 MR lumbar spine wo con 01/15/2024 US bladder 01/03/2022 US thyroid 08/04/2024 US thyroid 04/01/2024 XR hand LT min 3V 04/21/2023 Future Test Test Name Order Date US THYROID 12/18/2020 US THYROID 04/21/2024 Next Appt Details Provider Name:Delmar Rene ier, 04/06/2025 10:30:00 AM, [address] [place] [address], [address], [phone], Provider Name:Delmar Rene ier, 09/22/2025 07:15:00 AM, [address] [place] [address], [address], [phone], Provider Name:Delmar Rene ier, 09/29/2025 08:30:00 AM, [address] [place] [address], [address], [id number], Insurance Providers Payer Name Payer Address Payer Phone Subscriber Number Group Number Insured Name Patient Relationship to Insured Coverage Start Date Coverage End Date MED[employer] [address] [place] [address] [id number] Rivas Ventura Self - patient is the insured MEDEX BCBS OF [facility] [address] [place] [address] [id number] Rivas Ventura Self - patient is the [...]
--- OUTSIDE RECORDS SUMMARY | 2025-03-30 14:09 | XMS_ITS | Patient Health Record ---
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 Name Role Phone Lori NEW, Delmar Primary Care Provider Unavaconrad benson Black, Lizzie Unavailable [phone] Allergies Allergen (clinical drug ingredient) Drug/Non Drug [...] Unknown 02/16/2023 Administered Influenza Unknown 01/17/2024 Administered Social History Tobacco Use: Social History [...] Polyneuropathy due to type 2 diabetes mellitus (686572135) Type 2 diabetes mellitus with diabetic polyneuropathy (E11.42) Active confirmed Vital Signs Blood pressure diastolic 80 mm Hg 01/02/2025 Height 6ft3in in 01/02/2025 Blood pressure systolic 123 mm Hg 01/02/2025 Weight 231 lbs 01/02/2025 BMI 28.87 kg/m2 01/02/2025 Procedures Procedure Date Ordered Date Performed Result Body Sit e 26452-PFNPSZI NAIL, 6 OR MORE 06/23/2024 N/A 46800-BMYE SKIN LESIONS, 2 TO 4 06/23/2024 N/A 45671-VYKJZOI NAIL, 6 OR MORE 09/26/2024 N/A 11770-RWBO SKIN LESIONS, 2 TO 4 09/26/2024 N/A 80184-AQGWMKI NAIL, 6 OR MORE 01/02/2025 N/A 32868-ACVX SKIN LESIONS, 2 TO 4 01/02/2025 N/A Encounters Encounter Location Date Provider Diagnosis [address] [phone] 06/23/2024 Lizzie Black Achilles tendinitis of right lower extremity M76.61 ; Peroneal tendinitis, right leg M76.71 ; Neuritis of right foot G57.91 ; Tinea unguium B35.1 ; Type 2 diabetes mellitus with diabetic polyneuropathy E11.42 ; Pain of right heel M79.671 ; Short Achilles tendon (acquired), right ankle M67.01 ; Bursitis of right foot M77.51 and Hypertrophy of bone M89.[address] [address] 08/04/2024 Lizzie Black Peroneal tendinitis, right leg M76.71 ; Bursitis of right foot M77.51 ; Neuritis of right foot G57.91 ; Type 2 diabetes mellitus with diabetic polyneuropathy E11.42 and Hypertrophy of bone M89.[address] [address] 09/26/2024 Lizzie Black Tinea unguium B35.1 and Type 2 diabetes mellitus with diabetic polyneuropathy E11.[address] [address] 01/02/2025 Lizzie Black Tinea unguium B35.1 and Type 2 diabetes mellitus with diabetic polyneuropathy E11.[address] [address] 07/25/2024 Lizzie Black Assessments Encounter Date Diagnosis (ICD Code) Assessment Notes Treatment Notes Treatment Clinical Notes Section Notes 06/23/2024 Peroneal tendinitis, right leg (ICD-10 - [...] G57.91) 06/23/2024 Tinea unguium (ICD-10 - B35.1) 08/04/2024 [...] X ray : Foot, right 3V 03/10/2016 18038-PWYPLRI NAIL, 6 OR MORE 05/08/2022 12666-JATSNGH NAIL, 6 OR MORE 11/06/2022 70807-CBSIKDI NAIL, 6 OR MORE 05/07/2023 47217-TGMAKSK NAIL, 6 OR MORE 08/06/2023 97782-EBVQNQO NAIL, 6 OR MORE 11/05/2023 54551-OVYBBLK NAIL, 6 OR MORE 03/17/2024 75534-SPCAHGM NAIL, 6 OR MORE 06/23/2024 86064-DJSKZBQ NAIL, 6 OR MORE 04/28/2019 48472-XOGKKKU NAIL, 6 OR MORE 10/17/2019 75957-DKBCCJA NAIL, 6 OR MORE 04/19/2020 85779-TCDDLEH NAIL, 6 OR MORE 10/18/2020 34902-VAVHFRW NAIL, 6 OR MORE 05/02/2021 43120-IPNIOWR NAIL, 6 OR MORE 10/31/2021 17406-IPPILLX NAIL, 6 OR MORE 09/26/2024 13165-XGTZVZQ NAIL, 6 OR MORE 01/02/2025 81109-IAWTGWF NAIL, 1-5 01/01/2017 33216-LTTCPGI NAIL, 1-5 04/16/2017 96868-BKEMXHB NAIL, 1-5 06/25/2017 57169-XWWKUOL NAIL, 1-5 12/24/2017 19732-AFHDHYG NAIL, 1-5 07/01/2018 49177-KOUQINT NAIL, 1-5 12/30/2018 65580-Faxbfiqm Plate 05/08/2022 24004-NYQR SKIN LESIONS, 2 TO 4 01/03/20 80915-EZDA SKIN LESIONS, 2 TO 4 06/23/19 25 80271-MIQC SKIN LESIONS, 2 TO 4 09/27/19 25 Next Appt Details Provider Name:Lizzie Zheng , 04/06/2025 08:00:00 AM, [address] [place], [phone], Insurance Providers Payer Name Payer Address Payer Phone Subscriber Number Group Number Insured Name Patient Relationship to Insured Coverage Start Date Coverage End Date Medicare [facility] [address] [place] [address] [id number] Rivas Ventura Self - patient is the insured Med [employer] Shield [address] [place] [address] [id number] Rivas Ventura Self - patient is the [...] on thigh 09/2023 Hospitalization History Reason Date(Month/[facility] [place]- Following with Concussion center 12/10/2018
--- OUTSIDE RECORDS SUMMARY | 2025-03-30 14:10 | XMS_ITS | Patient Health Record ---
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 Name Role Phone Delmar Sandoval MD Primary Care Provider Brayden Son [phone] Allergies Allergen (clinical drug ingredient) Drug/Non Drug [...] Problem Screening for malignant neoplasm of colon (841323776) Encounter for screening for malignant neoplasm of colon (Z12.11) Active confirmed Problem History of adenomatous polyp of colon (895505104) History of adenomatous polyp of colon (Z86.010) Active confirmed Problem Diverticular disease of colon (748026666) Diverticulosis of large intestine without perforation or abscess without bleeding (K57.30) Active confirmed Problem USP current use of non-steroidal anti-inflammator y drug (626240664810609 ) NSAID long-term use (Z79.1) Active confirmed Problem Pre-procedure evaluation check (655227970) Pre-procedural examination (Z01.818) Active confirmed Plan Of Treatment Future Test Test Name Order Date COLONOSCOPY 04/27/2012 COLONOSCOPY 10/07/2017 COLONOSCOPY 05/26/2023 Insurance Providers Payer Name Payer Address Payer Phone Subscriber Number Group Number Insured Name Patient Relationship to Insured Coverage Start Date Coverage End Date MEDICARE OF [place] [address] [place] [address] [id number] LUZ MURPHY Self - patient is the insured MEDEX ATT[employer] CLAIMS [address] [place] [address] [id number] LUZ MURPHY Self - patient is the insured Medical (General) History Medical History History ICD Code Colon polyps-tubular adenoma s & hyperplastic colonoscopies in 2004, 2006, and 09/2012 Diverticulosis/diverticulitis Internal hemorrhoids Hyperlipidemia HTN 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 in feet and ankles, Achilles tendons NIDDM exacerbated by the UTI's Enlarged prostate with UTI's Colonoscopy 2017 with 1 small tubular ad enoma Concussion in 2019 Surgical History Surgery Date(Month/Year) Disc surgery-L4/L5 Eye surgery
[2025-03-30 14:57] LABS: Reflex LDLD? No
== END 2025-03-30 11:15 | disposition home or self-care (01) ==
LOC: HO.LNP 11:14
PROVIDERS: Visit Provider Internal Medicine
DX: E11.9 Type 2 diabetes mellitus without complications (principal); D69.6 Thrombocytopenia, unspecified; E78.00 Pure hypercholesterolemia, unspecified
CPT/HCPCS: 80061; 80076; 82947; 83036; 85025

== ENCOUNTER 2025-04-06 13:32 | Outpatient (REF) | payer MEDICARE, SELFPAY ==
--- OUTSIDE RECORDS SUMMARY | 2024-02-15 03:00 | XMS_ITS ---
Author Organization [facility] Address [address] [place] [address] Care Team Providers Care Fitting Room Attendant Name Role Phone Delmar Sandoval MD Primary Care Provider Lizzie Vivar [phone] Ma Encounters Encounter Location Date Provider Diagnosis [address] [address] 02/15/2024 Lizzie Norm Plan Of Treatment Next Appt Details Provider Name:Lizzie Zheng , 05/08/2025 08:00:00 AM, [address] [place], [address], Progress Notes * LORENZORivas Bhandari BDOB:1950 (75 yo M)Acc No.[id number]:02/15/2024 Progress Note Patient: Rivas FRANCOIS Provider: Libby Zheng DPM :1950 A ge:73 Y S ex:Male Date:02/15/2024 Address:[address], [id number] Pcp:Delmar Sandoval MD Subjective: * Chief Complaints: * [address] Ma[address] * Medical History: Objective: * Vitals: Assessment: Plan: * Treatment: * Images: * The named appointment provid er may or may not be the originator of this progress note, and it is not deemed complete until electronically signed by the appointment provider. Sign off status: Pending * Provider: Libby Zheng DPM Date: 0 02/15/2024 Generated for Gretel Riuz on: 06/06/2024 06:58 PM EST
--- OUTSIDE RECORDS SUMMARY | 2024-08-04 09:52 | XMS_ITS ---
Author Organization Delmar Sandoval MD Address [address] [place] [phone] Care Team Providers Care Gastroenterology Nurse Practitioner Name Role Phone Lori Delmar Primary Care Provider REASON FOR VISIT US head and Neck Encounters Encounter Location Date Provider Diagnosis Delmar Sandoval MD [address] [facility] [place] [phone] 08/04/2024 Delmar Sandoval Multinodular goiter (nontoxic) E04.2 Assessments Encounter Date Diagnosis (ICD Code) Assessment Notes Treatment Notes Treatment Clinical Notes Section Notes 08/04/2024 Multinodular goiter (nontoxic) (ICD-10 - E04.2) 08/04/2024 Other order made and put into the future order folder for 2025 at [facility] Plan Of Treatment Treatment Notes Assessment Notes Other order made and put i nto the future order folder for 2025 at [facility] Pending Test Test Name Order Date US thyroid 08/04/2024 Next Appt Details Provider Name:Delmar freedman, 07/10/2025 10:00:00 AM, [address] [facility], [address], [place], [phone], Provider Name:Delmar freedman, 09/22/2025 07:15:00 AM, [address] [facility], [address], [place], [phone], Provider Name:Delmar isabelr, 09/29/2025 08:30:00 AM, [address] [facility], [address], [place], [place], [phone], Progress Notes * Rivas VENTURA BDOB:1950 (74 yo M)Acc No.[id number]:08/04/2024 Patient: Sathya CLARK Rivas Domingo :1950 A ge:74 Y S ex:Male Address:[address] [place] [phone] Subjective: * Chief Complaints: * U S head and Neck * Medical History: * Surgical History: * Hospitalization/Major Diagno stic Procedure: * Medications: Objective: * Vitals: * Physical Examination: Assessment: * Assessment: 1. M ultinodular goiter (nontoxic) - E04.2 Plan: * Treatment: 2. O thers Notes: order made and put into the future order folder for 2025 at [facility] * Procedure Codes: * true * Date: Generated for Gretel lazaro/Néstor/eTransmitting on: 06/06/2024 06:58 PM EST
--- OUTSIDE RECORDS SUMMARY | 2024-09-20 02:15 | XMS_ITS ---
Author Organization Delmar Sandoval MD Address [address] [place] [phone] Care Team Providers Care Motor Builder Winder Name Role Phone Lori Delmar Primary Care Provider Results Component Value Reference Range Notes Complete Blood Count Auto Di ff Reviewed date:09/20/2024 04:55:16 PM Interpretation: Performing Lab:[facility], [address] [place] [phone] Notes/Report: White Blood Count 6.1 4.8-10.8 X10*3/uL [...] NRBC Abs Auto 0.000 0.0-0.012 X10*3/uL Comprehensive [place]. Panel Fa st Reviewed date:09/20/2024 12:47:49 PM Interpretation: Performing Lab:[facility], [address] [place] [phone] Notes/Report: Sodium 138 135-145 mmol/L Potassium 4.1 [...] Panel Reviewed date:09/20/2024 12:10:39 PM Interpretation: Performing Lab:[address] [phone] Notes/Report: Triglycerides 124 <150 mg/dL Desirable Triglyceride: [...] (Free>4and<10) Reviewed date:09/20/2024 12:05:21 PM Interpretation: Performing Lab:[address] [phone] Notes/Report: PSA,Total (Free>4and<10) 2.35 0.00-4.00 ng/mL A [...] Random Reviewed date:09/20/2024 12:05:41 PM Interpretation: Performing Lab:[address] [phone] Notes/Report: Creatinine Urine 128.50 Microalbumin Urine 12.0 Microalbum/Creatinine Ratio Ur 9.3 <30 ug/mg cr Albumin/Creatinine Ratio Reference Ranges: Normal: < 30 ug/mg creatinine Microalbuminuria: 30 - 300 ug/mg creatinine Clinical Albuminuria: > 300 ug/mg creatinine Hemoglobin A1c Reviewed date:09/20/2024 12:05:31 PM Interpretation: Performing Lab:[address] [phone] Notes/Report: Hemoglobin A1c % 6.0 <6.0 % [...] average glucose, using the formula of the S8Z-Shmldfb Average Glucose study (ADAG), Diabetes Care, Vol.31,#8, Dec. 2007 UA ClnCatch+Micro w/rflx Cul t Reviewed date:09/20/2024 12:45:39 PM Interpretation: Performing Lab:[address] [phone] Notes/Report: Urine, Clean Catch Color Urine Yellow Appearance Urine Clear PH 6.0 5.0-9.0 Glucose Urine UA Negative Negative mg/dL Urine Blood Negative Negative Specific [place] - Urine 1.015 1.005-1.025 Urine Protein Negative [...] Date Provider Diagnosis Delmar Sandoval MD [address] [place], [place] [phone] 09/20/2024 Delmar Sandoval Essential hypertensi on I10 [...] Treatment Next Appt Details Provider Name:Delmar freedman, 07/10/2025 10:00:00 AM, [address] [place] [address], [address], [phone], Provider Name:Delmar freedman, 09/22/2025 07:15:00 AM, [address] [place] [address], [address], [phone], Provider Name:Delmar isabelr, 09/29/2025 08:30:00 AM, [address] [place] [address], [address], [phone], Progress Notes * Rivas VENTURA BDOB:1950 (75 yo M)Acc No.[id number]:09/20/2024 Progress Note Patient: Sathya AMBER Rivas B Provider: Daron Sandoval MD :1950 A ge:74 Y S ex:Male Date:09/20/2024 Address:[address] [place] [phone] Subjective: * Chief Complaints: * 1 . [...] - 09/20/2024 07:15 AM) L AB: Comprehensive [place]. Panel Fast (Collection Date & Time - [...] - 09/20/2024 07:15 AM) L AB: Comprehensive [place]. Panel Fast (Collection Date & Time - [...] - 09/20/2024 07:15 AM) L AB: Comprehensive [place]. Panel Fast (Collection Date & Time - [...] - 09/20/2024 07:15 AM) L AB: Comprehensive [place]. Panel Fast (Collection Date & Time - [...] 0 09/20/2024 Generated for Gretel lazaro/Néstor/González on: 06/06/2024 06:57 PM EST
--- OUTSIDE RECORDS SUMMARY | 2024-09-27 04:30 | XMS_ITS ---
Author Organization Delmar Sandoval MD Address [address] [place] [phone] Care Team Providers Care Chief Sustainability Officer Name Role Phone Delmar Sandoval Primary Care [...] Lisinopril 10 MG TAKE 1 TABLET BY [facility] EVERY DAY for 90 Active Ibuprofen 800 MG TAKE 1 TABLET BY [facility] THREE TIMES DAILY for 90 Active Ciclopirox 0.77 % 1 application Externally Twice a day for 7 days 07/14/2024 Active Allopurinol 300 MG TAKE 1 TABLET BY [facility] EVERY DAY for 90 Active Fluticasone Propionate 50 MCG/ACT SHAKE LIQUID AND USE 1 SPRAY IN EACH NOSTRIL TWICE DAILY for 30 Active Januvia 50 MG TAKE 1 TABLET BY [facility] EVERY DAY Active Nystatin-Triamcinolone 631323-3.1 UNIT/GM 1 application Externally Twice a day 03/26/2021 Active Rosuvastatin Calcium 10 MG 1 tablet Orally Once a day 10/27/2023 Active Tamsulosin HCl 0.4 MG TAKE 1 CAPSULE BY MOUTH EVERY DAY Active OneTouch Delica Plus [id number] - USE TO TEST BLOOD SUGAR TWICE DAILY for 50 Active Nystatin 773866 UNIT/GM 1 application Externally Twice a day for 30 days 09/11/2022 Active Omeprazole 20 MG TAKE 1 CAPSULE BY [facility] EVERY DAY 30 MINUTES BEFORE [...] kg/m2 09/27/2024 weight is down 3 pounds [facility] e 07-29-24 Encounters Encounter Location Date Provider Diagnosis Delmar Sandoval MD [address] [place] [address] [address] [place], [place] [phone] 09/27/2024 Delmar Sandoval Essential hypertensi on I10 [...] 09/22/2023 Ciclopirox 0.77 % 1 application Paint Crew Supervisor ally Twice a day for 30 days [...] 6 Months, Reason: Provider Name:Delmar Rene ier, 07/10/2025 10:00:00 AM, [address] [place] [address], [address], [phone], Provider Name:Delmar Rene ier, 09/22/2025 07:15:00 AM, [address] [place] [address], [address], [phone], Provider Name:Delmar Rene ier, 09/29/2025 08:30:00 AM, [address] [place] [address], [address], [phone], Progress Notes * Rivas VENTURA BDOB:1950 (74 yo M)Acc No.[id number]:09/27/2024 Patient: Sathya CLARK Rivas Jose L Provider: Daron Sandoval MD :1950 A ge:74 Y S ex:Male Date:09/27/2024 Address:[address] [place] [id number] Subjective: * Chief Complaints: * R eview [...] BLOOD SUGAR TWICE DAILY OneTouch Delica Plus [id number] - Miscellaneous USE TO TEST BLOOD SUGAR TWICE DAILY Nystatin 624818 UNIT/GM Cream 1 application Externally Twice a [...] SPRAY IN EACH NOSTRIL TWICE DAILY Nystatin-Triamcinolone 173178-3.1 UNIT/GM Cream 1 application Externally Twice a [...] SUGAR TWICE DAILY Taking OneTouch Delica Plus [id number] - Miscellaneous USE TO TEST BLOOD SUGAR TWICE DAILY Taking Nystatin 840736 UNIT/GM Cream 1 application Externally Twice a [...] IN EACH NOSTRIL TWICE DAILY Taking Nystatin-Triamcinolone 369524-9.1 UNIT/GM Cream 1 application Externally Twice a [...] Average Glucose 126 - mg/dL L ab:Comprehensive [place]. Panel Fast (Order Date - 09/20/2024) (Collection [...] mg/dL Urine Blood Negative Negative - Specific [place] - Urine 1.015 1.005-1.025 - Urine Protein [...] MD Date: 0 09/27/2024 Generated for Gretel lazaro/Néstor/Reynaldosmitting on: 1 06/06/2024 06:57 PM EST History and Physical Notes * [...]
--- OUTSIDE RECORDS SUMMARY | 2024-11-10 07:18 | XMS_ITS ---
Author Organization Delmar Sandoval MD Address [address] [place] [phone] Care Team Providers Care Career Law Clerk Name Role Phone Lori Delmar Primary Care Provider [phone] Medications Medication SIG (Take, Route, Frequency, Duration) Notes Start Date End Date Status Triamcinolone Acetonide 0.1 % APPLY TOPICALLY TO THE AFFECTED AREA TWICE DAILY FOR 14 DAYS Externally twice a day for 30 days Active Nystatin 919537 UNIT/GM 1 application Ex ternally Twice a day for 30 days 09/11/2022 Active Encounters Encounter Location Date Provider Diagnosis Delmar Sandoval MD [address] [place] [phone] 11/10/2024 Delmar Sandoval Fungal infection B49 ; [...] twice a day for 30 days Nystatin 697417 UNIT/GM 1 application Ex ternally Twice a day for 30 days 09/11/2022 Next Appt Details Provider Name:Delmar Pearl Edgard ier, 07/10/2025 10:00:00 AM, [address] [place] [address], [address], [phone], Provider Name:Delmar Dae Edgard ier, 09/22/2025 07:15:00 AM, [address] [place] [address], [address], [phone], Provider Name:Delmar Pearl Edgard ier, 09/29/2025 08:30:00 AM, [address] [place] [address], [phone], Progress Notes * Rivas VENTURA BDOB:1950 (74 yo M)Acc No.[id number]:11/10/2024 Patient: Rivas FRANCOIS :1950 A ge:74 Y S ex:Male Address:[address] [place] [phone] * Refills Refill Triamcinolone Acetonide Cream, 0.1 %, Externally, 30 Gram, APPLY TOPICALLY TO THE AFFECTED AREA TWICE DAILY FOR 14 DAYS, twice a day, 30 days, Refills=3 Refill Nystatin Cream, 570642 UNIT/GM, Externally, 30 Gram, 1 application, Twice a day, 30 days, Refills=3 * true * Date: Generated for Gretel lazaro/Néstor/González on: 06/06/2024 06:58 PM EST
--- OUTSIDE RECORDS SUMMARY | 2024-11-17 05:29 | XMS_ITS ---
Author Organization Delmar Sandoval MD Address 10 [facility] [address] [place] [phone] Care Team Providers Care Endoscopy Registered Nurse Name Role Phone Lori Delmar Primary Care Provider REASON FOR VISIT med issue Encounters Encounter Location Date Provider Diagnosis Delmar Sandoval MD [address] [place] [address] [place] [phone] 11/17/2024 Delmar Sandoval Plan Of Treatment Next Appt Details Provider Name:Delmar freedman, 07/10/2025 10:00:00 AM, [address] [place] [address], [address], [phone], Provider Name:Delmar freedman, 09/22/2025 07:15:00 AM, [address] [place] [address], [address], [phone], Provider Name:Delmar freedman, 09/29/2025 08:30:00 AM, [address] [place] [address], [address], [place], [place], [phone], Progress Notes * Rivas VENTURA BDOB:1950 (74 yo M)Acc No.[id number]:11/17/2024 Patient: Rivas FRANCOIS :1950 A ge:74 Y S ex:Male Address:[address] [place] [address], [place] [phone] * true * Date: Generated for Gretel lazaro/Néstor/eTransmitting on: 06/06/2024 06:56 PM EST
--- OUTSIDE RECORDS SUMMARY | 2025-01-02 03:39 | XMS_ITS ---
Author Organization Delmar Sandoval MD Address [address] [facility] [address] [place] [phone] Care Team Providers Care Senior Research Fellow Name Role Phone Lori Delmar Primary Care Provider REASON FOR VISIT sinus infection Medications Medication SIG (Take, Route, Frequency, Duration) Notes Start Date End Date Status Amoxicillin-Pot Clavulanate 875-125 MG 1 tablet Orally every 12 hrs for 10 days 01/02/2025 Active Encounters Encounter Location Date Provider Diagnosis Delmar Sandoval MD [address] [facility] [address] [place] [phone] 01/02/2025 Delmar Sandoval Plan Of Treatment Medication Medication Name Sig Start Date Stop Date Notes Amoxicillin-Pot Clavulanate 875-125 MG 1 tablet Orally every 12 hrs for 10 days 01/02/2025 Next Appt Details Provider Name:Delmar freedman, 07/10/2025 10:00:00 AM, [address] [facility], [address] [place] [address], [phone], Provider Name:Delmar Rene ier, 09/22/2025 07:15:00 AM, [address] [facility] [address], [address], [place], [phone], Provider Name:Delmar Rene ier, 09/29/2025 08:30:00 AM, [address] [facility], [address], [place], [phone], Progress Notes * Rivas VENTURA BDOB:1950 (74 yo M)Acc No.[id number]:01/02/2025 Patient: Sathya Rivas CLARK :1950 A ge:74 Y S ex:Male Address:[address] [place] [phone] * Refills Start Amoxicillin-Pot Clavulanate Tablet, 875-125 MG, Orally, 20 Tablet, 1 tablet, every 12 hrs, 10 days * true * Date: Generated for Gretel lazaro/Néstor/Reynaldosmitting on: 06/06/2024 06:59 PM EST
--- OUTSIDE RECORDS SUMMARY | 2025-03-09 02:30 | XMS_ITS ---
Author Organization Delmar Sandoval MD Address [address] [place] [phone] Care Team Providers Care Beading Sawyer Name Role Phone Delmar Sandoval Primary Care Provider REASON FOR VISIT HD FLU Immunizations Vaccine Route Administration Date Status Comme nts Influenza High Dose IM Intramuscular 03/09/2025 Administer ed Encounters Encounter Location Date Provider Diagnosis Delmar Sandoval MD 10 [facility] [address] [place] [phone] 03/09/2025 Delmar Sandoval Encounter for administration of vaccine Z23 Assessments Encounter Date Diagnosis (ICD Code) Assessment Notes Treatment Notes Treatment Clinical Notes Section Notes 03/09/2025 Encounter for administration of vaccine (ICD-10 - Z23) Plan Of Treatment Next Appt Details Provider Name:Delmar freedman, 07/10/2025 10:00:00 AM, [address] [facility], Suite [facility], [place], [place], [phone], Provider Name:Delmar freedman, 09/22/2025 07:15:00 AM, [address], [address], [place], [place], [phone], Provider Name:Delmar Rene ier, 09/29/2025 08:30:00 AM, [address], [address], [place], [phone], Progress Notes * Rivas VENTURA BDOB:1950 (75 yo M)Acc No.[id number]:03/09/2025 Progress Note Patient: Rivas FRANCOIS Provider: Daron Sandoval MD :1950 A ge:74 Y S ex:Male Date:03/09/2025 Address:[address] [place], [place] [phone] Subjective: * Chief Complaints: * 1 . [...] Daron Sandoval MD Date: Generated for Gretel lazaro/Néstor/Kirstinitting on: 06/06/2024 06:56 PM EST
--- OUTSIDE RECORDS SUMMARY | 2025-03-10 05:00 | XMS_ITS ---
Author Organization Delmar Sandoval MD Address [address] [place] [phone] Care Team Providers Care Product Assurance Engineer Name Role Phone Delmar Sandoval Primary Care Provider Results Component Value Reference Range Notes XR lumbar spine 2-3V Reviewed date:03/13/2025 12:36:34 PM Interpretation: Performing Lab: Notes/Report: [address] [address] XRay Report Signed Patient: LorenzoRivas Jose L MR#: [id number] : 1950 Acct:[id number] Age/Sex: 74 / M ADM Date: 03/11/25 Loc: HO.XRAY Attending Dr: Delmar Sandoval MD Ordering Physician: Delmar Sandoval MD Date of Service: 03/11/25 Procedure(s): XR lumbar spine 2-3V Accession Number(s): [id number] cc: Delmar Sandoval MD Reason for Exam: BP EXAMINATION: XR LUMBOSACRAL SPINE CLINICAL INFORMATION: BP COMPARISON: Lumbar spine 06/22/2020 TECHNIQUE: Three views of the lumbosacral spine. FINDINGS: There is maintained lumbar lordosis with mild dextroscoliosis upper lumbar spine. There is loss of L4-5 and L5-S1 disc heights with moderate ventral spondylosis throughout lumbar spine. No visible acute fracture, dislocation or subluxation seen. Mild loss of joint space with mild sclerosis and SI joints. The hip joints partially visualized are relatively unremarkable. The soft tissues are normal. XR/XR lumbar spine 2-3V IMPRESSION: Degenerative disc changes L4-5 L5-S1. Ventral spondylosis throughout lumbar spine with mild dextroscoliosis. No major change from previous exam 06/22/2020 Electronically signed by: Jean Paul Torres MD 03/13/2025 07:04 AM EDT RP Dictated By: Jean Paul Torres MD Signed By: <Electronically signed by Jean Paul Torres MD in OV> 03/13/25 0704 DD/ 0740 TD/TT: 03/11/25 0749 Learning Disabled Teacher: [place] [address] XRay Report Signed Patient: Rivas Ventura MR#: [id number] : 1950 Acct:[id number] Age/Sex: 74 / M ADM Date: 03/11/25 Loc: HOTIM Attending Dr: Delmar Sandoval MD Ordering Physician: Delmar Sandoval MD Date of Service: 03/11/25 Procedure(s): XR lum bar spine 2-3V Accession Number(s): [id number] cc: Delmar Sandoval MD Reason for Exam: BP EXAMINATION: XR LUMBOSACRAL SPINE CLINICAL INFORMATION: BP COMPARISON: Lumbar spine 06/22/2020 TECHNIQUE: Three views of the l umbosacral spine. FINDINGS: There is maintained lumbar lordosis with mild dextroscoliosis upper lumbar spine. There is loss of L4-5 and L5-S1 disc heights with moderate ventral spo ndylosis throughout lumbar spine. No visible acute fracture, dislocatio n or subluxation seen. Mild loss of joint space with mild sclerosis and SI joints. The hip joints partially visualized are relatively unrem arkable. The soft tissues are normal. X R/XR lumbar spine 2-3V IMPRESSION: Degenerative disc ch anges L4-5 L5-S1. Ventral spondylosis throughout lumbar spine with mi ld dextroscoliosis. No major change from previous exam 06/22/2020 Electronically itzel d by: Jean Paul Torres MD 03/13/2025 07:04 AM EDT Dictated By: Jean Paul Torres MD Signed By: <Electron ically signed by Jean Paul Torres MD in OV> 03/13/25 0704 DD/ 0740 TD/TT: 03/11/25 0749 Learning Disabled Teacher: [facility] Encounters Encounter Location Date Provider Diagnosis Delmar Sandoval MD [address] [place] [phone] 03/10/2025 Delmar Sandoval Back pain M54.9 Assessments Encounter Date Diagnosis (ICD Code) Assessment Notes Treatment Notes Treatment Clinical Notes Section Notes 03/10/2025 Back pain (ICD-10 - M54.9) Plan Of Treatment Next Appt Details Provider Name:Delmar freedman, 07/10/2025 10:00:00 AM, [address] [place] [address], [address], [phone], Provider Name:Delmar freedman, 09/22/2025 07:15:00 AM, [address] [place] [address], [address], [phone], Provider Name:Delmar freedman, 09/29/2025 08:30:00 AM, [address] [place] [address], [phone], Progress Notes * Rivas VENTURA BDOB:1950 (74 yo M)Acc No.[id number]:03/10/2025 Patient: Rivas FRANCOIS :1950 A ge:74 Y S ex:Male Address:[address] [place] [address] [place] [address] Subjective: * Chief Complaints: * * Medical History: * Surgical History: * Hospitalization/Major Diagno stic Procedure: * Medications: Objective: * Vitals: * Physical Examination: Assessment: * Assessment: 1. B ack pain - M54.9 (Primary) Plan: * Treatment: * Procedure Codes: * true * Date: Generated for Gretel lazaro/Néstor/Reynaldosmitting on: 06/06/2024 06:58 PM EST
--- OUTSIDE RECORDS SUMMARY | 2025-03-30 02:45 | XMS_ITS ---
Author Organization Delmar Sandoval MD Address [address] [place] [phone] Care Team Providers Care Crude Tester Name Role Phone Lori Delmar Primary Care Provider Results Component Value Reference Range Notes Complete Blood Count Auto Di ff Reviewed date:03/30/2025 12:48:04 PM Interpretation: Performing Lab:[facility], [address] [place] [phone] Notes/Report: White Blood Count 6.1 4.8-10.8 X10*3/uL Red Blood Count 6.08 4.60-5.80 X10*6/uL Hemoglobin 17.6 14.0-18.0 g/dl Hematocrit 52.7 42.0-52.0 % Mean Corpuscular Volume 86.7 80.0-98.0 fL Mean Corpuscular Hemoglobin 28.9 27.0-33.0 pg Mean Corpuscular HGB Conc 33.4 31.0-36.0 g/dl Red Cell Distribution Width 13.2 11.0-16.0 % Platelet Count 164 160-400 X10*3/uL Mean Platelet Volume 10.2 9.4-12.4 fL Neutrophils Percent Auto 73.7 45-73 % Imm Gran Pct Auto 0.3 0.0-0.4 % Lymphocytes Percent Auto 14.6 20-40 % Monocytes Percent Auto 9.4 2-11 % Eosinophils Percent Auto 1.3 0-4 % Basophils Percent Auto 0.7 0-2 % NRBC Pct Auto 0.0 0.0-0.2 /100WBC Neutrophils Absolute Auto 4.5 2.0-8.3 x10*3/u L Imm Gran Abs Auto 0.02 0.00-0.03 X10*3/uL Lymphocytes Absolute Auto 0.9 1.2-4.9 X10*3/u L Monocytes Absolute Auto 0.6 0.1-1.2 X10*3/uL Eosinophils Absolute Auto 0.1 0.0-0.4 X10*3/u L Basophils Absolute Auto 0.0 0.0-0.2 X10*3/uL NRBC Abs Auto 0.000 0.0-0.012 X10*3/uL Liver Panel Reviewed date:03/30/2025 02:58:12 PM Interpretation: Performing Lab:[facility], [address] [place] [phone] Notes/Report: Bilirubin Total 1.0 0.0-1.0 mg/dL Bilirubin Direct 0.4 0.0-0.5 mg/dL Aspartate Amino Transferase 27 5-37 U/L Alanine Aminotransferase 24 0-40 U/L Total Protein 7.3 6.5-8.0 g/dL Albumin Level 4.6 3.5-5.0 g/dL Alkaline Phosphatase 81 39-117 U/L Glucose Fasting Reviewed date:03/30/2025 04:47:32 PM Interpretation: Performing Lab:[facility], [address] [place] [phone] Notes/Report: Glucose Fasting 132 60-99 mg/dL A fasting glucose of 126 mg/dl or greater on more than one occasion is considered diagnostic of diabetes. Lipid Panel with Reflex Reviewed date:03/30/2025 02:58:36 PM Interpretation: Performing Lab:[facility], [address] [place] [phone] Notes/Report: Triglycerides 116 <150 mg/dL Desirable Triglyceride: less than 150 mg/dL Borderline High Triglyceride 150-199 mg/dL High Triglyceride: 200-499 mg/dL Very High Triglyceride: greater than or equal to 5OO mg/dL Cholesterol 118 <200 mg/dL Desirable Cholesterol: less than 200 mg/dL Borderline High Cholesterol: 200-239 mg/dL High Cholesterol: greater than 239 mg/dL LDL Cholesterol Calculated 53 <100 mg/dL Desirable LDL: less than 100 mg/dL Near Optimal/Above Optimal LDL: 110-129 mg/dL Borderline High LDL: 130-159 mg/dL High LDL: 160-189 mg/dL Very High LDL: greater than or equal to 190 mg/dL HDL Cholesterol 42 >40 mg/dL Desirable HDL: greater than 40 mg/dL Note: This HDL assay may give artificially low results in patients with liver disease. Hemoglobin A1c Reviewed date:03/30/2025 12:43:58 PM Interpretation: Performing Lab:[facility], [address] [place] [phone] Notes/Report: Hemoglobin A1c % 6.2 <6.0 % Hemoglobin A1C Reference Range Adults: 4.8 - 6.0 % Non diabetic: < 6.0 % Goal: < 7.0 % Additional Action Suggested: > 8.0 % Note: Hemoglobin A1c results are invalid for patients with abnormal amounts of HbF. Blood transfusions may impact the HbA1c concentration in the patient sample. Estimated Average Glucose 131 eAG = Estimated average glucose which is %A1C expressed as average glucose, using the formula of the B3L-Tailxws Average Glucose study (ADAG), Diabetes Care, Vol.31,#8, Dec. 2007 REASON FOR VISIT fasting lipids CBC Encounters Encounter Location Date Provider Diagnosis Delmar Sandoval MD [address] [place] [address] Drive [address] [place], [place] [phone] 03/30/2025 Delmar Sandoval Pure hypercholestero lemia E78.00 ; Thrombocytopenia D69.6 and Controlled type 2 diabetes mellitus without complication, without long-term current use of insulin E11.9 Assessments Encounter Date Diagnosis (ICD Code) Assessment Notes Treatment Notes Treatment Clinical Notes Section Notes 03/30/2025 Pure hypercholesterolemia (ICD-10 - E78.00) 03/30/2025 Thrombocytopenia (IC D-10 - D69.6) 03/30/2025 Controlled type 2 diabetes mellitus without complication, without long-term current use of insulin (ICD-10 - E11.9) Plan Of Treatment Next Appt Details Provider Name:Delmar Rene ier, 07/10/2025 10:00:00 AM, [address] [place] [address], [address] [place] [address], [phone], Provider Name:Delmar Rene ier, 09/22/2025 07:15:00 AM, [address] [place] [address], Suite [facility], [place], [place], [phone], Provider Name:Delmar Rene ier, 09/29/2025 08:30:00 AM, [address] [place] [address], [place] [address], [place], [place], [phone], Progress Notes * Rivas VENTURA BDOB:1950 (75 yo M)Acc No.[id number]:03/30/2025 Progress Note Patient: Rivas FRANCOIS Provider: Daron Sandoval MD :1950 A ge:75 Y S ex:Male Date:03/30/2025 Address:[address] [place], [place] [phone] Subjective: * Chief Complaints: * 1 . fasting lipids CBC. * Medical History: Objective: * Vitals: Assessment: * Assessment: 1. P ure hypercholesterolemia - E78.00 (Primary) 2 . T hrombocytopenia - D69.6 3 . C ontrolled type 2 diabetes mellitus without complication, without long-term current use of insulin - E11.9 Plan: * Treatment: 2. T hrombocytopenia L AB: Complete Blood Count Auto Diff (Collection Date & Time - 03/30/2025 07:45 AM) L AB: Liver Panel (Collection Date & Time - 03/30/2025 07:45 AM) L AB: Lipid Panel with Reflex (Collection Date & Time - 03/30/2025 07:45 AM) 3. C ontrolled type 2 diabetes mellitus without complication, without long-term current use of insulin L AB: Glucose Fasting (Collection Date & Time - 03/30/2025 07:45 AM) L AB: Hemoglobin A1c (Collection Date & Time - 03/30/2025 07:45 AM) * Procedure Codes: 3 6415 VENIPUNCT, ROUTINE* * * The named appointment provid er may or may not be the originator of this progress note, and it is not deemed complete until electronically signed by the appointment provider. Sign off status: Pending * Provider: Daron Sandoval MD Date: 05/30/2024 Generated for Gretel lazaro/Néstor/Kirstinitting on: 06/06/2024 06:58 PM EST
--- OUTSIDE RECORDS SUMMARY | 2025-04-06 05:30 | XMS_ITS ---
Author Organization Delmar Sandoval MD Address [address] [place] [phone] Care Team Providers [employer] Name Role Phone Lori Delmar Primary Care Provider Allergies Allergen (clinical drug ingredient) Drug/Non Drug Allergy documented on EMR Reaction Allergy Type Onset Date Status meperidine demerol (uncoded) tongue swelling Allergy Active Results Component Value Reference Range Notes Urinalysis and Microscopic Reviewed date:04/06/2025 04:53:42 PM Interpretation: Performing Lab:[facility], [address] [place] [phone] Notes/Report: Color Urine Yellow Appearance Urine Clear PH 5.5 5.0-9.0 Glucose Urine UA 250 Negative mg/dL Urine Blood Negative Negative Specific [place] - Urine 1.020 1.005-1.025 Urine Protein Negative Neg-Trace mg/dL Urine Ketones Trace Negative mg/dL Nitrite Urine Negative Negative Leukocyte Esterase Urine Negative Negative RBC Urine 0-2 0-2 /HPF WBC Urine 0-5 0-5 /HPF Squamous Epithelial Cell Urine 0-2 0-2 /HPF Bacteria Urine None Seen None Seen Hyaline Casts Urine 0-2 0-2 /LPF Microalbumin, Random Reviewed date:04/06/2025 04:47:57 PM Interpretation: Performing Lab:[facility], [address] [place] [id number] Notes/Report: Creatinine Urine 121.49 Microalbumin Urine 8.0 Microalbum/Creatinine Ratio Ur 6.5 <30 ug/mg cr Albumin/Creatinine Ratio Reference Ranges: Normal: < 30 ug/mg creatinine Microalbuminuria: 30 - 300 ug/mg creatinine Clinical Albuminuria: > 300 ug/mg creatinine REASON FOR VISIT 6 month Medications Medication SIG (Take, Route, Frequency, Duration) Notes Start Date End Date Status Allopurinol 300 MG TAKE 1 TABLET BY HADLEY TH EVERY DAY for 90 Active Triamcinolone Acetonide 0.1 % APPLY TOPICALLY TO THE AFFECTED AREA TWICE DAILY FOR 14 DAYS Externally twice a day for 30 days Active Rosuvastatin Calcium 10 MG 1 tablet Orally Once a day 10/27/2023 Active Tamsulosin HCl 0.4 MG TAKE 1 CAPSULE BY MOUTH EVERY DAY for 90 Active Omeprazole 20 MG TAKE 1 CAPSULE BY [facility] EVERY DAY 30 MINUTES BEFORE BREAKFAST Active Ciclopirox 0.77 % 1 application Externally Twice a day for 7 days 07/14/2024 Active Ibuprofen 800 MG TAKE 1 TABLET BY HADLEY TH THREE TIMES DAILY for 90 Active Ciclopirox 0.77 % 1 application Externally Twice a day for 30 days 09/27/2024 Active Lisinopril 10 MG TAKE 1 TABLET BY HADLEY TH EVERY DAY for 90 Active Ciclopirox 0.77% as directed applied topically twice a day for 30 days 09/22/2023 Active Januvia 50 MG TAKE 1 TABLET BY HADLEY TH EVERY DAY Active OneTouch Ultra - USE TO TEST BLOOD [place] TWICE DAILY for 50 Active OneTouch Delica Plus [id number] - USE TO TEST BLOOD SUGAR TWICE DAILY for 50 Active Fluticasone Propionate 50 MCG/ACT SHAKE LIQUID AND USE 1 SPRAY IN EACH NOSTRIL TWICE DAILY for 30 Active Triamcinolone Acetonide 0.025 % 1 application Externally Once a day for 30 days 04/06/2025 Active metFORMIN HCl 500 MG 1 tablet with a susana l Orally twice a day for 30 day(s) 04/15/2022 Not-Taking Indomethacin 50 MG 1 capsule with food Orally Three times a day for 14 days 12/11/2011 Not-Taking Valtrex 1 GM 2 tablet Orally twic e a day for 1 days 03/26/2021 Not-Taking Problems Problem Type SNOMED Code ICD Code Onset Dates Problem Status W/U Status Risk Notes Problem Thyroid nodule (221679182) Thyroid nodule (E04.1) Active confirmed Vital Signs Blood pressure systolic 150 mm Hg 04/06/20 25 Blood pressure diastolic 84 mm Hg 025 Height 72 in 04/06/2025 Weight 236 lbs 04/06/2025 BMI 32 kg/m2 04/06/2025 Encounters Encounter Location Date Provider Diagnosis Delmar Sandoval MD [address] [place] [address] [place] [phone] 04/06/2025 Delmar Sandoval Controlled type 2 diabetes mellitus without complication, without long-term current use of insulin E11.9 ; Thyroid nodule E04.1 and Cheilosis K13.0 Assessments Encounter Date Diagnosis (ICD Code) Assessment Notes Treatment Notes Treatment Clinical Notes Section Notes 04/06/2025 Controlled type 2 diabetes mellitus without complication, without long-term current use of insulin (ICD-10 - E11.9) 04/06/2025 Thyroid nodule (ICD-10 - E04.1) biopsy recommended. will speak with dr lang and see if there is someone to do it at [facility] 04/06/2025 Cheilosis (ICD-10 - K13.0) Plan Of Treatment Medication Medication Name Sig Start Date Stop Date Notes Januvia 50 MG TAKE 1 TABLET BY HADLEY EVERY DAY Triamcinolone Acetonide 0.02 5 % 1 application Externally Once a day for 30 days 04/06/2025 Treatment Notes Assessment Notes Thyroid nodule biopsy recommended. will speak with dr lang and see if there is someone to do it at [facility] Next Appt Details Follow Up: 3 Months, Reason: Provider Name:Delmar freedman, 07/10/2025 10:00:00 AM, [address] [place] [address], Suite [facility], [place], [place], [phone], Provider Name:Delmar freedman, 09/22/2025 07:15:00 AM, [address], [address], [place], [place], [phone], Provider Name:Delmar Rene ier, 09/29/2025 08:30:00 AM, [address], [address], [place], [phone], Progress Notes * Rivas VENTURA BDOB:1950 (75 yo M)Acc No.[id number]:04/06/2025 Progress Notes Patient: Rivas FRANCOIS Provider: Daron Sandoval MD :1950 A ge:75 Y S ex:Male Date:04/06/2025 Address:[address] [place] [address], [facility] [place] [phone] Subjective: * Chief Complaints: * 1 . 6 month. * HPI: S ymptom(s): patient is a 75 yo male here for 6 month follow up visit// hurt back 3 months ago. going to group tester today. feet are painful had thyroid nodule on us that recommended. * ROS: G eneral/Constitutional: Denies C hills. D enies F atigue. D enies F ever. D enies H eadache. E NT: Denies S ore throat. E ndocrine: Denies D ifficulty sleeping. D enies D izziness.?Denies E xcessive sweating. D enies E xcessive thirst. A dmits F requent urination. R espiratory: Denies C ough. D enies S hortness of breath at rest. G astrointestinal: Denies D iarrhea. D enies N ausea. S kin: Patient complaining of h as itching in upper chest. thinks it is when he increased his statin. * Medical History: C hronic back pain, Hypertension, colonoscopy 2006 due 2011; colonoscopy done 09/28/2012 - due in 5 years; Colonoscopy done 01/29/[address] Olivera - repeat 5 09/18/23 colonoscopy repeat 3y, Biopsy thyroid 2014, Hx pulmonary nodule. Had CT Chest in 2017. Negative. No f/u indicated., Prediabetes, Prediabetes. * Medications: T aking OneTouch Ultra - Strip USE TO TEST BLOOD SUGAR TWICE DAILY , Taking OneTouch Delica Plus [id number] - Miscellaneous USE TO TEST BLOOD SUGAR TWICE DAILY , Taking Fluticasone Propionate 50 MCG/ACT Suspension SHAKE LIQUID AND USE 1 SPRAY IN EACH NOSTRIL TWICE DAILY , Taking Ciclopirox 0.77 % Gel 1 application Externally Twice a day , Taking Ibuprofen 800 MG Tablet TAKE 1 TABLET BY MOUTH THREE TIMES DAILY , Taking Lisinopril 10 MG Tablet TAKE 1 TABLET BY MOUTH EVERY DAY , Taking Ciclopirox 0.77% cream as directed applied topically twice a day , Taking Ciclopirox 0.77 % Gel 1 application Externally Twice a day , Taking Omeprazole 20 MG Capsule Delayed Release TAKE 1 CAPSULE BY MOUTH EVERY DAY 30 MINUTES BEFORE BREAKFAST , Taking Rosuvastatin Calcium 10 MG Tablet 1 tablet Orally Once a day , Taking Allopurinol 300 MG Tablet TAKE 1 TABLET BY MOUTH EVERY DAY , Taking Triamcinolone Acetonide 0.1 % Cream APPLY TOPICALLY TO THE AFFECTED AREA TWICE DAILY FOR 14 DAYS Externally twice a day , Taking Tamsulosin HCl 0.4 MG Capsule TAKE 1 CAPSULE BY MOUTH EVERY DAY , Taking Januvia 50 MG Tablet TAKE 1 TABLET BY MOUTH EVERY DAY , Not-Taking/PRN metFORMIN HCl 500 MG Tablet 1 tablet with a meal Orally twice a day , Not-Taking/PRN Indomethacin 50 MG Capsule 1 capsule with food Orally Three times a day , Not-Taking/PRN Valtrex 1 GM Tablet 2 tablet Orally twice a day , Medication List reviewed and reconciled with the patient * Allergies: D emerol: Tongue Swelling. Objective: * Vitals: H t: 72, Wt: 236, BMI:32, BP:150/84, Repeat BP:140/86, Wt-k.05. * P ast Orders: L ab:Lipid Panel with Reflex (Order Date - 03/30/2025) (Collection Date & Time - 03/30/2025 07:45 AM) Value Reference Range Triglycerides 116 <150 - mg/dL Cholesterol 118 <200 - mg/dL LDL Cholesterol Calculated 53 <100 - mg/dL HDL Cholesterol 42 >40 - mg/dL L ab:Hemoglobin A1c (Order Date - 03/30/2025) (Collection Date & Time - 03/30/2025 07:45 AM) Value Reference Range Hemoglobin A1c % 6.2 H <6.0 - % Estimated Average Glucose 131 - mg/dL L ab:Complete Blood Count Auto Diff (Order Date - 03/30/2025) (Collection Date & Time - 03/30/2025 07:45 AM) Value Reference Range White Blood Count 6.1 4.8-10.8 - X10*3/uL Red Blood Count 6.08 H 4.60-5.80 - X10*6/uL Hemoglobin 17.6 14.0-18.0 - g/dl Hematocrit 52.7 H 42.0-52.0 - % Mean Corpuscular Volume 86.7 80.0-98.0 - fL Mean Corpuscular Hemoglobin 28.9 27.0-33.0 - pg Mean Corpuscular HGB Conc 33.4 31.0-36.0 - g/ dl Red Cell Distribution Width 13.2 11.0-16.0 - % Platelet Count 164 160-400 - X10*3/uL Mean Platelet Volume 10.2 9.4-12.4 - fL Neutrophils Percent Auto 73.7 H 45-73 - % Imm Gran Pct Auto 0.3 0.0-0.4 - % Lymphocytes Percent Auto 14.6 L 20-40 - % Monocytes Percent Auto 9.4 2-11 - % Eosinophils Percent Auto 1.3 0-4 - % Basophils Percent Auto 0.7 0-2 - % NRBC Pct Auto 0.0 0.0-0.2 - /100WBC Neutrophils Absolute Auto 4.5 2.0-8.3 - x10* 3/uL Imm Gran Abs Auto 0.02 0.00-0.03 - X10*3/uL Lymphocytes Absolute Auto 0.9 L 1.2-4.9 - X10* 3/uL Monocytes Absolute Auto 0.6 0.1-1.2 - X10*3/ uL Eosinophils Absolute Auto 0.1 0.0-0.4 - X10* 3/uL Basophils Absolute Auto 0.0 0.0-0.2 - X10*3/ uL NRBC Abs Auto 0.000 0.0-0.012 - X10*3/uL L ab:Liver Panel (Order Date - 03/30/2025) (Collection Date & Time - 03/30/2025 07:45 AM) Value Reference Range Bilirubin Total 1.0 0.0-1.0 - mg/dL Bilirubin Direct 0.4 0.0-0.5 - mg/dL Aspartate Amino Transferase 27 5-37 - U/L Alanine Aminotransferase 24 0-40 - U/L Total Protein 7.3 6.5-8.0 - g/dL Albumin Level 4.6 3.5-5.0 - g/dL Alkaline Phosphatase 81 39-117 - U/L L ab:Glucose Fasting (Order Date - 03/30/2025) (Collection Date & Time - 03/30/2025 07:45 AM) Value Reference Range Glucose Fasting 132 H 60-99 - mg/dL * Examination: G eneral Examination: GENERAL APPEARANCE: a lert, well hydrated, in no distress.? HEAD: n ormocephalic. SKIN: g ood turgor. Assessment: * Assessment: 1. C ontrolled type 2 diabetes mellitus without complication, without long-term current use of insulin - E11.9 (Primary) 2 . T hyroid nodule - E04.1 3 . C heilosis - K13.0 Plan: * Treatment: 2. T hyroid nodule Notes: biopsy recommended. will speak with dr lang and see if there is someone to do it at [facility]? 3. C heilosis Start Triamcinolone Acetonide Cream, 0.025 %, 1 application, Externally, Once a day, 30 days, 15.? * Preventive Medicine: Diabetes Care Plan: P atient Lifestyle Goals N eeds to maintain diet control.?Treatment Goals A 1C< 7. B arriers N o specific barriers, doing well. S elf-Managment Plan W ork on weight loss, with a goal of losing 1 lb per week. E xpected Outcome maintaining stable blood sugar levels within a target range. * Follow Up: 3 Months * * The named appointment provid er may or may not be the originator of this progress note, and it is not deemed complete until electronically signed by the appointment provider. Sign off status: Pending * Provider: Daron Sandoval MD Date: 06/06/2024 Generated for Gretel lazaro/Néstor/eTransmitting on: 06/06/2024 06:58 PM EST History and Physical Notes * HPI (History of Present Illness) Category Sub-Category Detail Notes Category Not es Symptom(s) patient is a 75 yo male here for 6 month follow up visit// hurt back 3 months ago. going to group tester today. feet are painful had thyroid nodule on us that recommended. Examination Category Sub-Category Detail Notes Category Not es General Examination GENERAL APPEARANCE: alert, w ell hydrated, in no distress HEAD: normocephalic SKIN: good turgor
--- OUTSIDE RECORDS SUMMARY | 2025-04-06 10:00 | XMS_ITS ---
a dmits. P ainful nails d enies. O pen Sores d enies. R ashes d enies. N eurologic: Difficulty sleeping d enies. B rain disorder d enies. N umbness d enies. B alance trouble d enies. C onfusion d enies. F ainting/blackouts d enies. T ingling d enies. T remors d enies. * Medical History: * Surgical History: e ye surgery 1957tonsillectomy isc surgery L4-L5 1994colonoscopy iopsy on thigh 09/2023 * Hospitalization/Major Diagno stic Procedure: C [facility] ([place])- Concussion-Er visit- Following with Concussion center 12/10/2018 * Family History: M other: , cancer, heart attack, high blood pressure, diagnosed with Other malignant neoplasm of unspecified site, Unspecified essential hypertension, Unspecified heart disease. F ather: , liver disease. * Social History: T obacco Use: T obacco use other than smoking A re you an other tobacco user? N o Tobacco Control (Standard) T obacco use: N onsmoker A dditional Findings: Tobacco non-user C urrent nonsmoker D rugs/Alcohol: D rugs H ave you used drugs other than those for medical reasons in the past 12 months? N o M iscellaneous: C affeine: yes, frequency:, 1-2 cups per day, decaff tea. Children: yes. Exercise: yes, walking, treadmill, stationary bike. Marital status: . 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 D rug/Alcohol: A KATIE-C (Standard) D id you have a drink containing alcohol in the past year? N o P oints 0 I nterpretation N egative * Medications: T akingOmeprazole 20 MG Capsule Delayed Release 1 capsule [...] Tablet 1 tablet Orally Once a day Night Splint AFO - L1930 1 wear when at rest Custom Orthotics as directed Taking Omeprazole 20 MG Capsule Delayed Release [...] 1 tablet Orally Once a day Taking Night Splint AFO - L1930 1 wear when at rest Taking Custom Orthotics as directed Not-Taking/PRNAzithromycin 250 MG Tablet Oral metFORMIN HCl ER 500 MG Tablet Extended Release 24 Hour 1 tablet with evening meal Orally Once a day Colchicine 0.6 MG Capsule Orally Once a day Simvastatin 20 MG Tablet 1 tablet in the evening Orally Once a day Indomethacin 50 MG Capsule 1 capsule with food Orally three times a day , Notes to Pharmacist: PRNHydrocortisone Prednisone Custom Orthotics as directed Medication List reviewed and reconciled with the patientNot-Taking/PRN Azithromycin 250 MG Tablet Oral Not-Taking/PRN metFORMIN HCl ER 500 MG Tablet Extended Release 24 Hour 1 tablet with evening meal Orally Once a day Not-Taking/PRN Colchicine 0.6 MG Capsule Orally Once a day Not-Taking/PRN Simvastatin 20 MG Tablet 1 tablet in the evening Orally Once a day Not- Taking/PRN Indomethacin 50 MG Capsule 1 capsule with food Orally three times a day , Notes to Pharmacist: PRNNot-Taking/PRN Hydrocortisone Not-Taking/PRN Prednisone Not- Taking/PRN Custom Orthotics as directed Medication List reviewed and reconciled with the patient * Allergies: D emerol: swelling, itchyAmoxicillinFarxiga: rashyes[Allergies Verified] Objective: * Vitals: H t: 6ft 3in, Wt:231, BMI:28.87, Shoe size: 12-12.5W, BP:138/80mm Hg, BS: 128, Ht- cm: 190.5 cm, Wt-k.78 kg. * P ast Orders: L ab:HEMOGLOBIN A1C (GLYCOHEMOGLOBIN) (Order Date - 03/30/2025) (Collection Date & Time - 04/06/2025 08:46 AM) Value Reference Range HEMOGLOBIN A1C % (HH) 6.2 * Examination: O phthalmology Referral: DIABETES EYE EXAM P rocedure Performed: Y sharita D ate of Exam Performed 0 10/17/2024 D iabetic Retinopathy Screening: Y es F indings of Diabetic Eye Exam: n o retinopathy G eneral Examination: GENERAL APPEARANCE: Lucia baker a pleasant, alert, well nourished, well-developed, well hydrated individual, who demonstrates proper attention to hygiene/body habitus, and is in no acute distress, Pt serves as own historian for office visit today. ORIENTED: p erson, place, and time. FOOT EXAM: L ower Extremity Neurological Exam performed:?Yes V isual exam of foot performed: Y sharita D ate 1 06/06/2024 DATE S ensory testing performed: s ensations diminished S ensory and motor testing performed: s ensations diminished P edal pulse taking performed: 2 + Footwear Evaluation F ootwear Evaluation performed: Y es N eurological: SENSORY: N eurological exam reveals intact sensorium, pain sensation normal, vibration sensation intact, pinprick sensation is normal in the lower extremities, Pt denies, anesthesia, burning, paresthesia, tingling, B/L. TINEL'S COMPRESSION: N egative tarsal tunnel, kenyon pedis, and medial calcaneal nerves, Negative, Lateral sural nerve distribution, Right. ? O rthopedic: GAIT ABNORMALITY: a ntalgic. FOOT MORPHOLOGY: P es Cavus structure, Semi-rigid, Decreased Ankle joint dorsiflexion ROM, knee flexed. TAILOR'S BUNION: P rominent 5th MTH/MPJ, B/L. DIGITAL DEFORMITIES: D igital contracture, PIPJ, 2-5 B/L, incompl-reducible with WB, or to push-up test, no over, nor underlapping. TENDONITIS: P ain on palpation, inflammation, and fusiform swelling to, Peroneal Complex, RIGHT. FOOTWEAR EVALUATION: O T were inspected and noted to be worn, but in good condition giving proper support at the present time. X -Rays - IMAGING REPORT: Clinical Indication(s): Evaluate for Fracture, E valuate Biomechanical Deformity. Views: 3 views of Foot, RIGHT, AP, LAT, MO Taken by trained P odiatric Marketing Consultant ( D C). Findings: n ormal bone consistent for patients age and sex, increase in soft tissue contour and density at the symptomatic site, hypertrophy 5th MTH, hypertrophy of 5th MT Base/Styloid process. Foot structure: r eveals cavus foot structure with, posterior break in cyma line, increased calcaneal inclination. Fracture: N egative fractures identified. ? V ascular: DP PULSES (B): 2 /4, B/L. PT PULSES (B): 2 /4, B/L. CAPILLARY FILL TIME: i mmediate, all digits, B/L. TROPHIC CONDITION-TEXTURE/ELASTICITY/TURGOR/HAIR GROWTH (B):?normal, B/L. TEMPERTURE GRADIENT (C): n ormal, warm to cool, proximal to distal, B/L, B/L. PIGMENTATION: n ormal, B/L. EDEMA (C): a bsent, B/L. CLAUDICATION (C): d enies, B/L. REST PAIN: d enies, B/L. D ermatologic: SKIN FINDINGS: S kin exam reveals Keratotic lesion(s) located at, Plantar Heel(s), B/L. N ails: NAILS are: E longated, overgrown, dystrophic, greater than 3mm thick, discolored and friable with crumbly malodorous subungual debris, with pain on palpation, , TA, T1, T2, T3, T4, T5, T6, T7, T8, T9. * Physical Examination: 1901 ASO-AFO: Application of ankle foot orthosis, ankle gauntlet, prefabricated, including fitting and adjustment: T he patients condition requires a foot/ankle stabilizing orthotic to immobilize, and thereby stabilize, their musculoskeletal pathology. This appliance will permit the patient to inspect the extremity for signs of ischemia or any wound development. A ( Large, ) device size was fitted to the patient and inspected for comfort with the patient wearing it. The device was noted to be proper in length and width without rubbing, slippage, or tension. The straps were adjusted to the appropriate length and tightness. The patient was provided with written instructions on maintenance of the device, skin integrity inspection, and warranty information provided by the wide area network engineer, The patient signed an authorization for payment and benefits. The patient also received a copy of the current supplier standards and our office compliance protocol. All patient questions regarding the use of the device were addressed and answered to their verbally confirmed satisfaction. Patient signed confirmation form indicating receipt of this DME device. Assessment: * Assessment: 1. T jose ungmiguelum - B35.1 2 . 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 P ain in right foot - M79.671 4 . P eroneal tendinitis, right leg - M76.71 S pecify :Acute problem, Complicated w/ Multiple Tx Options(4),Dx New problem, Prognosis Uncertain (4) Rx Management 5 . 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 P ain in right foot I maging: X ray : Foot, right 3V (Performed Date - 04/06/2025) S ee Examination above 3. P eroneal tendinitis, right leg Start Medrol amparo Tablet Therapy Pack, 4mg, as directed, orally, as directed, 6 days, 1 amparo, Refills 0; S tart ASO Ankle/Foot Stablizing AFO, As directed, Wear, Daily, as needed, 1, Refills 0.? * Procedures: D ebride Nail 6-10: Nail debridement D ue to the clinical pathology outlined in the exam findings, performance of this nail treatment is medically necessary as its management by an unskilled/untrained nonprofessional would put this patients foot and overall health at risk. Therefore, debridement to affected nail(s), as described in exam ( TA, T1, T2, T3, T4, T5, T6, T7, T8, T9, ), was performed exclusively by the physician of record to reduce/remove overall nail length, girth, thickness, subungual debris, and necrotic tissue, by manual and/or electrical means through the use of a nail nipper and/or dremel- type clay grinder, to a more viable healthy nail [...] to maintain effectiveness in symptomatic relief - [id number]. K eratoma Treatment: Parring or Cutting of Benign Hyperkeratotic Lesion(s) ( -56) 2-4 Lesions - Due to the at risk nature of the patients medical condition as documented in the exam findings, performance of this keratoderma treatment is medically necessary as its management by an unskilled/untrained nonprofessional would put this patients foot and overall health at risk. Therefore, the benign hyperkeratotic lesions, (2) in total, locations as stated and described in the exam ( P lantar Heel(s), B /L), were pared, and/or cut utilizing a sterile 15 blade, tissue nippers, and/or power dremel instrumentation by the physician of record - [id number]. * Procedure Codes: 1 1056 TRIM SKIN LESIONS, 2 TO 4, Modifiers: XS [id number] DEBRIDE NAIL, 6 OR MORE, Modifiers: XS [id number] X-RAY EXAM OF RIGHT FOOT 3V, Modifiers: 26 , [id number] AFO ANK GAUNTLT PREFAB W FIT ADJ * Preventive Medicine: Counseling: D iscussion: - 14: Office or other outpatient visit for the [...] have encouraged the patient to call the office. M yositis/Tendonitis: T ENDONITIS: I explained to the patient the possible [...] pain) were answered to their verbally confirmed satisfaction, The patient was counseled on the diagnosis, treatment options, and importance for adherence to recomm, stretching, warm compresses. O rthotics: A FO - I explained to the patient the benefits of AFO use. Recommend AFO Lower Extremity Bracing to accomodate the patients deformity and result in pain relief without surgery. P .R.I.C.E.: T he patient was counseled on the use of P.R.I.C.E. and NSAIDS (if well tolerated) to aid in the recovery from their painful condition, Recommended Topical analgesics including Aspercream/Biofreeze/Voltaren gel as directed. Rx Medrol dose pack and instructed to follow packaging when taking. Recommend constast bathing and massaging the painful area with topical analgesics which patient noted he has at home. S hoe Gear Counseling: T he patient and I reviewed the types of shoes they should be wearing. My recommendation included obtaining a well-fitted shoe with a good supportive, non-foldable nor twistable sole, plenty of toe/room for the forefoot, and proper arch support. Based on todays examination, I recommended the patient look for new shoes, by having their feet professionally measured. We discussed that generally the best time of the day for a shoe fitting is the afternoon. Different shoes types and brands to best match the patients occupation and vocation were discussed. Specific brand selection will be up to the patient, their individual foot condition/deformities, and fit. The patient and I reviewed the standard new shoe break in period by wearing them for a few hours a day while checking for redness or sores as wear time is increased. The patient verbally confirmed to understanding the information discussed. X -rays: D iscussed and reviewed the X-rays with the patient. We discussed how the findings relate to the patients symptoms/complaints. Answered any and all questions.. Screening/Special Tests: F all Risk Screening: N o falls in the past year F ALLS: Screening for Future Fall Risk Have you had two or more falls in the past year? N o Have you had any falls with injury in the past year? N o * Follow Up: 6 Weeks,To see Dr Zheng * Images: * Sign off status: Completed true * Provider: Shawn Victoria DPM Date: 06/06/2024 Generated for Gretel lazaro/Néstor/eTransmitting on: 06/06/2024 06:57 PM EST History and Physical Notes * HPI (History of Present Illness) Category Sub-Category Detail Notes Category Not es At Risk footcare Pt States Last PCP Visit: Date: 5 Foot Pain Nature: aching, pulling, throbbing Location: Outside, Midfoot, Re arfoot, RIGHT Duration: 2 weeks Onset: activity, overuse, g radual, walking Course: worse Aggravated: any pressure, standi ng, walking Treatments: rest/alter normal da jose a activity, ice Physical Examination Category Sub-Category Detail Notes Section Note s [id number] ASO-AFO Application of ankle foot orthosis, ankle gauntlet, prefabricated, including fitting and adjustment: The patients condition requires a foot/ankle stabilizing orthotic to immobilize, and thereby stabilize, their musculoskeletal pathology. This appliance will permit the patient to inspect the extremity for signs of ischemia or any wound development. A ( Large, ) device size was fitted to the patient and inspected for comfort with the patient wearing it. The device was noted to be proper in length and width without rubbing, slippage, or tension. The straps were adjusted to the appropriate length and tightness. The patient was provided with written instructions on maintenance of the device, skin integrity inspection, and warranty information provided by the wide area network engineer, The patient signed an authorization for payment and benefits. The patient also received a copy of the current supplier standards and our office compliance protocol. All patient questions regarding the use of the device were addressed and answered to their verbally confirmed satisfaction. Patient signed confirmation form indicating receipt of this DME device Examination Category Sub-Category Detail Notes Category Not es Neurological SENSORY: Neurological exa m reveals intact sensorium, pain sensation normal, vibration sensation intact, pinprick sensation is normal in the lower extremities, Pt denies, anesthesia, burning, paresthesia, tingling, B/L TINEL'S COMPRESSION: Negative tarsal juanita og, kenyon pedis, and medial calcaneal nerves, Negative, Lateral sural nerve distribution, Right Dermatologic SKIN FINDINGS: Skin exam reveal s Keratotic lesion(s) located at, Plantar Heel(s), B/L Orthopedic GAIT ABNORMALITY: antalgic FOOT MORPHOLOGY: Pes Cavus structure, Semi-rigid, Decreased Ankle joint dorsiflexion ROM, knee flexed FOOTWEAR EVALUATION: OT were inspected a nd noted to be worn, but in good condition giving proper support at the present time DIGITAL DEFORMITIES: Digital contracture , PIPJ, 2-5 B/L, incompl-reducible with WB, or to push-up test, no over, nor underlapping TAILOR'S BUNION: Prominent 5th MTH/MP J, B/L TENDONITIS: Pain on palpation, i nflammation, and [...] Visual exam of foot performed:: Yes Date: 04/06/2025 DATE Sensory testing performed:: sensations d iminished Sensory and motor testing performed:: se nsations diminished Pedal pulse taking performed:: 2+ ORIENTED: person, place, and t belinda Footwear Evaluation Footwear Evaluation performe d:: Yes Ophthalmology Referral DIABETES EYE EXAM Procedure Perform ed:: Yes Date of Exam Performed: 10/17/2024 Diabetic Retinopathy Screening:: Yes Findings of Diabetic Eye Exam:: no retin opathy Vascular DP PULSES (B): 2/4, B/L PT PULSES (B): 2/4, B/L CAPILLARY FILL TIME: immediate, all digi ts, B/L TEMPERTURE GRADIENT (C): normal, warm to cool, proximal to distal, B/L, B/L TROPHIC CONDITION-TEXTURE/ELASTICITY/TURGOR/HAIR GROWTH (B): normal, B/L EDEMA (C): absent, B/L CLAUDICATION (C): denies, B/L REST PAIN: denies, B/L PIGMENTATION: normal, B/L Nails NAILS are: Elongated, overg rown, dystrophic, greater than 3mm thick, discolored and friable with crumbly malodorous subungual debris, with pain on palpation, , TA, T1, T2, T3, T4, T5, T6, T7, T8, T9 X-Rays - IMAGING REPORT Findings: normal b one consistent for patients age and sex, increase in soft tissue contour and density at the symptomatic site, hypertrophy 5th MTH, hypertrophy of 5th MT Base/Styloid process Fracture: Negative fractures i dentified Foot structure: reveals cavus foot s tructure with, posterior break in cyma line, increased calcaneal inclination Views: 3 views of Foot, RIG HT, AP, LAT, MO Taken by trained Podiatric Marketing Consultant ( DC) Clinical Indication(s): Evaluate for Fra cture, Evaluate Biomechanical Deformity
[2025-04-06 13:44] LABS: Appearance Urine Clear; Glucose Urine UA 250 mg/dL (Negative); PH 5.5 (5.0-9.0); Specific Gravity - Urine 1.020 (1.005-1.025)
[2025-04-06 14:35] LABS: Microalbum/Creatinine Ratio Ur 6.5 ug/mg cr (<30)
--- OUTSIDE RECORDS SUMMARY | 2025-04-06 18:57 | XMS_ITS | Patient Health Record ---
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 Role Phone LoriVasilen Primary Care Provider Allergies Allergen (clinical drug ingredient) Drug/Non Drug Allergy documented on EMR Reaction Allergy Type Onset Date Status meperidine demerol (uncoded) tongue swelling Allergy Active Results Component Value Reference Range Notes Complete Blood Count Auto Di ff Reviewed date:09/20/2024 04:55:16 PM Interpretation: Performing Lab:[facility], [address] [place] [phone] Notes/Report: White Blood Count 6.1 4.8-10.8 X10*3/uL [...] 0.0-0.2 /100WBC Neutrophils Absolute Auto 4.6 2.0-8.3 x10*3/uL Imm Gran Abs Auto 0.02 0.00-0.03 X10*3/uL Lymphocytes Absolute Auto 0.8 1.2-4.9 X10*3/uL Monocytes Absolute Auto 0.5 0.1-1.2 X10*3/uL Eosinophils Absolute Auto 0.1 0.0-0.4 X10*3/uL Basophils Absolute Auto 0.0 0.0-0.2 X10*3/uL NRBC Abs Auto 0.000 0.0-0.012 X10*3/uL Comprehensive Pace. Panel Fa st Reviewed date:09/20/2024 12:47:49 PM Interpretation: Performing Lab:[facility], [address] [place] [phone] Notes/Report: Sodium 138 135-145 mmol/L Potassium 4.1 [...] Panel Reviewed date:09/20/2024 12:10:39 PM Interpretation: Performing Lab:[address] [phone] Notes/Report: Triglycerides 124 <150 mg/dL Desirable Triglyceride: [...] (Free>4and<10) Reviewed date:09/20/2024 12:05:21 PM Interpretation: Performing Lab:[address] [phone] Notes/Report: PSA,Total (Free>4and<10) 2.35 0.00-4.00 ng/mL A [...] Random Reviewed date:09/20/2024 12:05:41 PM Interpretation: Performing Lab:[address] [phone] Notes/Report: Creatinine Urine 128.50 Microalbumin Urine 12.0 Microalbum/Creatinine Ratio Ur 9.3 <30 ug/mg cr Albumin/Creatinine Ratio Reference Ranges: Normal: < 30 ug/mg creatinine Microalbuminuria: 30 - 300 ug/mg creatinine Clinical Albuminuria: > 300 ug/mg creatinine Hemoglobin A1c Reviewed date:09/20/2024 12:05:31 PM Interpretation: Performing Lab:[address] [phone] Notes/Report: Hemoglobin A1c % 6.0 <6.0 % [...] average glucose, using the formula of the [id number]-[id number] Average Glucose study (ADAG), Diabetes Care, Vol.31,#8, Dec. 2007 UA ClnCatch+Micro w/rflx Cul t Reviewed date:09/20/2024 12:45:39 PM Interpretation: Performing Lab:[address] [phone] Notes/Report: Urine, Clean Catch Color Urine Yellow Appearance Urine Clear PH 6.0 5.0-9.0 Glucose Urine UA Negative Negative mg/dL Urine Blood Negative Negative Specific [place] - Urine 1.015 1.005-1.025 Urine Protein Negative [...] ff Reviewed date:03/30/2025 12:48:04 PM Interpretation: Performing Lab:[facility], [address] [place] [phone] Notes/Report: White Blood Count 6.1 4.8-10.8 X10*3/uL [...] 0.0-0.2 /100WBC Neutrophils Absolute Auto 4.5 2.0-8.3 x10*3/uL Imm Gran Abs Auto 0.02 0.00-0.03 X10*3/uL Lymphocytes Absolute Auto 0.9 1.2-4.9 X10*3/uL Monocytes Absolute Auto 0.6 0.1-1.2 X10*3/uL Eosinophils Absolute Auto 0.1 0.0-0.4 X10*3/uL Basophils Absolute Auto 0.0 0.0-0.2 X10*3/uL NRBC Abs Auto 0.000 0.0-0.012 X10*3/uL Liver Panel Reviewed date:03/30/2025 02:58:12 PM Interpretation: Performing Lab:[facility], [address] [place] [phone] Notes/Report: Bilirubin Total 1.0 0.0-1.0 mg/dL Bilirubin Direct 0.4 0.0-0.5 mg/dL Aspartate Amino Transferase 27 5-37 U/L Alanine Aminotransferase 24 0-40 U/L Total Protein 7.3 6.5-8.0 g/dL Albumin Level 4.6 3.5-5.0 g/dL Alkaline Phosphatase 81 39-117 U/L Glucose Fasting Reviewed date:03/30/2025 04:47:32 PM Interpretation: Performing Lab:[facility], [address] [place] [phone] Notes/Report: Glucose Fasting 132 60-99 mg/dL A fasting glucose of 126 mg/dl or greater on more than one occasion is considered diagnostic of diabetes. Lipid Panel with Reflex Reviewed date:03/30/2025 02:58:36 PM Interpretation: Performing Lab:[facility], [address] [place] [phone] Notes/Report: Triglycerides 116 <150 mg/dL Desirable Triglyceride: [...] A1c Reviewed date:03/30/2025 12:43:58 PM Interpretation: Performing Lab:[facility], [address] [place] [phone] Notes/Report: Hemoglobin A1c % 6.2 <6.0 % [...] average glucose, using the formula of the [id number]-[id number] Average Glucose study (ADAG), Diabetes Care, Vol.31,#8, Dec. 2007 Urinalysis and Microscopic Reviewed date:04/06/2025 04:53:42 PM Interpretation: Performing Lab:[facility], [address] [place] [phone] Notes/Report: Color Urine Yellow Appearance Urine Clear PH 5.5 5.0-9.0 Glucose Urine UA 250 Negative mg/dL Urine Blood Negative Negative Specific [place] - Urine 1.020 1.005-1.025 Urine Protein Negative Neg-Trace mg/dL Urine Ketones Trace Negative mg/dL Nitrite Urine Negative Negative Leukocyte Esterase Urine Negative Negative RBC Urine 0-2 0-2 /HPF WBC Urine 0-5 0-5 /HPF Squamous Epithelial Cell Urine 0-2 0-2 /HPF Bacteria Urine None Seen None Seen Hyaline Casts Urine 0-2 0-2 /LPF Microalbumin, Random Reviewed date:04/06/2025 04:47:57 PM Interpretation: Performing Lab:[facility], [address] [place] [phone] Notes/Report: Creatinine Urine 121.49 Microalbumin Urine 8.0 Microalbum/Creatinine Ratio Ur 6.5 <30 ug/mg cr Albumin/Creatinine Ratio Reference Ranges: Normal: < 30 ug/mg creatinine Microalbuminuria: 30 - 300 ug/mg creatinine Clinical Albuminuria: > 300 ug/mg creatinine Glucose, finger stick Reviewed date:04/28/2024 11:23:40 AM Interpretation: Performing Lab: Notes/Report: Value 106 Glucose, finger stick Reviewed date:06/03/2024 11:38:31 AM Interpretation: Performing Lab: Notes/Report: Value 126 Complete Blood Count Auto Di ff Reviewed date:07/11/2024 05:23:05 PM Interpretation: Performing Lab:[facility], [address] [place] [phone] Notes/Report: White Blood Count 10.2 4.8-10.8 X10*3/uL [...] 0.0-0.2 /100WBC Neutrophils Absolute Auto 8.0 2.0-8.3 x10*3/uL Imm Gran Abs Auto 0.04 0.00-0.03 X10*3/uL Lymphocytes Absolute Auto 1.3 1.2-4.9 X10*3/uL Monocytes Absolute Auto 0.8 0.1-1.2 X10*3/uL Eosinophils Absolute Auto 0.1 0.0-0.4 X10*3/uL Basophils Absolute Auto 0.1 0.0-0.2 X10*3/uL NRBC Abs Auto 0.000 0.0-0.012 X10*3/uL Comprehensive Pace. Panel Fa st Reviewed date:07/11/2024 05:22:26 PM Interpretation: Performing Lab:[facility], [address] [place] [phone] Notes/Report: Sodium 140 135-145 mmol/L Potassium 4.3 [...] date:03/13/2025 12:36:34 PM Interpretation: Performing Lab: Notes/Report: [address] [address] XRay Report Signed Patient: Rivas Ventura MR#: [id number] : 1950 Acct:[id number] Age/Sex: 74 / M ADM Date: 03/11/25 Loc: [facility] Attending Dr: Delmar Sandoval MD Ordering Physician: Delmar Sandoval MD Date of Service: 03/11/25 Procedure(s): XR lumbar spine 2-3V Accession Number(s): [id number] cc: Delmar Sandoval MD Reason for Exam: [...] 03/13/25 0704 DD/ 0740 TD/TT: 03/11/25 0749 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 [address] [address] XRay Report Signed Patient: Rivas Ventura MR#: [id number] : 1950 Acct:[id number] Age/Sex: 74 / M ADM Date: 03/11/25 Loc: [facility] Attending Dr: Delmar Sandoval MD Ordering Physician: Delmar Sandoval MD Date of Service: 03/11/25 Procedure(s): XR lum bar spine 2-3V Accession Number(s): [id number] cc: Delmar Sandoval MD Reason for Exam: [...] 03/13/25 0704 DD/ 0740 TD/TT: 03/11/25 0749 Runstitching Machine Operator: TATI Burgess Reviewed date:03/30/2025 12:43:42 PM Interpretation: Performing Lab:[facility], [address] [place] [phone] Notes/Report: Isabel Burgess See Note Specimen held untested for 24 hours; Call to request Chemistry testing. Reason For Referral No Information Medications Medication SIG (Take, Route, Frequency, Duration) Notes Start Date End Date Status Ciclopirox 0.77 % 1 application Externally Twice a day for 30 days 09/27/2024 Active Omeprazole 20 MG TAKE 1 CAPSULE BY [facility] EVERY DAY 30 MINUTES BEFORE BREAKFAST Active Lisinopril 10 MG TAKE 1 TABLET BY [facility] EVERY DAY for 90 Active Valtrex 1 GM 2 tablet Orally twic e a day for 1 days 03/26/2021 Not-Taking Ciclopirox 0.77% as directed applied topically twice a day for 30 days 09/22/2023 Active Triamcinolone Acetonide 0.025 % 1 application Externally Once a day for 30 days 04/06/2025 Active Januvia 50 MG TAKE 1 TABLET BY [facility] EVERY DAY Active Allopurinol 300 MG TAKE 1 TABLET BY [facility] EVERY DAY for 90 Active OneTouch Ultra - USE TO TEST BLOOD [place] TWICE DAILY for 50 Active Triamcinolone Acetonide 0.1 % APPLY TOPICALLY TO THE AFFECTED AREA TWICE DAILY FOR 14 DAYS Externally twice a day for 30 days Active Rosuvastatin Calcium 10 MG 1 tablet Orally Once a day 10/27/2023 Active Ciclopirox 0.77 % 1 application Externally Twice a day for 7 days 07/14/2024 Active metFORMIN HCl 500 MG 1 tablet with a susana l Orally twice a day for 30 day(s) 04/15/2022 Not-Taking Ibuprofen 800 MG TAKE 1 TABLET BY [facility] THREE TIMES DAILY for 90 Active Indomethacin 50 MG 1 capsule with food Orally Three times a day for 14 days 12/11/2011 Not-Taking OneTouch Delica Plus [id number] - USE TO TEST BLOOD [place] TWICE DAILY for 50 Active Tamsulosin HCl 0.4 MG TAKE 1 CAPSULE BY MOUTH EVERY DAY for 90 Active Fluticasone Propionate 50 MCG/ACT SHAKE LIQUID AND USE 1 SPRAY IN EACH NOSTRIL TWICE DAILY for 30 Active Immunizations Vaccine Route Administration [...] W/U Status Risk Notes Problem Thyroid nodule (772653517) Thyroid nodule (E04.1) Active confirmed Problem 807339039 Thrombocytopenia (D69.6) Active confirmed Problem 179529630 Irritable bowel syndrome with diarrhea (K58.0) Active confirmed Problem Prostatism (61074245) Prostatism (N40.0) Active confirmed Problem 84957753 Anxiety (F41.9) Active confirmed Problem 83782382 Lymphocytopenia (D72.810) Active confirmed Problem 8275700 Arthritis (M19.90) Active confirmed Problem 918780764 Lumbar disc dise ase (M51.9) Active confirmed Problem 856097235 Tubular adenoma of colon (D12.6) Active confirmed Problem 27156901 Essential hypert ension (I10) Active confirmed Problem 73696082 Intrinsic eczema (L20.84) Active confirmed Problem Atherosclerotic heart disease of [place] coronary artery without angina pectoris (097327414706560) Coronary 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 (I25.10) Active confirmed Problem 414692111 Tension headache (G44.209) Active confirmed Problem 236845838 Irritable bowel syndrome with constipation (K58.1) Active confirmed Problem 687008380 Pure hypercholesterolemia (E78.00) Active confirmed Problem 38363107 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, 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 Problem Type II diabetes mellitus without complication (006515607) Controlled type 2 diabetes mellitus without complication, without long-term current use of insulin (E11.9) Active confirmed Problem 62710017 Sinusitis chroni c, frontal (J32.1) Active confirmed Problem 42616735 Post concussion syndrome (F07.81) Active confirmed Problem 855378439 Hand arthritis (M19.049) Active confirmed Problem 386492428 Esophageal dysfu nction (K22.4) Active confirmed Problem 632896276 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) Active confirmed Problem 881460090 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 Problem 43058507 Multinodular goi ter (nontoxic) (E04.2) Active confirmed Problem 994485885 Notalgia paresth etica (R20.2) Active confirmed Problem 75040230 Aortic atheroscl erosis (I70.0) Active confirmed Problem 436958302 Multiple thyroid nodules (E04.2) Active confirmed Vital Signs Blood pressure diastolic 84 mm Hg 04/06/2025 Height 72 in 04/06/2025 Blood pressure systolic 150 mm Hg 04/06/2025 Weight 236 lbs 04/06/2025 BMI 32 kg/m2 04/06/2025 Encounters Encounter Location Date Provider Diagnosis Delmar Sandoval MD [address] [place], [place] [id number] 04/07/2024 Delmar Sandoval Encounter for immuni zation Z23 Delmar Sandoval MD [address] [place], [place] [id number] 09/20/2024 Delmar Sandoval Essential hypertensi on I10 ; Pure hypercholesterolemia E78.00 ; Lymphocytopenia D72.810 ; Controlled type 2 diabetes mellitus without complication, without long-term current use of insulin E11.9 and Prostatism N40.0 Delmar Sandoval MD [address] [place] [id number] 03/09/2025 Delmar Sandoval Encounter for administration of vaccine Z23 Delmar Sandoval MD [address] [place] [id number] 03/30/2025 Delmar Sandoval Pure hypercholestero lemia E78.00 ; Thrombocytopenia D69.6 and Controlled type 2 diabetes mellitus without complication, without long-term current use of insulin E11.9 Delmar Sandoval MD [address] [id number] 04/06/2025 Delmar Sandoval Controlled type 2 di abetes mellitus without complication, without long-term current use of insulin E11.9 ; Thyroid nodule E04.1 and Cheilosis K13.0 Delmar Sandoval MD [address] [place] [id number] 04/18/2024 Delmar Sandoval Abdominal discomfort R10.9 Delmar Sandoval MD [address] [id number] 04/28/2024 Delmar Sandoval Controlled type 2 di abetes mellitus without complication, without long-term current use of insulin E11.9 ; Irritable bowel syndrome with diarrhea K58.0 and Aortic atherosclerosis I70.0 Delmar Sandoval MD [address] [place] [id number] 06/03/2024 Delmar Sandoval Controlled type 2 di abetes mellitus without complication, without long-term current use of insulin E11.9 and Irritable bowel syndrome with constipation K58.1 Delmar Sandoval MD [address] [place] [id number] 06/13/2024 Delmar Sandoval Pruritus L29.9 Delmar Sandoval MD [address] [place] [id number] 07/11/2024 Delmar Sandoval Notalgia paresthetic a R20.2 ; Pruritus L29.9 and Fungal infection B49 Delmar Sandoval MD [address] [place] [id number] 07/29/2024 Delmar Sandoval Essential hypertensi on I10 and Rash R21 Delmar Sandoval MD [address] [place] [id number] 09/27/2024 Delmar Sandoval Essential hypertensi on I10 ; Pure hypercholesterolemia E78.00 ; Thrombocytopenia D69.6 ; Fungal infection B49 ; Prostatism N40.0 ; Controlled type 2 diabetes mellitus without complication, without long-term current use of insulin E11.9 and Esophageal dysfunction K22.4 Delmar Sandoval MD [address] [place] [id number] 07/14/2024 Delmar Sandoval MD [address] [place] [id number] 08/04/2024 Delmar Sandoval Multinodular goiter (nontoxic) E04.2 Delmar Sandoval MD [address] [place] [id number] 11/10/2024 Delmar Sandoval Fungal infection B49 ; Rash R21 and Yeast infection of the skin B37.2 Delmar Sandoval MD [address] [place] [id number] 11/17/2024 Delmar Sandoval MD [address] [place] [id number] 01/02/2025 Delmar Sandoval MD [address] [id number] 03/10/2025 Delmar Sandoval Back pain M54.9 Assessments Encounter Date Diagnosis (ICD Code) Assessment Notes Treatment Notes Treatment Clinical Notes Section Notes 04/07/2024 Encounter for immunization (ICD-10 - Z23) 09/20/2024 Essential hypertensi on (ICD-10 - I10) 03/09/2025 Encounter for administration of vaccine (ICD-10 - Z23) 03/30/2025 Pure hypercholesterolemia (ICD-10 - E78.00) 04/06/2025 Controlled type 2 diabetes mellitus without complication, without long-term current use of insulin (ICD-10 - E11.9) 04/06/2025 Thyroid nodule (ICD- 10 - E04.1) biopsy recommended. will speak with dr lang and see if there is someone to do it at [facility] 04/18/2024 Abdominal discomfort (ICD-10 - R10.9) pending diagnostic testing, althourh it comes on with exertion, it comes on with eating mostly and is tender to palpation. has stress test for same thing 2 years ago and was negative/ test will be booked at [facility] 04/28/2024 Controlled type 2 diabetes mellitus [...] - E78.00) 03/30/2025 Thrombocytopenia (ICD-10 - D69.6) 04/06/2025 Cheilosis (ICD-10 - K13.0) 04/28/2024 Aortic atheroscleros is (ICD-10 - I70.0) 07/11/2024 Fungal infection (ICD-10 - B49) 09/27/2024 Thrombocytopenia (ICD-10 - D69.6) stable, will contnue to monitor 11/10/2024 Rash (ICD-10 - R21) 09/20/2024 Lymphocytopenia (ICD -10 - D72.810) 03/30/2025 Controlled type 2 diabetes mellitus without complication, without long-term current use of insulin (ICD-10 - E11.9) 09/27/2024 Fungal infection (ICD-10 - B49) stable, [...] the future order folder for 2025 at [facility] Plan Of Treatment Pending Test Test [...] con 01/15/2024 US bladder 01/03/2022 US thyroid 04/01/2024 US thyroid 08/04/2024 XR hand LT min 3V 04/21/2023 Future Test Test Name Order Date US THYROID 12/18/2020 US THYROID 04/21/2024 Next Appt Details Provider Name:Delmar Rene ier, 07/10/2025 10:00:00 AM, [address] [place] [address], [address] [place] [address], [phone], Provider Name:Delmar Rene ier, 09/22/2025 07:15:00 AM, [address] [place] [address], [address] [place] [address], [phone], Provider Name:Delmar Rene ier, 09/29/2025 08:30:00 AM, [address] [place] [address], Suite [facility], [place], [place], [phone], Insurance Providers Payer Name Payer Address Payer Phone Subscriber Number Group Number Insured Name Patient Relationship to Insured Coverage Start Date Coverage End Date [employer] [address] [place] [address] [id number] Rivas Ventura Self - patient is the insured [employer] [facility] P [facility] [id number] [place] [phone] [id number] Rivas Ventura Self - patient is the [...]
--- OUTSIDE RECORDS SUMMARY | 2025-04-06 18:58 | XMS_ITS | Patient Health Record ---
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 Name Role Phone Lori NEW, [place] Primary Care Provider Lizzie Vivar Unavailable [phone] Adrien Victoria Unavailable [phone] Allergies Allergen (clinical drug ingredient) Drug/Non Drug Allergy documented on EMR Reaction Allergy Type Onset Date Status meperidine Demerol swelling, itchy Drug Allergy Active dapagliflozin Farxiga rash Drug Allergy Act danica amoxicillin Amoxicillin Unknown Drug Allergy Act danica Results Component Value Reference Range Notes X ray : Foot, right 3V Reviewed date:04/06/2025 05:37:26 PM Interpretation:See Examination above Performing Lab: Notes/Report: See Examination above HEMOGLOBIN A1C (GLYCOHEMOGLO BIN) Reviewed date:06/23/2024 07:51:29 AM Interpretation: Performing Lab: Notes/Report: HEMOGLOBIN A1C % (HH) 5.7 HEMOGLOBIN A1C (GLYCOHEMOGLO BIN) Reviewed date:09/26/2024 08:21:23 AM Interpretation: Performing Lab: Notes/Report: HEMOGLOBIN A1C % (HH) 5.9 HEMOGLOBIN A1C (GLYCOHEMOGLO BIN) Reviewed date:04/06/2025 08:46:32 AM Interpretation: Performing Lab: Notes/Report: HEMOGLOBIN A1C % (HH) 6.2 Reason For Referral No Information Medications Medication SIG (Take, Route, Frequency, Duration) Notes Start Date End Date Status Januvia 50 MG as directed Orally Active Omeprazole 20 MG 1 capsule 30 minutes before morning meal Orally Once a day; Duration: 30 day(s) PRN Active Medrol amparo 4mg as directed orally a s directed; Duration: 6 days 04/06/2025 Active Custom Orthotics as directed 08/04/2024 Active Night Splint AFO - L1930 1 wear when at rest; Duration: 30 days Active Allopurinol 300 MG 1 tablet Orally Once a day Active ASO Ankle/Foot Stablizing AFO As directed Wear Daily; Duration: as needed 04/06/2025 Active Custom Orthotics as directed 04/19/2020 Active Rosuvastatin Calcium Active Lisinopril 10 MG 1 tablet Orally Once a day; Duration: 30 day(s) Active Ibuprofen Orally prn Active Tamsulosin HCl 0.4 MG 1 capsule Orally O nce a day; Duration: 30 day(s) Active Custom Orthotics as directed 12/23/2012 Not-Taking Prednisone Not-Takin g Hydrocortisone Not-T aking Indomethacin 50 MG 1 capsule with food Orally three times a day; Duration: 30 day(s) PRN Not-Taking Simvastatin 20 MG 1 tablet in the evening Orally Once a day; Duration: 30 day(s) Not-Taking Colchicine 0.6 MG Orally Once a day Not-Taking metFORMIN HCl ER 500 MG 1 tablet with ev ening meal Orally Once a day; Duration: 30 day(s) Not-Taking Azithromycin 250 MG Oral; Duration: 5 Days Not-Taking Immunizations Vaccine Route Administration Date Status Comme nts Influenza Unknown 01/30/2021 Administered Influenza Unknown 02/17/2022 Administered Influenza Unknown 02/16/2023 Administered Influenza Unknown 01/17/2024 Administered Influenza Unknown 02/15/2025 Administered COVID-19 Moderna Vaccine Unknown 09/10/2020 Administere d 1# 08/20/20 Social History Tobacco Use: Social History Observation Description Date Details (start date - stop date) Never Smoker NA - NA Tobacco use other than smoking: Question Answer Notes Are you an other tobacco user? No Tobacco Control (Standard) Question Answer Notes Tobacco use: Nonsmoker Additional Findings: Tobacco non-user Current no nsmoker AUDIT-C (Standard) Question Answer Notes Did you have a drink containing alcohol in the p ast year? No Points 0 Interpretation Negative Problems Problem Type SNOMED Code ICD Code Onset Dates Problem Status W/U Status Risk Notes Problem Peroneal tendinitis (70919903) Peroneal tendinitis, right leg (M76.71) Active confirmed Problem Polyneuropathy due to type 2 diabetes mellitus (633830779) Type 2 diabetes mellitus with diabetic polyneuropathy (E11.42) Active confirmed Problem Acquired cavus deformity of right foot (disorder) (5981663136365970 ) Cavus deformity of right foot (Q66.71) Active confirmed Vital Signs Blood pressure diastolic 80 mm Hg 04/06/2025 Height 6ft 3in in 04/06/2025 Blood pressure systolic 138 mm Hg 04/06/2025 Weight 231 lbs 04/06/2025 BMI 28.87 kg/m2 04/06/2025 Procedures Procedure Date Ordered Date Performed Result Body Sit e 42324-DJSNRTB NAIL, 6 OR MORE 06/23/2024 N/A 83853-WUWS SKIN LESIONS, 2 TO 4 06/23/2024 N/A 38564-WZKHHVY NAIL, 6 OR MORE 09/26/2024 N/A 52170-MCVX SKIN LESIONS, 2 TO 4 09/26/2024 N/A 43506-NYNUQTS NAIL, 6 OR MORE 01/02/2025 N/A 05407-ZLWY SKIN LESIONS, 2 TO 4 01/02/2025 N/A 78416-IBGTBBH NAIL, 6 OR MORE 04/06/2025 N/A 10900-TCHX SKIN LESIONS, 2 TO 4 04/06/2025 N/A Encounters Encounter Location Date Provider Diagnosis [address] [address] 06/23/2024 Lizzie Black Achilles tendinitis of right lower extremity M76.61 ; Peroneal tendinitis, right leg M76.71 ; Neuritis of right foot G57.91 ; Tinea unguium B35.1 ; Type 2 diabetes mellitus with diabetic polyneuropathy E11.42 ; Pain of right heel M79.671 ; Short Achilles tendon (acquired), right ankle M67.01 ; Bursitis of right foot M77.51 and Hypertrophy of bone M89.30 [facility] [address] [address] 08/04/2024 Lizzie Black Peroneal tendinitis, right leg M76.71 ; Bursitis of right foot M77.51 ; Neuritis of right foot G57.91 ; Type 2 diabetes mellitus with diabetic polyneuropathy E11.42 and Hypertrophy of bone M89.[address] [address] 09/26/2024 Lizzie Black Tinea unguium B35.1 and Type 2 diabetes mellitus with diabetic polyneuropathy E11.[address] [address] 01/02/2025 Lizzie Black Tinea unguium B35.1 and Type 2 diabetes mellitus with diabetic polyneuropathy E11.[address] [address] 04/06/2025 Adrien Vitcoria Type 2 diabetes mellitus with diabetic polyneuropathy E11.42 ; Tinea unguium B35.1 ; Pain in right foot M79.671 ; Peroneal tendinitis, right leg M76.71 ; Hypertrophy of bone, right ankle and foot M89.371 and Cavus deformity of right foot Q66.[address] [address] 07/25/2024 Lizzie Black Assessments Encounter Date Diagnosis [...] E11.42) 01/02/2025 Tinea unguium (ICD-10 - B35.1) 04/06/2025 Type 2 diabetes mellitus with diabetic polyneuropathy (ICD-10 - E11.42) 04/06/2025 Tinea unguium (ICD-10 - B35.1) 04/06/2025 Pain in right foot (ICD-10 - M79.671) 08/04/2024 Neuritis of right foot (ICD-10 - G57.91) 01/02/2025 Type 2 diabetes mellitus with diabetic polyneuropathy (ICD-10 - E11.42) 06/23/2024 Neuritis of right foot (ICD-10 - G57.91) 06/23/2024 Tinea unguium (ICD-10 - B35.1) 08/04/2024 Type 2 diabetes mellitus with diabetic polyneuropathy (ICD-10 - E11.42) 04/06/2025 Peroneal tendinitis, right leg (ICD-10 - M76.71) 08/04/2024 Hypertrophy of bone (ICD-10 - M89.30) 06/23/2024 Type 2 diabetes mellitus with diabetic polyneuropathy (ICD-10 - E11.42) 04/06/2025 Hypertrophy of bone, right ankle and foot (ICD-10 - M89.371) 06/23/2024 Pain of right heel (ICD-10 - M79.671) 04/06/2025 Cavus deformity of right foot (ICD-10 - Q66.71) 06/23/2024 Short Achilles tendon (acquired), right ankle (ICD-10 - M67.01) 06/23/2024 Bursitis of right foot (ICD-10 - M77.51) 06/23/2024 Hypertrophy of bone (ICD-10 - M89.30) Plan Of Treatment Pending Test Test Name Order Date X ray : Foot, right 3V 12/23/2012 X ray : Foot, right 3V 03/10/2016 01170-SNHEION NAIL, 6 OR MORE 05/08/2022 51839-PFOWSMT NAIL, 6 OR MORE 11/06/2022 53166-GWOARWJ NAIL, 6 OR MORE 05/07/2023 56678-JMNWPPH NAIL, 6 OR MORE 08/06/2023 55960-TMLZVJB NAIL, 6 OR MORE 11/05/2023 37124-NVSYXUH NAIL, 6 OR MORE 03/17/2024 65817-FURRAZY NAIL, 6 OR MORE 06/23/2024 37242-LJOGIGR NAIL, 6 OR MORE 04/28/2019 53602-JVXBHZN NAIL, 6 OR MORE 10/17/2019 78484-XNQQVPQ NAIL, 6 OR MORE 04/19/2020 28907-RTAXKTR NAIL, 6 OR MORE 10/18/2020 65826-EGUCGKM NAIL, 6 OR MORE 05/02/2021 83382-TSIVPOE NAIL, 6 OR MORE 10/31/2021 51252-TMMQNLW NAIL, 6 OR MORE 09/26/2024 10477-TDYDMCE NAIL, 6 OR MORE 01/02/2025 81087-HYRAWXY NAIL, 6 OR MORE 04/06/2025 56044-JGIMQUR NAIL, 1-5 01/01/2017 40135-OJACABR NAIL, 1-5 04/16/2017 41593-VEEHQWL NAIL, 1-5 06/25/2017 31688-FPNKPMX NAIL, 1-5 12/24/2017 95135-KGFXFST NAIL, 1-5 07/01/2018 02736-ODQZNPR NAIL, 1-5 12/30/2018 43248-Yttbvkza Plate 05/08/2022 16569-IEUT SKIN LESIONS, 2 TO 4 04/06/20 25 64563-XWSG SKIN LESIONS, 2 TO 4 01/03/20 25 53953-QGMV SKIN LESIONS, 2 TO 4 06/23/19 25 15235-RQVR SKIN LESIONS, 2 TO 4 09/27/19 25 Next Appt Details Provider Name:Lizzie Zheng , 05/08/2025 08:00:00 AM, [address] [facility], [place], [address], Insurance Providers Payer Name Payer Address Payer Phone Subscriber Number Group Number Insured Name Patient Relationship to Insured Coverage Start Date Coverage End Date [facility] [address] [place] [address] [id number] Rivas Ventura Self - patient is the insured [employer] [address] [place] [address] [id number] Rivas Ventura Self - patient is the [...] on thigh 09/2023 Hospitalization History Reason Date(Month/Year) [facility] ( [place])- Concussion-Er visit- Following with Concussion center 12/10/2018
--- OUTSIDE RECORDS SUMMARY | 2025-04-06 18:59 | XMS_ITS | Patient Health Record ---
Author Organization [facility] Address [address] [place] [address] Care Team Providers Care Supervisor Of Officials Name Role Phone Delmar Sandoval MD Primary Care Provider Brayden Son [phone] Allergies Allergen (clinical drug ingredient) Drug/Non Drug Allergy documented on EMR Reaction Allergy Type Onset Date Status meperidine Demerol Unknown Drug Allergy Active Reason For Referral No Information Medications Medication SIG (Take, Route, Frequency, Duration) Notes Start Date End Date Status Omeprazole 20 MG Capsule Delayed Release TAKE 1 CAPSULE BY MOUTH EVERY DAY 30 MINUTES BEFORE BREAKFAST Oral; Duration: 90 Active Ibuprofen 800 MG Tablet Orally as needed for arthritis Active Januvia 50 MG Tablet TAKE [address] [facility] EVERY DAY Oral; Duration: 30 Active Fiber Active Lisinopril 10 MG Tablet 1 tablet Orally Once a day; Duration: 30 day(s) Active Rosuvastatin Calcium 10 MG Tablet Oral; Duration: 90 Active Tamsulosin HCl 0.4 MG Capsule Oral; Duration: 90 Active Allopurinol 300 MG Tablet Oral; Duration: 90 Active Immunizations Vaccine Route Administration Date Status Comme nts Influenza Unknown 03/18/2017 Administered Social History Tobacco Use: Social History Observation Description Date Details (start date - stop date) Former Smoker NA - NA Social History Tobacco Use: Social Info Question Answer Notes Tobacco Use/Smoking Patient is a former smoker How long has it been since you last smoked? 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 [employer] Section Notes: Nonsmoker > 20 yrs; occasion al alcohol Nonsmoker > 24 yrs; occasion al alcohol Nonsmoker > 30yrs; occasiona l alcohol /wine Problems Problem Type SNOMED Code ICD Code Onset Dates Problem Status W/U Status Risk Notes Problem Screening for malignant neoplasm of colon (474623526) Encounter for screening for malignant neoplasm of colon (Z12.11) Active confirmed Problem History of adenomatous polyp of colon (011635526) History of adenomatous polyp of colon (Z86.010) Active confirmed Problem Diverticular disease of colon (004337971) Diverticulosis of large intestine without perforation or abscess without bleeding (K57.30) Active confirmed Problem superintendent terminal current use of non-steroidal anti-inflammator y drug (599487355710964 ) NSAID long-term use (Z79.1) Active confirmed Problem Pre-procedure evaluation check (235723000) Pre-procedural examination (Z01.818) Active confirmed Plan Of Treatment Future Test Test Name Order Date COLONOSCOPY 04/27/2012 COLONOSCOPY 10/07/2017 COLONOSCOPY 05/26/2023 Insurance Providers Payer Name Payer Address Payer Phone Subscriber Number Group Number Insured Name Patient Relationship to Insured Coverage Start Date Coverage End Date MEDICARE OF [place] [address] [place] [address] [id number] LUZ MURPHY Self - patient is the insured [employer] CLAIMS [address] [place] [address] [id number] LUZ MURPHY Self - patient is the insured Medical (General) History Medical History History ICD Code Colon polyps-tubular adenoma s & hyperplastic colonoscopies in 2004, 2006, and 09/2012 Diverticulosis/diverticulitis Internal hemorrhoids Hyperlipidemia HTN 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 in feet and ankles, Achilles tendons NIDDM exacerbated by the UTI's Enlarged prostate with UTI's Colonoscopy 2017 with 1 small tubular ad enoma Concussion in 2019 Surgical History Surgery Date(Month/Year) Disc surgery-L4/L5 Eye surgery
== END 2025-04-06 13:33 | disposition home or self-care (01) ==
LOC: HO.LNP 13:32
PROVIDERS: Visit Provider Internal Medicine
DX: E11.9 Type 2 diabetes mellitus without complications (principal)
CPT/HCPCS: 81001; 82043; 82570